=== PATIENT | female | born 1945 | race Caucasian/White ===

== ENCOUNTER 2016-10-10 11:05 | Emergency (ER) | payer MEDICARE, MEDICAID ==
[~2016-10-10 11:05] MED LIST: ACET50TA PO; ACTO15TA6 PO; ADV250INH INH; ADVA250A IN; ALBU0.084 IN; ALBU0.5N NEB; ALBUPOW9 XX; AVEL1TAB PO; CART180C PO; CLOT10TR MT; COLA50CA3 PO; COMBIN INH; DILT180C7 PO; DOXY100C42 PO; DUONSOL NEB; FISHCAP PO; FISHOIL PO; IPRASOL12 IN; JANU100T PO; LASI20TA PO; LASI40TA PO; LEVO500T PO; LEVO750T PO; LIPI10TA PO; LOPR0.77 TOP; METF1000 PO; PRED10TA2 PO; PRED20TA PO; PRED50TA2 PO; SALI0.653; SYNT88TA2 PO; TRIA0.023; TRIA55SP; TYLE325T5 PO; VENTAER IN; VITACAP33 PO; ZANT150T PO; [UNRECOGNIZED DRUG - CODE] TOP; oxygen
--- NOTE | 2016-10-10 15:16 | EDDOCDS ---
Physician Documentation [facility] Name: Brianna Mercedes Age: 71 yrs Sex: Female : 1945 Arrival Date: 10/10/2016 Time: 11:05 Bed TR7 Private MD: Alexis Mars Disposition: 10/10/16 13:37 Discharged to Home/Self Care. Impression: Slipping, tripping and stumbling without falling due to stepping from one level to another, Contusion of right lower leg - with hematoma. - Condition is Stable. - Discharge Instructions: Hematoma. - Medication Reconciliation form. - Follow up: Emergency Department; When: As needed; Reason: Worsening of conditions. Follow up: Alexis Mars MD; When: Tomorrow; Reason: Wound/Symptom Recheck, Recheck today's complaints, Worsening of conditions, Continuance of care. - Problem is an ongoing problem. - Symptoms are unchanged. Historical: - Allergies: Codeine Phosphate (Unknown); PENICILLINS (Swelling); eggs (itching); - Home Meds: 1. Actos 15 mg Oral tab 1 tab once daily 2. Advair Diskus 250-50 mcg/dose Inhl dsdv 1 puff 2 times per day 3. albuterol sulfate 2.5 mg /3 mL (0.083 %) Inhl nebu 3 mL every 8 hours 4. Cartia XT 180 mg Oral cp24 1 cap once daily 5. Combivent 18-103 mcg/actuation Inhl aero 2 puffs 4 times per day 6. furosemide 40 mg Oral tab 1 tab once daily 7. Januvia 100 mg oral tab 1 tab once daily 8. Lipitor 10 mg Oral tab 1 tab once daily 9. metformin 500 mg Oral tab 2 tabs 2 times per day 10. Oxygen 2l NC daily 11. Synthroid 88 mcg Oral tab 1 tab once daily 12. Zantac 150 mg Oral cap 1 cap once daily - PMHx: COPD; Diabetes - NIDDM: controlled; Hypercholesterolemia; Hypertension; Hypothyroidism; - PSHx: partial TVH; Hemorrhoidectomy; Appendectomy; - Social history: Smoking status: Patient states former smoker of tobacco. No barriers to communication noted, The patient speaks fluent Tunisian. - Family history: Not pertinent. - : The pt / caregiver states he / she is not on anticoagulants. Home medication list is obtained from the patient. - Exposure Risk Screening:: None identified. Vital Signs: 10/10 11:07 BP 188 / 104; Pulse 91; Resp 20; Temp 96.9(O); Pulse Ox 90% on 2 lpm NC; Weight 90.26 elp kg / 198.99 lbs (R); Height 5 ft. 3 in. (160.02 cm) (R); Pain 8/10; 13:43 BP 139 / 69; Pulse 97; Resp 20; Temp 98.7(TE); Pulse Ox 90% on 2 lpm NC; Pain 0/10; ar3 11:07 Body Mass Index 35.25 (90.26 kg, 160.02 cm) elp MDM: 12:41 Tibia/Fibula Ordered. EDMS 12:51 EXTREMITY NON VASCUL LIMITED Ordered. EDMS 13:49 Financial registration complete. jp5 Signatures: Dispatcher MedHost EDMS Kenzie HealyRN RN rs3 Gil Jacobo, PA-C PA-C cc10 Priscila Orozco jp5 The chart was reviewed and I authenticate all verbal orders and agree with the evaluation and treatment provided.Corrections: (The following items were deleted from the chart) 12:51 12:40 Duplex, Ext,LOWER veins,unilat+US ordered. EDMS EDMS MTDD
--- NOTE | 2016-10-10 15:16 | EDDOCDS ---
Nurse's Notes [facility] Name: Brianna Mercedes Age: 71 yrs Sex: Female : 1945 Arrival Date: 10/10/2016 Time: 11:05 Bed TR7 Private MD: Alexis Mars Diagnosis: Slipping, tripping and stumbling without falling due to stepping from one level to another;Contusion of right lower leg-with hematoma Presentation: 10/10 11:26 Presenting complaint: Patient states: Fell and injured right leg . Applied ice, rs3 and antibiotic cream. increased pain and hematoma in right leg. Adult Sepsis Screening: The patient does not have new or worsening altered mentation. Patient's respiratory rate is less than 22. Systolic blood pressure is greater than 100. Patient has a qSOFA score of 0- Negative Sepsis Screen. Suicide/Homicide risk assessment- the patient denies having any suicidal and/or homicidal ideations and does not present with any other emotional, behavioral or mental health complaints. Status: Patient is not a client service executive or dependent. Transition of care: patient was not received from another setting of care. 11:26 Acuity: SAMINA Level 4 rs3 11:26 Method Of Arrival: Walkin/Carried/Asstd rs3 Triage Assessment: 11:30 General: Appears in no apparent distress. Pain: Location: lateral aspect of right calf. rs3 Musculoskeletal: Reports Pain is 8 out of 10 on a pain scale. Historical: - Allergies: Codeine Phosphate (Unknown); PENICILLINS (Swelling); eggs (itching); - Home Meds: 1. Actos 15 mg Oral tab 1 tab once daily 2. Advair Diskus 250-50 mcg/dose Inhl dsdv 1 puff 2 times per day 3. albuterol sulfate 2.5 mg /3 mL (0.083 %) Inhl nebu 3 mL every 8 hours 4. Cartia XT 180 mg Oral cp24 1 cap once daily 5. Combivent 18-103 mcg/actuation Inhl aero 2 puffs 4 times per day 6. furosemide 40 mg Oral tab 1 tab once daily 7. Januvia 100 mg oral tab 1 tab once daily 8. Lipitor 10 mg Oral tab 1 tab once daily 9. metformin 500 mg Oral tab 2 tabs 2 times per day 10. Oxygen 2l NC daily 11. Synthroid 88 mcg Oral tab 1 tab once daily 12. Zantac 150 mg Oral cap 1 cap once daily - PMHx: COPD; Diabetes - NIDDM: controlled; Hypercholesterolemia; Hypertension; Hypothyroidism; - PSHx: partial TVH; Hemorrhoidectomy; Appendectomy; - Social history: Smoking status: Patient states former smoker of tobacco. No barriers to communication noted, The patient speaks fluent Omani. - Family history: Not pertinent. - : The pt / caregiver states he / she is not on anticoagulants. Home medication list is obtained from the patient. - Exposure Risk Screening:: None identified. Screenin:06 Infection Control. elp 13:15 Fall Risk. jjr 13:15 Screening information is obtained from the patient. Fall risk: At risk due to gait jjr disturbance, The following interventions are performed due to a positive Fall Risk Screen: added to special handling. Assistance ADL's: requires no assistance with activities of daily living. Abuse/DV Screen: The patient / caregiver reports he/she is: not in a situation that causes fear, pain or injury. Nutritional screening: No deficits noted. home support is adequate. 15:14 Advance Directives: Currently, there is no health care proxy. rs3 Assessment: 13:14 General: Appears in no apparent distress, well nourished, well groomed, Behavior is jjr appropriate for age. Neurological: No deficits noted. Respiratory: Airway is patent Respiratory effort is even, unlabored, Respiratory pattern is regular. Derm: Bruising that is dark purple, on right casper. Musculoskeletal: Swelling present in right casper. Vital Signs: 11:07 BP 188 / 104; Pulse 91; Resp 20; Temp 96.9(O); Pulse Ox 90% on 2 lpm NC; Weight 90.26 elp kg (R); Height 5 ft. 3 in. (160.02 cm) (R); Pain 8/10; 13:43 BP 139 / 69; Pulse 97; Resp 20; Temp 98.7(TE); Pulse Ox 90% on 2 lpm NC; Pain 0/10; ar3 11:07 Body Mass Index 35.25 (90.26 kg, 160.02 cm) [facility] Vitals: 11:07 Log In Time: October 10, 2016 at 10:52. [facility] ED Course: 11:06 Patient visited by Astrid Tamez PCA. elp 11:06 Alexis Mars MD is Private Physician. elp 11:06 Patient moved to Waiting elp 11:07 Patient visited by Astrid Tamez PCA. elp 11:07 Patient moved to Pre RCE elp 11:28 Triage Initiated rs3 11:55 Patient moved to Triage 3 ms18 12:07 Patient visited by Serene Kevin,JENNY. ms18 12:32 [facility] cc10 12:32 Karina Gonzalez MD is Attending Physician. cc10 12:32 Patient visited by Gil Jacobo PA-C. cc10 12:32 Patient visited by Gil Jacobo PA-C. cc10 12:47 Patient moved to PR2 / 26 ar3 13:15 Patient visited by Beti Dawn RN. jjr 13:15 The patient / caregiver is instructed regarding the plan of care and ED course. jjr 13:36 Alexis Mars MD is Referral Physician. cc10 13:44 Patient visited by Marie Louie PCA. ar3 14:17 Patient moved to TR7 ar3 15:14 No IV's were initiated during this patient's visit. No procedures done that require rs3 assistance. Order Results: There are currently no results for this order. Outcome: 13:37 Discharge ordered by Provider. cc10 15:14 Discharge Assessment: patient administered narcotics - no. The following High Risk rs3 Discharge criteria are identified: None. Discharged to home with family. Condition: stable. Discharge instructions given to patient, Instructed on discharge instructions, follow up and referral plans. medication usage, Demonstrated understanding of instructions, medications, Pt was receptive of discharge instructions/ teaching. Ultrasound Study completed. Property :Personal belongings accompany Pt. 15:15 Patient left the ED. rs3 Signatures: Beti Dawn RN RN jjr Soosairaj, Rosemary, RN RN rs3 Marie Louie, MOTORS AND GENERATORS INSPECTOR MOTORS AND GENERATORS INSPECTOR ar3 Astrid Tamez MOTORS AND GENERATORS INSPECTOR MOTORS AND GENERATORS INSPECTOR elp Gil Jacobo PA-C PA-C cc10 Serene Kevin RN RN ms18 Corrections: (The following items were deleted from the chart) 11:08 11:07 BP 188 / 104; Pulse 91bpm; Resp 20bpm; Pulse Ox 90% 2 lpm Nasal Cannula; 90.26 kg elp Reported; Height 5 ft. 3 in. Reported; BMI: 35.2; Pain 8/10; elp 15:15 15:14 No special radiology studies were completed rs3 rs3 MTDD
--- NOTE | 2016-10-11 11:17 | REP ---
Soft tissue ultrasound of a palpable mass right lower leg the: The palpable mass corresponded solid mass by ultrasound with a heterogeneous echotexture. With color Doppler assessment there is no internal vascular flow. There is no evidence of increased vascular flow at the periphery. Impression: Findings are compatible with hematoma versus abscess versus neoplasm. Signed by Albaro Orta MD 10/10/2016 01:12 P
--- NOTE | 2016-10-11 11:17 | REP ---
Right tibia-fibula four views : There is no fracture or dislocation. Mineralization and joint spaces are normal. There are no calcifications or foreign bodies. Impression: Negative right tibia-fibula . Signed by Albaro Orta MD 10/10/2016 01:13 P
--- NOTE | 2016-10-12 16:16 | EDDOCDS ---
Nurse's Notes [facility] Name: Brianna Mercedes Age: 71 yrs Sex: Female : 1945 Arrival Date: 10/10/2016 Time: 11:05 Bed TR7 Private MD: Alexis Mars Diagnosis: Slipping, tripping and stumbling without falling due to stepping from one level to another;Contusion of right lower leg-with hematoma Presentation: 10/10 11:26 Presenting complaint: Patient states: Fell and injured right leg . Applied ice, rs3 and antibiotic cream. increased pain and hematoma in right leg. Adult Sepsis Screening: The patient does not have new or worsening altered mentation. Patient's respiratory rate is less than 22. Systolic blood pressure is greater than 100. Patient has a qSOFA score of 0- Negative Sepsis Screen. Suicide/Homicide risk assessment- the patient denies having any suicidal and/or homicidal ideations and does not present with any other emotional, behavioral or mental health complaints. Status: Patient is not a automotive services manager or dependent. Transition of care: patient was not received from another setting of care. 11:26 Acuity: SAMINA Level 4 rs3 11:26 Method Of Arrival: Walkin/Carried/Asstd rs3 Triage Assessment: 11:30 General: Appears in no apparent distress. Pain: Location: lateral aspect of right calf. rs3 Musculoskeletal: Reports Pain is 8 out of 10 on a pain scale. Historical: - Allergies: Codeine Phosphate (Unknown); PENICILLINS (Swelling); eggs (itching); - Home Meds: 1. Actos 15 mg Oral tab 1 tab once daily 2. Advair Diskus 250-50 mcg/dose Inhl dsdv 1 puff 2 times per day 3. albuterol sulfate 2.5 mg /3 mL (0.083 %) Inhl nebu 3 mL every 8 hours 4. Cartia XT 180 mg Oral cp24 1 cap once daily 5. Combivent 18-103 mcg/actuation Inhl aero 2 puffs 4 times per day 6. furosemide 40 mg Oral tab 1 tab once daily 7. Januvia 100 mg oral tab 1 tab once daily 8. Lipitor 10 mg Oral tab 1 tab once daily 9. metformin 500 mg Oral tab 2 tabs 2 times per day 10. Oxygen 2l NC daily 11. Synthroid 88 mcg Oral tab 1 tab once daily 12. Zantac 150 mg Oral cap 1 cap once daily - PMHx: COPD; Diabetes - NIDDM: controlled; Hypercholesterolemia; Hypertension; Hypothyroidism; - PSHx: partial TVH; Hemorrhoidectomy; Appendectomy; - Social history: Smoking status: Patient states former smoker of tobacco. No barriers to communication noted, The patient speaks fluent Guamanian. - Family history: Not pertinent. - : The pt / caregiver states he / she is not on anticoagulants. Home medication list is obtained from the patient. - Exposure Risk Screening:: None identified. Screenin:06 Infection Control. elp 13:15 Fall Risk. jjr 13:15 Screening information is obtained from the patient. Fall risk: At risk due to gait jjr disturbance, The following interventions are performed due to a positive Fall Risk Screen: added to special handling. Assistance ADL's: requires no assistance with activities of daily living. Abuse/DV Screen: The patient / caregiver reports he/she is: not in a situation that causes fear, pain or injury. Nutritional screening: No deficits noted. home support is adequate. 15:14 Advance Directives: Currently, there is no health care proxy. rs3 Assessment: 13:14 General: Appears in no apparent distress, well nourished, well groomed, Behavior is jjr appropriate for age. Neurological: No deficits noted. Respiratory: Airway is patent Respiratory effort is even, unlabored, Respiratory pattern is regular. Derm: Bruising that is dark purple, on right casper. Musculoskeletal: Swelling present in right casper. Vital Signs: 11:07 BP 188 / 104; Pulse 91; Resp 20; Temp 96.9(O); Pulse Ox 90% on 2 lpm NC; Weight 90.26 elp kg (R); Height 5 ft. 3 in. (160.02 cm) (R); Pain 8/10; 13:43 BP 139 / 69; Pulse 97; Resp 20; Temp 98.7(TE); Pulse Ox 90% on 2 lpm NC; Pain 0/10; ar3 11:07 Body Mass Index 35.25 (90.26 kg, 160.02 cm) [facility] Vitals: 11:07 Log In Time: October 10, 2016 at 10:52. [facility] ED Course: 11:06 Patient visited by Astrid Tamez PCA. elp 11:06 Alexis Mars MD is Private Physician. elp 11:06 Patient moved to Waiting elp 11:07 Patient visited by Astrid Tamez PCA. elp 11:07 Patient moved to Pre RCE elp 11:28 Triage Initiated rs3 11:55 Patient moved to Triage 3 ms18 12:07 Patient visited by Serene Kevin,JENNY. ms18 12:32 Gil Jacobo PA-C is PHCP. cc10 12:32 Karina Gonzalez MD is Attending Physician. cc10 12:32 Patient visited by Gil Jacobo PA-C. cc10 12:32 Patient visited by Gil Jacobo PA-C. cc10 12:47 Patient moved to PR2 / 26 ar3 13:15 Patient visited by Beti Dawn RN. jjr 13:15 The patient / caregiver is instructed regarding the plan of care and ED course. jjr 13:36 Alexis Mars MD is Referral Physician. cc10 13:44 Patient visited by Marie Louie PCA. ar3 14:17 Patient moved to TR7 ar3 15:14 No IV's were initiated during this patient's visit. No procedures done that require rs3 assistance. 15:43 [facility] Payment Agreement was scanned into KDW and attached to record. jp5 21:48 T-Sheet-- Draft Copy was scanned into KDW and attached to record. klr 10/11 11:20 EXTREMITY NON VASCUL LIMITED Returned. EDMS 11:20 Tibia/Fibula Returned. EDMS Order Results: Radiology Order: Tibia/Fibula Test: Tibia/Fibula REASON FOR EXAMINATION: Trauma; Right tibia-fibula four views :; ; There is no fracture or dislocation.; ; Mineralization and joint spaces are normal.; ; There are no calcifications or foreign bodies.; ; Impression:; ; Negative right tibia-fibula .; ; ; Signed by; Albaro Orta MD 10/10/2016 01:13 P; Radiology Order: EXTREMITY NON VASCUL LIMITED Test: EXTREMITY NON VASCUL LIMITED REASON FOR EXAMINATION: hematoma; Soft tissue ultrasound of a palpable mass right lower leg the:; ; The palpable mass corresponded solid mass by ultrasound with a heterogeneous; echotexture. With color Doppler assessment there is no internal vascular flow.; There is no evidence of increased vascular flow at the periphery.; ; Impression:; ; Findings are compatible with hematoma versus abscess versus neoplasm.; ; ; Signed by; Albaro Orta MD 10/10/2016 01:12 P; Outcome: 10/10 13:37 Discharge ordered by Provider. cc10 15:14 Discharge Assessment: patient administered narcotics - no. The following High Risk rs3 Discharge criteria are identified: None. Discharged to home with family. Condition: stable. Discharge instructions given to patient, Instructed on discharge instructions, follow up and referral plans. medication usage, Demonstrated understanding of instructions, medications, Pt was receptive of discharge instructions/ teaching. Ultrasound Study completed. Property :Personal belongings accompany Pt. 15:15 Patient left the ED. rs3 Signatures: Dispatcher [employer] EDMS Beti Dawn RN RN Kenzie Gupta RN RN rs3 Marie Louie, B2B SALES MANAGER B2B SALES MANAGER ar3 Astrid Tamez, B2B SALES MANAGER B2B SALES MANAGER elp Gil Jacobo PAJosé Luis PA-Vickey cc10 Serene Kevin,JENNY RN ms18 Priscila Orozco jp5 Alison Srinivasan Corrections: (The following items were deleted from the chart) 11:08 11:07 BP 188 / 104; Pulse 91bpm; Resp 20bpm; Pulse Ox 90% 2 lpm Nasal Cannula; 90.26 kg elp Reported; Height 5 ft. 3 in. Reported; BMI: 35.2; Pain 8/10; elp 15:15 15:14 No special radiology studies were completed rs3 rs3 Chart Complete MTDD
--- NOTE | 2016-10-12 16:16 | EDDOCDS ---
Physician Documentation [facility] Name: Brianna Mercedes Age: 71 yrs Sex: Female : 1945 Arrival Date: 10/10/2016 Time: 11:05 Bed TR7 Private MD: Alexis Mars Disposition: 10/10/16 13:37 Discharged to Home/Self Care. Impression: Slipping, tripping and stumbling without falling due to stepping from one level to another, Contusion of right lower leg - with hematoma. - Condition is Stable. - Discharge Instructions: Hematoma. - Medication Reconciliation form. - Follow up: Emergency Department; When: As needed; Reason: Worsening of conditions. Follow up: Alexis Mars MD; When: Tomorrow; Reason: Wound/Symptom Recheck, Recheck today's complaints, Worsening of conditions, Continuance of care. - Problem is an ongoing problem. - Symptoms are unchanged. Historical: - Allergies: Codeine Phosphate (Unknown); PENICILLINS (Swelling); eggs (itching); - Home Meds: 1. Actos 15 mg Oral tab 1 tab once daily 2. Advair Diskus 250-50 mcg/dose Inhl dsdv 1 puff 2 times per day 3. albuterol sulfate 2.5 mg /3 mL (0.083 %) Inhl nebu 3 mL every 8 hours 4. Cartia XT 180 mg Oral cp24 1 cap once daily 5. Combivent 18-103 mcg/actuation Inhl aero 2 puffs 4 times per day 6. furosemide 40 mg Oral tab 1 tab once daily 7. Januvia 100 mg oral tab 1 tab once daily 8. Lipitor 10 mg Oral tab 1 tab once daily 9. metformin 500 mg Oral tab 2 tabs 2 times per day 10. Oxygen 2l NC daily 11. Synthroid 88 mcg Oral tab 1 tab once daily 12. Zantac 150 mg Oral cap 1 cap once daily - PMHx: COPD; Diabetes - NIDDM: controlled; Hypercholesterolemia; Hypertension; Hypothyroidism; - PSHx: partial TVH; Hemorrhoidectomy; Appendectomy; - Social history: Smoking status: Patient states former smoker of tobacco. No barriers to communication noted, The patient speaks fluent Welsh. - Family history: Not pertinent. - : The pt / caregiver states he / she is not on anticoagulants. Home medication list is obtained from the patient. - Exposure Risk Screening:: None identified. Vital Signs: 10/10 11:07 BP 188 / 104; Pulse 91; Resp 20; Temp 96.9(O); Pulse Ox 90% on 2 lpm NC; Weight 90.26 elp kg / 198.99 lbs (R); Height 5 ft. 3 in. (160.02 cm) (R); Pain 8/10; 13:43 BP 139 / 69; Pulse 97; Resp 20; Temp 98.7(TE); Pulse Ox 90% on 2 lpm NC; Pain 0/10; ar3 11:07 Body Mass Index 35.25 (90.26 kg, 160.02 cm) elp MDM: 12:41 Tibia/Fibula Ordered. EDMS 12:51 EXTREMITY NON VASCUL LIMITED Ordered. EDMS 13:49 Financial registration complete. jp5 15:43 [facility] Payment Agreement was scanned into AQH and attached to record. jp5 15:43 Undo -Financial registration. jp5 15:43 Financial registration complete. jp5 21:48 T-Sheet-- Draft Copy was scanned into AQH and attached to record. klr 10/11 13:18 ED course: dr arnold faxed formal report of us for fu mlg. ml Signatures: Dispatcher MedHost EDGA Marleen Clifton MD MD ml Soosairaj, Rosemary,RN RN rs3 Gil Jacobo, PA-C PA-C cc10 Priscila Orozco jp5 Alison Srinivasan The chart was reviewed and I authenticate all verbal orders and agree with the evaluation and treatment provided.Corrections: (The following items were deleted from the chart) 10/10 12:51 12:40 Duplex, Ext,LOWER veins,unilat+US ordered. EDMS EDMS Attachments: 15:43 [facility] Payment Agreement jp5 21:48 T-Sheet-- Draft Copy klr Chart Complete MTDD
--- NOTE | 2016-10-12 16:16 | EDDOCDS ---
Physician Documentation [facility] Name: Brianna Mercedes Age: 71 yrs Sex: Female : 1945 Arrival Date: 10/10/2016 Time: 11:05 Bed TR7 Private MD: Alexis Mars Disposition: 10/10/16 13:37 Discharged to Home/Self Care. Impression: Slipping, tripping and stumbling without falling due to stepping from one level to another, Contusion of right lower leg - with hematoma. - Condition is Stable. - Discharge Instructions: Hematoma. - Medication Reconciliation form. - Follow up: Emergency Department; When: As needed; Reason: Worsening of conditions. Follow up: Alexis Mars MD; When: Tomorrow; Reason: Wound/Symptom Recheck, Recheck today's complaints, Worsening of conditions, Continuance of care. - Problem is an ongoing problem. - Symptoms are unchanged. Historical: - Allergies: Codeine Phosphate (Unknown); PENICILLINS (Swelling); eggs (itching); - Home Meds: 1. Actos 15 mg Oral tab 1 tab once daily 2. Advair Diskus 250-50 mcg/dose Inhl dsdv 1 puff 2 times per day 3. albuterol sulfate 2.5 mg /3 mL (0.083 %) Inhl nebu 3 mL every 8 hours 4. Cartia XT 180 mg Oral cp24 1 cap once daily 5. Combivent 18-103 mcg/actuation Inhl aero 2 puffs 4 times per day 6. furosemide 40 mg Oral tab 1 tab once daily 7. Januvia 100 mg oral tab 1 tab once daily 8. Lipitor 10 mg Oral tab 1 tab once daily 9. metformin 500 mg Oral tab 2 tabs 2 times per day 10. Oxygen 2l NC daily 11. Synthroid 88 mcg Oral tab 1 tab once daily 12. Zantac 150 mg Oral cap 1 cap once daily - PMHx: COPD; Diabetes - NIDDM: controlled; Hypercholesterolemia; Hypertension; Hypothyroidism; - PSHx: partial TVH; Hemorrhoidectomy; Appendectomy; - Social history: Smoking status: Patient states former smoker of tobacco. No barriers to communication noted, The patient speaks fluent Honduran. - Family history: Not pertinent. - : The pt / caregiver states he / she is not on anticoagulants. Home medication list is obtained from the patient. - Exposure Risk Screening:: None identified. Vital Signs: 10/10 11:07 BP 188 / 104; Pulse 91; Resp 20; Temp 96.9(O); Pulse Ox 90% on 2 lpm NC; Weight 90.26 elp kg / 198.99 lbs (R); Height 5 ft. 3 in. (160.02 cm) (R); Pain 8/10; 13:43 BP 139 / 69; Pulse 97; Resp 20; Temp 98.7(TE); Pulse Ox 90% on 2 lpm NC; Pain 0/10; ar3 11:07 Body Mass Index 35.25 (90.26 kg, 160.02 cm) elp MDM: 12:41 Tibia/Fibula Ordered. EDMS 12:51 EXTREMITY NON VASCUL LIMITED Ordered. EDMS 13:49 Financial registration complete. jp5 15:43 [facility] Payment Agreement was scanned into Weeb[employer] and attached to record. jp5 15:43 Undo -Financial registration. jp5 15:43 Financial registration complete. jp5 21:48 T-Sheet-- Draft Copy was scanned into Weebly and attached to record. klr 10/11 13:18 ED course: dr arnold faxed formal report of us for fu mlg. ml Signatures: Dispatcher [employer] EDOH Marleen Clifton MD MD ml Soosairaj, Rosemary,RN RN rs3 Gil Jacobo, PA-C PA-C cc10 Priscila Orozco jp5 Alison Srinivasan The chart was reviewed and I authenticate all verbal orders and agree with the evaluation and treatment provided.Corrections: (The following items were deleted from the chart) 10/10 12:51 12:40 Duplex, Ext,LOWER veins,unilat+US ordered. EDMS EDMS Attachments: 15:43 [facility] Payment Agreement jp5 21:48 T-Sheet-- Draft Copy klr Chart Complete MTDD
== END 2016-10-10 15:15 | disposition home or self-care (01) ==
LOC: M ED 11:05
DX: S80.11XA Contusion of right lower leg, initial encounter (principal); W01.0XXA Fall on same level from slipping, tripping and stumbling without subsequent striking against object, initial encounter; Y92.098 Other place in other non-institutional residence as the place of occurrence of the external cause; Y93.89 Activity, other specified; Y99.8 Other external cause status; M79.89 Other specified soft tissue disorders; I10 Essential (primary) hypertension; J44.9 Chronic obstructive pulmonary disease, unspecified; E11.9 Type 2 diabetes mellitus without complications; E07.9 Disorder of thyroid, unspecified; E78.00 Pure hypercholesterolemia, unspecified; Z87.891 Personal history of nicotine dependence; Z88.0 Allergy status to penicillin; Z88.5 Allergy status to narcotic agent; Z91.012 Allergy to eggs; Z79.899 Other long term (current) drug therapy; Z79.51 Long term (current) use of inhaled steroids; Z79.84 Long term (current) use of oral hypoglycemic drugs; Z99.81 Dependence on supplemental oxygen

== ENCOUNTER → 2016-11-12 | Outpatient (REF) | payer MEDICARE, MEDICAID ==
[2016-11-12 11:41] LABS: MEAN CORPUSCULAR HEMOGLOBIN 30.5 pg (27.0-33.0); MEAN CORPUSCULAR HGB CONC 32.6 g/dl (32.0-36.5); MEAN CORPUSCULAR VOLUME 93.7 fl (80.0-96.0); RED CELL DISTRIBUTION WIDTH 14.8 % (11.5-14.5); WHITE BLOOD COUNT 6.6 K/mm3 (4.0-10.0)
[2016-11-12 12:17] LABS: ALBUMIN 3.5 GM/DL (3.2-5.2); ALBUMIN/GLOBULIN RATIO 0.81 (1.00-1.93); ALKALINE PHOSPHATASE 73 U/L (45-117); ALT/SGPT 16 U/L (12-78); ANION GAP 10 MEQ/L (8-16); AST/SGOT 13 U/L (15-37); BILIRUBIN,TOTAL 0.3 MG/DL (0.2-1.0); BLOOD UREA NITROGEN 17 MG/DL (7-18); CARBON DIOXIDE LEVEL 32 MEQ/L (21-32); CHLORIDE LEVEL 100 MEQ/L (98-107); CHOLESTEROL LEVEL 140 MG/DL (<200); CREATININE FOR GFR 0.94 MG/DL (0.55-1.02); FREE T4 1.22 NG/DL (0.76-1.46); GLOMERULAR FILTRATION RATE > 60.0 (>39); GLUCOSE, FASTING 176 MG/DL (83-110); POTASSIUM SERUM 4.3 MEQ/L (3.5-5.1); SODIUM LEVEL 142 MEQ/L (136-145); TOTAL PROTEIN 7.8 GM/DL (6.4-8.2); TRIGLYCERIDES LEVEL 106 MG/DL (<150)
== END ==
LOC: M LABDRAW1 09:45
PROVIDERS: ATTEND Family Medicine
DX: J44.9 Chronic obstructive pulmonary disease, unspecified (principal); E13.9 Other specified diabetes mellitus without complications; E03.9 Hypothyroidism, unspecified; E78.4 Other hyperlipidemia

== ENCOUNTER → 2016-12-22 | Outpatient (REF) | payer MEDICARE, MEDICAID ==
[2016-12-22 12:12] LABS: BASO % 0.2 % (0.0-1.0); EOS % 0.5 % (0.0-3.0); LARGE UNSTAINED CELL # 0.1 K/mm3 (0.0-0.4); LARGE UNSTAINED CELL % 1.8 % (0.0-4.0); LYMPH # 1.4 K/mm3 (1.5-4.5); LYMPH % 22.2 % (24.0-44.0); MEAN CORPUSCULAR HEMOGLOBIN 30.1 pg (27.0-33.0); MEAN CORPUSCULAR HGB CONC 32.4 g/dl (32.0-36.5); MEAN CORPUSCULAR VOLUME 92.8 fl (80.0-96.0); MONO # 0.4 K/mm3 (0.0-0.8); MONO % 6.2 % (0.0-5.0); NEUTROPHILS # 4.3 K/mm3 (1.8-7.7); PLATELET COUNT, AUTOMATED 140 k/mm3 (150-450); RED CELL DISTRIBUTION WIDTH 14.6 % (11.5-14.5); WHITE BLOOD COUNT 6.2 K/mm3 (4.0-10.0)
[2016-12-22 12:33] LABS: ALBUMIN 3.7 GM/DL (3.2-5.2); ALBUMIN/GLOBULIN RATIO 0.8 (1.00-1.93); BILIRUBIN,TOTAL 0.4 MG/DL (0.2-1.0); CALCIUM LEVEL 8.6 MG/DL (8.8-10.2); CREATININE FOR GFR 1.14 MG/DL (0.55-1.02); GLOMERULAR FILTRATION RATE 49.7 (>39); POTASSIUM SERUM 3.1 MEQ/L (3.5-5.1); TOTAL PROTEIN 8.3 GM/DL (6.4-8.2)
== END ==
LOC: M SFHCPLAZ 11:01
PROVIDERS: ATTEND Physician Assistant
DX: R11.2 Nausea with vomiting, unspecified (principal); J01.90 Acute sinusitis, unspecified; J44.9 Chronic obstructive pulmonary disease, unspecified; I10 Essential (primary) hypertension; E13.9 Other specified diabetes mellitus without complications; E87.6 Hypokalemia; Z79.84 Long term (current) use of oral hypoglycemic drugs; Z79.899 Other long term (current) drug therapy
CPT/HCPCS: 36415; 80053; 85025; G0463

== ENCOUNTER → 2016-12-24 | Outpatient (REF) | payer MEDICARE, MEDICAID ==
[2016-12-24 12:27] LABS: ALBUMIN 3.6 GM/DL (3.2-5.2); ALBUMIN/GLOBULIN RATIO 0.82 (1.00-1.93); ALKALINE PHOSPHATASE 66 U/L (45-117); ALT/SGPT 14 U/L (12-78); ANION GAP 6 MEQ/L (8-16); AST/SGOT 15 U/L (15-37); BILIRUBIN,TOTAL 0.4 MG/DL (0.2-1.0); BLOOD UREA NITROGEN 17 MG/DL (7-18); CALCIUM LEVEL 9.1 MG/DL (8.8-10.2); CARBON DIOXIDE LEVEL 32 MEQ/L (21-32); CHLORIDE LEVEL 101 MEQ/L (98-107); CREATININE FOR GFR 0.92 MG/DL (0.55-1.02); GLOMERULAR FILTRATION RATE > 60.0 (>39); GLUCOSE, FASTING 166 MG/DL (83-110); POTASSIUM SERUM 4.3 MEQ/L (3.5-5.1); SODIUM LEVEL 139 MEQ/L (136-145)
== END ==
LOC: M SFHCPLAZ 10:23
PROVIDERS: ATTEND Nurse Practitioner Family
DX: R11.2 Nausea with vomiting, unspecified (principal)
CPT/HCPCS: 36415; 80053; G0463

== ENCOUNTER 2018-03-13 13:41 | Emergency (ER) | payer MEDICARE, MEDICAID ==
[2018-03-13 14:55] LABS: BASO % 0.4 % (0.0-1.0); EOS # 0.1 10^3/uL (0.0-0.50); EOS % 0.9 % (0.0-3.0); HEMATOCRIT 39.7 % (36.0-47.0); HEMOGLOBIN 12.8 g/dl (12.0-15.5); IMMATURE GRANULOCYTE % 0.3 % (0-3.0); LYMPH # 2.1 10^3/uL (1.5-4.5); LYMPH % 27.3 % (24.0-44.0); MEAN CORPUSCULAR HEMOGLOBIN 30.4 pg (27.0-33.0); MEAN CORPUSCULAR HGB CONC 32.2 g/dl (32.0-36.5); MEAN CORPUSCULAR VOLUME 94.3 fl (80.0-96.0); MONO # 0.5 10^3/uL (0.0-0.8); MONO % 7.1 % (0.0-5.0); NEUTROPHILS # 4.9 10^3/uL (1.8-7.7); PLATELET COUNT, AUTOMATED 162 10^3/uL (150-450); RED BLOOD COUNT 4.21 10^6/uL (4.00-5.40); WHITE BLOOD COUNT 7.6 10^3/uL (4.0-10.0)
[2018-03-13 15:19] LABS: ANION GAP 9 MEQ/L (8-16); BLOOD UREA NITROGEN 19 MG/DL (7-18); CARBON DIOXIDE LEVEL 33 MEQ/L (21-32); CHLORIDE LEVEL 99 MEQ/L (98-107); CK-MB VALUE MASS < 1.0 NG/ML (<3.6); CPK CREATINE PHOSPHOKINASE 59 U/L (26-192); CREATININE FOR GFR 1.21 MG/DL (0.55-1.30); GLOMERULAR FILTRATION RATE 46.3 (>39); GLUCOSE, FASTING 145 MG/DL (70-100); MB/CK RELATIVE INDEX 1.69 (< OR =4); POTASSIUM SERUM 3.7 MEQ/L (3.5-5.1); SODIUM LEVEL 141 MEQ/L (136-145); TROPONIN I < 0.02 NG/ML (< 0.10)
[2018-03-13] MEDS: IPRATROPIUM 0.5MG/ALBUTEROL 2.5MG INH SOL UD 3ML (DUONEB)(J7620) NEB (15:42)
[2018-03-13] MEDS: ONDANSETRON 4MG/2ML VIAL (J2405) IV (16:04)
[2018-03-13] MEDS: methylPREDNISolone INJ 125 MG/2 ML VIAL (J2930) IV (16:04)
[2018-03-13] MEDS: NS 1,000 ML IV (16:05)
== END 2018-03-13 18:50 | disposition home or self-care (01) ==
LOC: M ED 13:41
DX: J44.1 Chronic obstructive pulmonary disease with (acute) exacerbation (principal); I67.81 Acute cerebrovascular insufficiency; R00.0 Tachycardia, unspecified; E11.9 Type 2 diabetes mellitus without complications; E78.5 Hyperlipidemia, unspecified; E07.9 Disorder of thyroid, unspecified; K76.0 Fatty (change of) liver, not elsewhere classified; K21.9 Gastro-esophageal reflux disease without esophagitis; Z87.09 Personal history of other diseases of the respiratory system; Z86.79 Personal history of other diseases of the circulatory system; Z98.890 Other specified postprocedural states; Z87.891 Personal history of nicotine dependence; Z88.8 Allergy status to other drugs, medicaments and biological substances; Z88.5 Allergy status to narcotic agent; Z88.0 Allergy status to penicillin; Z88.2 Allergy status to sulfonamides; Z91.012 Allergy to eggs
CPT/HCPCS: J2405

== ENCOUNTER 2018-04-27 19:01 | Emergency (ER) | payer MEDICARE, MEDICAID ==
[2018-04-27] MEDS: METHOCARBAMOL 500 MG TAB PO (21:58)
== END 2018-04-27 22:20 | disposition home or self-care (01) ==
LOC: M ED 19:01
DX: S46.912A Strain of unspecified muscle, fascia and tendon at shoulder and upper arm level, left arm, initial encounter (principal); X50.0XXA Overexertion from strenuous movement or load, initial encounter; Y92.838 Other recreation area as the place of occurrence of the external cause; I11.0 Hypertensive heart disease with heart failure; I50.9 Heart failure, unspecified; E11.9 Type 2 diabetes mellitus without complications; I25.2 Old myocardial infarction; R51 Headache; J45.909 Unspecified asthma, uncomplicated; J44.9 Chronic obstructive pulmonary disease, unspecified; K21.9 Gastro-esophageal reflux disease without esophagitis; E03.9 Hypothyroidism, unspecified; M54.9 Dorsalgia, unspecified; Z99.81 Dependence on supplemental oxygen; Z88.6 Allergy status to analgesic agent; Z88.5 Allergy status to narcotic agent; Z88.0 Allergy status to penicillin; Z88.2 Allergy status to sulfonamides; Z88.8 Allergy status to other drugs, medicaments and biological substances; Z91.012 Allergy to eggs; Z79.899 Other long term (current) drug therapy; Z79.84 Long term (current) use of oral hypoglycemic drugs
CPT/HCPCS: 99283

== ENCOUNTER → 2018-05-04 | Outpatient (REF) | payer MEDICARE, MEDICAID ==
[2018-05-04 16:30] LABS: ALBUMIN 3.3 GM/DL (3.2-5.2); ALBUMIN/GLOBULIN RATIO 0.67 (1.00-1.93); ALKALINE PHOSPHATASE 68 U/L (45-117); ALT/SGPT 17 U/L (12-78); ANION GAP 10 MEQ/L (8-16); AST/SGOT 16 U/L (7-37); BILIRUBIN,TOTAL 0.2 MG/DL (0.2-1.0); BLOOD UREA NITROGEN 28 MG/DL (7-18); CALCIUM LEVEL 9.2 MG/DL (8.8-10.2); CARBON DIOXIDE LEVEL 33 MEQ/L (21-32); CHLORIDE LEVEL 98 MEQ/L (98-107); CREATININE FOR GFR 1.05 MG/DL (0.55-1.30); FREE T4 1.07 NG/DL (0.76-1.46); GLOMERULAR FILTRATION RATE 54.5 (>39); GLUCOSE, FASTING 93 MG/DL (70-100); POTASSIUM SERUM 4.4 MEQ/L (3.5-5.1); SODIUM LEVEL 141 MEQ/L (136-145); TOTAL PROTEIN 8.2 GM/DL (6.4-8.2)
== END ==
LOC: M SFHCPLAZ 13:39
DX: E03.9 Hypothyroidism, unspecified (principal); I11.9 Hypertensive heart disease without heart failure; E78.4 Other hyperlipidemia
CPT/HCPCS: 84443

== ENCOUNTER 2018-07-20 10:37 | Emergency (ER) | payer MEDICARE, MEDICAID ==
[2018-07-20 11:23] LABS: BASO % 0.3 % (0.0-1.0); EOS % 0.6 % (0.0-3.0); HEMATOCRIT 41.1 % (36.0-47.0); IMMATURE GRANULOCYTE % 0.3 % (0-3.0); LYMPH # 1.2 10^3/uL (1.5-4.5); LYMPH % 19.4 % (24.0-44.0); MEAN CORPUSCULAR HEMOGLOBIN 30.6 pg (27.0-33.0); MEAN CORPUSCULAR HGB CONC 31.6 g/dl (32.0-36.5); MEAN CORPUSCULAR VOLUME 96.7 fl (80.0-96.0); MONO # 0.4 10^3/uL (0.0-0.8); MONO % 6.3 % (0.0-5.0); NEUTROPHILS # 4.6 10^3/uL (1.8-7.7); NEUTROPHILS % 73.1 % (36.0-66.0); PLATELET COUNT, AUTOMATED 154 10^3/uL (150-450); RED BLOOD COUNT 4.25 10^6/uL (4.00-5.40); RED CELL DISTRIBUTION WIDTH 14.5 % (11.5-14.5); WHITE BLOOD COUNT 6.2 10^3/uL (4.0-10.0)
[2018-07-20 11:36] LABS: INR 0.93; PROTHROMBIN TIME 12.6 SECONDS (12.1-14.4)
[2018-07-20] MEDS: ACETAMINOPHEN TAB 650MG DOSE (2X325MG) PO (12:00)
[2018-07-20 12:10] LABS: ALBUMIN 3.3 GM/DL (3.2-5.2); ALBUMIN/GLOBULIN RATIO 0.77 (1.00-1.93); ALKALINE PHOSPHATASE 66 U/L (45-117); ALT/SGPT 20 U/L (12-78); ANION GAP 8 MEQ/L (8-16); AST/SGOT 14 U/L (7-37); BILIRUBIN,DIRECT < 0.1 MG/DL (0.0-0.2); BILIRUBIN,TOTAL 0.2 MG/DL (0.2-1.0); BLOOD UREA NITROGEN 20 MG/DL (7-18); CALCIUM LEVEL 9.4 MG/DL (8.8-10.2); CARBON DIOXIDE LEVEL 35 MEQ/L (21-32); CHLORIDE LEVEL 97 MEQ/L (98-107); CPK CREATINE PHOSPHOKINASE 39 U/L (26-192); CREATININE FOR GFR 1.04 MG/DL (0.55-1.30); GLOMERULAR FILTRATION RATE 55.1 (>39); GLUCOSE, FASTING 197 MG/DL (70-100); MB/CK RELATIVE INDEX 3.59 (< OR =4); NT-PRO BNP 492 PG/ML (<125); POTASSIUM SERUM 4.2 MEQ/L (3.5-5.1); SODIUM LEVEL 140 MEQ/L (136-145); THYROID STIMULATING HORMONE 0.375 uIU/ML (0.358-3.740); TOTAL PROTEIN 7.6 GM/DL (6.4-8.2); TROPONIN I < 0.02 NG/ML (< 0.10)
[2018-07-20] MEDS ORDERED: ISOVUE-370 76% 100ML VIAL (Q9967) As Ordered (12:35)
== END 2018-07-20 14:33 | disposition home or self-care (01) ==
LOC: M ED 10:37
DX: R07.89 Other chest pain (principal); R91.1 Solitary pulmonary nodule; J44.9 Chronic obstructive pulmonary disease, unspecified; I49.3 Ventricular premature depolarization; R06.02 Shortness of breath; E11.9 Type 2 diabetes mellitus without complications; I10 Essential (primary) hypertension; E78.5 Hyperlipidemia, unspecified; K21.9 Gastro-esophageal reflux disease without esophagitis; E03.9 Hypothyroidism, unspecified; Z87.19 Personal history of other diseases of the digestive system; Z87.09 Personal history of other diseases of the respiratory system; I27.20 Pulmonary hypertension, unspecified; Z87.891 Personal history of nicotine dependence; Z88.6 Allergy status to analgesic agent; Z88.5 Allergy status to narcotic agent; Z88.0 Allergy status to penicillin; Z88.8 Allergy status to other drugs, medicaments and biological substances; Z88.2 Allergy status to sulfonamides; Z91.012 Allergy to eggs; Z79.899 Other long term (current) drug therapy; Z79.84 Long term (current) use of oral hypoglycemic drugs; Z79.01 Long term (current) use of anticoagulants; Z79.51 Long term (current) use of inhaled steroids
CPT/HCPCS: Q9967

== ENCOUNTER → 2018-11-20 | Outpatient (CLI) | payer MEDICAID, MEDICARE ==
[~2018-11-20] MED LIST changes: -AVEL1TAB PO; +AVEL1TAB3 PO; +ROBA500T PO
--- NOTE | 2018-11-20 10:08 | REP ---
CT CHEST WITHOUT CONTRAST: 11/20/2018. Comparison: CT angiogram chest 07/20/2018, CT 08/09/2016. Clinical History: Possible cavitary nodule right lower lobe on CT of 4 months ago. Technique. Noncontrast images were provided with coronal and sagittal reconstructions performed. Findings. Lungs are hyperinflated with bullous emphysematous changes. Some apical pleuroparenchymal fibrotic change and all of this stable. Some minor cylindrical bronchiectatic changes are seen. There is a 5.6 mm curvilinear focus in the right lower lobe lateral basal segment subpleural on image 60 of series 201 unchanged from the previous CT. It is not a complete circumferential density and could also be a curvilinear scar. There are no changes around it or enlargement. I see no other definite nodules, masses, pleural thickening, effusion or pneumothorax. Heart size unchanged. There are calcifications at the aortic root, arch and descending aorta. Small hiatal hernia noted. Coronary artery calcifications are noted. No pathologic sized mediastinal or hilar adenopathy. There is a small amount of fluid remaining in the superior pericardial recess. Bone windows, sternum, manubrium, visualized portions of clavicles, scapulae, humerus, ribs and spine unchanged without acute finding. The upper abdomen shows that portion of liver and spleen without mass or biliary dilatation. No adrenal mass. The upper pole left kidney seen and unremarkable. Tail of the pancreas seen only in part and was unremarkable. Impression: 1. COPD with emphysematous changes and chronic apical pleuroparenchymal scarring and some bullous changes. 2. 5.6 mm stable oval focus in the lateral basal segment right lower lobe on image 60 of the axial images. This is unchanged from the study 4 months ago and it is not completely circumferential. It may be scar or small a cavitary lesion with no interval change. No pathologic sized mediastinal or hilar adenopathy, that too is stable. 3. Calcified aortic root, arch and descending aorta without interval change. Electronically Signed by Mirza Weinstein MD 11/20/2018 07:39 P
== END ==
LOC: M RAD 08:08
PROVIDERS: ATTEND Internal Medicine Pulmonary Disease
DX: R91.8 Other nonspecific abnormal finding of lung field (principal); J43.9 Emphysema, unspecified; K44.9 Diaphragmatic hernia without obstruction or gangrene; I70.0 Atherosclerosis of aorta

== ENCOUNTER → 2018-12-15 | Outpatient (REF) | payer MEDICARE, MEDICAID ==
[~2018-12-15] MED LIST changes: -ACET50TA PO; +MAPA500T17 PO
[2018-12-15 12:00] LABS: HEMATOCRIT 40.6 % (36.0-47.0); HEMOGLOBIN 12.8 g/dl (12.0-15.5); MEAN CORPUSCULAR HGB CONC 31.5 g/dl (32.0-36.5); MEAN CORPUSCULAR VOLUME 98.3 fl (80.0-96.0); PLATELET COUNT, AUTOMATED 183 10^3/uL (150-450); RED BLOOD COUNT 4.13 10^6/uL (4.00-5.40); WHITE BLOOD COUNT 5.7 10^3/uL (4.0-10.0)
[2018-12-15 12:25] LABS: ERYTHROCYTE SEDIMENTATION RATE 49 mm/hr (0-30)
[2018-12-15 12:37] LABS: CREATININE, URINE 51.8 MG/DL; MALB URINE SIEMENS 16.7 MG/L; MAU/CREAT RATIO 32.2 MCG/MG (0.0-30.0)
[2018-12-15 12:39] LABS: ALBUMIN 3.7 GM/DL (3.2-5.2); BILIRUBIN,TOTAL 0.2 MG/DL (0.2-1.0); CALCIUM LEVEL 9.2 MG/DL (8.8-10.2); CHOLESTEROL RISK RATIO 2.189 (<5); CREATININE FOR GFR 1.28 MG/DL (0.55-1.30); FREE T4 1.18 NG/DL (0.76-1.46); GLOMERULAR FILTRATION RATE 43.3 (>39); POTASSIUM SERUM 4.1 MEQ/L (3.5-5.1); THYROID STIMULATING HORMONE 2.5 uIU/ML (0.358-3.740); TOTAL PROTEIN 7.9 GM/DL (6.4-8.2)
== END ==
LOC: M SFHCPLAZ 09:15
PROVIDERS: ATTEND Family Medicine
DX: R63.4 Abnormal weight loss (principal); E03.9 Hypothyroidism, unspecified; I11.9 Hypertensive heart disease without heart failure; E13.9 Other specified diabetes mellitus without complications; E78.49 Other hyperlipidemia; K52.9 Noninfective gastroenteritis and colitis, unspecified
CPT/HCPCS: 36415; 80053; 80061; 82043; 83036; 84439; 84443; 85027; 85652; 86255; G0463

== ENCOUNTER 2019-02-12 12:58 | Emergency (ER) | payer MEDICARE, MEDICAID ==
[~2019-02-12] VITALS: Ht 160 cm; Wt 74.1 kg
[2019-02-12] MEDS ORDERED: CLINDAMYCIN 600 MG in APPROPRIATE DILUENT 1 EA IV ONE (13:45)
[2019-02-12] MEDS ORDERED: ADACEL/BOOSTRIX VACCINE (DIPHTH/PERTUSS/ACELL/TETANUS)0.5ML SYR (90715) IM ONE (14:45)
[2019-02-12 14:47] LABS: BASO % 0.3 % (0.0-1.0); EOS # 0.1 10^3/uL (0.0-0.50); EOS % 1.8 % (0.0-3.0); HEMATOCRIT 40.6 % (36.0-47.0); HEMOGLOBIN 12.7 g/dl (12.0-15.5); LYMPH # 1.9 10^3/uL (1.5-4.5); LYMPH % 26.9 % (24.0-44.0); MEAN CORPUSCULAR HEMOGLOBIN 30.7 pg (27.0-33.0); MEAN CORPUSCULAR HGB CONC 31.3 g/dl (32.0-36.5); MEAN CORPUSCULAR VOLUME 98.1 fl (80.0-96.0); MONO # 0.6 10^3/uL (0.0-0.8); MONO % 8.3 % (0.0-5.0); NEUTROPHILS # 4.5 10^3/uL (1.8-7.7); NEUTROPHILS % 62.4 % (36.0-66.0); PLATELET COUNT, AUTOMATED 159 10^3/uL (150-450); RED BLOOD COUNT 4.14 10^6/uL (4.00-5.40); WHITE BLOOD COUNT 7.2 10^3/uL (4.0-10.0)
[2019-02-12 15:09] LABS: ALBUMIN 3.5 GM/DL (3.2-5.2); ALT/SGPT 12 U/L (12-78); BILIRUBIN,DIRECT < 0.1 MG/DL (0.0-0.2); BILIRUBIN,TOTAL 0.2 MG/DL (0.2-1.0); BLOOD UREA NITROGEN 27 MG/DL (7-18); CALCIUM LEVEL 9.4 MG/DL (8.8-10.2); CARBON DIOXIDE LEVEL 33 MEQ/L (21-32); CHLORIDE LEVEL 99 MEQ/L (98-107); GLUCOSE, FASTING 132 MG/DL (70-100); POTASSIUM SERUM 4.6 MEQ/L (3.5-5.1); SODIUM LEVEL 139 MEQ/L (136-145); TOTAL PROTEIN 8.5 GM/DL (6.4-8.2)
[2019-02-12 15:30] VITALS: BP 128/62
[2019-02-12] MEDS ORDERED: NS 500 ML IV ONE (15:30)
[2019-02-12] MEDS ORDERED: CLEO300C2 PO (16:24)
== END 2019-02-12 16:41 | disposition home or self-care (01) ==
LOC: M ED 12:58
DX: L03.115 Cellulitis of right lower limb (principal); W57.XXXA Bitten or stung by nonvenomous insect and other nonvenomous arthropods, initial encounter; Y92.099 Unspecified place in other non-institutional residence as the place of occurrence of the external cause; Y93.9 Activity, unspecified; Y99.9 Unspecified external cause status; I25.10 Atherosclerotic heart disease of native coronary artery without angina pectoris; I50.9 Heart failure, unspecified; I25.2 Old myocardial infarction; E11.9 Type 2 diabetes mellitus without complications; J44.9 Chronic obstructive pulmonary disease, unspecified; Z79.84 Long term (current) use of oral hypoglycemic drugs; Z79.899 Other long term (current) drug therapy; Z99.81 Dependence on supplemental oxygen; Z88.6 Allergy status to analgesic agent; Z88.8 Allergy status to other drugs, medicaments and biological substances; Z88.0 Allergy status to penicillin; Z88.2 Allergy status to sulfonamides; Z88.5 Allergy status to narcotic agent; Z91.012 Allergy to eggs

== ENCOUNTER → 2019-03-13 | Outpatient (REF) | payer MEDICARE, OTHER, MEDICAID ==
[~2019-03-13] MED LIST changes: +CLEO300C2 PO
[2019-03-13 13:10] LABS: ALBUMIN 3.4 GM/DL (3.2-5.2); BILIRUBIN,TOTAL 0.2 MG/DL (0.2-1.0); CALCIUM LEVEL 9.5 MG/DL (8.8-10.2); CREATININE FOR GFR 1.39 MG/DL (0.55-1.30); GLOMERULAR FILTRATION RATE 39.3 (>39); POTASSIUM SERUM 4.4 MEQ/L (3.5-5.1); TOTAL PROTEIN 8.3 GM/DL (6.4-8.2)
[2019-03-13 13:31] LABS: HEMOGLOBIN A1c 7.5 %
== END ==
LOC: M SFHCPLAZ 10:06
PROVIDERS: ATTEND Nurse Practitioner Family
DX: E03.9 Hypothyroidism, unspecified (principal); E13.9 Other specified diabetes mellitus without complications; I11.9 Hypertensive heart disease without heart failure
CPT/HCPCS: 36415; 80053; 83036; 84443; G0463

== ENCOUNTER 2019-04-28 18:48 | Emergency (ER) | payer MEDICARE, MEDICAID ==
[2019-04-28] MEDS ORDERED: fentaNYL 100 MCG/2 ML INJECTION (J3010) IV ONE (19:30)
[2019-04-28] MEDS ORDERED: NS 500 ML IV ONE (19:30)
--- NOTE | 2019-04-28 19:46 | ECGEPIP ---
[facility] - ED Test Date: 2019-04-28 Pat Name: YUDY KING Department: Room: - Gender: Female Resolute Professional: JSon : 1945 Requested By: NILTON Gonzales Order Number: [id number] Reading MD: Marleen Clifton Measurements Intervals [place] Rate: 92 P: 77 CT: 137 QRS: 83 QRSD: 86 T: 56 QT: 353 QTc: 437 Interpretive Statements SINUS RHYTHM WITH MARKED SINUS ARRHYTHMIA NONSPECIFIC ST T WAVE CHANGES DELAYED R WAVE PROGRESSION CW 07/20/[address] T WAVE CHANGES Electronically Signed on 04-28-2019 19:45:41 EDT by Marleen Clifton
[2019-04-28 20:13] LABS: BASO % 0.2 % (0.0-1.0); EOS # 0.1 10^3/uL (0.0-0.50); EOS % 0.9 % (0.0-3.0); HEMATOCRIT 38.2 % (36.0-47.0); LYMPH # 1.5 10^3/uL (1.5-4.5); LYMPH % 17.5 % (24.0-44.0); MEAN CORPUSCULAR HEMOGLOBIN 30.5 pg (27.0-33.0); MEAN CORPUSCULAR HGB CONC 31.4 g/dl (32.0-36.5); MEAN CORPUSCULAR VOLUME 97.2 fl (80.0-96.0); MONO # 0.7 10^3/uL (0.0-0.8); MONO % 7.7 % (0.0-5.0); NEUTROPHILS # 6.5 10^3/uL (1.8-7.7); NEUTROPHILS % 73.5 % (36.0-66.0); PLATELET COUNT, AUTOMATED 145 10^3/uL (150-450); RED BLOOD COUNT 3.93 10^6/uL (4.00-5.40); WHITE BLOOD COUNT 8.8 10^3/uL (4.0-10.0)
[2019-04-28 20:40] LABS: BLOOD UREA NITROGEN 26 MG/DL (7-18); CALCIUM LEVEL 8.6 MG/DL (8.8-10.2); CARBON DIOXIDE LEVEL 33 MEQ/L (21-32); CHLORIDE LEVEL 101 MEQ/L (98-107); CK-MB VALUE MASS 1.5 NG/ML (<3.6); CPK CREATINE PHOSPHOKINASE 41 U/L (26-192); CREATININE FOR GFR 1.17 MG/DL (0.55-1.30); GLUCOSE, FASTING 175 MG/DL (70-100); MB/CK RELATIVE INDEX 3.66 (< OR =4); NT-PRO BNP 401 PG/ML (<450); POTASSIUM SERUM 3.8 MEQ/L (3.5-5.1); SODIUM LEVEL 141 MEQ/L (136-145); TROPONIN I < 0.02 NG/ML (< 0.10)
[2019-04-28 21:15] VITALS: BP 139/63
[2019-04-28] MEDS: COLCHICINE 0.6 MG TAB PO ONE ×2 (21:39→21:42)
[2019-04-28] MEDS ORDERED: COLC1TAB13 PO (21:49)
[2019-04-28 22:07] LABS: URIC ACID 5.6 MG/DL (2.6-6.0)
--- NOTE | 2019-04-29 09:52 | REP ---
AP PORTABLE CHEST: 04/28/2019. Clinical history: Dyspnea and cough. Comparison: CT 11/20/2018, AP chest 07/20/2018. Findings: Lungs are hyperinflated with COPD and some interstitial changes. There is some minor basilar fibrotic change right greater than left. Pulmonary arteries are prominent centrally. This is consistent with pulmonary artery hypertension. Some minor apical pleural scarring again seen. The [address] in the right lower lobe is not visible radiographically. Calcifications in the aorta without aneurysm. Airway midline. Bones without acute finding. Impression: 1. COPD and fibrosis with pulmonary artery hypertension. No definite acute infiltrate, atelectasis or mass. Hyperinflation and other chronic changes, stable. Heart size not enlarged. No edema or effusion. Electronically Signed by Mirza Weinstein MD 04/29/2019 08:22 P
--- NOTE | 2019-04-29 09:59 | REP ---
LEFT HAND COMPLETE: 04/28/2019. Clinical history: Intractable pain. No trauma stated. Findings: No prior studies. Four views used. Distal radius and ulna without fracture or focal lesion. Carpal bones show marked narrowing at the first CMC joint. Some of the carpal joint spaces are also mildly narrowed. There is prominence of soft tissue swelling over the dorsal aspect of the wrist. This could be hematoma or contusion versus periarticular soft tissue swelling. Metacarpals are without fracture. Phalanges are without fracture. I see no erosive arthritic change. No large spurs. No ulnar deviation. Impression: 1. Prominent soft tissue swelling dorsal aspect of the wrist with some degenerative changes in the first CMC joint. Lesser degenerative changes in the other joints. No visible fracture or destructive lesion. No avulsion seen. Electronically Signed by Mirza Weinstein MD 04/30/2019 02:24 P
--- NOTE | 2019-04-29 10:08 | REP ---
LEFT FOREARM: 04/28/2019. Comparison: Left hand series this date. Clinical history: Intractable pain. Findings: The two-view show no fracture or focal lesion of the shafts of the radius and ulna. No evidence for a elbow fracture, erosion or focal lesion. No soft tissue swelling over the olecranon. There is some swelling over the distal forearm and dorsal aspect of the wrist as on the hand radiograph. Impression: 1 No fracture radius and ulna. Bones appear demineralized. There is prominent soft tissue swelling over the dorsal aspect of the wrist and distal forearm. Electronically Signed by Mirza Weinstein MD 04/29/2019 08:25 P
== END 2019-04-28 22:20 | disposition home or self-care (01) ==
LOC: M ED 18:48
DX: M10.9 Gout, unspecified (principal); I51.9 Heart disease, unspecified; J44.9 Chronic obstructive pulmonary disease, unspecified; E03.9 Hypothyroidism, unspecified; K21.9 Gastro-esophageal reflux disease without esophagitis; R94.31 Abnormal electrocardiogram [ECG] [EKG]; Z79.899 Other long term (current) drug therapy; Z79.84 Long term (current) use of oral hypoglycemic drugs; Z87.891 Personal history of nicotine dependence; Z91.012 Allergy to eggs; Z88.1 Allergy status to other antibiotic agents; Z88.2 Allergy status to sulfonamides; Z88.5 Allergy status to narcotic agent; Z88.8 Allergy status to other drugs, medicaments and biological substances
CPT/HCPCS: 71045; 73090; 73130; 80048; 82550; 82553; 82803; 83605; 84484; 84550; 85025; 93005; 93041; 96374; 99285; J3010

== ENCOUNTER → 2019-04-30 | Outpatient (REF) | payer MEDICARE, MEDICAID, OTHER ==
[~2019-04-30] MED LIST changes: +COLC1TAB13 PO
[2019-04-30 14:17] LABS: BASO % 0.3 % (0.0-1.0); EOS % 0.5 % (0.0-3.0); HEMATOCRIT 38.1 % (36.0-47.0); HEMOGLOBIN 11.8 g/dl (12.0-15.5); LYMPH # 2.2 10^3/uL (1.5-4.5); LYMPH % 27.9 % (24.0-44.0); MEAN CORPUSCULAR HEMOGLOBIN 29.6 pg (27.0-33.0); MEAN CORPUSCULAR VOLUME 95.7 fl (80.0-96.0); MONO # 0.6 10^3/uL (0.0-0.8); MONO % 7.3 % (0.0-5.0); NEUTROPHILS # 5.1 10^3/uL (1.8-7.7); NEUTROPHILS % 63.5 % (36.0-66.0); PLATELET COUNT, AUTOMATED 168 10^3/uL (150-450); RED BLOOD COUNT 3.98 10^6/uL (4.00-5.40)
[2019-04-30 14:25] LABS: C REACTIVE PROTEIN QUANTITATIV 9.48 MG/DL (0.00-0.30)
[2019-04-30 14:50] LABS: ERYTHROCYTE SEDIMENTATION RATE 65 mm/hr (0-30)
== END ==
LOC: M SFHCPLAZ 11:35
PROVIDERS: ATTEND Family Medicine
DX: M25.432 Effusion, left wrist (principal); M25.532 Pain in left wrist
CPT/HCPCS: 85025; 85652; 86140; 86200; 86431; G0463

== ENCOUNTER 2019-06-06 18:20 | Emergency (ER) | payer MEDICARE, MEDICAID ==
[~2019-06-06] VITALS: Ht 160 cm; Wt 68.2 kg
[2019-06-06] MEDS ORDERED: NS 1,000 ML IV SCH (18:32)
[2019-06-06 19:31] LABS: BASO % 0.2 % (0.0-1.0); EOS # 0.1 10^3/uL (0.0-0.5); EOS % 1.9 % (0.0-3.0); HEMATOCRIT 39.4 % (36.0-47.0); LYMPH # 2.2 10^3/uL (1.5-5.0); LYMPH % 36.8 % (24.0-44.0); MEAN CORPUSCULAR HEMOGLOBIN 29.9 pg (27.0-33.0); MEAN CORPUSCULAR HGB CONC 30.5 g/dl (32.0-36.5); MEAN CORPUSCULAR VOLUME 98.3 fl (80.0-96.0); MONO # 0.6 10^3/uL (0.0-0.8); MONO % 9.9 % (0.0-5.0); PLATELET COUNT, AUTOMATED 158 10^3/uL (150-450); RED BLOOD COUNT 4.01 10^6/uL (4.00-5.40); VENOUS BASE EXCESS 4.4 (-2.0-2.0); VENOUS HCO3 32.2 MEQ/L (23.0-27.0); VENOUS O2 SATURATION 78.1 % (60.0-80.0); VENOUS PARTIAL PRESSURE CO2 63.4 mmHg (38.0-50.0); VENOUS PARTIAL PRESSURE O2 46.9 mmHg (30.0-50.0); VENOUS PH 7.323 UNITS (7.330-7.430); VENOUS STANDARD HCO3 27.9 MEQ/L; VENOUS TOTAL CO2 34.1 MEQ/L (24.0-28.0); WHITE BLOOD COUNT 5.9 10^3/uL (4.0-10.0)
[2019-06-06 20:16] LABS: BLOOD UREA NITROGEN 24 MG/DL (7-18); CALCIUM LEVEL 8.8 MG/DL (8.8-10.2); CARBON DIOXIDE LEVEL 35 MEQ/L (21-32); CHLORIDE LEVEL 98 MEQ/L (98-107); CK-MB VALUE MASS 1.2 NG/ML (<3.6); CPK CREATINE PHOSPHOKINASE 39 U/L (26-192); CREATININE FOR GFR 1.26 MG/DL (0.55-1.30); GLOMERULAR FILTRATION RATE 44.1 (>39); GLUCOSE, FASTING 112 MG/DL (70-100); MB/CK RELATIVE INDEX 3.08 (< OR =4); NT-PRO BNP 422 PG/ML (<450); POTASSIUM SERUM 3.9 MEQ/L (3.5-5.1); SODIUM LEVEL 140 MEQ/L (136-145); TROPONIN I < 0.02 NG/ML (< 0.10)
[2019-06-06] MEDS ORDERED: LEVA1TAB2 PO (20:29)
[2019-06-06 20:30] VITALS: BP 130/62
--- NOTE | 2019-06-06 20:32 | REP ---
CHEST, TWO VIEWS: Two views of the chest are performed and compared to prior studies, most recently 04/28/2019. There is mild scattered interstitial fibrosis. No acute infiltrate is seen. Heart is upper limits of normal in size. There is calcification of the thoracic aorta. The mediastinal silhouette is unchanged. There are degenerative changes of the spine. IMPRESSION: Stable chronic interstitial changes. No evidence of acute infiltrate. Electronically Signed by Albaro Viveros MD 06/07/2019 09:04 A
--- NOTE | 2019-06-06 20:51 | ECGEPIP ---
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
== END 2019-06-06 20:55 | disposition home or self-care (01) ==
LOC: M ED 18:20
DX: J44.1 Chronic obstructive pulmonary disease with (acute) exacerbation (principal); J01.90 Acute sinusitis, unspecified; E11.9 Type 2 diabetes mellitus without complications; I51.9 Heart disease, unspecified; Z79.51 Long term (current) use of inhaled steroids; Z79.84 Long term (current) use of oral hypoglycemic drugs; Z79.899 Other long term (current) drug therapy; Z87.891 Personal history of nicotine dependence; Z88.0 Allergy status to penicillin; Z88.2 Allergy status to sulfonamides; Z88.6 Allergy status to analgesic agent; Z88.8 Allergy status to other drugs, medicaments and biological substances; Z91.012 Allergy to eggs; Z99.81 Dependence on supplemental oxygen

== ENCOUNTER → 2019-07-13 | Outpatient (REF) | payer MEDICARE, MEDICAID, OTHER ==
[~2019-07-13] MED LIST changes: +LEVA1TAB2 PO
[2019-07-13 11:59] LABS: HEMATOCRIT 44.5 % (36.0-47.0); HEMOGLOBIN 13.2 g/dl (12.0-15.5); MEAN CORPUSCULAR HGB CONC 29.7 g/dl (32.0-36.5); MEAN CORPUSCULAR VOLUME 101.1 fl (80.0-96.0); PLATELET COUNT, AUTOMATED 219 10^3/uL (150-450); WHITE BLOOD COUNT 8.7 10^3/uL (4.0-10.0)
[2019-07-13 12:57] LABS: ALBUMIN 3.5 GM/DL (3.2-5.2); BILIRUBIN,TOTAL 0.3 MG/DL (0.2-1.0); CALCIUM LEVEL 9.3 MG/DL (8.8-10.2); CHOLESTEROL RISK RATIO 1.723 (<5); CREATININE FOR GFR 1.36 MG/DL (0.55-1.30); FREE T4 1.15 NG/DL (0.76-1.46); GLOMERULAR FILTRATION RATE 40.4 (>39); POTASSIUM SERUM 4.5 MEQ/L (3.5-5.1); THYROID STIMULATING HORMONE 4.27 uIU/ML (0.358-3.740); TOTAL PROTEIN 8.3 GM/DL (6.4-8.2)
== END ==
LOC: M SFHCPLAZ 10:24
PROVIDERS: ATTEND Family Medicine
DX: E03.9 Hypothyroidism, unspecified (principal); E13.9 Other specified diabetes mellitus without complications; M05.79 Rheumatoid arthritis with rheumatoid factor of multiple sites without organ or systems involvement; J44.9 Chronic obstructive pulmonary disease, unspecified
CPT/HCPCS: 36415; 80053; 80061; 83036; 84439; 84443; 85027; 90682; G0008

== ENCOUNTER 2019-09-17 19:23 | Emergency (ER) | payer MEDICARE, MEDICAID ==
[~2019-09-17] VITALS: Ht 160 cm; Wt 68.6 kg
[2019-09-17 21:08] LABS: BASO % 0.2 % (0.0-1.0); EOS # 0.1 10^3/uL (0.0-0.5); EOS % 1.6 % (0.0-3.0); HEMATOCRIT 41.8 % (36.0-47.0); HEMOGLOBIN 12.5 g/dl (12.0-15.5); LYMPH # 1.4 10^3/uL (1.5-5.0); LYMPH % 27.6 % (24.0-44.0); MEAN CORPUSCULAR HEMOGLOBIN 29.3 pg (27.0-33.0); MEAN CORPUSCULAR HGB CONC 29.9 g/dl (32.0-36.5); MEAN CORPUSCULAR VOLUME 98.1 fl (80.0-96.0); MONO # 0.5 10^3/uL (0.0-0.8); MONO % 9.6 % (0.0-5.0); NEUTROPHILS # 3.1 10^3/uL (1.5-8.5); NEUTROPHILS % 60.8 % (36.0-66.0); PLATELET COUNT, AUTOMATED 160 10^3/uL (150-450); RED BLOOD COUNT 4.26 10^6/uL (4.00-5.40); WHITE BLOOD COUNT 5.1 10^3/uL (4.0-10.0)
[2019-09-17 21:19] LABS: INR 0.99; PARTIAL THROMBOPLASTIN TIME 26.3 SECONDS (25.0-38.4); PROTHROMBIN TIME 12.8 SECONDS (11.8-14.0)
[2019-09-17 21:46] LABS: ALBUMIN 3.2 GM/DL (3.2-5.2); BILIRUBIN,TOTAL 0.4 MG/DL (0.2-1.0); CALCIUM LEVEL 8.9 MG/DL (8.8-10.2); CREATININE FOR GFR 1.25 MG/DL (0.55-1.30); GLOMERULAR FILTRATION RATE 44.4 (>39); POTASSIUM SERUM 4.4 MEQ/L (3.5-5.1); TOTAL PROTEIN 7.9 GM/DL (6.4-8.2)
[2019-09-17 22:09] VITALS: BP 150/78
--- NOTE | 2019-09-19 07:49 | ECGEPIP ---
[facility] - ED Test Date: 2019-09-17 Pat Name: YUDY KING Department: Room: - Gender: Female Parts Chaser: : 1945 Requested By: NILTON Gonzales Order Number: [id number] Reading MD: Eusebia Hansen Measurements Intervals [place] Rate: 101 P: 80 NM: 132 QRS: 90 QRSD: 86 T: 53 QT: 325 QTc: 421 Interpretive Statements SINUS TACHYCARDIA WITH FREQUENT SUPRAVENTRICULAR PREMATURE COMPLEXES ABNORMAL RHYTHM ECG INCREASED RATE 06/06/19 Electronically Signed on 09-19-2019 7:49:40 EST by Eusebia Hansen
== END 2019-09-17 22:37 | disposition home or self-care (01) ==
LOC: EDBD 19:23 → M ED 19:23
DX: R04.0 Epistaxis (principal); R94.31 Abnormal electrocardiogram [ECG] [EKG]; I11.9 Hypertensive heart disease without heart failure; E11.9 Type 2 diabetes mellitus without complications; I21.9 Acute myocardial infarction, unspecified; J44.9 Chronic obstructive pulmonary disease, unspecified; Z91.012 Allergy to eggs; Z88.6 Allergy status to analgesic agent; Z88.0 Allergy status to penicillin; Z88.5 Allergy status to narcotic agent; Z79.51 Long term (current) use of inhaled steroids; Z79.84 Long term (current) use of oral hypoglycemic drugs; Z79.899 Other long term (current) drug therapy

== ENCOUNTER → 2019-10-18 | Outpatient (CLI) | payer MEDICARE, MEDICAID ==
[2019-10-18 10:55] LABS: HEMATOCRIT 43.3 % (36.0-47.0); HEMOGLOBIN 12.9 g/dl (12.0-15.5); MEAN CORPUSCULAR HEMOGLOBIN 29.8 pg (27.0-33.0); MEAN CORPUSCULAR HGB CONC 29.8 g/dl (32.0-36.5); PLATELET COUNT, AUTOMATED 170 10^3/uL (150-450); RED BLOOD COUNT 4.33 10^6/uL (4.00-5.40); WHITE BLOOD COUNT 6.6 10^3/uL (4.0-10.0)
[2019-10-18 11:33] LABS: ALBUMIN 3.4 GM/DL (3.2-5.2); BILIRUBIN,TOTAL 0.3 MG/DL (0.2-1.0); CALCIUM LEVEL 9.2 MG/DL (8.8-10.2); CREATININE FOR GFR 1.37 MG/DL (0.55-1.30); FREE T4 1.37 NG/DL (0.76-1.46); GLOMERULAR FILTRATION RATE 39.9 (>39); POTASSIUM SERUM 4.1 MEQ/L (3.5-5.1); THYROID STIMULATING HORMONE 1.49 uIU/ML (0.358-3.740)
== END ==
LOC: M PLALAB 08:31
PROVIDERS: ATTEND Family Medicine
DX: R04.0 Epistaxis (principal); E03.9 Hypothyroidism, unspecified; I11.9 Hypertensive heart disease without heart failure; E13.9 Other specified diabetes mellitus without complications

== ENCOUNTER → 2020-01-25 | Outpatient (REF) | payer MEDICARE, MEDICAID, OTHER ==
[2020-01-25 18:53] LABS: HEMATOCRIT 39.2 % (36.0-47.0); HEMOGLOBIN 11.9 g/dl (12.0-15.5); MEAN CORPUSCULAR HEMOGLOBIN 30.7 pg (27.0-33.0); MEAN CORPUSCULAR HGB CONC 30.4 g/dl (32.0-36.5); MEAN CORPUSCULAR VOLUME 101.3 fl (80.0-96.0); PLATELET COUNT, AUTOMATED 146 10^3/uL (150-450); RED BLOOD COUNT 3.87 10^6/uL (4.00-5.40); WHITE BLOOD COUNT 6.4 10^3/uL (4.0-10.0)
[2020-01-25 19:21] LABS: ALBUMIN 3.6 GM/DL (3.2-5.2); BILIRUBIN,TOTAL 0.2 MG/DL (0.2-1.0); CALCIUM LEVEL 8.9 MG/DL (8.8-10.2); CREATININE FOR GFR 1.54 MG/DL (0.55-1.30); FREE T4 1.3 NG/DL (0.76-1.46); GLOMERULAR FILTRATION RATE 34.9 (>39); POTASSIUM SERUM 4.4 MEQ/L (3.5-5.1); THYROID STIMULATING HORMONE 0.419 uIU/ML (0.358-3.740); TOTAL PROTEIN 8.2 GM/DL (6.4-8.2)
[2020-01-25 19:33] LABS: HEMOGLOBIN A1c 7.1 %
== END ==
LOC: M SFHCADAM 13:36
PROVIDERS: ATTEND Family Medicine
DX: R04.0 Epistaxis (principal); I11.9 Hypertensive heart disease without heart failure; E03.9 Hypothyroidism, unspecified; E13.9 Other specified diabetes mellitus without complications; R63.4 Abnormal weight loss

== ENCOUNTER → 2020-02-06 | Outpatient (CLI) | payer MEDICARE, MEDICAID ==
--- NOTE | 2020-02-06 10:21 | REP ---
CHEST, TWO VIEWS: Two views of the chest is performed and compared to a prior studies, most recently 06/06/2019 and dating back to 11/07/2014. There are diffuse scattered fibrotic changes bilaterally which appear stable. No acute infiltrate is seen. The heart is normal in size. There is calcification of the thoracic aorta. Mediastinal silhouette is unchanged. There are mild degenerative changes of the spine. IMPRESSION: Stable chronic fibrotic changes compared to multiple prior studies. Given the history of tobacco abuse and weight loss, consider low dose lung screening CT. Electronically Signed by Albaro Viveros MD 02/06/2020 12:20 P
== END ==
LOC: M RAD 09:18
PROVIDERS: ATTEND Internal Medicine Pulmonary Disease
DX: J47.9 Bronchiectasis, uncomplicated (principal); R91.8 Other nonspecific abnormal finding of lung field; J96.11 Chronic respiratory failure with hypoxia; J84.10 Pulmonary fibrosis, unspecified

== ENCOUNTER → 2020-10-07 | Outpatient (REF) | payer MEDICARE, MEDICAID, OTHER ==
[~2020-10-07] MED LIST changes: +COLC0.6T47 PO; -COLC1TAB13 PO
[2020-10-07 13:24] LABS: HEMATOCRIT 35.6 % (36.0-47.0); HEMOGLOBIN 10.7 g/dl (12.0-15.5); MEAN CORPUSCULAR HEMOGLOBIN 32.4 pg (27.0-33.0); MEAN CORPUSCULAR HGB CONC 30.1 g/dl (32.0-36.5); MEAN CORPUSCULAR VOLUME 107.9 fl (80.0-96.0); PLATELET COUNT, AUTOMATED 150 10^3/uL (150-450)
[2020-10-07 14:03] LABS: CREATININE FOR GFR 2.25 MG/DL (0.55-1.30); GLOMERULAR FILTRATION RATE 22.5 (>39)
[2020-10-07 14:04] LABS: ALBUMIN 3.5 GM/DL (3.2-5.2); BILIRUBIN,TOTAL 0.3 MG/DL (0.2-1.0); CALCIUM LEVEL 9.1 MG/DL (8.8-10.2); FREE T4 0.96 NG/DL (0.76-1.46); PERCENT SATURATION 11.8 % (13.2-45.0); PREALBUMIN 29.2 MG/DL (20.0-40.0); THYROID STIMULATING HORMONE 7.06 uIU/ML (0.358-3.740); TOTAL PROTEIN 7.7 GM/DL (6.4-8.2)
[2020-10-07 15:19] LABS: FOLATE 6.9 NG/ML (>5.4)
== END ==
LOC: M SFHCADAM 09:45
PROVIDERS: ATTEND Family Medicine
DX: R63.4 Abnormal weight loss (principal); D63.1 Anemia in chronic kidney disease; N18.32 Chronic kidney disease, stage 3b; E03.9 Hypothyroidism, unspecified
CPT/HCPCS: 80053; 82607; 82728; 82746; 83550; 84134; 84439; 84443; 85027; G0463

== ENCOUNTER → 2020-11-19 | Outpatient (CLI) | payer MEDICARE, MEDICAID ==
[~2020-11-19] MED LIST changes: +ALBU8.5H INH; +ATOR1TAB19 PO; +COMB0.2S OU; +COMMENTS; +DILT180C70 PO; +FAMO20TA5 PO; +FURO40TA2 PO; +IPRA2IN NEB; +LATA0.0015 OU; +LEVO88TA3 PO; +METF10004 PO; +RHOP0.02 OS; +SYNT75TA PO
[2020-11-19 09:55] LABS: HEMOGLOBIN A1c 6.1 %
[2020-11-19 10:10] LABS: ALBUMIN 3.3 GM/DL (3.2-5.2); BILIRUBIN,TOTAL 0.2 MG/DL (0.2-1.0); CALCIUM LEVEL 8.9 MG/DL (8.8-10.2); CHOLESTEROL RISK RATIO 2.162 (<5); CREATININE FOR GFR 2.94 MG/DL (0.55-1.30); GLOMERULAR FILTRATION RATE 16.5 (>39); POTASSIUM SERUM 4.4 MEQ/L (3.5-5.1); TOTAL PROTEIN 7.6 GM/DL (6.4-8.2)
== END ==
LOC: M LAB 08:50
PROVIDERS: ATTEND Family Medicine
DX: E11.22 Type 2 diabetes mellitus with diabetic chronic kidney disease (principal); E03.9 Hypothyroidism, unspecified

== ENCOUNTER 2020-11-21 17:00 | Inpatient (IN) | payer MEDICARE, MEDICAID ==
[~2020-11-21] VITALS: Ht 160 cm; Wt 62.0 kg
[~2020-11-21 17:00] MED LIST changes: -ALBU8.5H INH; -ATOR1TAB19 PO; -COMB0.2S OU; -COMMENTS; -DILT180C70 PO; -FAMO20TA5 PO; -FURO40TA2 PO; -IPRA2IN NEB; -LATA0.0015 OU; -LEVO88TA3 PO; -METF10004 PO; -RHOP0.02 OS; -SYNT75TA PO
[2020-11-21] MEDS: COMBIVENT RESPIMAT 100-20MCG INHALER 4GM INH SCH ×3 (17:54→18:35)
--- NOTE | 2020-11-21 18:37 | REP ---
INDICATION: DYSPNEA/COUGH COMPARISON: 02/06/2020 TECHNIQUE: Portable AP view of the chest FINDINGS: Mediastinum and cardiac silhouette are within normal limits and stable. Atherosclerotic changes to the aorta again noted. The lung hernandez demonstrate diffuse emphysematous changes and scattered fibrosis. No obvious acute consolidation, effusion, or pneumothorax. Skeletal structures are intact. IMPRESSION: Chronic stable emphysematous disease and scattered fibrosis. No acute focal consolidation or effusion. <Electronically signed by Scooby Millard > 11/21/20 [id number]
[2020-11-21 18:52] LABS: BASO % 0.6 % (0.0-1.0); EOS % 0.6 % (0.0-3.0); HEMATOCRIT 34.7 % (36.0-47.0); HEMOGLOBIN 10.6 g/dl (12.0-15.5); LYMPH # 1.6 10^3/uL (1.5-5.0); LYMPH % 22.7 % (24.0-44.0); MEAN CORPUSCULAR HEMOGLOBIN 32.9 pg (27.0-33.0); MEAN CORPUSCULAR HGB CONC 30.5 g/dl (32.0-36.5); MEAN CORPUSCULAR VOLUME 107.8 fl (80.0-96.0); MONO # 0.7 10^3/uL (0.0-0.8); MONO % 9.1 % (2.0-8.0); NEUTROPHILS # 4.7 10^3/uL (1.5-8.5); NEUTROPHILS % 65.5 % (36.0-66.0); PLATELET COUNT, AUTOMATED 140 10^3/uL (150-450); RED BLOOD COUNT 3.22 10^6/uL (4.00-5.40); WHITE BLOOD COUNT 7.1 10^3/uL (4.0-10.0)
--- NOTE | 2020-11-21 18:55 | ECGEPIP ---
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
[2020-11-21] MEDS ORDERED: LEVO88TA3 PO (19:05)
[2020-11-21] MEDS ORDERED: FAMO20TA5 PO (19:05)
[2020-11-21] MEDS ORDERED: METF10004 PO ×2 (19:05)
[2020-11-21] MEDS ORDERED: RHOP0.02 OS (19:05)
[2020-11-21] MEDS ORDERED: ATOR1TAB19 PO (19:05)
[2020-11-21] MEDS ORDERED: LATA0.0015 OU (19:05)
[2020-11-21] MEDS ORDERED: DILT180C70 PO (19:05)
[2020-11-21] MEDS ORDERED: IPRA2IN NEB (19:05)
[2020-11-21] MEDS ORDERED: JANU100T PO (19:05)
[2020-11-21] MEDS ORDERED: ALBU8.5H INH (19:05)
[2020-11-21] MEDS ORDERED: FURO40TA2 PO (19:05)
[2020-11-21] MEDS ORDERED: COMB0.2S OU (19:05)
[2020-11-21] MEDS ORDERED: ADV250INH INH (19:05)
[2020-11-21 19:10] LABS: INR 0.93; PROTHROMBIN TIME 12.7 SECONDS (12.5-14.3)
[2020-11-21] MEDS ORDERED: SYNT75TA PO (19:12)
[2020-11-21] MEDS ORDERED: COMMENTS (19:12)
[2020-11-21 19:32] LABS: ALBUMIN 3.6 GM/DL (3.2-5.2); ALT/SGPT 11 U/L (12-78); BILIRUBIN,DIRECT < 0.1 MG/DL (0.0-0.2); BILIRUBIN,TOTAL 0.3 MG/DL (0.2-1.0); BLOOD UREA NITROGEN 75 MG/DL (7-18); CALCIUM LEVEL 8.7 MG/DL (8.8-10.2); CARBON DIOXIDE LEVEL 24 MEQ/L (21-32); CHLORIDE LEVEL 100 MEQ/L (98-107); CK-MB VALUE MASS 1.4 NG/ML (<3.6); CPK CREATINE PHOSPHOKINASE 28 U/L (26-192); CREATININE FOR GFR 5.03 MG/DL (0.55-1.30); GLOMERULAR FILTRATION RATE 8.9 (>39); GLUCOSE, FASTING 113 MG/DL (70-100); LIPASE 318 U/L (73-393); NT-PRO BNP 6935 PG/ML (<450); POTASSIUM SERUM 5.7 MEQ/L (3.5-5.1); SODIUM LEVEL 136 MEQ/L (136-145); THYROID STIMULATING HORMONE 0.447 uIU/ML (0.358-3.740); THYROXINE (T4) 9.6 UG/DL (4.5-12.0); TOTAL PROTEIN 8.1 GM/DL (6.4-8.2); TROPONIN I 0.02 NG/ML (< 0.10)
--- NOTE | 2020-11-21 20:23 | REPVR ---
PROCEDURE INFORMATION: Exam: CT Head Without Contrast Exam date and time: 11/21/2020 7:18 PM Age: 75 years old Clinical indication: Visual disturbance; Additional info: Visual changes TECHNIQUE: Imaging protocol: Computed tomography of the head without contrast. Radiation optimization: All CT scans at this facility use at least one of these dose optimization techniques: automated exposure control; mA and/or kV adjustment per patient size (includes targeted exams where dose is matched to clinical indication); or iterative reconstruction. COMPARISON: CT Head without contrast 03/13/2018 3:23 PM FINDINGS: Brain: There is no CT evidence for an acute large vessel territorial infarct. No acute intracranial hemorrhage is seen. There is a small focus of low attenuation in the right thalamus, which is compatible with a chronic lacunar infarct. There are non-specific foci of low attenuation in the periventricular and subcortical white matter, which are likely the sequela of chronic small vessel ischemic injury and are similar in appearance compared to the prior CT head on 03/13/2018. No mass effect, midline shift, or herniation is noted. No suprasellar mass is noted. Cerebral ventricles: No hydrocephalus. Incidental note is made of a normal variant cavum septum pellucidum and cavum vergae, which is persistence of the embryological fluid-filled space between the leaflets of the septum pellucidum. Bones/joints: The skull is intact. No suspicious osteolytic or osteoblastic lesion. Incidental note is made of hyperostosis frontalis interna, which is symmetric thickening of the inner table of the frontal bone, which is similar in appearance compared to the prior CT head on 03/13/2018. Paranasal sinuses: The imaged portions of the sinuses are well-aerated. No air-fluid levels are noted in the sinuses. The sinuses were not fully imaged. Mastoid air cells: Clear. Orbital cavity: Incidental note is made of a left lens implant. Incidental note is made of bilateral calcific senile scleral plaques. Soft tissues: Unremarkable. No soft tissue fluid collection. Nasal cavity: There is a 7 mm nasal septal spur projecting to the right of midline. IMPRESSION: 1. No acute intracranial abnormality. 2. Chronic lacunar infarct involving the right thalamus. 3. Periventricular and subcortical white matter changes, which are likely the sequela of chronic small vessel ischemic injury and are similar in appearance compared to the prior CT head on 03/13/2018. Electronically signed by: José Miguel Grover On 11/21/2020 20:24:15 PM
[2020-11-21] MEDS ORDERED: GLUCOSE 4GM CHEW TABLET PO PRN (22:30)
[2020-11-21] MEDS ORDERED: GLUCAGON INJ 1MG VIAL SC PRN (22:30)
[2020-11-21] MEDS ORDERED: DEXTROSE 50% 50 ML SYRINGE IV PRN (22:30)
--- NOTE | 2020-11-21 22:37 | HPEPDOC ---
[facility] Medical History & Physical Date of Admission Nov 21, 2020 Date of Service: Nov 21, 2020 Attending Physician: RORY KAT MD History and Physical CHIEF COMPLAINT: shortness of breath HISTORY OF PRESENT ILLNESS: 75 year old female with PMHx noted below who presented to the hospital due to worsening shortness of breath. She states this has been getting worse the past 3-4 days. She states this is consistent and does not change with exertion. She denies any change when lying flat. Denies PND. She also notes decreased appetite over the past few weeks. She states she has not eaten much the past few days. She attributes this to nausea without vomiting. She denies difficulty swallowing. She does state she has been able to tolerate fluids. She notes one BM a day which is loose. Patient's son is present in the room during my interview. He states he is concerned about her appetite for the past few weeks but that she hasn't eaten in the last couple of days. He states the patient has been losing weight for some time now. PAST MEDICAL HISTORY: Diabetes mellitus CKD stage 3 Hypothyroidism HTN COPD Hyperlipidemia GERD Lower extremity edema secondary to venous insufficiency B12 deficiency Anemia of chronic disease PAST SURGICAL HISTORY: Hysterectomy Appendectomy Hemorrhoidectomy SOCIAL HISTORY: Former smoker, quit 40 years ago, smoked 1 ppd fo about 20 years Denies alcohol use. Denies history of IV drug or illicit substance use FAMILY HISTORY: Both parents with diabetes mellitus ALLERGIES: Please see below. REVIEW OF SYSTEMS: CONSTITUTIONAL: Denies fevers, chills, night sweats, fatigue. HEENT: Denies change in hearing. CARDIOVASCULAR: Denies chest pain, palpitations, lightheadedness. RESPIRATORY: Denies cough, wheezing. GASTROINTESTINAL: Positives per HPI. Denies vomiting, abdominal pain, constipation, blood in stool. GENITOURINARY: Denies dysuria, urinary frequency, urinary urgency. SKIN: Denies rash, lesions. MUSCULOSKELETAL: Endorses chronic joint pains NEUROLOGICAL: Denies headache, dizziness. PSYCHIATRIC: Denies change in mood. HOME MEDICATIONS: Please see below. PHYSICAL EXAMINATION: VITAL SIGNS: see below GENERAL: Alert, comfortable, in no acute distress HEENT: Normocephalic, atraumatic, sclera anicteric, moist mucous membranes NECK: Supple, trachea midline. No elevation of JVP appreciated CARDIOVASCULAR: Regular rate and rhythm, normal S1 and S2. No murmurs, rubs, or gallops RESPIRATORY: Breath sounds decreased throughout bilateral lung hernandez. ABDOMEN: Soft, nontender, nondistended, bowel sounds present. EXTREMITIES: 2+ bilateral lower extremity edema up to the knees. Pulses 2+/4 in bilateral upper and lower extremities SKIN: [place], warm, dry NEUROLOGIC: Alert and oriented x3 to person, place and time. No focal deficits appreciated PSYCHIATRIC: Mood and affect appropriate LABORATORY DATA: See below. IMAGING: - CXR Chronic stable emphysematous disease and scattered fibrosis. No acute focal consolidation or effusion. - Head CT 1. No acute intracranial abnormality. 2. Chronic lacunar infarct involving the right thalamus. 3. Periventricular and subcortical white matter changes, which are likely the sequela of chronic small vessel ischemic injury and are similar in appearance compared to the prior CT head on 03/13/2018. MICROBIOLOGY: Please see below. ASSESSMENT: 75 year old female with PMHx of diabetes mellitus CKD stage 3, hypothyroidism, HTN, COPD, GERD, anemia of chronic disease, and LE edema PLAN: 1. Acute hypoxic hypercarbic respiratory failure - CXR results reviewed, no clear etiology - No wheezing on exam to suggest COPD exacerbation - BNP elevated could suggest CHF, less likely as her CXR does not show interstitial edema - D-dimer elevated, check V-Q scan for PE. Echocardiogram may also show right heart strain. - Pt on BiPAP. Dr. Pereira/Manager Language consulted for management. ABG recheck in the AM. 2. EVA on CKD stage 3 - Cr increased to 5.03, up from 2.95 two days ago - Pt was on metformin and full strength Januvia at home which have been held. Furosemide also held. - Continue to avoid nephrotoxic agents. - With recent poor oral intake it is possible this is pre-renal. Considering her respiratory status and LE swelling I will hold off on IV fluids until evaluated by nephrology. - Check renal U/S - Dr. Negrete/Nephrology consulted, appreciate input and recommendations 3. Primary respiratory acidosis with secondary non-AG metabolic acidosis - Respiratory acidosis likely related to respiratory failure as discussed above - Regarding the metabolic acidosis likely related to renal dysfunction as discussed above. 4. Hyperkalemia - Likely related to acute renal failure. - Check phosphate level as well - no EKG changes at this time, monitor on telemetry 5. Venous insufficiency with edema - hold home furosemide in the setting of EVA without fluid overload 6. Diabetes mellitus - hold home oral medications while inpatient - currently NPO. When diet is started consider consistent carb with SSI ACHS - hypoglycemic protocol with FSBS q6h while NPO - recent HgA1c at 6.1% 7. Anemia - H/H stable compared to September 2020, no evidence of acute bleeding - 09/2020 iron studies suggest anemia of chronic disease 8. HTN - continue home diltiazem 9. Hypothyroidism - continue home levothyroxine 10. COPD - continue home inhalers 11. GERD - continue home famotidine at renal dosage DVT prophylaxis: SC heparin 5000 units q8h Disposition: admitted inpatient to ICU, expect greater than 2 midnights stay Vital Signs Vital Signs Date Time Temp Pulse Resp B/P (MAP) Pulse Ox O2 Delivery O2 Flow Rate FiO2 11/21/20 21:01 121 22 95 NIPPV (BIPAP/CPAP) 11/21/20 21:00 133/57 (82) 11/21/20 19:47 30 11/21/20 17:11 98.8 2.0 Laboratory Data Labs 24H Laboratory Tests 2 11/21/20 17:48: Immature Granulocyte % (Auto) 1.5, Neutrophils (%) (Auto) 65.5, Lymphocytes (%) (Auto) 22.7L, Monocytes (%) (Auto) 9.1H, Eosinophils (%) (Auto) 0.6, Basophils (%) (Auto) 0.6, Neutrophils # (Auto) 4.7, Lymphocytes # (Auto) 1.6, Monocytes # (Auto) 0.7, Eosinophils # (Auto) 0.0, Basophils # (Auto) 0.0, Nucleated Red Blood Cells % (auto) 0.3H, Prothrombin Time 12.7, Prothromb Time International Ratio 0.93, Anion Gap 12, Glomerular Filtration Rate 8.9L, Lactic Acid Level 1.1, Calcium Level 8.7L, Total Bilirubin 0.3, Direct Bilirubin < 0.1, Aspartate Amino Transf (AST/SGOT) 8, Alanine Aminotransferase (ALT/SGPT) 11L, Alkaline Phosphatase 63, Total Creatine Kinase 28, Creatine Kinase MB 1.4, Creatine Kinase MB Relative Index 5.00H, Troponin I 0.02, RI-Vqx-J-Type Natriuretic Peptide 6935H, Total Protein 8.1, Albumin 3.6, Albumin/Globulin Ratio 0.8L, Lipase 318, Thyroid Stimulating Hormone (TSH) 0.447, Thyroxine (T4) 9.6 11/21/20 18:09: POC pH (Misc Panel) 7.152*L, POC Base Excess (Misc Panel) -2.0, POC Saturated Percent O2 (Misc) 99H, POC pO2 (Misc Panel) 214.0H, POC pCO2 (Misc Panel) 77.4*H, POC HCO3 (Misc Panel) 27.1H, POC Total CO2 (Misc Panel) 29.0H 11/21/20 18:16: POC pH (Misc Panel) 7.142*L, POC Base Excess (Misc Panel) -2.0, POC Saturated Percent O2 (Misc) 99H, POC pO2 (Misc Panel) 219.0H, POC pCO2 (Misc Panel) 7 9.4*H, POC HCO3 (Misc Panel) 27.2H, POC Total CO2 (Misc Panel) 30.0H CBC/BMP Laboratory Tests 11/21/20 17:48 Microbiology Microbiology 11/21/20 Respiratory Virus Panel (PCR) (JOSSE) - Final, Complete 11/21/20 Blood Culture, Received Pending 11/21/20 Blood Culture, Received Pending Home Medications Scheduled Atorvastatin Calcium (Atorvastatin Calcium) 10 Mg Tablet, 10 MG PO DAILY Brimonidine Tartrate/Timolol (Combigan 0.2%-0.5% Eye Drops) 5 Ml Drops, 1 DROP OU BID Famotidine (Famotidine) 20 Mg Tablet, 20 MG PO BID Furosemide (Furosemide) 40 Mg Tablet, 40 MG PO DAILY Latanoprost/Pf (Latanoprost 0.005% Eye Drop) 7.5 Ml Drops, 1 DROP OU QHS Levothyroxine Sodium (Synthroid) 75 Mcg Tablet, 75 MCG PO DAILY Metformin HCl (Metformin HCl) 1,000 Mg Tablet, 1,500 MG PO DAILY Metformin HCl (Metformin HCl) 1,000 Mg Tablet, 1,000 MG PO QHS Netarsudil Mesylate (Rhopressa) 2.5 Ml Drops, 1 DROP OS QHS Salmeterol/Fluticasone (Advair 250-50 Diskus) 1 Each Blst.w.dev, 1 PUFF INH BID Sitagliptin Phosphate (Januvia) 100 Mg Tablet, 100 MG PO DAILY dilTIAZem HCl (Diltiazem 24Hr Cd) 180 Mg Cap.er.24h, 180 MG PO DAILY Scheduled PRN Albuterol Sulfate (Albuterol Sulfate Hfa) 8.5 Gm Hfa.aer.ad, 1 PUFF INH QID PRN for SOB/WHEEZING Ipratropium [place] (Ipratropium [place]) 0.2 Mg/1 Ml Solution, 1 VIAL NEB QID PRN for SHORTNESS OF BREATH Miscellaneous Medications [Comments] MED LIST MADE WITH EXTERNAL MED HISTORY Allergies Coded Allergies: NSAIDS (Non-Steroidal Anti-Inflamma (Verified Allergy, Severe, ULCERS, PALPITATIONS, 02/12/19) aspirin (Verified Allergy, Severe, ULCERS, PALPITATIONS, 02/12/19) ibuprofen (Verified Allergy, Severe, ULCERS, PALPITATIONS, 02/12/19) Penicillins (Verified Allergy, Intermediate, HIVES, 02/12/19) Sulfa (Sulfonamide Antibiotics) (Verified Allergy, Intermediate, HIVES, 02/12/19) prednisone (Verified Allergy, Intermediate, swelling and constipation, 02/12/19) codeine (Verified Allergy, Unknown, 02/12/19) Egg Derived (Verified Adverse Reaction, Mild, NAUSEA, 02/12/19) egg (Verified Adverse Reaction, Mild, NAUSEA, 02/12/19) GME ATTESTATION GME ATTESTATION My faculty preceptor for this patient encounter was physically present during the encounter and was fully available. All aspects of the patient interview, examination, medical decision making process, and medical care plan development were reviewed and approved by the faculty preceptor. The faculty preceptor is aware and concurs with the plan as stated in the body of this note and will attest to such by his/her cosignature. ATTENDING NOTE Patient seen 11/21/2020.I, Sarah Sterlingf, have independently examined this patient and performed my own physical exam, as well as reviewed the documentation and edited where necessary. I have discussed in detail with the resident / student the findings and plan of treatment as documented by the resident / student and edited their note. I agree with their findings and treatment plan and have edited their documentation. I will continue to follow the patient during this hospital stay. URBAN DEL TORO D.O. Nov 21, 2020 22:37 RORY KAT MD 13, 2021 05:47
[2020-11-21 22:40] LABS: PARTIAL THROMBOPLASTIN TIME 27.1 SECONDS (24.2-38.5)
[2020-11-21 22:43] LABS: D-DIMER QUANT 2411.27 ng/ml (<500)
[2020-11-21 22:49] LABS: C REACTIVE PROTEIN QUANTITATIV 0.79 MG/DL (0.00-0.30); FERRITIN 67 NG/ML (8-252); LDH LACTATE DEHYDROGENASE 160 U/L (84-246)
[2020-11-22] VITALS (21 sets, daily range): BP systolic 95–141; BP diastolic 52–66
[2020-11-22] MEDS ORDERED: ALBUTEROL 90 MCG/ACT 8GM HFA INHALER INH PRN (02:45)
[2020-11-22] MEDS ORDERED: PILL CUTTER 1 EACH XX PRN (02:55)
[2020-11-22 05:08] LABS: HEMATOCRIT 30.5 % (36.0-47.0); HEMOGLOBIN 9.3 g/dl (12.0-15.5); MEAN CORPUSCULAR HEMOGLOBIN 32.9 pg (27.0-33.0); MEAN CORPUSCULAR HGB CONC 30.5 g/dl (32.0-36.5); MEAN CORPUSCULAR VOLUME 107.8 fl (80.0-96.0); PLATELET COUNT, AUTOMATED 121 10^3/uL (150-450); RED BLOOD COUNT 2.83 10^6/uL (4.00-5.40); WHITE BLOOD COUNT 6.8 10^3/uL (4.0-10.0)
[2020-11-22 05:22] LABS: CALCIUM LEVEL 8.3 MG/DL (8.8-10.2); CREATININE FOR GFR 5.44 MG/DL (0.55-1.30); GLOMERULAR FILTRATION RATE 8.1 (>39); POTASSIUM SERUM 5.6 MEQ/L (3.5-5.1)
[2020-11-22] MEDS: HEPARIN SOD (PORCINE) 5000UNITS/ML 1ML VIAL/SYRINGE SC SCH ×3 (05:52→21:09)
[2020-11-22] MEDS: LEVOTHYROXINE 75MCG TABLET (0.075MG) PO SCH (05:52)
[2020-11-22 06:14] LABS: ABG O2 SATURATION 99.5 % (95.0-99.0)
[2020-11-22 06:15] LABS: ABG BASE EXCESS -2.2 (-2.0-2.0); ABG HCO3 23.8 MEQ/L (22.0-26.0); ABG PARTIAL PRESSURE CO2 46.1 mmHg (35.0-45.0); ABG PARTIAL PRESSURE O2 205.8 mmHg (75.0-100.0); ABG STANDARD HCO3 22.7 MEQ/L (22.0-26.0); ABG TOTAL CO2 25.2 MEQ/L (23.0-31.0)
--- NOTE | 2020-11-22 07:08 | REPVR ---
PROCEDURE INFORMATION: Exam: US Retroperitoneal Limited, Kidneys Exam date and time: 11/22/2020 6:41 AM Age: 75 years old Clinical indication: Abnormal findings; Abnormal lab test; Abnormal kidney function lab tests; Additional info: Vicente TECHNIQUE: Imaging protocol: Real-time ultrasound of the retroperitoneum with image documentation. Examination was focused on the kidneys. COMPARISON: No relevant prior studies available. FINDINGS: Right kidney: The right kidney measures 9.7 x 5.1 x 4.9 cm. There is increased right renal cortical parenchymal echogenicity. There is no right renal mass, stone, cyst or hydronephrosis. Left kidney: The left kidney measures 8.6 x 4.3 x 4.8 centimetres. There is increased left renal cortical parenchymal echogenicity. There is no left renal mass, stone, cyst or hydronephrosis. Bladder: The urinary bladder is under distended limiting its evaluation with no gross intra bladder abnormality noted. IMPRESSION: Mildly atrophic left kidney with bilateral diffuse increased cortical parenchymal echogenicity suggestive of chronic medical renal disease. Electronically signed by: Corey Busch On 11/22/2020 07:07:23 AM
[2020-11-22] MEDS: ADVAIR HFA 115/21MCG INHALER INH SCH ×2 (08:01→20:04)
[2020-11-22] MEDS: diltiaZEM **CD** 180 MG CAP PO SCH (09:19)
[2020-11-22] MEDS: methylPREDNISolone 125MG 2ML VIAL IV SCH ×2 (09:19→20:12)
[2020-11-22] MEDS: FAMOTIDINE 20 MG TAB PO SCH (09:20)
[2020-11-22 10:11] LABS: CHLORIDE,RANDOM URINE 59 MEQ/L; CREATININE,RANDOM URINE 47.1 MG/DL; SODIUM,RANDOM URINE 50 MEQ/L
--- NOTE | 2020-11-22 11:03 | CCN ---
CRITICAL CARE NOTE DATE: 11/22/2020 CRITICAL CARE TIME: One hour and 15 minutes. This excludes all procedures. SUBJECTIVE: Ms. Mercedes was admitted late last evening with hypercarbic respiratory failure, not clearly identified cause based on admission. On my arrival today she is on bilevel noninvasive therapy, awake and talking. She has known history of GOLD stage IV COPD. Last FEV1 measured in 2019 was 0.63. She states she does not recall having any new respiratory symptoms although the history and physical exam suggests increased shortness of breath over the past few days along with decreased p.o. intake and nausea and vomiting. She does however also have ezpas-[id number] renal failure, unclear etiology. The patient offers no complaints, denies any orthopnea, no lower extremity pain, no calf pain. She does state that she is thirsty. Specific gravity on the urinalysis was not performed. The patient herself does not give much history. The majority of the history is obtained from the chart. OBJECTIVE: Vital signs: Temperature is 99.2, pulse is 83, respiratory rate is 17, blood pressure 126/60 with a mean arterial pressure of 82, oxygen saturation is 97% on 0.40 FiO2. General: Awake, alert but slightly confused as to why she is here and what symptoms she is having. HEENT: Sclerae are clear, nonicteric. Pupils are equal and reactive to light. Mucous membranes are dry without lesions. Tongue is midline. Neck is supple. No jugular deviation. No discernible elevated JVP at the 45 degree angle. Cardiac: Regular S1, S2 without audible murmur, rub, or gallop. JVP as mentioned above. There is pitting edema of the lower extremities to the mid tibia. Pulmonary: Decreased breath sounds throughout without rales, rhonchi, or wheezes. There is a slight prolongation of the expiratory phase with hyperexpansion of the lung hernandez. No dullness to percussion. Abdomen: Soft, nontender, nondistended, no discernible hepatosplenomegaly. No masses or hernia. Extremities: No cyanosis or clubbing. There is pitting as mentioned above. Musculoskeletal: Muscle tone is decreased. The patient was not ambulated due to her critical illness. Chest x-ray shows hyper-expanded lungs with cardiomegaly, increased vascular congestion and flattened diaphragms. White blood cell count 6.8, hemoglobin 9.3, platelet count of 121 with a sodium of 138, potassium 5.6, chloride 102, bicarb 28, BUN 81, creatinine 5.44 with a calcium of 8.3. BNP is 6,000. Arterial blood gasses improved from 7.14, 99, 219 to 7.33, 46, 205. Albumin is 3.6. ASSESSMENT/PLAN: 1. [id number] hypercarbic respiratory failure without significant hypoxia with underlying GOLD stage IV COPD. I have placed the patient on steroids. There is no clear indication of infection but we will continue to monitor for signs and symptoms of infection. No evidence of sepsis at this point in time. We will continue bilevel noninvasive therapy. She is not yet compensated but can now have breaks off BiPAP in order to be able to take pills and some nourishment. The patient remains DO NOT RESUSCITATE/DO NOT INTUBATE. 2. Plnde-xw-lcrydno renal failure. This has not yet been worked up. I have ordered urinalysis, placed a Le catheter. My suspicion is that she could actually be dry even though she has extravascular edema. Her mucous membranes are dry and she has had poor p.o. intake recently. I will discuss this with the primary team. 3. Anemia. No acute indication for transfusion at this point in time. No acute signs of blood loss. May be related to renal failure. 4. Diabetes. Blood sugar is adequate without any evidence of hyperglycemia. 5. DVT prophylaxis with heparin due to renal failure. Critical care as mentioned above for respiratory failure. We will discuss with primary team in regards to management of renal failure as this has yet to be worked up. LILY
[2020-11-22] MEDS ORDERED: NS 1,000 ML IV SCH (13:00)
[2020-11-22] MEDS ORDERED: ALBUTEROL SULFATE 2.5 MG/0.5 ML INH NEB SOLN NEB PRN (13:30)
--- NOTE | 2020-11-22 13:34 | IPNPDOC ---
Date Seen The patient was seen on 11/22/20. Progress Note SUBJECTIVE: Le placed, UA ordered. Nephrology assessed, giving liter NSS to see how patient responds to hydration with EVA. Hx of underlying COPD and steroids started this AM. Still on bilevel noninvasive therapy with breaks. Mentating much better this AM on assessment. She denies chest pain, increased shortness of breath and is following all commands. OBJECTIVE: PHYSICAL EXAMINATION: VITAL SIGNS: see below GENERAL: Sitting up in bed, awake, answering questions appropriately, oriented x 3 HEENT: Normocephalic, atraumatic, sclera anicteric, dry mucous membranes, BIpap mask in place NECK: Supple, trachea midline. No elevation of JVP appreciated CARDIOVASCULAR: Regular rate and rhythm, normal S1 and S2. No murmurs, rubs, or gallops RESPIRATORY: Breath sounds decreased throughout bilateral lung hernandez. No wheezing, rhonchi or rales ABDOMEN: Soft, nontender, nondistended, bowel sounds present. EXTREMITIES: 2+ bilateral lower extremity edema up to the knees. Pulses 2+/4 in bilateral upper and lower extremities SKIN: [place], warm, dry NEUROLOGIC: Alert and oriented x3 to person, place and time. No focal deficits appreciated, CN 2-12 intact PSYCHIATRIC: Mood and affect appropriate LABORATORY DATA: See below. IMAGING: Renal US: Mildly atrophic left kidney with bilateral diffuse increased cortical parenchymal echogenicity suggestive of chronic medical renal disease. CXR: Chronic stable emphysematous disease and scattered fibrosis. No acute focal consolidation or effusion. Head CT 1. No acute intracranial abnormality. 2. Chronic lacunar infarct involving the right thalamus. 3. Periventricular and subcortical white matter changes, which are likely the sequela of chronic small vessel ischemic injury and are similar in appearance compared to the prior CT head on 03/13/2018. Echo 04/2016: EF 75% Normal right heart chamber sizes with Doppler evidence of mild - moderate pulmonary artery hypertension. Normal IVC size and collapse against right heart failure. Normal left ventricular size, wall thickness and hyperkinetic wall motion. Borderline left atrial enlargement with currently normal Doppler assessment of LV diastolic function with estimated mean left atrial pressure upper limits of normal to slightly increased. Mild aortic valvular sclerosis without functional abnormality. Mild mitral annular thickening with mild mitral insufficiency. MICROBIOLOGY: ASSESSMENT: 75 year old female with PMHx of diabetes mellitus CKD stage 3, hypothyroidism, HTN, COPD, GERD, anemia of chronic disease, and LE edema admitted for acute on chornic hypercarbic respiratory failure 2/2 to COPD exacerbation, EVA on CKD stage III, acute hyperkalemia, r/o CHF. PLAN: Acute on chronic hypercarbic respiratory failure likely 2/2 to COPD exacerbation -Hx of GOLD Stage IV COPD, follows with Dr. Wiseman o/p -CXR above -Improving ABG -Currently on bilevel noninvasive therapy with breaks per pulmonary -C/w methylprednisolone IV BID, albuterol ATC, advair -Pulmonary following EVA on CKD stage 3, r/o prerenal cause (dehydration) vs. medication induced (on metformin, lasix) -Baseline Cr believed to be around 2.3 -This AM 5.44, increased from admission -Renal US above -Le placed, UA ordered along with standard urine studies - Dr. Negrete/Nephrology consulted, appreciate input and recommendations Acute hyperkalemia likely 2/2 to EVA -No ECG changes, no events on tele -NSS, monitor with regular labs -Tx of EVA above -Daily labs Elevated BNP r/o CHF, hx of pulmonary HTN -Last echocardiogram 2015, see above. No prior history of CHF -BNP 6935 -CXR: no pulmonary vascular congestion, + Lower ext edema -F/u new echocardiogram -Holding off on lasix for now. C/w diltiazem Venous insufficiency with edema -Holding lasix Diabetes mellitus II -BS stable -ISS Q6H, consistent carb, FS Anemia of chronic disease -H/h stable -No s/s of bleeding -CBC daily HTN -Stable -C/w diltiazem Hypothyroidism -C/w levothyroxine GERD -Famotidine DVT px -Heparin SC DISPOSITION: Currently admitted under ICU care. Pulmonary and nephrology consulted and following closely. Plan is PT/OT when medically improved. TOTAL AMOUNT OF ICU TIME SPENT CARING FOR PATIENT (nonprocedural): 50 mins VS, I&O, 24H, Fishbone Vital Signs/I&O Vital Signs Date Time Temp Pulse Resp B/P (MAP) Pulse Ox O2 Delivery O2 Flow Rate FiO2 11/22/20 13:00 93 114/57 (76) 92 Nasal Cannula 2.0 11/22/20 12:00 40 11/22/20 12:00 98.6 18 I&O- Last 24 Hours up to 6 AM 11/22/20 05:59 Intake Total 0 ml Output Total 250 ml Balance -250 ml Laboratory Data 24H LABS Laboratory Tests 2 11/21/20 17:48: Immature Granulocyte % (Auto) 1.5, Neutrophils (%) (Auto) 65.5, Lymphocytes (%) (Auto) 22.7L, Monocytes (%) (Auto) 9.1H, Eosinophils (%) (Auto) 0.6, Basophils (%) (Auto) 0.6, Neutrophils # (Auto) 4.7, Lymphocytes # (Auto) 1.6, Monocytes # (Auto) 0.7, Eosinophils # (Auto) 0.0, Basophils # (Auto) 0.0, Nucleated Red Blood Cells % (auto) 0.3H, Prothrombin Time 12.7, Prothromb Time International Ratio 0.93, Activated Partial Thromboplast Time 27.1, Fibrinogen 475H, D-Dimer, Quantitative 2411.27H, Anion Gap 12, Glomerular Filtration Rate 8.9L, Lactic Acid Level 1.1, Calcium Level 8.7L, Ferritin 67, Total Bilirubin 0.3, Direct Bilirubin < 0.1, Aspartate Amino Transf (AST/SGOT) 8, Alanine Aminotransferase (ALT/SGPT) 11L, Alkaline Phosphatase 63, Lactate Dehydrogenase 160, Total Crea nathalie Kinase 28, Creatine Kinase MB 1.4, Creatine Kinase MB Relative Index 5.00H, Troponin I 0.02, C-Reactive Protein, Quantitative 0.79H, YW-Vkd-C-Type Natriuretic Peptide 6935H, Total Protein 8.1, Albumin 3.6, Albumin/Globulin Ratio 0.8L, Lipase 318, Thyroid Stimulating Hormone (TSH) 0.447, Thyroxine (T4) 9.6 11/21/20 18:09: POC pH (Misc Panel) 7.152*L, POC Base Excess (Misc Panel) -2.0, POC Saturated Percent O2 (Misc) 99H, POC pO2 (Misc Panel) 214.0H, POC pCO2 (Misc Panel) 77.4*H, POC HCO3 (Misc Panel) 27.1H, POC Total CO2 (Misc Panel) 29.0H 11/21/20 18:16: POC pH (Misc Panel) 7.142*L, POC Base Excess (Misc Panel) -2.0, POC Saturated Percent O2 (Misc) 99H, POC pO2 (Misc Panel) 219.0H, POC pCO2 (Misc Panel) 79.4*H, POC HCO3 (Misc Panel) 27.2H, POC Total CO2 (Misc Panel) 30.0H 11/21/20 23:46: Bedside Glucose (Misc Panel) 79L 11/22/20 04:43: Nucleated Red Blood Cells % (auto) 0.0, Anion Gap 8, Glomerular Filtration Rate 8.1L, Calcium Level 8.3L 11/22/20 06:10: Blood Gas Bicarbonate Standard 22.7, Arterial Blood pH 7.330L, Arterial Blood Partial Pressure CO2 46.1H, Arterial Blood Partial Pressure O2 205.8H, Arterial Blood Total CO2 25.2, Arterial Blood HCO3 23.8, Arterial Blood Base Excess - 2.2L, Arterial Blood Oxygen Saturation 99.5H 11/22/20 09:24: Urine Random Creatinine 47.1, Urine Random Sodium 50, Urine Random Chloride 59 11/22/20 12:24: Bedside Glucose (Misc Panel) 147H CBC/BMP Laboratory Tests 11/21/20 17:48 11/22/20 04:43 Microbiology Microbiology 11/21/20 Respiratory Virus Panel (PCR) (JOSSE) - Final, Complete 11/21/20 Blood Culture, Received Pending 11/21/20 Blood Culture, Received Pending Current Medications Current Medications Medications (Trade) Dose Ordered Sig/Jeffrey Route PRN Reason Start Time Stop Time Status Last Admin Dose Admin Acetaminophen (Tylenol Tab) 650 mg Q4HP PRN PO PAIN OR FEVER 11/22/20 13:30 Albuterol Sulfate (Proventil Neb) 2.5 mg Q2HP PRN NEB SOB/WHEEZING 11/22/20 13:30 Albuterol Sulfate (Proventil, Ventolin Hfa) 1 puff QID PRN INH SOB/WHEEZING 11/22/20 02:45 Albuterol/ Ipratropium (Combivent Respimat 100-20mcg) 4 puff Q20M INH 11/21/20 17:40 11/21/20 18:21 DC 11/21/20 18:20 Dextrose (Dextrose 50%) 25 ml ASDIRECTED PRN IV SEE LABEL COMMENTS 11/21/20 22:30 Diltiazem HCl (Cardizem Cd) 180 mg DAILY PO 11/22/20 09:00 11/22/20 09:19 Famotidine (Pepcid) 10 mg DAILY PO 11/22/20 09:00 11/22/20 09:20 Glucagon (Glucagon) 1 mg ASDIRECTED PRN SC SEE LABEL COMMENTS 11/21/20 22:30 Glucose (Glucose) 16 GM ASDIRECTED PRN PO SEE LABEL COMMENTS 11/21/20 22:30 Heparin Sodium (Porcine) (Heparin) 5,000 units Q8H SC 11/22/20 06:00 11/22/20 13:27 Home Med (Med Rec Complete!) ASDIRECTED XX 11/21/20 19:15 11/21/20 19:14 DC Levothyroxine Sodium (Synthroid) 75 mcg DAILY@0600 PO 11/22/20 06:00 11/22/20 05:52 Methylprednisolone (SOLUmedrol) 60 mg Q12H IV 11/22/20 09:00 11/22/20 09:19 Salmeterol Xinafoate/ Fluticasone (Advair Hfa 115/ ) 2 puff RBID INH 11/22/20 08:00 11/22/20 08:01 Sodium Chloride 1,000 ml @ 60 mls/hr [id number] IV 11/22/20 13:00 11/23/20 05:39 11/22/20 13:26 Allergies Coded Allergies: NSAIDS (Non-Steroidal Anti-Inflamma (Verified Allergy, Severe, ULCERS, PALPITATIONS, 02/12/19) aspirin (Verified Allergy, Severe, ULCERS, PALPITATIONS, 02/12/19) ibuprofen (Verified Allergy, Severe, ULCERS, PALPITATIONS, 02/12/19) Penicillins (Verified Allergy, Intermediate, HIVES, 02/12/19) Sulfa (Sulfonamide Antibiotics) (Verified Allergy, Intermediate, HIVES, 02/12/19) prednisone (Verified Allergy, Intermediate, swelling and constipation, 02/12/19) codeine (Verified Allergy, Unknown, 02/12/19) Egg Derived (Verified Adverse Reaction, Mild, NAUSEA, 02/12/19) egg (Verified Adverse Reaction, Mild, NAUSEA, 02/12/19) Stephanie Franco MD Nov 22, 2020 13:34
[2020-11-22 13:57] LABS: APPEARANCE, URINE TURBID (CLEAR); BACTERIA, URINE AUTO 2+ (NEGATIVE); BILIRUBIN, URINE AUTO NEGATIVE (NEGATIVE); BLOOD, URINE BLOOD 1+ (NEGATIVE); COLOR, URINE YELLOW (YELLOW); GLUCOSE, URINE (UA) AUTO NEGATIVE (NEGATIVE); KETONE, URINE AUTO TRACE mg/dL (NEGATIVE); LEUKOCYTE ESTERASE, URINE AUTO 3+ (NEGATIVE); NITRITE, URINE AUTO NEGATIVE (NEGATIVE); PROTEIN, URINE AUTO 2+ mg/dL (NEGATIVE); RBC, URINE AUTO 17 /HPF (0-3); SPECIFIC GRAVITY URINE AUTO 1.011 (1.002-1.035); SQUAMOUS EPITHELIAL CELL UR AU 0 /HPF (0-6); UROBILINOGEN, URINE AUTO 0.2 mg/dL (0.0-2.0); WBC, URINE AUTO TNTC /HPF (0-3)
[2020-11-22] MEDS: ACETAMINOPHEN TAB 650MG DOSE (2X325MG) PO PRN (16:17)
[2020-11-22 17:15] LABS: ABG O2 SATURATION 99.1 % (95.0-99.0); ABG PARTIAL PRESSURE O2 150.4 mmHg (75.0-100.0)
[2020-11-22 17:19] LABS: ABG PARTIAL PRESSURE CO2 62.6 mmHg (35.0-45.0)
[2020-11-22] MEDS: HumaLOG INSULIN (NovoLOG) PER UNIT SC SCH ×2 (17:37→20:12)
[2020-11-22] MEDS ORDERED: NS 500 ML IV ONE (19:00)
[2020-11-22] MEDS ORDERED: LevoFLOXacin IV 500 MG in IV 1 EA IV ONE (20:00)
--- NOTE | 2020-11-22 23:55 | CR ---
INPATIENT CONSULTATION DATE: 11/22/2020 REQUESTING PHYSICIAN: Dr. Stephanie Franco REASON FOR CONSULTATION: Management of acute renal failure. CHIEF COMPLAINT: Patient presented to the hospital yesterday with progressive shortness of breath. HISTORY OF PRESENT ILLNESS: Brianna Mercedes is a 75-year-old female with past medical history of COPD, history of chronic kidney disease stage 3, baseline creatinine 2.2 as of September 2020, multiple other comorbidities as mentioned below. She presented to the hospital with progressively worsening shortness of breath for the last 3-4 days. She denies any orthopnea or paroxysmal nocturnal dyspnea. She denies any fevers or chills when she came in. She had decreased oral intake for the last few days. As reported by family, patient was not eating well and she had been losing weight as well. She continued to take her home medications. Patient was admitted to ICU yesterday with acute hypercapnic respiratory failure. Patient was also found to be in acute renal failure with a creatinine of 5 on arrival. Nephrology service was called for further help in the management of this patient. Patient was seen and examined by myself today morning. She was wearing BiPAP when I saw her in the morning. Le catheter was just placed today morning. There was cloudy urine in the bag that was noted. PAST MEDICAL HISTORY: Chronic kidney disease stage 3, diabetes mellitus type 2, hypothyroidism, hypertension, COPD, hyperlipidemia, gastroesophageal reflux disease, chronic venous insufficiency, B12 deficiency and anemia of chronic disease. PAST SURGICAL HISTORY: Status post hysterectomy in the past, appendectomy in the past and hemorrhoidectomy in the past. ALLERGIES: Patient is allergic to multiple medications including medications, NSAIDs, sulfa drugs, penicillins, aspirin, Codeine, Ibuprofen and prednisone. FAMILY HISTORY: No significant family history of end-stage renal disease. There is history of diabetes in the family. SOCIAL HISTORY: She is a former smoker; she quit many years ago. She denies any illicit drug abuse or alcohol abuse. REVIEW OF SYSTEMS: CONSTITUTIONAL: She denies any fevers or chills. EYES: She denies any blurry vision, double vision. ENT: She denies any dysphagia, odynophagia. CARDIOVASCULAR: She reports lower extremity edema. RESPIRATORY: She reports progressive shortness of breath. GI: She did report a decreased oral intake and decreased appetite. GENITOURINARY: She denies any dysuria, hematuria. MUSCULOSKELETAL: She reports lower extremity edema. SKIN: She denies any rashes or ulcers. HEMATOLOGIC/ONCOLOGIC: She denies any easy bleeding or bruising. CERAMIC SPRAYER: She denies any strokes or seizures. All other review of systems is negative. PHYSICAL EXAMINATION: GENERAL: Patient is awake, alert and oriented x2, wearing BiPAP. VITAL SIGNS: Temperature 99.1 degrees Fahrenheit, blood pressure 115/60, pulse 82, respiratory rate 23, saturating 96% on BiPAP at 35% FIO2. HEAD AND NECK: Extraocular muscles intact. Pupils equally round and reactive to light. She is wearing a BiPAP mask. Neck is supple. There is no JVD noted. CARDIOVASCULAR: S1, S2, irregular rate. 2+ edema of the bilateral lower extremities up to mid shins and they are tender to deep palpation. RESPIRATORY: Very decreased breath sounds bilaterally. She has COPD and despite being on BiPAP, I could hardly hear any breath sounds at the bases. ABDOMEN: Soft, positive bowel sounds, nontender. No organomegaly. GENITOURINARY: She has an indwelling Le catheter. Urine in the bag is very cloudy. MUSCULOSKELETAL: 2+ edema of the lower extremities. Extremities are tender to deep palpation. CERAMIC SPRAYER: Patient follows commands and moves extremities. LABORATORY REVIEW: CBC showed WBC 6.8, hemoglobin 9.3, platelets 121,000. INR 0.9. Urinalysis showed it was turbid with 2+ protein, 1+ blood, too numerous to count wbc's. Urine random creatinine was 47, random sodium was 50 and was 59. ABG done in the afternoon showed pH 7.2, pCO2 62, pO2 150, bicarb 25, O2 sat 99%. BMP showed sodium 138, potassium 5.6, chloride 102, bicarb 28, BUN 81, creatinine 5.4. Lactic acid 1.1. IMAGING STUDIES: A renal ultrasound was done today morning, which showed a mildly atrophic left kidney, bilateral diffuse increased cortical parenchymal echogenicity suggesting chronic medical renal disease. A chest x-ray was done yesterday, which showed chronic stable emphysematous changes, scattered fibrosis. CURRENT INPATIENT MEDICATIONS: Patient's medications were all reviewed by myself. She has been started on I.V. Levaquin. I have started the patient on normal saline at 60 cc an hour. She was also given a bolus of 500 cc of normal saline. She is on Cardizem 180 mg p.o. daily, Pepcid 10 mg p.o. daily, insulin Lispro sliding scale, Levothyroxine 75 mcg p.o. daily, Solu-Medrol 60 mg I.V. every 12 hours, Advair two puffs twice a day. HOME MEDICATIONS: Patient's home medications were all reviewed and the pertinent medications include Lasix 40 mg p.o. daily, Metformin 15 mg in the morning and 1 gram in the evening, Januvia 100 mg p.o. daily. ASSESSMENT AND PLAN: 1. Acute oliguric renal failure: It is multifactorial secondary to decreased oral intake, use of high dose of Metformin and diuretics at home. At this point, she is on BiPAP. She has poor oral intake. I have given her 500 cc of normal saline bolus and started her on gentle I.V. fluid hydration. There is no urgent need of hemodialysis at this time. I would check the patient for response to the I.V. fluids. Patient has end-stage COPD, starting the patient on hemodialysis would not improve her overall survival. 2. Hyperkalemia: It is secondary to acute renal failure. Potassium level is 5.6. I am hopeful that with improvement in the renal function, her potassium level should get better. No need of Kayexalate administration at this time. 3. Acute hypercapnic respiratory failure: Patient is currently on BiPAP. She is on steroids and antibiotics. The rest of the management is as per pulmonary team. 4. Urinary tract infection: Urine cultures are pending. Patient has a very cloudy urine. She has already been started on I.V. Levaquin. She has multiple antibiotic allergies. Further change in antibiotic will be done after urine culture results. 5. Cor pulmonale: Patient's last ultrasound was done in 2016, there is no new imaging available. Patient most likely has cor pulmonale associated with COPD. Repeat echocardiogram result is pending. 6. Diabetes mellitus type 2: Continue insulin sliding scale. Avoid further use of Metformin at this time because of acute renal failure.
[2020-11-23] VITALS (12 sets, daily range): BP systolic 103–127; BP diastolic 52–65
[2020-11-23] MEDS: LEVOTHYROXINE 75MCG TABLET (0.075MG) PO SCH (05:12)
[2020-11-23] MEDS: HEPARIN SOD (PORCINE) 5000UNITS/ML 1ML VIAL/SYRINGE SC SCH ×3 (05:12→21:07)
[2020-11-23 05:13] LABS: ABG BASE EXCESS -2.6 (-2.0-2.0); ABG HCO3 24.4 MEQ/L (22.0-26.0); ABG O2 SATURATION 97.6 % (95.0-99.0); ABG PARTIAL PRESSURE CO2 53.3 mmHg (35.0-45.0); ABG PARTIAL PRESSURE O2 102.3 mmHg (75.0-100.0); ABG STANDARD HCO3 22.3 MEQ/L (22.0-26.0); ABG pH (ARTERIAL) 7.278 UNITS (7.350-7.450)
[2020-11-23 05:18] LABS: HEMATOCRIT 28.1 % (36.0-47.0); HEMOGLOBIN 8.8 g/dl (12.0-15.5); MEAN CORPUSCULAR HEMOGLOBIN 32.8 pg (27.0-33.0); MEAN CORPUSCULAR HGB CONC 31.3 g/dl (32.0-36.5); MEAN CORPUSCULAR VOLUME 104.9 fl (80.0-96.0); PLATELET COUNT, AUTOMATED 110 10^3/uL (150-450); RED BLOOD COUNT 2.68 10^6/uL (4.00-5.40); WHITE BLOOD COUNT 3.5 10^3/uL (4.0-10.0)
[2020-11-23 05:39] LABS: CALCIUM LEVEL 7.8 MG/DL (8.8-10.2); CREATININE FOR GFR 6.62 MG/DL (0.55-1.30); GLOMERULAR FILTRATION RATE 6.5 (>39); MAGNESIUM LEVEL 2.2 MG/DL (1.8-2.4); PHOSPHORUS LEVEL 6.1 MG/DL (2.5-4.9); POTASSIUM SERUM 5.9 MEQ/L (3.5-5.1)
[2020-11-23] MEDS: ADVAIR HFA 115/21MCG INHALER INH SCH ×2 (08:06→20:37)
[2020-11-23] MEDS: HumaLOG INSULIN (NovoLOG) PER UNIT SC SCH ×4 (08:47→20:10)
[2020-11-23] MEDS: diltiaZEM **CD** 180 MG CAP PO SCH (08:48)
[2020-11-23] MEDS: FAMOTIDINE 20 MG TAB PO SCH (08:48)
[2020-11-23] MEDS: methylPREDNISolone 125MG 2ML VIAL IV SCH ×2 (08:48→20:10)
[2020-11-23] MEDS ORDERED: FUROSEMIDE 100MG/10ML VIAL (J1940) IV ONE ×2 (10:00→18:00)
--- NOTE | 2020-11-23 10:31 | CCN ---
CRITICAL CARE NOTE DATE: 11/23/2020 CRITICAL CARE TIME: 46 minutes; this excludes all procedures. SUBJECTIVE: Ms. Mercedes, despite having a slightly worse blood gas this morning, is more conversant. She is requesting a certain channel because her Tuesday services are on. She is telling me about her birds at home [employer] [place] and how her son, Haris, is going to feed them. She is much more spry this morning. She denies any shortness of breath. She states she has her usual chronic dry cough. She is eating breakfast; on rest to be able to tolerate bilevel noninvasive therapy. Unfortunately, urine output has not picked up and her kidney function does not show any significant improvement with mild fluid administration. She has no significant hypoxemia. Her main problem remains that of hypercarbic respiratory failure and acute on chronic renal failure. She remains DO NOT RESUSCITATE (DNR). PHYSICAL EXAMINATION: Temperature is 98.1, pulse is 68, respiratory rate of 18, blood pressure is 110/58 with a MAP of 75, oxygen saturation is 98% on 0.35 FiO2. General: Awake, alert and oriented. Affect and mood are appropriate. Nutrition and hygiene are fair for stated age. HEENT: Sclerae clear and anicteric. Mucous membranes are much more moist than yesterday. Mild elevation of jugular venous pressure (JVP). Cardiac: Distant S1, S2 without audible murmur, rub or gallop. Pulmonary: Clear to auscultation, but generally decreased breath sounds without rhonchi or rales. Abdomen: Soft, nontender, non-distended. No hepatosplenomegaly. No masses or hernia. Extremities: No cyanosis, but there is lower extremity pitting edema. Neuro: No unilateral weakness. No tremor. LABORATORY EVALUATION: Shows a sodium of 134, potassium 5.9, chloride 101, bicarbonate of 27, BUN 93, creatinine 6.62. FENa is low; however, the patient does have a history of chronic kidney disease; does not appear to have obstructive uropathy. Le has been placed on an ultrasound. Renal ultrasound does not suggest hydronephrosis. White blood cell count is 3.5, hemoglobin 8.8 with a platelet count of 110. ASSESSMENT: 1. Hypercarbic respiratory failure. Arterial blood gas this morning showed pH of 7.28, pCO2 of 53, pAO2 of 102; this is after increase in inspiratory pressure, bilevel; despite a slightly worse blood gas, her sensorium appears improved. Will recheck again this afternoon. Bilevels set at a goal at tidal volume in low 400s. 2. Worsening renal failure, acute on chronic. No evidence of obstruction despite low FENa. Differential remains wide including intrinsic kidney disease cardiorenal syndrome. Will defer management to nephrology. 3. Anemia. No indication for blood transfusion at this point in time. 4. Hyperkalemia. Remains in the high 5 range. No significant frame changer the past 25 hours. Overall, the patient's wishes are DO NOT RESUSCITATE (DNR), DO NOT INTUBATE (DNR). Will continue on bilevel non-invasive therapy as long as the patient continues to tolerate. There are times when she requests the mask off; and therefore, I am allowing breaks in order for her to tolerate this for a longer term, as it does not appear that she is correcting as quickly as desired. Overall poor prognosis given the severity of her end-stage lung disease.
[2020-11-23] MEDS ORDERED: SOD POLYSTYRENE SULFONATE SUSP 15 GM/60 ML UD PO ONE (11:00)
--- NOTE | 2020-11-23 11:23 | IPNPDOC ---
Date Seen The patient was seen on 11/23/20. Progress Note SUBJECTIVE: Poor u/o between 10-40 mL/hr over the evening. Cr worsened this AM, remains on bipap with breaks. Discussed with nephrology, will try diuretics today. Patient is DNR/DNI and does not wish to have hemodialysis. AAOx3 when evaulated this AM; however, per nursing this can wax and wane at times. She appears comfortable but admits to being afraid. She denies chest pain. OBJECTIVE: PHYSICAL EXAMINATION: VITAL SIGNS: see below GENERAL: Sitting up in bed, awake currently but appears tired, answering questions appropriately, oriented x 3 HEENT: Normocephalic, atraumatic, sclera anicteric, dry mucous membranes, Bipap mask in place NECK: Supple, trachea midline. No elevation of JVP appreciated CARDIOVASCULAR: Regular rate and rhythm, normal S1 and S2. No murmurs, rubs, or gallops RESPIRATORY: Breath sounds decreased throughout bilateral lung hernandez. No wheezing, rhonchi or rales ABDOMEN: Soft, nontender, nondistended, bowel sounds present. EXTREMITIES: 2+ bilateral lower extremity edema up to the knees. Pulses 2+/4 in bilateral upper and lower extremities SKIN: [place], warm, dry NEUROLOGIC: Alert and oriented x3 to person, place and time. No focal deficits appreciated, CN 2-12 intact PSYCHIATRIC: Mood and affect appropriate LABORATORY DATA: See below. IMAGING: Renal US: Mildly atrophic left kidney with bilateral diffuse increased cortical parenchymal echogenicity suggestive of chronic medical renal disease. CXR: Chronic stable emphysematous disease and scattered fibrosis. No acute focal consolidation or effusion. Head CT 1. No acute intracranial abnormality. 2. Chronic lacunar infarct involving the right thalamus. 3. Periventricular and subcortical white matter changes, which are likely the sequela of chronic small vessel ischemic injury and are similar in appearance compared to the prior CT head on 03/13/2018. Echo 04/2016: EF 75% Normal right heart chamber sizes with Doppler evidence of mild - moderate pulmonary artery hypertension. Normal IVC size and collapse against right heart failure. Normal left ventricular size, wall thickness and hyperkinetic wall motion. Borderline left atrial enlargement with currently normal Doppler assessment of LV diastolic function with estimated mean left atrial pressure upper limits of normal to slightly increased. Mild aortic valvular sclerosis without functional abnormality. Mild mitral annular thickening with mild mitral insufficiency. MICROBIOLOGY: Bcx x 2 sets: NG UCx pending Resp panel: neg ASSESSMENT: 75 year old female with PMHx of diabetes mellitus CKD stage 3, hypothyroidism, HTN, COPD, GERD, anemia of chronic disease, and LE edema admitted for acute on chornic hypercarbic respiratory failure 2/2 to COPD exacerbation, EVA on CKD stage III, acute hyperkalemia, r/o CHF. PLAN: Acute on chronic hypercarbic respiratory failure likely 2/2 to COPD exacerbation -ABG this AM: pH 7.27, pCO2 53, O2 102, O2 sat 97.6 -Remains on bilevel noninvasive therapy with breaks , 25/02, FiO2 35%- not changed since 11/22/20 -C/w methylprednisolone IV BID, albuterol ATC, advair -Pulmonary following Oliguric EVA on CKD stage 3 likely multifactorial to decreased PO intake, medication (metformin, lasix) -Baseline Cr believed to be around 2.3 -Cr today 6.62, U/o and Cr did not improve with fluids given 11/22/20 -Renal US above -Giving 60 mg IV lasix today to see if improvement seen -Dr. Negrete/Nephrology consulted and following closely -If no improvement, patient does not wish to have HD Acute hyperkalemia likely 2/2 to EVA -Kayexalate given today -Tx of EVA, nephrology recommendations -F/u labs Elevated BNP r/o CHF, hx of pulmonary HTN -Last echocardiogram 2015, see above. No prior history of CHF -BNP 6935 -CXR: no pulmonary vascular congestion, + Lower ext edema -F/u echocardiogram -C/w diltiazem, lasix 60 mg IV given today Diabetes mellitus II -BS elevated at times up to 280 -Consider adding levemir AM -ISS AC/HS, consistent carb, FS Anemia of chronic disease -H/h stable -No s/s of bleeding -CBC daily HTN -Stable -C/w diltiazem Hypothyroidism -C/w levothyroxine GERD -Famotidine DVT px -Heparin SC DISPOSITION: Currently admitted under ICU care, poor prognosis with end-stage COPD per pulmonary. DNR/DNI. Will call patient's son Haris today to update per patient's request. TOTAL AMOUNT OF ICU TIME SPENT CARING FOR PATIENT (nonprocedural): 50 mins VS, I&O, 24H, Fishbone Vital Signs/I&O Vital Signs Date Time Temp Pulse Resp B/P (MAP) Pulse Ox O2 Delivery O2 Flow Rate FiO2 11/23/20 10:00 80 117/56 (76) 94 NIPPV (BIPAP/CPAP) 30 11/23/20 09:00 22 2.0 11/23/20 08:00 98.0 I&O- Last 24 Hours up to 6 AM 11/23/20 06:00 Intake Total 1950 ml Output Total 415 ml Balance 1535 ml Laboratory Data 24H LABS Laboratory Tests 2 11/22/20 12:24: Bedside Glucose (Misc Panel) 147H 11/22/20 16:47: Blood Gas Bicarbonate Standard 22.0, Arterial Blood pH 7.220*L, Arterial Blood Partial Pressure CO2 62.6*H, Arterial Blood Partial Pressure O2 150.4H, Arterial Blood Total CO2 27.0, Arterial Blood HCO3 25.0, Arterial Blood Base Excess -3. 0L, Arterial Blood Oxygen Saturation 99.1H 11/22/20 16:51: Bedside Glucose (Misc Panel) 308H 11/22/20 20:08: Bedside Glucose (Misc Panel) 247H 11/23/20 04:43: Nucleated Red Blood Cells % (auto) 0.0, Anion Gap 6L, Glomerular Filtration Rate 6.5L, Calcium Level 7.8L, Phosphorus Level 6.1H, Magnesium Level 2.2 11/23/20 05:00: Blood Gas Bicarbonate Standard 22.3, Arterial Blood pH 7.278L, Arterial Blood Partial Pressure CO2 53.3H, Arterial Blood Partial Pressure O2 102.3H, Arterial Blood Total CO2 26.0, Arterial Blood HCO3 24.4, Arterial Blood Base Excess - 2.6L, Arterial Blood Oxygen Saturation 97.6 CBC/BMP Laboratory Tests 11/23/20 04:43 Microbiology Microbiology 11/22/20 Urine Culture, Received Pending 11/21/20 Respiratory Virus Panel (PCR) (JOSSE) - Final, Complete 11/21/20 Blood Culture - Preliminary, Resulted No growth after 24 hours . All specim... 11/21/20 Blood Culture - Preliminary, Resulted No growth after 24 hours . All specim... Current Medications Current Medications Medications (Trade) Dose Ordered Sig/Jeffrey Route PRN Reason Start Time Stop Time Status Last Admin Dose Admin Acetaminophen (Tylenol Tab) 650 mg Q4HP PRN PO PAIN OR FEVER 11/22/20 13:30 11/22/20 16:17 Albuterol Sulfate (Proventil Neb) 2.5 mg Q2HP PRN NEB SOB/WHEEZING 11/22/20 13:30 Albuterol Sulfate (Proventil, Ventolin Hfa) 1 puff QID PRN INH SOB/WHEEZING 11/22/20 02:45 Albuterol/ Ipratropium (Combivent Respimat 100-20mcg) 4 puff Q20M INH 11/21/20 17:40 11/21/20 18:21 DC 11/21/20 18:20 Dextrose (Dextrose 50%) 25 ml ASDIRECTED PRN IV SEE LABEL COMMENTS 11/21/20 22:30 Diltiazem HCl (Cardizem Cd) 180 mg DAILY PO 11/22/20 09:00 11/23/20 08:48 Famotidine (Pepcid) 10 mg DAILY PO 11/22/20 09:00 11/23/20 08:48 Glucagon (Glucagon) 1 mg ASDIRECTED PRN SC SEE LABEL COMMENTS 11/21/20 22:30 Glucose (Glucose) 16 GM ASDIRECTED PRN PO SEE LABEL COMMENTS 11/21/20 22:30 Heparin Sodium (Porcine) (Heparin) 5,000 units Q8H SC 11/22/20 06:00 11/23/20 05:12 Home Med (Med Rec Complete!) ASDIRECTED XX 11/21/20 19:15 11/21/20 19:14 DC Insulin Human Lispro (HumaLOG INSULIN) SEE PROTOCOL TABLE AC SC 11/22/20 17:30 11/23/20 08:47 Insulin Human Lispro (HumaLOG INSULIN) SEE PROTOCOL TABLE QHS SC 11/22/20 21:00 Levofloxacin 250 mg/IV Miscellaneous Supplies 50 ml @ 50 mls/hr Q48H IV 11/24/20 20:00 Levothyroxine Sodium (Synthroid) 75 mcg DAILY@0600 PO 11/22/20 06:00 11/23/20 05:12 Methylprednisolone (SOLUmedrol) 60 mg Q12H IV 11/22/20 09:00 11/23/20 08:48 Salmeterol Xinafoate/ Fluticasone (Advair Hfa ) 2 puff RBID INH 11/22/20 08:00 11/23/20 08:06 Sodium Chloride 1,000 ml @ 60 mls/hr [id number] IV 11/22/20 13:00 11/23/20 05:39 DC 11/22/20 13:26 Allergies Coded Allergies: NSAIDS (Non-Steroidal Anti-Inflamma (Verified Allergy, Severe, ULCERS, PALPITATIONS, 02/12/19) aspirin (Verified Allergy, Severe, ULCERS, PALPITATIONS, 02/12/19) ibuprofen (Verified Allergy, Severe, ULCERS, PALPITATIONS, 02/12/19) Penicillins (Verified Allergy, Intermediate, HIVES, 02/12/19) Sulfa (Sulfonamide Antibiotics) (Verified Allergy, Intermediate, HIVES, 02/12/19) prednisone (Verified Allergy, Intermediate, swelling and constipation, 02/12/19) codeine (Verified Allergy, Unknown, 02/12/19) Egg Derived (Verified Adverse Reaction, Mild, NAUSEA, 02/12/19) egg (Verified Adverse Reaction, Mild, NAUSEA, 02/12/19) Stephanie Franco MD Nov 23, 2020 11:22
--- NOTE | 2020-11-23 13:07 | ECGEPIP ---
[facility] Test Date: 2020-11-23 Pat Name: YUDY KING Department: Room: [place] [address] Gender: Female Innersole Fitter: ELIZABET : 1945 Requested By: Stephanie Andrea Order Number: [id number] Reading MD: Sandra Wallace Measurements Intervals [place] Rate: 80 P: 88 RI: 124 QRS: 94 QRSD: 80 T: 75 QT: 354 QTc: 408 Interpretive Statements Normal sinus rhythm Rightward axis LPHB Electronically Signed on 11-23-2020 13:07:20 EDT by Sandra Wallace
[2020-11-23 16:28] LABS: ALBUMIN 2.6 GM/DL (3.2-5.2); CALCIUM LEVEL 7.9 MG/DL (8.8-10.2); CREATININE FOR GFR 6.79 MG/DL (0.55-1.30); GLOMERULAR FILTRATION RATE 6.3 (>39); PHOSPHORUS LEVEL 5.5 MG/DL (2.5-4.9); POTASSIUM SERUM 4.9 MEQ/L (3.5-5.1)
[2020-11-23] MEDS: LEVEMIR (INSULIN DETEMIR) 1 UNITS/0.01ML SC SCH (17:39)
--- NOTE | 2020-11-23 22:42 | IPN ---
PROGRESS NOTE DATE: 11/23/2020 SUBJECTIVE: Patient was seen and examined at the bedside today morning in the intensive care unit (ICU). She continues to be on bilevel positive airway pressure (BIPAP). She was given a dose of IV Lasix today morning because of oliguria. Renal function continues to get worse. Creatinine has bumped up to 6.6 today. I discussed the worsening renal function with the patient and possibility of needing dialysis. However, patient opted not to have anymore interventions or machines in addition to the BIPAP that she is already using and she opted against hemodialysis. She just wants continuation of the medical management of her renal failure. OBJECTIVE: Vital signs: Temperature is 98.7 degrees Fahrenheit, blood pressure 112/58, pulse is 82, respiratory rate of 19, saturating 98% on BIPAP with 30% FiO2. Intake and output: Urine output recorded is 552 mL yesterday, it was around 300 mL by the time I saw her in the morning. Weight in the bed scale is 55 kg. PHYSICAL EXAMINATION: General: Patient is awake, alert, oriented times three, sitting up in the bed wearing BIPAP. Head and neck exam: Extraocular muscles intact. She is wearing a BIPAP mask. Neck is supple. Mildly elevated jugular venous distension (JVD). Cardiovascular: S1, S2, regular rate. 2+ edema of the bilateral lower extremities was noted. Respiratory: Decreased breath sounds at the bases and she is dependent on BIPAP at this time. Abdomen: Soft, positive bowel sounds, nontender, no organomegaly. Genitourinary: She has an indwelling Le catheter. Musculoskeletal: No clubbing or cyanosis. 2+ edema of the extremities as noted above. Central nervous system (GEOGRAPHIC INFORMATION SCIENTIST): No focal deficit. Power is 5/5 in all extremities. LABORATORY REVIEW: CBC showed a WBC of 3.5, hemoglobin 8.8, platelets are 110. ABG done today morning showed a pH of 7.27, pCO2 of 53, pO2 of 102, bicarbonate is 24, oxygen saturation is 97%. BMP done today morning showed sodium 134, potassium 5.9, chloride 101, bicarbonate 27, BUN 93, creatinine is 6.6, phosphorous 6.1. Microbiology: Urine culture is pending. CURRENT INPATIENT MEDICATIONS: Patient's medications were all reviewed by myself. Patient continues to be on IV Levaquin. She was given a dose of Lasix 60 mg IV times one dose in the morning, another dose was ordered for the evening at 6 p.m. ASSESSMENT AND PLAN: 1. Acute renal failure. Patient's renal function continues to deteriorate. I discussed the possibility of hemodialysis with the patient, however she opted against dialysis. I am going to continue the diuretic at this time. Patient is responding to Lasix. 2. Hyperkalemia. It is secondary to acute renal failure. Patient was given a dose of Kayexalate and she was also started on Lasix. That has helped to improve her potassium level. Repeat potassium in the afternoon was within the acceptable range. 3. Acute hypercapnic respiratory failure. Patient is currently on bilevel positive airway pressure (BIPAP), steroids, and antibiotic. Volume status is being optimized with dialysis. 4. Urinary tract infection. Final culture is pending. She is currently on IV Levaquin. 5. Cor pulmonale. Latest echocardiogram report is pending. Patient is being diuresed as mentioned above. 6. Diabetes mellitus type 2. Avoid further use of metformin. Okay to continue insulin sliding scale.
[2020-11-24] VITALS (10 sets, daily range): BP systolic 89–117; BP diastolic 53–63
[2020-11-24] MEDS: LEVOTHYROXINE 75MCG TABLET (0.075MG) PO SCH (05:02)
[2020-11-24] MEDS: HEPARIN SOD (PORCINE) 5000UNITS/ML 1ML VIAL/SYRINGE SC SCH ×3 (05:03→22:12)
[2020-11-24 05:36] LABS: HEMOGLOBIN 8.2 g/dl (12.0-15.5); MEAN CORPUSCULAR HEMOGLOBIN 32.7 pg (27.0-33.0); MEAN CORPUSCULAR HGB CONC 31.5 g/dl (32.0-36.5); MEAN CORPUSCULAR VOLUME 103.6 fl (80.0-96.0); PLATELET COUNT, AUTOMATED 115 10^3/uL (150-450); RED BLOOD COUNT 2.51 10^6/uL (4.00-5.40); WHITE BLOOD COUNT 7.4 10^3/uL (4.0-10.0)
[2020-11-24 05:58] LABS: CALCIUM LEVEL 7.4 MG/DL (8.8-10.2); CREATININE FOR GFR 6.79 MG/DL (0.55-1.30); GLOMERULAR FILTRATION RATE 6.3 (>39); POTASSIUM SERUM 4.8 MEQ/L (3.5-5.1)
[2020-11-24] MEDS: ADVAIR HFA 115/21MCG INHALER INH SCH ×2 (07:28→20:00)
[2020-11-24] MEDS: HumaLOG INSULIN (NovoLOG) PER UNIT SC SCH ×4 (07:30→20:28)
[2020-11-24] MEDS: FAMOTIDINE 20 MG TAB PO SCH (08:53)
[2020-11-24] MEDS: methylPREDNISolone 125MG 2ML VIAL IV SCH ×2 (08:54→20:28)
[2020-11-24] MEDS: LEVEMIR (INSULIN DETEMIR) 1 UNITS/0.01ML SC SCH (08:54)
[2020-11-24] MEDS: diltiaZEM **CD** 180 MG CAP PO SCH (08:54)
[2020-11-24 09:38] LABS: ABG BASE EXCESS -4.2 (-2.0-2.0); ABG HCO3 21.9 MEQ/L (22.0-26.0); ABG O2 SATURATION 97.3 % (95.0-99.0); ABG PARTIAL PRESSURE CO2 44.3 mmHg (35.0-45.0); ABG PARTIAL PRESSURE O2 98.4 mmHg (75.0-100.0); ABG TOTAL CO2 23.2 MEQ/L (23.0-31.0); ABG pH (ARTERIAL) 7.311 UNITS (7.350-7.450)
--- NOTE | 2020-11-24 12:17 | ECHO ---
DATE OF PROCEDURE: 11/22/2020 Age: 75 Gender: Female REFERRING PHYSICIAN: Dr. Vitale INDICATION: Shortness of breath. MEASUREMENTS: Aorta 3.0 cm LA 3.3 cm IVS 1.0 cm LV 4.3 cm LVPW 1.0 cm Mitral E wave velocity 80 Mitral A wave 86 E prime septal 7.3 E prime lateral 9.0 IVC 2.0 FINDINGS: This study is of acceptable technical quality. The patient is in sinus rhythm. Left ventricle is normal size and has normal ventricular systolic function with estimated EF approximately 60% to 65%. Right ventricle appears mildly dilated, but is normally contractile. Both atria appear normal. Aortic valve exhibits minimal sclerotic abnormalities, but has three cusps and normal mobility. Mitral, tricuspid, and pulmonic valves appear normal for the patients age. No pericardial effusion is noted. Inferior vena cava is mildly dilated and there is no appreciable collapse with inspiration indicative of elevated central venous pressure. The aortic root is normal. The aortic arch and abdominal aorta were poorly visualized. Doppler interrogation reveals competent aortic valve. There is mild mitral, tricuspid, and pulmonic insufficiency. Calculated pulmonary artery pressure is approximately 45 mmHg corresponding to moderate pulmonary hypertension. Mitral inflow pattern and tissue Doppler imaging of the mitral annulus revealed grade 1 diastolic dysfunction. CONCLUSIONS: 1. Study is of good technical quality. Underlying sinus rhythm. 2. Normal LV size with preserved LV systolic function and grade 1 diastolic dysfunction. 3. No hemodynamically significant valvular disease. 4. Likely elevated central venous pressure and moderate pulmonary hypertension. MTDD
--- NOTE | 2020-11-24 12:24 | IPNPDOC ---
VS, I&O, 24H, [facility] Vital Signs/I&O Vital Signs Date Time Temp Pulse Resp B/P (MAP) Pulse Ox O2 Delivery O2 Flow Rate FiO2 11/24/20 10:00 86 112/58 (76) 97 Nasal Cannula 2.0 11/24/20 08:00 97.9 20 30 I&O- Last 24 Hours up to 6 AM 11/24/20 05:59 Intake Total 1020 ml Output Total 1163 ml Balance -143 ml Laboratory Data 24H LABS Laboratory Tests 2 11/23/20 15:51: Anion Gap 9, Glomerular Filtration Rate 6.3L, Calcium Level 7.9L, Phosphorus Level 5.5H, Albumin 2.6#L 11/23/20 17:19: Bedside Glucose (Misc Panel) 262H 11/23/20 20:09: Bedside Glucose (Misc Panel) 244H 11/24/20 04:58: Anion Gap 10, Glomerular Filtration Rate 6.3L, Calcium Level 7.4L, Nucleated Red Blood Cells % (auto) 0.0 11/24/20 09:30: Blood Gas Bicarbonate Standard 21.0L, Arterial Blood pH 7.311L, Arterial Blood Partial Pressure CO2 44.3, Arterial Blood Partial Pressure O2 98.4, Arterial Blood Total CO2 23.2, Arterial Blood HCO3 21.9L, Arterial Blood Base Excess - 4.2L, Arterial Blood Oxygen Saturation 97.3 CBC/BMP Laboratory Tests 11/23/20 15:51 11/24/20 04:58 Microbiology Microbiology 11/22/20 Urine Culture - Final, Complete Escherichia Coli 11/21/20 Respiratory Virus Panel (PCR) (JOSSE) - Final, Complete 11/21/20 Blood Culture - Preliminary, Resulted No Growth after 48 hours. All Specime... 11/21/20 Blood Culture - Preliminary, Resulted No Growth after 48 hours. All Specime... Current Medications Current Medications Medications (Trade) Dose Ordered Sig/Jeffrey Route PRN Reason Start Time Stop Time Status Last Admin Dose Admin Acetaminophen (Tylenol Tab) 650 mg Q4HP PRN PO PAIN OR FEVER 11/22/20 13:30 11/22/20 16:17 Albuterol Sulfate (Proventil Neb) 2.5 mg Q2HP PRN NEB SOB/WHEEZING 11/22/20 13:30 Albuterol Sulfate (Proventil, Ventolin Hfa) 1 puff QID PRN INH SOB/WHEEZING 11/22/20 02:45 Albuterol/ Ipratropium (Combivent Respimat 100-20mcg) 4 puff Q20M INH 11/21/20 17:40 11/21/20 18:21 DC 11/21/20 18:20 Dextrose (Dextrose 50%) 25 ml ASDIRECTED PRN IV SEE LABEL COMMENTS 11/21/20 22:30 Diltiazem HCl (Cardizem Cd) 180 mg DAILY PO 11/22/20 09:00 11/24/20 08:54 Famotidine (Pepcid) 10 mg DAILY PO 11/22/20 09:00 11/24/20 08:53 Glucagon (Glucagon) 1 mg ASDIRECTED PRN SC SEE LABEL COMMENTS 11/21/20 22:30 Glucose (Glucose) 16 GM ASDIRECTED PRN PO SEE LABEL COMMENTS 11/21/20 22:30 Heparin Sodium (Porcine) (Heparin) 5,000 units Q8H SC 11/22/20 06:00 11/24/20 05:03 Home Med (Med Rec Complete!) ASDIRECTED XX 11/21/20 19:15 11/21/20 19:14 DC Insulin Detemir (Levemir Insulin) 12 units QAM SC 11/23/20 09:00 11/24/20 08:54 Insulin Human Lispro (HumaLOG INSULIN) SEE PROTOCOL TABLE AC SC 11/22/20 17:30 11/24/20 07:30 Insulin Human Lispro (HumaLOG INSULIN) SEE PROTOCOL TABLE QHS SC 11/22/20 21:00 Levofloxacin 250 mg/IV Miscellaneous Supplies 50 ml @ 50 mls/hr Q48H IV 11/24/20 20:00 Levothyroxine Sodium (Synthroid) 75 mcg DAILY@0600 PO 11/22/20 06:00 11/24/20 05:02 Methylprednisolone (SOLUmedrol) 60 mg Q12H IV 11/22/20 09:00 11/24/20 08:54 Salmeterol Xinafoate/ Fluticasone (Advair Hfa / ) 2 puff RBID INH 11/22/20 08:00 11/24/20 07:28 Sodium Chloride 1,000 ml @ 60 mls/hr [id number] IV 11/22/20 13:00 11/23/20 05:39 DC 11/22/20 13:26 Allergies Coded Allergies: NSAIDS (Non-Steroidal Anti-Inflamma (Verified Allergy, Severe, ULCERS, PALPITATIONS, 02/12/19) aspirin (Verified Allergy, Severe, ULCERS, PALPITATIONS, 02/12/19) ibuprofen (Verified Allergy, Severe, ULCERS, PALPITATIONS, 02/12/19) Penicillins (Verified Allergy, Intermediate, HIVES, 02/12/19) Sulfa (Sulfonamide Antibiotics) (Verified Allergy, Intermediate, HIVES, 02/12/19) prednisone (Verified Allergy, Intermediate, swelling and constipation, 02/12/19) codeine (Verified Allergy, Unknown, 02/12/19) Egg Derived (Verified Adverse Reaction, Mild, NAUSEA, 02/12/19) egg (Verified Adverse Reaction, Mild, NAUSEA, 02/12/19) Stephanie Franco MD Nov 24, 2020 12:24
[2020-11-24] MEDS ORDERED: FUROSEMIDE 40MG/4ML VIAL (J1940) IV ONE ×2 (12:30→18:00)
[2020-11-24 13:02] LABS: FOLATE 3.7 NG/ML (>5.4)
--- NOTE | 2020-11-24 16:05 | CCN ---
CRITICAL CARE NOTE DATE: 11/24/2020 REASON FOR CONSULTATION: BiPAP management. SUBJECTIVE: The patient is awake, alert, eating breakfast this morning. Tolerating the BiPAP with minimal nasal bridge discomfort. Continues to have renal failure, but putting out more urine with Lasix. Urine culture grew E. coli. The patient was on low dose levofloxacin for this and this could be converted; however, the patient has many allergies including SULFA and PENICILLIN allergies. She remains on steroids for COPD. This morning, she has no significant complaints. OBJECTIVE: VITAL SIGNS: Temperature 98.3, pulse 76, blood pressure 108/56 with oxygen saturation of 96% on 0.30 FiO2 with respiratory rate of 19. GENERAL: Awake, alert, and oriented. Affect and mood are appropriate. Speech is clear and nontangential. She does not pause during speech. HEENT: Sclerae clear, anicteric. Pupils equal and reactive to light. Mucous membranes moist without lesions. Oropharynx without erythema or exudate. Mucous membranes are much more moist today and not as dry as on presentation. NECK: Minimal elevated JVP. No mass or lesion. PULMONARY: Clear to auscultation without rash, rhonchi, or wheezes. There is prolongation of expiratory phase. CARDIAC: Regular S1, S2. PMI is displaced laterally. ABDOMEN: Soft, nontender, and nondistended. No hepatosplenomegaly, masses, or hernia. EXTREMITIES: There is pitting edema to the level of the mid tibia. No cyanosis or clubbing. LABORATORY DATA: Shows white blood cell count of 7.4, hemoglobin 8.2, platelet count 115,000, sodium 134, potassium 4.8, chloride 100, bicarb 25, BUN 99, creatinine 6.79 with a glucose of 258. Arterial blood gases this morning show some minimal improvement with a pH of 7.31, pCO2 of 44, PaO2 of 98. IMPRESSION/PLAN: Hypercarbic respiratory failure possibly secondary to Escherichia coli ( E. coli) urinary tract infection (UTI) in the face of acute on chronic renal failure. Attempting diuretics today. Will continue to monitor. Will likely need BiPAP for a few more days for supportive reasons; especially as the patient does not want dialysis at this point in time. Overall, the patient wants limited interventions. She is DO NOT RESUSCITATE (DNR) / DO NOT INTUBATE (DNI). Will continue to monitor closely for the continued need for BiPAP.
[2020-11-24] MEDS ORDERED: LevoFLOXacin IV 250 MG in IV 1 EA IV SCH (20:00)
--- NOTE | 2020-11-24 23:16 | IPN ---
NEPHROLOGY PROGRESS NOTE DATE: 11/24/2020 SUBJECTIVE: Patient was seen and examined at the bedside today morning in the ICU. She is off the BiPAP. She is feeling much better today. Her breathing is improved. She is back to her baseline nasal cannula at 3 liters. She diuresed well with the I.V. diuretics. Even though there is no significant improvement in the renal function and creatinine, her volume status is better. She reports that her lower extremity edema is also getting better. OBJECTIVE: VITAL SIGNS: Temperature 98.4 degrees Fahrenheit, blood pressure 116/58, pulse 83, respiratory rate 20, saturating 97% on nasal cannula at 2 liters. INTAKE AND OUTPUT: Urine output recorded as 928 mL yesterday and 1.4 liters so far today since overnight. Weight in the bed scale is 55.5 kg. PHYSICAL EXAMINATION: GENERAL: Patient is awake, alert, oriented x3, sitting up in the bed wearing nasal cannula. HEAD/NECK: Extraocular muscles intact. Pupils equally round and reactive to light. Mucous membranes are moist. Neck is supple. Mildly elevated JVD was noted. CARDIOVASCULAR: S1, S2, regular rate. 2+ edema of the bilateral lower extremities. RESPIRATORY: Decreased breath sounds bilaterally at the bases. Patient has COPD and poor inspiratory flow. ABDOMEN: Soft, positive bowel sounds, nontender. No organomegaly. GENITOURINARY: She has an indwelling Le catheter. MUSCULOSKELETAL: She has tenderness of the lower extremities and edema of the lower extremities. QUARRY EQUIPMENT OPERATOR: No focal deficit. Power is 5/5 in all extremities. LABORATORY REVIEW: CBC showed WBC 7.4, hemoglobin 8.2, platelets 115,000. BMP showed sodium 135, potassium 4.8, chloride 100, bicarb 25, BUN 99, creatinine 6.79. Calcium 7.4. CURRENT INPATIENT MEDICATIONS: Patient's medications were all reviewed by myself. She was given one dose of Lasix in the morning and another dose of Lasix in the evening. No other significant change in the medications today. ASSESSMENT AND PLAN: 1. Acute renal failure: Patient is nonoliguric at this time. She is tolerating the I.V. diuretics. Electrolytes and acid-base status is within acceptable range. Volume status is getting better. No urgent need of hemodialysis and patient herself refused hemodialysis. Continue to monitor for improvement. 2. Acute hypercapnic respiratory failure: Patient is off the BiPAP. She is on nasal cannula now. She is on antibiotics and steroids. Clinically she is much better. 3. E. Coli urinary tract infection: Patient is on I.V. Levaquin. 4. Cor pulmonale: Patient is being diuresed with I.V. Lasix. Edema is getting better. 5. Diabetes mellitus type 2: Continue insulin Levemir and sliding scale.
[2020-11-25] VITALS (7 sets, daily range): BP systolic 107–121; BP diastolic 57–69
[2020-11-25 05:01] LABS: HEMATOCRIT 25.4 % (36.0-47.0); HEMOGLOBIN 8.3 g/dl (12.0-15.5); MEAN CORPUSCULAR HEMOGLOBIN 33.3 pg (27.0-33.0); MEAN CORPUSCULAR HGB CONC 32.7 g/dl (32.0-36.5); PLATELET COUNT, AUTOMATED 114 10^3/uL (150-450); RED BLOOD COUNT 2.49 10^6/uL (4.00-5.40); WHITE BLOOD COUNT 7.5 10^3/uL (4.0-10.0)
[2020-11-25 05:23] LABS: CALCIUM LEVEL 7.5 MG/DL (8.8-10.2); CREATININE FOR GFR 6.25 MG/DL (0.55-1.30); GLOMERULAR FILTRATION RATE 6.9 (>39); POTASSIUM SERUM 4.7 MEQ/L (3.5-5.1)
[2020-11-25] MEDS: HEPARIN SOD (PORCINE) 5000UNITS/ML 1ML VIAL/SYRINGE SC SCH ×3 (05:33→21:00)
[2020-11-25] MEDS: LEVOTHYROXINE 75MCG TABLET (0.075MG) PO SCH (05:33)
[2020-11-25 06:07] LABS: ABG HCO3 23.3 MEQ/L (22.0-26.0); ABG O2 SATURATION 97.1 % (95.0-99.0); ABG PARTIAL PRESSURE CO2 41.9 mmHg (35.0-45.0); ABG PARTIAL PRESSURE O2 92.5 mmHg (75.0-100.0); ABG STANDARD HCO3 22.8 MEQ/L (22.0-26.0); ABG TOTAL CO2 24.6 MEQ/L (23.0-31.0); ABG pH (ARTERIAL) 7.363 UNITS (7.350-7.450)
[2020-11-25] MEDS: ADVAIR HFA 115/21MCG INHALER INH SCH ×2 (07:18→20:01)
[2020-11-25] MEDS: FAMOTIDINE 20 MG TAB PO SCH (08:37)
[2020-11-25] MEDS: CIPROFLOXACIN 500MG TABLET PO SCH (08:38)
[2020-11-25] MEDS: diltiaZEM **CD** 180 MG CAP PO SCH (08:38)
[2020-11-25] MEDS: LEVEMIR (INSULIN DETEMIR) 1 UNITS/0.01ML SC SCH (08:40)
[2020-11-25] MEDS: HumaLOG INSULIN (NovoLOG) PER UNIT SC SCH ×4 (08:41→20:59)
--- NOTE | 2020-11-25 12:03 | IPNPDOC ---
Text Note Date of Service The patient was seen on 11/25/20. NOTE SUBJECTIVE: -No acute events overnight -UOP moderately improved, tolerating some diuresis -On 2L NC this morning OBJECTIVE: PHYSICAL EXAMINATION: VITAL SIGNS: see below GENERAL: Sitting up in bed, answering questions appropriately, oriented x 3 HEENT: Normocephalic, atraumatic, sclera anicteric, MMM, nasal canula in place NECK: Supple, trachea midline. No elevation of JVP appreciated CARDIOVASCULAR: Regular rate and rhythm, normal S1 and S2. No murmurs, rubs, or gallops RESPIRATORY: Diminished throughout bilateral lung hernandez. No wheezing, rhonchi or rales ABDOMEN: Soft, nontender, nondistended, bowel sounds present. EXTREMITIES: 2+ bilateral lower extremity edema up to the knees. Pulses 2+/4 in bilateral upper and lower extremities SKIN: [place], warm, dry NEUROLOGIC: Alert and oriented x3 to person, place and time. No focal deficits appreciated, CN 2-12 intact PSYCHIATRIC: Mood and affect appropriate LABORATORY DATA: Reviewed WBC 7.5 Hgb 8.3 Cr 6.25 Na 137 K 4.7 Ferritin 64 Iron 71 Micro: Pansensitive E.coli in UCx IMAGING: Renal US: Mildly atrophic left kidney with bilateral diffuse increased cortical parenchymal echogenicity suggestive of chronic medical renal disease. CXR: Chronic stable emphysematous disease and scattered fibrosis. No acute focal consolidation or effusion. Head CT 1. No acute intracranial abnormality. 2. Chronic lacunar infarct involving the right thalamus. 3. Periventricular and subcortical white matter changes, which are likely the sequela of chronic small vessel ischemic injury and are similar in appearance compared to the prior CT head on 03/13/2018. Echo 04/2016: EF 75% Normal right heart chamber sizes with Doppler evidence of mild - moderate pulmonary artery hypertension. Normal IVC size and collapse against right heart failure. Normal left ventricular size, wall thickness and hyperkinetic wall motion. Borderline left atrial enlargement with currently normal Doppler assessment of LV diastolic function with estimated mean left atrial pressure upper limits of normal to slightly increased. Mild aortic valvular sclerosis without functional abnormality. Mild mitral annular thickening with mild mitral insufficiency. MICROBIOLOGY: Bcx x 2 sets: NG UCx pending Resp panel: neg ASSESSMENT: 75 year old female with PMHx of diabetes mellitus CKD stage 3, hypothyroidism, HTN, COPD, GERD, anemia of chronic disease, and LE edema admitted for acute on chronic hypercarbic respiratory failure 2/2 to combination COPD exacerbation and CHF exacerbation as well as EVA on CKD stage IV and E.coli UTI. PLAN: Acute on chronic hypercarbic respiratory failure likely 2/2 to COPD exacerbation and CHF exacerbation -currently on 2L NC -DC methylprednisolone IV BID, and start pred 40 PO daily, albuterol ATC, advair, pulm on board, will need a pred taper -diuresis per nephrology, patient declines consideration of HD at this time Oliguric EVA on CKD stage 3 likely multifactorial to decreased PO intake, medication metformin, lasix and potential congestive nephropathy given fluid overloaded state -Baseline Cr believed to be around 2.3 -Cr today 6.25, U/O improving with mild diuresis, will monitor daily BMP -Renal US above -IV lasix today per nephrology -Dr. Negrete/Nephrology consulted and following closely -Patient does not wish to have HD Acute hyperkalemia likely 2/2 to EVA: resolved -daily BMP Elevated BNP with volume overload, exacerbation CHF, hx of pulmonary HTN -Last echocardiogram 2015, see above. No prior history of CHF, f/u official TTE report -BNP at presentation was 6935 -CXR: no pulmonary vascular congestion, + Lower ext edema -Diuresis per nephrology Diabetes mellitus II -BS elevated at times up to 280 -Continue levemir AM -ISS AC/HS, consistent carb, FS History of AOCI, also with SANJAY per studies -H/h stable -No s/s of bleeding -CBC daily -will require Fe replacement HTN -Stable -C/w diltiazem Hypothyroidism -C/w levothyroxine GERD -Famotidine DVT px -Heparin SC DISPOSITION: Transfer to [facility] with tele. DNR/DNI. VS,Fishbone, I+O VS, Fishbone, I+O Laboratory Tests 11/25/20 04:50 Vital Signs Date Time Temp Pulse Resp B/P (MAP) Pulse Ox O2 Delivery O2 Flow Rate FiO2 11/25/20 06:00 75 18 108/57 (74) 93 Nasal Cannula 2.0 11/25/20 04:00 96.9 11/24/20 08:00 30 I&O- Last 24 Hours up to 6 AM 11/25/20 05:59 Intake Total 1070 ml Output Total 2172 ml Balance -1102 ml [id number],NIDHI V. MD Nov 25, 2020 08:07
--- NOTE | 2020-11-25 12:54 | CCN ---
CRITICAL CARE NOTE DATE: 11/25/2020 The patient is seen in the intensive care unit. This is hospital day #4, intensive care unit (ICU) day #4. Over the last 12 hours she has been reasonably stable with no significant alterations in vital signs. Currently her temperature is 96.9, pulse rate 75, respirations are 18 and nonlabored, blood pressure 108/57, oxygen saturation 93% on 2 liters of oxygen. Intake and output for the past 24 hours: 1010 in, 1892 out, since midnight 120 in 710 out. At bedside she is ill appearing but awake and responsive. Her oral mucosa is dry. Neck is supple. No meningismus. Heart sounds are irregular without appreciable murmur. Breath sounds diminished with subtle crepitant rales in the bases. Abdomen is soft. Bowel sounds in the right lower quadrant. The extremities show no significant edema. DIAGNOSTIC STUDIES: Her sodium is 137, potassium 4.7, chloride 100, CO2 of 26, BUN up slightly at 107. Creatinine is down at 6.25. Glucose 283. White cell count is stable at 7.5. Hemoglobin is stable at 8.3, hematocrit 25.4, platelet count 114,000. On review of medications, she is receiving levofloxacin, day #4, Solu-Medrol 60 mg every 12 hours, Advair 115 daily, and heparin 5000 every 8 hours. On review of bacteriology, her urine culture is growing Escherichia (E) coli. The primary problem requiring critical attention is acute on chronic respiratory failure. She has been weaned away from noninvasive positive pressure ventilation, and her blood gases are acceptable on nasal cannula oxygen. This morning, pH is 7.36, pCO2 of 41, pO2 of 92. Chronic obstructive pulmonary disease. I will change to oral steroids. These can be weaned over the next few days. Escherichia (E) coli urosepsis. The patient is responding well to quinolones. Kidney failure. Numbers are better this morning. Nephrology is following. Deep venous thrombosis (DVT) prophylaxis is being addressed with subcutaneous heparin. The patient's conditions is improved. She remains appropriate for intensive care unit ICU at the current time, but transfer cold be consider should she remain stable throughout the day. There was 64 minutes spent in the provision of bedside critical care and coordination, excluding any time for procedures.
[2020-11-25] MEDS: SENOKOT S TAB PO SCH ×2 (13:09→20:58)
[2020-11-25] MEDS ORDERED: predniSONE 20 MG TAB PO ONE (14:30)
--- NOTE | 2020-11-25 22:28 | IPN ---
NEPHROLOGY PROGRESS NOTE DATE: 11/25/2020 SUBJECTIVE: The patient was seen and examined at the bedside today morning in the ICU. The patient reports that she is feeling much better today. She is wearing nasal cannula at 2 liters. Renal function is also gradually improving. Creatinine has improved to 6.2. The patient is having post ATN diuresis now. Her urine output is more than 100 mL an hour without any diuretics now. OBJECTIVE: VITAL SIGNS: Temperature is 97.8 degrees Fahrenheit, blood pressure is 118/69, pulse is 86, respiratory rate of 22, saturating 98% on nasal cannula at 2 liters. INTAKE AND OUTPUT: Urine output recorded as 1.8 liters yesterday and 1.8 liters by this time now. Weight in the bed scale is 6.7 kg. PHYSICAL EXAMINATION: GENERAL APPEARANCE: The patient is awake, alert, oriented x3, sitting up in the sofa in no apparent distress. HEAD AND NECK: Extraocular muscles intact. Pupils are equally round and reactive to light. Mucous membranes are moist. Neck is supple. There is mildly elevated jugular venous distention. CARDIOVASCULAR: S1, S2, regular rate. EXTREMITIES: 1+ edema of the bilateral lower extremities. RESPIRATORY: Mildly decreased breath sounds at the bases with mild respiratory crackles at the bases up to mid lung zones. ABDOMEN: Soft, positive bowel sounds, nontender, no organomegaly. MUSCULOSKELETAL: No clubbing, no cyanosis. Pulses are 2+. 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 Power is 5/5 in all extremities. LAB REVIEW: CBC showed a white blood cell count of 7.5, hemoglobin 8.3, platelet count 114. ABG showed pH of 7.36, pco2 of 41, pO2 92, bicarbonate 24, O2 sat is 97%. BMP today morning showed sodium 137, potassium 4.7, chloride 100, bicarbonate 26, BUN 107, creatinine is 6.2. It was 6.7 yesterday. CURRENT INPATIENT MEDICATIONS: The patient's medications were all reviewed by myself. She is currently not getting any diuretics. IV Solu-Medrol has been stopped. She is on Prednisone 40 mg p.o. daily, and she is also started on Ciprofloxacin 500 mg p.o. daily. ASSESSMENT AND PLAN: 1. Acute non oliguric renal failure the patient is having post ATN diuresis. Electrolytes are within the acceptable range. Continue to monitor intake and output. No urgent need of diuretics or hemodialysis at this time. 2. E-coli urinary tract infection - The patient was on Levaquin. Currently she has been started on oral Ciprofloxacin. Clinically she is improving. 3. Cor pulmonale volume status is improving. She is not requiring diuretics because she is auto diuresing at this time. 4. Acute COPD exacerbation - The patient is on steroids and antibiotics. She is being managed by Pulmonary Service.
[2020-11-26] VITALS: BP 113/58
[2020-11-26 04:00] VITALS: BP 114/62
[2020-11-26] MEDS: LEVOTHYROXINE 75MCG TABLET (0.075MG) PO SCH (05:11)
[2020-11-26] MEDS: HEPARIN SOD (PORCINE) 5000UNITS/ML 1ML VIAL/SYRINGE SC SCH ×3 (05:11→21:25)
[2020-11-26] MEDS: CIPROFLOXACIN 500MG TABLET PO SCH (05:12)
[2020-11-26 05:17] LABS: HEMATOCRIT 25.7 % (36.0-47.0); HEMOGLOBIN 8.3 g/dl (12.0-15.5); MEAN CORPUSCULAR HEMOGLOBIN 32.7 pg (27.0-33.0); MEAN CORPUSCULAR HGB CONC 32.3 g/dl (32.0-36.5); MEAN CORPUSCULAR VOLUME 101.2 fl (80.0-96.0); PLATELET COUNT, AUTOMATED 103 10^3/uL (150-450); RED BLOOD COUNT 2.54 10^6/uL (4.00-5.40); WHITE BLOOD COUNT 6.1 10^3/uL (4.0-10.0)
[2020-11-26 05:23] LABS: CALCIUM LEVEL 7.6 MG/DL (8.8-10.2); CREATININE FOR GFR 5.42 MG/DL (0.55-1.30); GLOMERULAR FILTRATION RATE 8.1 (>39)
[2020-11-26] MEDS: ADVAIR HFA 115/21MCG INHALER INH SCH ×2 (07:37→20:26)
[2020-11-26 07:57] VITALS: BP 129/70
[2020-11-26] MEDS: predniSONE 20 MG TAB PO SCH (08:25)
[2020-11-26] MEDS: FAMOTIDINE 20 MG TAB PO SCH (08:25)
[2020-11-26] MEDS: SENOKOT S TAB PO SCH ×2 (08:25→21:25)
[2020-11-26] MEDS: diltiaZEM **CD** 180 MG CAP PO SCH (08:25)
[2020-11-26] MEDS: HumaLOG INSULIN (NovoLOG) PER UNIT SC SCH ×4 (08:26→21:00)
[2020-11-26] MEDS: LEVEMIR (INSULIN DETEMIR) 1 UNITS/0.01ML SC SCH (08:26)
[2020-11-26 09:45] VITALS: BP 131/60
--- NOTE | 2020-11-26 10:04 | IPNPDOC ---
Text Note Date of Service The patient was seen on 11/26/20. NOTE SUBJECTIVE: -No acute events overnight -UOP robust, autodiuresing -On 2L NC this morning OBJECTIVE: PHYSICAL EXAMINATION: VITAL SIGNS: see below GENERAL: Sitting up in bed, answering questions appropriately, oriented x 3 HEENT: Normocephalic, atraumatic, sclera anicteric, MMM, nasal canula in place NECK: Supple, trachea midline. No elevation of JVP appreciated CARDIOVASCULAR: Regular rate and rhythm, normal S1 and S2. No murmurs, rubs, or gallops RESPIRATORY: Diminished throughout bilateral lung hernandez. No wheezing, rhonchi or rales ABDOMEN: Soft, nontender, nondistended, bowel sounds present. EXTREMITIES: 2+ bilateral lower extremity edema much improving. Pulses 2+/4 in bilateral upper and lower extremities SKIN: [place], warm, dry NEUROLOGIC: Alert and oriented x3 to person, place and time. No focal deficits appreciated, CN 2-12 intact PSYCHIATRIC: Mood and affect appropriate LABORATORY DATA: Reviewed Cr 5.42 K 5 Ferritin 64 Iron 71 IMAGING: Renal US: Mildly atrophic left kidney with bilateral diffuse increased cortical parenchymal echogenicity suggestive of chronic medical renal disease. CXR: Chronic stable emphysematous disease and scattered fibrosis. No acute focal consolidation or effusion. Head CT 1. No acute intracranial abnormality. 2. Chronic lacunar infarct involving the right thalamus. 3. Periventricular and subcortical white matter changes, which are likely the sequela of chronic small vessel ischemic injury and are similar in appearance compared to the prior CT head on 03/13/2018. Echo 04/2016: EF 75% Normal right heart chamber sizes with Doppler evidence of mild - moderate pulmonary artery hypertension. Normal IVC size and collapse against right heart failure. Normal left ventricular size, wall thickness and hyperkinetic wall motion. Borderline left atrial enlargement with currently normal Doppler assessment of LV diastolic function with estimated mean left atrial pressure upper limits of normal to slightly increased. Mild aortic valvular sclerosis without functional abnormality. Mild mitral annular thickening with mild mitral insufficiency. MICROBIOLOGY: Bcx x 2 sets: NG UCx: pansensitive Ecoli Resp panel: neg ASSESSMENT: 75 year old female with PMHx of diabetes mellitus CKD stage 3, hypothyroidism, HTN, COPD, GERD, anemia of chronic disease, and LE edema admitted for acute on chronic hypercarbic respiratory failure 2/2 to combination COPD exacerbation and CHF exacerbation as well as EVA on CKD stage IV and E.coli UTI. PLAN: Acute on chronic hypercarbic respiratory failure likely 2/2 to COPD exacerbation and CHF exacerbation -currently on 2L NC -Pred 40 PO daily, albuterol ATC, advair, pulm on board, will need a pred taper, will switch to 30 QD tomorrow for 2 day, then 20 for 2D and 10 for 2D, then off. -Post ATN autodiuresis Oliguric EVA on CKD stage 3 likely multifactorial to decreased PO intake, medication metformin, lasix and potential congestive nephropathy given fluid overloaded state -Baseline Cr believed to be around 2.3 -Cr today 6.25, U/O improving, having post ATN autodiuresis, will monitor daily BMP -Renal US above -Dr. Negrete/Nephrology consulted and following closely -Patient does not wish to have HD -strict I/Os -daily weights Acute hyperkalemia likely 2/2 to EVA: resolved -daily BMP Elevated BNP with volume overload, exacerbation CHF, hx of pulmonary HTN -Last echocardiogram 2015, see above. No prior history of CHF, f/u official TTE report -BNP at presentation was 6935 -CXR: no pulmonary vascular congestion, + Lower ext edema -strict I/Os -daily weights -having post ATN autodiuresis, will monitor daily BMP -1.8L/24h fluid restriction Diabetes mellitus II -BS elevated at times up to 280 -Continue levemir AM -ISS AC/HS, consistent carb, FS History of AOCI, also with SANJAY per studies -H/h stable -No s/s of bleeding -CBC daily -will require Fe replacement HTN -Stable -C/w diltiazem Hypothyroidism -C/w levothyroxine GERD -Famotidine DVT px -Heparin SC DISPOSITION: Transfer to [facility]. DNR/DNI. VS,Fishbone, I+O VS, Fishbone, I+O Laboratory Tests 11/26/20 04:41 Vital Signs Date Time Temp Pulse Resp B/P (MAP) Pulse Ox O2 Delivery O2 Flow Rate FiO2 11/26/20 08:25 92 129/70 11/26/20 07:57 98.0 20 97 Nasal Cannula 2.0 11/24/20 08:00 30 I&O- Last 24 Hours up to 6 AM 11/26/20 06:00 Intake Total 2068 ml Output Total 2415 ml Balance -347 ml NIDHI TREJO MD Nov 26, 2020 10:04
[2020-11-26] MEDS: FERROUS SULFATE 325MG TAB PO SCH (13:12)
[2020-11-26 14:00] VITALS: BP 110/65
--- NOTE | 2020-11-26 21:52 | IPN ---
NEPHROLOGY PROGRESS NOTE DATE: 11/26/2020 SUBJECTIVE: The patient was seen and examined at the bedside today morning. The patient is awake and alert. She reports that she is feeling much better. Her shortness of breath is back to baseline. Her renal function is improving. The patient is auto diuresing right now, not requiring any IV diuretics. Her output is more than 100 mL per hour now. OBJECTIVE: VITAL SIGNS: Temperature is 98.4 degrees Fahrenheit, blood pressure 110/65, pulse is 106, respiratory rate oxygen saturation 20, saturating 95% on nasal cannula at 2 liters. INTAKE AND OUTPUT: Urine output recorded as 2.1 liters yesterday; 1,450 mL so far today since overnight. Weight in the bed scale is 55.2 kg. PHYSICAL EXAMINATION: GENERAL APPEARANCE: The patient is awake, alert, oriented x3, sitting up in the sofa in no apparent distress. HEAD AND NECK: Extraocular muscles intact. Pupils are equally round and reactive to light. Mucous membranes are moist. Neck is supple. Mildly elevated jugular venous distention. CARDIOVASCULAR: S1, S2, regular rate. EXTREMITIES: 1+ edema of the bilateral ankles. RESPIRATORY: Mildly decreased breath sounds at the bases. The patient is oxygen dependent. ABDOMEN: Soft, positive bowel sounds, nontender, no organomegaly. MUSCULOSKELETAL: Edema of the bilateral lower extremities. Mild tenderness to deep palpation in the lower extremities. 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 Power is 5/5 in all extremities. LAB REVIEW: CBC showed a WBC of 6.1, hemoglobin 8.3, platelet count 103. BMP showed sodium 135, potassium 5, chloride 100, bicarbonate 24, BUN 117, creatinine is 5.4. CURRENT INPATIENT MEDICATIONS: The patient's medications were all reviewed by myself. There is no significant change in the medications as compared with yesterday. ASSESSMENT AND PLAN: 1. Acute non-oliguric renal function - The patient is having auto diuresis now. Her oral fluid intake was liberalized. She does not need to be on fluid restriction. Her renal function is slowly improving. Continue to monitor for recovery. 2. E-coli urinary tract infection - This patient is on fluoroquinolone which is renally dosed. Urinary tract infection is improving now. 3. Cor pulmonale it is improving now. The patient initially needed IV diuretics, however she is making an adequate amount of urine at this time. No Lasix today. 4. Acute COPD exacerbation it is getting better. The patient is on steroids and antibiotics. She is back to her baseline oxygen requirement which is 2 liters.
[2020-11-26 22:00] VITALS: BP 120/59
[2020-11-27] MEDS: CIPROFLOXACIN 500MG TABLET PO SCH (05:37)
[2020-11-27] MEDS: LEVOTHYROXINE 75MCG TABLET (0.075MG) PO SCH (05:37)
[2020-11-27] MEDS: HEPARIN SOD (PORCINE) 5000UNITS/ML 1ML VIAL/SYRINGE SC SCH ×3 (05:37→21:15)
[2020-11-27 06:00] VITALS: BP 136/68
[2020-11-27 06:09] LABS: HEMATOCRIT 28.9 % (36.0-47.0); HEMOGLOBIN 9.4 g/dl (12.0-15.5); MEAN CORPUSCULAR HEMOGLOBIN 32.6 pg (27.0-33.0); MEAN CORPUSCULAR HGB CONC 32.5 g/dl (32.0-36.5); MEAN CORPUSCULAR VOLUME 100.3 fl (80.0-96.0); PLATELET COUNT, AUTOMATED 113 10^3/uL (150-450); RED BLOOD COUNT 2.88 10^6/uL (4.00-5.40); WHITE BLOOD COUNT 7.5 10^3/uL (4.0-10.0)
[2020-11-27 06:44] LABS: CALCIUM LEVEL 8.2 MG/DL (8.8-10.2); CREATININE FOR GFR 4.55 MG/DL (0.55-1.30); POTASSIUM SERUM 4.3 MEQ/L (3.5-5.1)
[2020-11-27] MEDS: ADVAIR HFA 115/21MCG INHALER INH SCH ×2 (08:24→20:08)
[2020-11-27] MEDS: LEVEMIR (INSULIN DETEMIR) 1 UNITS/0.01ML SC SCH (08:42)
[2020-11-27] MEDS: FERROUS SULFATE 325MG TAB PO SCH (08:43)
[2020-11-27] MEDS: predniSONE 20 MG TAB PO SCH (08:43)
[2020-11-27] MEDS: HumaLOG INSULIN (NovoLOG) PER UNIT SC SCH ×4 (08:43→21:16)
[2020-11-27] MEDS: SENOKOT S TAB PO SCH ×2 (08:43→21:15)
[2020-11-27] MEDS: FAMOTIDINE 20 MG TAB PO SCH (08:43)
[2020-11-27] MEDS: diltiaZEM **CD** 180 MG CAP PO SCH (09:00)
[2020-11-27] MEDS ORDERED: TORSEMIDE 20 MG TAB PO SCH (12:10)
--- NOTE | 2020-11-27 13:21 | IPNPDOC ---
Text Note Date of Service The patient was seen on 11/27/20. NOTE SUBJECTIVE: -No acute events overnight -On 2L NC this morning, per her baseline -Is doing well but still feels a little weak. She did well with PT today including the trial of stairs but urged that she would like to go home tomorrow instead of today as she feels not physically ready. OBJECTIVE: PHYSICAL EXAMINATION: VITAL SIGNS: see below GENERAL: Sitting up in bed, answering questions appropriately, oriented x 3 HEENT: Normocephalic, atraumatic, sclera anicteric, MMM, nasal canula in place NECK: Supple, trachea midline. No elevation of JVP appreciated CARDIOVASCULAR: Regular rate and rhythm, normal S1 and S2. No murmurs, rubs, or gallops RESPIRATORY: Diminished throughout bilateral lung hernandez. No wheezing, rhonchi or rales ABDOMEN: Soft, nontender, nondistended, bowel sounds present. EXTREMITIES: 1+ bilateral lower extremity edema much improving. Pulses 2+/4 in bilateral upper and lower extremities SKIN: [place], warm, dry NEUROLOGIC: Alert and oriented x3 to person, place and time. No focal deficits appreciated, CN 2-12 intact PSYCHIATRIC: Mood and affect appropriate LABORATORY DATA: Reviewed IMAGING: Renal US: Mildly atrophic left kidney with bilateral diffuse increased cortical parenchymal echogenicity suggestive of chronic medical renal disease. CXR: Chronic stable emphysematous disease and scattered fibrosis. No acute focal consolidation or effusion. Head CT 1. No acute intracranial abnormality. 2. Chronic lacunar infarct involving the right thalamus. 3. Periventricular and subcortical white matter changes, which are likely the se quela of chronic small vessel ischemic injury and are similar in appearance compared to the prior CT head on 03/13/2018. Echo 04/2016: EF 75% Normal right heart chamber sizes with Doppler evidence of mild - moderate pulmonary artery hypertension. Normal IVC size and collapse against right heart failure. Normal left ventricular size, wall thickness and hyperkinetic wall motion. Borderline left atrial enlargement with currently normal Doppler assessment of LV diastolic function with estimated mean left atrial pressure upper limits of normal to slightly increased. Mild aortic valvular sclerosis without functional abnormality. Mild mitral annular thickening with mild mitral insufficiency. MICROBIOLOGY: Bcx x 2 sets: NG UCx: pansensitive Ecoli Resp panel: neg ASSESSMENT: 75 year old female with PMHx of diabetes mellitus CKD stage 3, hypothyroidism, HTN, COPD, GERD, anemia of chronic disease, and LE edema admitted for acute on chronic hypercarbic respiratory failure 2/2 to combination COPD exacerbation and CHF exacerbation as well as EVA on CKD stage IV and E.coli UTI. PLAN: Acute on chronic hypercarbic respiratory failure likely 2/2 to COPD exacerbation and CHF exacerbation -currently on 2L NC -Pred 40 PO daily, albuterol ATC, advair, pulm on board, will need a pred taper, will switch to 30 QD tomorrow for 2 day, then 20 for 2D and 10 for 2D, then off. -Post ATN autodiuresis Oliguric EVA on CKD stage 3 likely multifactorial to decreased PO intake, medication metformin, lasix and potential congestive nephropathy given fluid overloaded state -Baseline Cr believed to be around 2.3 -Cr today 6.25, U/O improving, having post ATN autodiuresis, will monitor daily BMP -Renal US above -Dr. Negrete/Nephrology consulted and following closely -Patient does not wish to have HD -strict I/Os -daily weights Acute hyperkalemia likely 2/2 to EVA: resolved -daily BMP Elevated BNP with volume overload, exacerbation CHF, hx of pulmonary HTN -Last echocardiogram 2015, see above. No prior history of CHF, f/u official TTE report -BNP at presentation was 6935 -CXR: no pulmonary vascular congestion, + Lower ext edema -strict I/Os -daily weights -s/p post ATN autodiuresis, now placed on daily torsemide by nephrology, doing well -1.8L/24h fluid restriction Diabetes mellitus II -BS elevated at times up to 280 -Continue levemir AM -ISS AC/HS, consistent carb, FS History of AOCI, also with SANJAY per studies -H/h stable -No s/s of bleeding -CBC daily -will require Fe replacement HTN -Stable -C/w diltiazem Hypothyroidism -C/w levothyroxine GERD -Famotidine DVT px -Heparin SC DISPOSITION: Medsurg. DNR/DNI. Home tomorrow. Passed PT for home discharge. VS,Fishbone, I+O VS, Fishbone, I+O Laboratory Tests 11/27/20 05:54 Vital Signs Date Time Temp Pulse Resp B/P (MAP) Pulse Ox O2 Delivery O2 Flow Rate FiO2 3/18/21 09:00 86 101/58 11/27/20 06:00 98.5 20 94 Nasal Cannula 2.0 11/24/20 08:00 30 I&O- Last 24 Hours up to 6 AM 11/27/20 06:00 Intake Total 1540 ml Output Total 2050 ml Balance -510 ml NIDHI TREJO MD Nov 27, 2020 13:21
[2020-11-27 14:00] VITALS: BP 121/63
[2020-11-27 22:00] VITALS: BP 132/64
--- NOTE | 2020-11-27 23:14 | IPN ---
NEPHROLOGY PROGRESS NOTE DATE: 11/27/2020 SUBJECTIVE: Patient was seen and examined at the bedside today morning. She is afebrile, hemodynamically stable. She was sitting up and eating her food when is saw her. She denies any active complaints. She has a very good urine output. Le catheter was removed yesterday. Her renal function continues to improve. Creatinine has improved to 4.5 today. OBJECTIVE: VITAL SIGNS: Temperature 97.8 degrees Fahrenheit, blood pressure 121/63, pulse 88, respiratory rate 18, saturating 99% on nasal cannula at 2 liters. INTAKE AND OUTPUT: Urine output recorded as 2.3 liters yesterday and 825 mL so far today since overnight. Weight in the bed scale is 54.9 kg. PHYSICAL EXAMINATION: GENERAL: Patient is awake, alert, oriented x3, sitting up in the sofa in no apparent distress. HEAD/NECK: Extraocular muscles intact. Pupils equally round and reactive to light. Mucous membranes are moist. Neck is supple. Mildly elevated JVD. CARDIOVASCULAR: S1, S2, regular rate. 1+ edema of the bilateral lower extremities. RESPIRATORY: Mildly decreased breath sounds at the bases with inspiratory crackles on deep inspiration. ABDOMEN: Soft, positive bowel sounds, nontender. No organomegaly. MUSCULOSKELETAL: No cyanosis or clubbing. Pulses are 2+. 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 Power is 5/5 in all extremities. LABORATORY REVIEW: CBC showed WBC 7.5, hemoglobin 9.4, platelets 113,000. BMP showed sodium 139, potassium 4.3, chloride 105, bicarb 25, BUN 109, creatinine 4.5; it was 5.4 yesterday. Calcium 8.2. CURRENT INPATIENT MEDICATIONS: Patient's medications were all reviewed by myself. Patient's prednisone dose has been decreased to 30 mg p.o. daily. I have started the patient on Torsemide 20 mg p.o. daily; first dose was given in the morning. ASSESSMENT AND PLAN: 1. Acute nonoliguric renal failure: The patient's renal function is slowly improving. I am going to restart the patient on diuretics. Volume status is getting better too. 2. Cor pulmonale: For two days patient was auto-diuresing. I started the patient on Torsemide 20 mg today. Further dose adjustment will be done tomorrow morning. 3. E. Coli urinary tract infection: Patient is on Ciprofloxacin. UTI has resolved now. 4. Acute COPD exacerbation: Patient is on antibiotics and steroids. She is back on her daily 2 liter oxygen requirement. Volume status is being optimized with diuretic as mentioned above.
[2020-11-28] VITALS (9 sets, daily range): BP systolic 88–132; BP diastolic 48–74
[2020-11-28] MEDS: HEPARIN SOD (PORCINE) 5000UNITS/ML 1ML VIAL/SYRINGE SC SCH (05:38)
[2020-11-28] MEDS: LEVOTHYROXINE 75MCG TABLET (0.075MG) PO SCH (05:38)
[2020-11-28] MEDS: CIPROFLOXACIN 500MG TABLET PO SCH (05:38)
[2020-11-28] MEDS: ACETAMINOPHEN TAB 650MG DOSE (2X325MG) PO PRN (05:38)
[2020-11-28 06:41] LABS: HEMATOCRIT 26.9 % (36.0-47.0); HEMOGLOBIN 8.7 g/dl (12.0-15.5); MEAN CORPUSCULAR HEMOGLOBIN 32.2 pg (27.0-33.0); MEAN CORPUSCULAR HGB CONC 32.3 g/dl (32.0-36.5); MEAN CORPUSCULAR VOLUME 99.6 fl (80.0-96.0); PLATELET COUNT, AUTOMATED 129 10^3/uL (150-450); WHITE BLOOD COUNT 9.9 10^3/uL (4.0-10.0)
[2020-11-28] MEDS: ADVAIR HFA 115/21MCG INHALER INH SCH ×2 (08:01→19:36)
[2020-11-28 08:08] LABS: CALCIUM LEVEL 8.2 MG/DL (8.8-10.2); CREATININE FOR GFR 4.05 MG/DL (0.55-1.30); GLOMERULAR FILTRATION RATE 11.4 (>39); POTASSIUM SERUM 4.9 MEQ/L (3.5-5.1)
[2020-11-28] MEDS: FERROUS SULFATE 325MG TAB PO SCH (08:08)
[2020-11-28] MEDS: SENOKOT S TAB PO SCH ×2 (08:08→21:35)
[2020-11-28] MEDS: FAMOTIDINE 20 MG TAB PO SCH (08:08)
[2020-11-28] MEDS: LEVEMIR (INSULIN DETEMIR) 1 UNITS/0.01ML SC SCH (08:12)
[2020-11-28] MEDS: HumaLOG INSULIN (NovoLOG) PER UNIT SC SCH ×4 (08:12→21:00)
[2020-11-28] MEDS ORDERED: predniSONE 10 MG TAB PO SCH (09:00)
[2020-11-28 09:07] LABS: MAGNESIUM LEVEL 2.1 MG/DL (1.8-2.4)
[2020-11-28] MEDS: APIXABAN 2.5 MG TAB (ELIQUIS) PO SCH ×2 (09:21→21:35)
[2020-11-28] MEDS ORDERED: METOPROLOL TART 25 MG TABLET PO ONE (10:00)
--- NOTE | 2020-11-28 11:32 | ECGEPIP ---
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 Electronically Signed on 11-28-2020 11:32:11 EDT by Jasson Waller
--- NOTE | 2020-11-28 13:16 | IPNPDOC ---
Text Note Date of Service The patient was seen on 11/28/20. NOTE SUBJECTIVE: -No acute events overnight -On 2L NC this morning, per her baseline -Was noted to have soft BP this AM to SBP 88, asymptomatic and was tachycardic to at least 140 --> EKG done then showed Afib with RVR which is newly noted. OBJECTIVE: VITAL SIGNS: see below GENERAL: Sitting up in bed, answering questions appropriately, oriented x 3 HEENT: Normocephalic, atraumatic, sclera anicteric, MMM, nasal canula in place NECK: Supple, trachea midline. No elevation of JVP appreciated CARDIOVASCULAR: Irregularly irregular, tachycardic RESPIRATORY: Diminished throughout bilateral lung hernandez. No wheezing, rhonchi or rales ABDOMEN: Soft, nontender, nondistended, bowel sounds present. EXTREMITIES: 1+ bilateral lower extremity edema much improving. Pulses 2+/4 in bilateral upper and lower extremities SKIN: [place], warm, dry NEUROLOGIC: Alert and oriented x3 to person, place and time. No focal deficits appreciated, CN 2-12 intact PSYCHIATRIC: Mood and affect appropriate LABORATORY DATA: Reviewed IMAGING: Renal US: Mildly atrophic left kidney with bilateral diffuse increased cortical parenchymal echogenicity suggestive of chronic medical renal disease. CXR: Chronic stable emphysematous disease and scattered fibrosis. No acute focal consolidation or effusion. Head CT 1. No acute intracranial abnormality. 2. Chronic lacunar infarct involving the right thalamus. 3. Periventricular and subcortical white matter changes, which are likely the sequela of chronic small vessel ischemic injury and are similar in appearance compared to the prior CT head on 03/13/2018. Echo 04/2016: EF 75% Normal right heart chamber sizes with Doppler evidence of mild - moderate pulmonary artery hypertension. Normal IVC size and collapse against right heart failure. Normal left ventricular size, wall thickness and hyperkinetic wall motion. Borderline left atrial enlargement with currently normal Doppler assessment of LV diastolic function with estimated mean left atrial pressure upper limits of normal to slightly increased. Mild aortic valvular sclerosis without functional abnormality. Mild mitral annular thickening with mild mitral insufficiency. MICROBIOLOGY: Bcx x 2 sets: NG UCx: pansensitive Ecoli Resp panel: neg ASSESSMENT: 75 year old female with PMHx of diabetes mellitus CKD stage 3, hypothyroidism, HTN, COPD, GERD, anemia of chronic disease, and LE edema admitted for acute on chronic hypercarbic respiratory failure 2/2 to combination COPD exacerbation and CHF exacerbation as well as EVA on CKD stage IV and E.coli UTI, now with newly noted Afib with RVR. PLAN: New onset Afib with RVR: -hold torsemide and dilt 160 XR QD i/s/o soft BPs. s/p metop 25 PO once, then started on dilt 60Q6 PO -eliquis 2.5 BID -Echo was done recently and showed preserved EF with grade 1 diastolic dysfunction Acute on chronic hypercarbic respiratory failure likely 2/2 to COPD exacerbation and CHF exacerbation -currently on 2L NC -Pred 30 PO daily on taper, albuterol ATC, advair, pulm on board, will plan for pred 30 for 2 day, then 20 for 2D and 10 for 2D, then off. -Post ATN autodiuresis Oliguric EVA on CKD stage 3 likely multifactorial to decreased PO intake, medication metformin, lasix and potential congestive nephropathy given fluid overloaded state -Baseline Cr believed to be around 2.3 -Cr today 6.25, U/O improving, having post ATN autodiuresis, will monitor daily BMP -Renal US above -Dr. Negrete/Nephrology consulted and following closely -Patient does not wish to have HD -strict I/Os -daily weights -stopped torsemide with soft BP and new Afib w/ RVR Acute hyperkalemia likely 2/2 to EVA: resolved -daily BMP Elevated BNP with volume overload, exacerbation CHF, hx of pulmonary HTN -Last echocardiogram 2015, see above. No prior history of CHF, TTE as above -BNP at presentation was 6935 -CXR: no pulmonary vascular congestion, + Lower ext edema -strict I/Os -daily weights -s/p post ATN autodiuresis, now placed on daily torsemide by nephrology, doing well -1.8L/24h fluid restriction -now with newly noted Afib w/ RVR, possibly paroxysmal and may have precipitated the HF exacerbation Diabetes mellitus II -BS elevated at times up to 280 -Continue levemir AM -ISS AC/HS, consistent carb, FS History of AOCI, also with SANJAY per studies -H/h stable -No s/s of bleeding -CBC daily -will require Fe replacement HTN -Stable -C/w diltiazem Hypothyroidism -C/w levothyroxine GERD -Famotidine DVT px -Heparin SC DISPOSITION: Medsurg with telemetry. DNR/DNI. Passed PT for home discharge but will hold given new onset Afib with RVR. VS,Fishbone, I+O VS, Fishbone, I+O Laboratory Tests 11/28/20 06:13 Vital Signs Date Time Temp Pulse Resp B/P (MAP) Pulse Ox O2 Delivery O2 Flow Rate FiO2 11/28/20 06:00 97.9 62 18 112/71 (85) 97 Nasal Cannula 2.0 11/24/20 08:00 30 I&O- Last 24 Hours up to 6 AM 11/28/20 06:00 Intake Total 1260 ml Output Total 1220 ml Balance 40 ml NIDHI TREJO MD Nov 28, 2020 09:03
--- NOTE | 2020-11-28 15:35 | IPNPDOC ---
Text Note Date of Service The patient was seen on 11/28/20. NOTE Transfer Note: Ms. Mercedes has newly noted Afib with RVR with rates up to 150-160s since this morning with associated soft to low BPs. Thankfully she is asymptomatic. She has no prior known history of Afib. Of note, her HTN is managed by dilt 160mg XR that had been held for the past few days for normal BP with HR close to 60. Since developing Afib w/ RVR, I attempted to manage her rates with PO meds first with metop 25 PO without much effect and later started her on dilt 60 PO Q6H with mild effect. I also started her on adjusted dose therapeutic eliquis. At this time however, her RVR that had briefly improved is worsening and I am not transferring her to the PCU for closer monitoring, IV rate controlling meds that cannot be administered on the regular floor and further optimization. Plan on arrival to the PCU: -dilt 15mg IV once, and continue the 60Q6H PO dilt thereafter. VS,Fishbone, I+O VS, Fishbone, I+O Laboratory Tests 11/28/20 06:13 Vital Signs Date Time Temp Pulse Resp B/P (MAP) Pulse Ox O2 Delivery O2 Flow Rate FiO2 11/28/20 13:11 112 11/28/20 12:37 92/58 (69) 11/28/20 08:00 2.0 11/28/20 06:00 97.9 18 97 Nasal Cannula 11/24/20 08:00 30 I&O- Last 24 Hours up to 6 AM 11/28/20 06:00 Intake Total 1260 ml Output Total 1220 ml Balance 40 ml NIDHI TREJO MD Nov 28, 2020 15:35
[2020-11-28] MEDS ORDERED: SLF 3 ML SYR IV PRN (17:55)
[2020-11-28] MEDS ORDERED: METOPROLOL TART 25 MG TABLET PO SCH (18:00)
[2020-11-28] MEDS: SLF 3 ML SYR IV SCH (21:35)
[2020-11-28] MEDS ORDERED: AMIODARONE HCL 150 MG in IV 1 EA IV ONE (22:00)
[2020-11-29] MEDS ORDERED: AMIODARONE HCL 360 MG in IV 1 EA IV SCH (03:30)
[2020-11-29] MEDS: LEVOTHYROXINE 75MCG TABLET (0.075MG) PO SCH (06:33)
[2020-11-29] MEDS: CIPROFLOXACIN 500MG TABLET PO SCH (06:33)
[2020-11-29] MEDS: SLF 3 ML SYR IV SCH ×3 (06:34→20:48)
[2020-11-29 06:44] LABS: HEMATOCRIT 28.7 % (36.0-47.0); HEMOGLOBIN 9.1 g/dl (12.0-15.5); MEAN CORPUSCULAR HEMOGLOBIN 32.5 pg (27.0-33.0); MEAN CORPUSCULAR HGB CONC 31.7 g/dl (32.0-36.5); MEAN CORPUSCULAR VOLUME 102.5 fl (80.0-96.0); PLATELET COUNT, AUTOMATED 143 10^3/uL (150-450); WHITE BLOOD COUNT 8.6 10^3/uL (4.0-10.0)
[2020-11-29 07:05] LABS: CALCIUM LEVEL 8.2 MG/DL (8.8-10.2); CREATININE FOR GFR 3.68 MG/DL (0.55-1.30); GLOMERULAR FILTRATION RATE 12.7 (>39); POTASSIUM SERUM 5.3 MEQ/L (3.5-5.1)
[2020-11-29] MEDS: ADVAIR HFA 115/21MCG INHALER INH SCH ×2 (07:08→20:52)
[2020-11-29 08:00] VITALS: BP 104/68
[2020-11-29] MEDS: SENOKOT S TAB PO SCH ×2 (08:14→20:48)
[2020-11-29] MEDS: FAMOTIDINE 20 MG TAB PO SCH (08:14)
[2020-11-29] MEDS: APIXABAN 2.5 MG TAB (ELIQUIS) PO SCH ×2 (08:14→20:48)
[2020-11-29] MEDS: FERROUS SULFATE 325MG TAB PO SCH (08:14)
[2020-11-29] MEDS: HumaLOG INSULIN (NovoLOG) PER UNIT SC SCH ×4 (08:15→20:48)
[2020-11-29] MEDS: LEVEMIR (INSULIN DETEMIR) 1 UNITS/0.01ML SC SCH (08:15)
[2020-11-29 08:24] LABS: MAGNESIUM LEVEL 2.1 MG/DL (1.8-2.4)
--- NOTE | 2020-11-29 10:11 | IPNPDOC ---
Text Note Date of Service The patient was seen on 11/29/20. NOTE SUBJECTIVE: -Continued to be in asymptomatic RVR overnight despite dilt 60Q6H PO, was started on amio gtt, currently 140s -On 2L NC this morning, per her baseline OBJECTIVE: VITAL SIGNS: see below GENERAL: NAD HEENT: Normocephalic, atraumatic, sclera anicteric, MMM, nasal canula in place NECK: Supple, trachea midline. No elevation of JVP appreciated CARDIOVASCULAR: Irregularly irregular, tachycardic RESPIRATORY: Diminished throughout bilateral lung hernandez. No wheezing, rhonchi or rales ABDOMEN: Soft, nontender, nondistended, bowel sounds present. EXTREMITIES: 1+ bilateral lower extremity edema much improving. Pulses 2+/4 in bilateral upper and lower extremities SKIN: [place], warm, dry NEUROLOGIC: Alert and oriented x3 to person, place and time. No focal deficits appreciated, CN 2-12 intact PSYCHIATRIC: Mood and affect appropriate LABORATORY DATA: Reviewed IMAGING: Renal US: Mildly atrophic left kidney with bilateral diffuse increased cortical parenchymal echogenicity suggestive of chronic medical renal disease. CXR: Chronic stable emphysematous disease and scattered fibrosis. No acute focal consolidation or effusion. Head CT 1. No acute intracranial abnormality. 2. Chronic lacunar infarct involving the right thalamus. 3. Periventricular and subcortical white matter changes, which are likely the sequela of chronic small vessel ischemic injury and are similar in appearance compared to the prior CT head on 03/13/2018. Echo 04/2016: EF 75% Normal right heart chamber sizes with Doppler evidence of mild - moderate pulmonary artery hypertension. Normal IVC size and collapse against right heart failure. Normal left ventricular size, wall thickness and hyperkinetic wall motion. Borderline left atrial enlargement with currently normal Doppler assessment of LV diastolic function with estimated mean left atrial pressure upper limits of normal to slightly increased. Mild aortic valvular sclerosis without functional abnormality. Mild mitral annular thickening with mild mitral insufficiency. MICROBIOLOGY: Bcx x 2 sets: NG UCx: pansensitive Ecoli Resp panel: neg ASSESSMENT: 75 year old female with PMHx of diabetes mellitus CKD stage 3, hypothyroidism, HTN, COPD, GERD, anemia of chronic disease, and LE edema admitted for acute on chronic hypercarbic respiratory failure 2/2 to combination COPD exacerbation and CHF exacerbation as well as EVA on CKD stage IV and E.coli UTI, now with newly noted Afib with RVR. PLAN: New onset Afib with RVR: -continue amio gtt -increase dilt to 90Q6 PO -eliquis 2.5 BID -Echo was done recently and showed preserved EF with grade 1 diastolic dysfunction -consulted Dr. Chavez this AM Acute on chronic hypercarbic respiratory failure likely 2/2 to COPD exacerbation and CHF exacerbation -currently on 2L NC -Pred 20 PO daily on taper, albuterol ATC, advair, pulm on board, will plan for pred 20 for 2 day, then 10 for 2D, then off. -Post ATN autodiuresis Oliguric EVA on CKD stage 3 likely multifactorial to decreased PO intake, medication metformin, lasix and potential congestive nephropathy given fluid overloaded state -Baseline Cr believed to be around 2.3 -U/O adequate, s/p post ATN autodiuresis, holding torsemide in the setting of Afib with RVR, will monitor daily BMP -Renal US above -Dr. Negrete/Nephrology consulted and following closely -Patient does not wish to have HD -strict I/Os -daily weights Acute hyperkalemia likely 2/2 to EVA: resolved -daily BMP Elevated BNP with volume overload, exacerbation CHF, hx of pulmonary HTN -Last echocardiogram 2015, see above. No prior history of CHF, TTE as above -BNP at presentation was 6935 -CXR: no pulmonary vascular congestion, + Lower ext edema -strict I/Os -daily weights -s/p post ATN autodiuresis, now placed on daily torsemide by nephrology, doing well -1.8L/24h fluid restriction -now with newly noted Afib w/ RVR, possibly paroxysmal and may have precipitated the HF exacerbation Diabetes mellitus II -BS elevated at times up to 280 -Continue levemir AM -ISS AC/HS, consistent carb, FS History of AOCI, also with SANJAY per studies -H/h stable -No s/s of bleeding -CBC daily -will require Fe replacement HTN -Stable -C/w diltiazem Hypothyroidism -C/w levothyroxine GERD -Famotidine DVT px -Heparin SC DISPOSITION: PCU. DNR/DNI. Passed PT for home discharge but c/b new onset Afib with RVR. VS,Fishbone, I+O VS, Fishbone, I+O Laboratory Tests 11/29/20 06:14 Vital Signs Date Time Temp Pulse Resp B/P (MAP) Pulse Ox O2 Delivery O2 Flow Rate FiO2 11/29/20 06:34 139 144/74 11/29/20 04:00 2.0 11/28/20 20:00 98.0 18 99 Nasal Cannula 11/24/20 08:00 30 I&O- Last 24 Hours up to 6 AM 11/29/20 06:00 Intake Total 1320 ml Output Total 1050 ml Balance 270 ml NIDHI TREJO MD Nov 29, 2020 08:19
[2020-11-29 12:00] VITALS: BP 127/65
[2020-11-29] MEDS ORDERED: PATIROMER SORBITEX CALCIUM 8.4 GM POWDER PACKET (VELTASSA) PO ONE (12:00)
[2020-11-29] MEDS: predniSONE 20 MG TAB PO SCH (12:02)
[2020-11-29] MEDS ORDERED: DIGOXIN INJ 0.5 MG/2 ML AMP (J1160) IV ONE ×2 (14:30→21:25)
[2020-11-29 16:00] VITALS: BP 108/58
[2020-11-29] MEDS: MIRALAX *UNIT DOSE* 17GM PACKET PO PRN (18:38)
[2020-11-29 20:00] VITALS: BP 120/70
--- NOTE | 2020-11-29 23:35 | IPN ---
NEPHROLOGY PROGRESS NOTE DATE: 11/29/2020 SUBJECTIVE: Patient was seen and examined at the bedside today morning. She is afebrile, hemodynamically stable. She continues to have atrial fibrillation with rapid ventricular rate despite being on multiple medications. Diuretics are on hold. However, patient still has a good urine output and renal function is gradually improving. Creatinine is down to 3.6 today. OBJECTIVE: VITAL SIGNS: Temperature 97.5 degrees Fahrenheit, blood pressure 120/70, pulse 130, respiratory rate 20, saturating 98% on nasal cannula at 2 liters. INTAKE AND OUTPUT: Urine output recorded as 1600 mL yesterday and it is not being recorded well. She has had four voids so far since overnight. Weight in the bed scale is not available. PHYSICAL EXAMINATION: GENERAL: Patient is awake, alert, oriented times three, sitting up in the sofa, in no apparent distress. HEAD AND NECK EXAM: Extraocular muscles intact. Pupils equally round and reactive to light. Mucous membranes are moist. Neck is supple. Mildly elevated jugular venous distention (JVD). CARDIOVASCULAR: S1, S2. Regular rate. Edema 1+ of the bilateral lower extremities. RESPIRATORY: Mildly decreased breath sounds at the bases. She is wearing oxygen. She is oxygen dependent. ABDOMEN: Soft. Positive bowel sounds. Nontender. No organomegaly. MUSCULOSKELETAL: No clubbing or cyanosis. Pulses are 2+. CENTRAL NERVOUS SYSTEM (LAYBOY OPERATOR): No focal deficits. Power is 5/5 in all extremities. LABORATORY REVIEW: CBC showed a WBC 8.6, hemoglobin 9.1, platelets 143. BMP showed sodium 139, potassium 5.3, chloride 104, bicarbonate 26, BUN 107, creatinine 3.6. CURRENT INPATIENT MEDICATIONS: Patient's medications were all reviewed by myself. She got a dose of amiodarone yesterday. She is on Eliquis. Ciprofloxacin has been stopped now. She was also given a dose of digoxin 0.25 mg IV times one dose. Diltiazem has been increased to 90 mg by mouth every 6 hours. Prednisone has been decreased to 20 mg by mouth daily. ASSESSMENT AND PLAN: 1. Acute renal failure. Patient is nonoliguric. Creatinine is slowly trending down. Acid base level is within the acceptable range. Continue to monitor. She is not a candidate for hemodialysis and she refused it herself. 2. Cor pulmonale. Volume status is acceptable. Because of atrial fibrillation with rapid ventricular rate and low blood pressures yesterday, diuretic was stopped. If her heart rate gets better, I would restart her diuretics. 3. Escherichia (E) coli urinary tract infection. Patient is having arrhythmias. She has gotten about six days of ciprofloxacin. I am going to stop the fluoroquinolone now. 4. Atrial fibrillation with rapid ventricular rate. Patient is getting multiple medications, including amiodarone yesterday. She is on Cardizem and she was also given a dose of digoxin. She is anticoagulated with Eliquis.
[2020-11-30] VITALS: BP 133/66
[2020-11-30 04:00] VITALS: BP 106/65
[2020-11-30] MEDS: LEVOTHYROXINE 75MCG TABLET (0.075MG) PO SCH (05:04)
[2020-11-30] MEDS: SLF 3 ML SYR IV SCH ×3 (05:05→21:10)
[2020-11-30 06:14] LABS: HEMATOCRIT 27.7 % (36.0-47.0); HEMOGLOBIN 8.9 g/dl (12.0-15.5); MEAN CORPUSCULAR HEMOGLOBIN 32.7 pg (27.0-33.0); MEAN CORPUSCULAR HGB CONC 32.1 g/dl (32.0-36.5); MEAN CORPUSCULAR VOLUME 101.8 fl (80.0-96.0); PLATELET COUNT, AUTOMATED 141 10^3/uL (150-450); RED BLOOD COUNT 2.72 10^6/uL (4.00-5.40); WHITE BLOOD COUNT 7.1 10^3/uL (4.0-10.0)
[2020-11-30 06:33] LABS: CALCIUM LEVEL 8.3 MG/DL (8.8-10.2); CREATININE FOR GFR 3.73 MG/DL (0.55-1.30); GLOMERULAR FILTRATION RATE 12.5 (>39); POTASSIUM SERUM 5.2 MEQ/L (3.5-5.1)
[2020-11-30] MEDS: ADVAIR HFA 115/21MCG INHALER INH SCH ×2 (07:12→20:59)
[2020-11-30 07:45] LABS: MAGNESIUM LEVEL 2.1 MG/DL (1.8-2.4)
[2020-11-30 08:00] VITALS: BP 90/58
[2020-11-30] MEDS: SENOKOT S TAB PO SCH ×2 (08:42→21:09)
[2020-11-30] MEDS: predniSONE 20 MG TAB PO SCH (08:42)
[2020-11-30] MEDS: APIXABAN 2.5 MG TAB (ELIQUIS) PO SCH ×2 (08:42→21:09)
[2020-11-30] MEDS: FAMOTIDINE 20 MG TAB PO SCH (08:42)
[2020-11-30] MEDS: FERROUS SULFATE 325MG TAB PO SCH (08:43)
[2020-11-30] MEDS: MIRALAX *UNIT DOSE* 17GM PACKET PO PRN (08:43)
[2020-11-30] MEDS: HumaLOG INSULIN (NovoLOG) PER UNIT SC SCH ×4 (08:44→21:00)
[2020-11-30] MEDS: LEVEMIR (INSULIN DETEMIR) 1 UNITS/0.01ML SC SCH (08:44)
[2020-11-30] MEDS ORDERED: DIGOXIN INJ 0.5 MG/2 ML AMP (J1160) IV STA (08:44)
--- NOTE | 2020-11-30 09:30 | IPNPDOC ---
Text Note Date of Service The patient was seen on 11/30/20. NOTE SUBJECTIVE: -Continued to be in asymptomatic RVR, s/p dig 0.25 x 2 doses, s/p amio yesterday, now on dilt 90Q6H PO, rates are in the low 100s this morning -On 2L NC this morning, per her baseline OBJECTIVE: VITAL SIGNS: see below GENERAL: NAD HEENT: Normocephalic, atraumatic, sclera anicteric, MMM, nasal canula in place NECK: Supple, trachea midline. No elevation of JVP appreciated CARDIOVASCULAR: Irregularly irregular, tachycardic RESPIRATORY: Diminished throughout bilateral lung hernandez. No wheezing, rhonchi or rales ABDOMEN: Soft, nontender, nondistended, bowel sounds present. EXTREMITIES: 1+ bilateral lower extremity edema much improving. Pulses 2+/4 in bilateral upper and lower extremities SKIN: [place], warm, dry NEUROLOGIC: Alert and oriented x3 to person, place and time. No focal deficits appreciated, CN 2-12 intact PSYCHIATRIC: Mood and affect appropriate LABORATORY DATA: Reviewed IMAGING: Renal US: Mildly atrophic left kidney with bilateral diffuse increased cortical parenchymal echogenicity suggestive of chronic medical renal disease. CXR: Chronic stable emphysematous disease and scattered fibrosis. No acute focal consolidation or effusion. Head CT 1. No acute intracranial abnormality. 2. Chronic lacunar infarct involving the right thalamus. 3. Periventricular and subcortical white matter changes, which are likely the sequela of chronic small vessel ischemic injury and are similar in appearance compared to the prior CT head on 03/13/2018. Echo 04/2016: EF 75% Normal right heart chamber sizes with Doppler evidence of mild - moderate pulmonary artery hypertension. Normal IVC size and collapse against right heart failure. Normal left ventricular size, wall thickness and hyperkinetic wall motion. Borderline left atrial enlargement with currently normal Doppler assessment of LV diastolic function with estimated mean left atrial pressure upper limits of normal to slightly increased. Mild aortic valvular sclerosis without functional abnormality. Mild mitral annular thickening with mild mitral insufficiency. MICROBIOLOGY: Bcx x 2 sets: NG UCx: pansensitive Ecoli Resp panel: neg ASSESSMENT: 75 year old female with PMHx of diabetes mellitus CKD stage 3, hypothyroidism, HTN, COPD, GERD, anemia of chronic disease, and LE edema admitted for acute on chronic hypercarbic respiratory failure 2/2 to combination COPD exacerbation and CHF exacerbation as well as EVA on CKD stage IV and E.coli UTI, now with newly noted Afib with RVR. PLAN: New onset Afib with RVR: -s/p amio, dig 0.25 x 2 doses -continue dilt 90Q6 PO -will give dig 0.25 IV once, and will start her on standing dig 0.25 PO daily starting tomorrow AM -eliquis 2.5 BID -Echo was done recently and showed preserved EF with grade 1 diastolic dysfunction -consulted Dr. Chavez, appreciate co-management Acute on chronic hypercarbic respiratory failure likely 2/2 to COPD exacerbation and CHF exacerbation -currently on 2L NC -Pred 20 PO daily on taper, albuterol ATC, advair, pulm on board, will plan for pred 20 for 1 more day, then 10 for 2D, then off. -Post ATN autodiuresis EVA on CKD stage 3 likely multifactorial to decreased PO intake, medication m etformin, lasix and potential congestive nephropathy given fluid overloaded state -Baseline Cr believed to be around 2.3 -U/O adequate, s/p post ATN autodiuresis, holding torsemide in the setting of A fib with RVR, will monitor daily BMP -Renal US above -Dr. Negrete/Nephrology consulted and following closely -Patient does not wish to have HD -strict I/Os -daily weights Acute hyperkalemia likely 2/2 to EVA: resolved -daily BMP Elevated BNP with volume overload, exacerbation CHF, hx of pulmonary HTN -Last echocardiogram 2015, see above. No prior history of CHF, TTE as above -BNP at presentation was 6935 -CXR: no pulmonary vascular congestion, + Lower ext edema -strict I/Os -daily weights -s/p post ATN autodiuresis, now placed on daily torsemide by nephrology, doing well -1.8L/24h fluid restriction -now with newly noted Afib w/ RVR, possibly paroxysmal and may have precipitated the HF exacerbation Diabetes mellitus II -BS elevated at times up to 280 -Continue levemir AM -ISS AC/HS, consistent carb, FS History of AOCI, also with SANJAY per studies -H/h stable -No s/s of bleeding -CBC daily -will require Fe replacement HTN -Stable -C/w diltiazem Hypothyroidism -C/w levothyroxine GERD -Famotidine DVT px -Heparin SC DISPOSITION: PCU. DNR/DNI. Passed PT for home discharge but c/b new onset Afib with RVR w/ ongoing rate optimization VS,Fishbone, I+O VS, Fishbone, I+O Laboratory Tests 11/30/20 05:59 Vital Signs Date Time Temp Pulse Resp B/P (MAP) Pulse Ox O2 Delivery O2 Flow Rate FiO2 11/30/20 05:05 102 106/65 11/30/20 04:00 2.0 11/30/20 04:00 97.4 18 94 Nasal Cannula 11/24/20 08:00 30 I&O- Last 24 Hours up to 6 AM 11/30/20 05:59 Intake Total 1120 ml Output Total 150 ml Balance 970 ml NIDHI TREJO MD Nov 30, 2020 07:36
[2020-11-30] MEDS ORDERED: SOD POLYSTYRENE SULFONATE SUSP 15 GM/60 ML UD PO ONE (11:00)
[2020-11-30 12:00] VITALS: BP 118/64
[2020-11-30] MEDS ORDERED: FUROSEMIDE 20MG/2ML VIAL (J1940) IV ONE (12:00)
[2020-11-30] MEDS ORDERED: AMIODARONE HCL 150 MG in IV 1 EA IV ONE (13:45)
--- NOTE | 2020-11-30 14:37 | IPN ---
CARDIOLOGY PROGRESS NOTE DATE: 11/30/2020 SUBJECTIVE: Mrs. Brianna Mercedes was seen earlier today. She was sitting in a chair in the room in no acute distress. She denies any chest pain, shortness of breath, palpitations, orthopnea. There is no report of bleeding. She does have some pedal edema and this seems to be stable when compared to yesterday when I initially saw her on 11/29/2020. She was getting and received two doses of intravenous (IV) digoxin and her heart rate is still not quite under control. She is on a significant dose of Cardizem. Her blood pressure remains stable, low at times. Her kidney function also seems to be stable, not improving. PHYSICAL EXAMINATION: She is alert and awake in no acute distress at rest and very pleasant. VITAL SIGNS: Reveal a blood pressure 118/64 with a pulse of 139 and the lowest recorded today was 102 recorded at about 5:00 a.m. Respiratory rate is 18-20 and her maximum temperature is 97.7 degrees Fahrenheit with an oxygen saturation of 98% on 2 liters nasal cannula. EXAMINATION OF THE HEAD: Atraumatic. NECK: Supple with extended jugular. LUNGS: Minimal crackles at the bases. No wheezing. HEART EXAMINATION: Revealed an irregularly irregular heart rate, tachycardiac. The point of maximum impulse (PMI) is not displaced. There is no rub. ABDOMEN: Soft and nontender. EXTREMITIES: Reveal 1+ bilateral leg edema. NEUROLOGIC EXAMINATION: Grossly is negative for focal deficits. LABORATORY DATA: BMP done today reveal a sodium of 138, potassium 5.6, chloride 102, CO2 28, BUN 81, creatinine 5.44, with a GFR of 8.1. Glucose is 86, calcium is 8.3. CBC revealed a WBC of 7.1, hemoglobin 8.9, hematocrit 27.7, with platelets of 141,000. Telemetry revealed atrial fibrillation with uncontrolled ventricular rate. IMPRESSION: 1. Atrial fibrillation with still uncontrolled ventricular rate. On oral Cardizem. She is being loaded with IV digoxin. She had received a dose this morning and she will be monitored. I will give her a dose of IV amiodarone. We have to be careful with the digoxin in view of her underlying renal function and this will be discussed with her hospitalist. She is on a small dose of Eliquis for prevention of thromboembolic events and she will continue the same. Her echocardiogram done on 11/22/2020 revealed a normal global left ventricular systolic function estimated at 60%, without any significant valvular heart disease. 2. Hypertension. Under control and low at times. She will need to be monitored while on the Cardizem. 3. History of diabetes mellitus. This is being addressed. 4. Renal failure. This is being addressed. She is being monitored by her hospitalist and nephrology. 5. Urinary tract infection (UTI). Similar to Escherichia (E) coli and this is being addressed. It was a pleasure to participate in the care of Mrs. Brianna Mercedes. I will continue to monitor along with you. Please do not hesitate to call if there are any questions. AMID
[2020-11-30] MEDS ORDERED: BISACODYL 10 MG SUPP PR ONE (15:30)
[2020-11-30 16:00] VITALS: BP 119/62
[2020-11-30] MEDS ORDERED: FLEET ENEMA PR ONE (19:30)
[2020-11-30 20:00] VITALS: BP 130/80
[2020-12-01] VITALS: BP 124/81
[2020-12-01 04:00] VITALS: BP 103/59
[2020-12-01 05:39] LABS: HEMATOCRIT 27.6 % (36.0-47.0); HEMOGLOBIN 8.7 g/dl (12.0-15.5); MEAN CORPUSCULAR HEMOGLOBIN 32.3 pg (27.0-33.0); MEAN CORPUSCULAR HGB CONC 31.5 g/dl (32.0-36.5); MEAN CORPUSCULAR VOLUME 102.6 fl (80.0-96.0); PLATELET COUNT, AUTOMATED 152 10^3/uL (150-450); RED BLOOD COUNT 2.69 10^6/uL (4.00-5.40); WHITE BLOOD COUNT 7.4 10^3/uL (4.0-10.0)
[2020-12-01 06:07] LABS: CALCIUM LEVEL 7.9 MG/DL (8.8-10.2); CREATININE FOR GFR 3.83 MG/DL (0.55-1.30); GLOMERULAR FILTRATION RATE 12.2 (>39); MAGNESIUM LEVEL 1.8 MG/DL (1.8-2.4); POTASSIUM SERUM 4.6 MEQ/L (3.5-5.1)
[2020-12-01] MEDS: SLF 3 ML SYR IV SCH ×3 (06:28→22:15)
[2020-12-01] MEDS: LEVOTHYROXINE 75MCG TABLET (0.075MG) PO SCH (06:28)
[2020-12-01] MEDS: ADVAIR HFA 115/21MCG INHALER INH SCH ×2 (07:07→20:50)
[2020-12-01 08:00] VITALS: BP 113/54
[2020-12-01] MEDS: SENOKOT S TAB PO SCH ×2 (08:09→22:13)
[2020-12-01] MEDS: LEVEMIR (INSULIN DETEMIR) 1 UNITS/0.01ML SC SCH (08:10)
[2020-12-01] MEDS: predniSONE 20 MG TAB PO SCH (08:10)
[2020-12-01] MEDS: FERROUS SULFATE 325MG TAB PO SCH (08:10)
[2020-12-01] MEDS: APIXABAN 2.5 MG TAB (ELIQUIS) PO SCH ×2 (08:10→22:14)
[2020-12-01] MEDS: FAMOTIDINE 20 MG TAB PO SCH (08:10)
[2020-12-01] MEDS: HumaLOG INSULIN (NovoLOG) PER UNIT SC SCH ×4 (08:11→22:14)
[2020-12-01] MEDS ORDERED: PILL CUTTER 1 EACH XX PRN (08:50)
[2020-12-01] MEDS ORDERED: DIGOXIN 0.25 MG TAB PO SCH (09:00)
[2020-12-01] MEDS: AMIODARONE 200 MG TAB (PACERONE) PO SCH ×2 (09:23→22:14)
--- NOTE | 2020-12-01 09:28 | IPN ---
NEPHROLOGY PROGRESS NOTE DATE: 11/28/2020 SUBJECTIVE: Patient was seen and examined at the bedside today morning. She was sitting up in the bed and wrapped in blankets. She reported that she was feeling cold. Patient was found to have hypotension today. She has new onset atrial fibrillation with RVR. Her Torsemide was stopped by the hospitalist service. Renal function is still improving. Creatinine has improved to 4 today. OBJECTIVE: VITAL SIGNS: Temperature 98.6 degrees Fahrenheit, blood pressure 121/69, pulse 149, respiratory rate 18, saturating 99% on nasal cannula at 2 liters. INTAKE AND OUTPUT: Urine output recorded as 1.2 liters yesterday and 1.6 liters so far today since overnight. Weight in the bed scale is 54.4 kg. PHYSICAL EXAMINATION: GENERAL: Patient is awake, alert, oriented x3, sitting up in the bed in no apparent distress. HEAD/NECK: Extraocular muscles intact. Pupils equally round and reactive to light. Mucous membranes are moist. Neck is supple. Mildly elevated JVD. CVS: S1, S2, irregularly irregular heart rate. 1+ edema of the bilateral lower extremities. RESPIRATORY: Mildly decreased breath sounds at the bases with mild expiratory rhonchi at the bases. ABDOMEN: Soft, positive bowel sounds, nontender. No organomegaly. MUSCULOSKELETAL: No cyanosis or clubbing. Pulses are 2+. PRINTED CIRCUIT BOARD PANELS DEBURRER: No focal deficit. Power is 5/5 in all extremities. LABORATORY REVIEW: CBC showed WBC 9.9, hemoglobin 8.7, platelets 129,000. BMP showed sodium 139, potassium 4.9, chloride 105, bicarb 26, BUN 106, creatinine 4; it was 4.5 yesterday. Calcium 8.2. CURRENT INPATIENT MEDICATIONS: Patient's medications were all reviewed by myself. She still continues to be on Ciprofloxacin. She has been started on Diltiazem 60 mg p.o. every 6 hour. Metoprolol has been stopped. Torsemide was stopped today morning. ASSESSMENT AND PLAN: 1. Acute nonoliguric renal failure: Patient's creatinine is gradually improving every day. She has elevated BUN, but no signs or symptoms of uremia. Electrolytes are within the acceptable range. She refused to have dialysis. Continue to monitor for renal recovery. 2. Cor pulmonale: Patient was started on Torsemide, however because of atrial fibrillation and hypotension, Torsemide has been stopped. Diuretic will be restarted once heart rate gets better. 3. New onset atrial fibrillation: Patient was initially on Metoprolol, which has been changed to Cardizem now. Heart rate is still high. Management is as per medical team. 4. E. Coli urinary tract infection: Patient is getting Ciprofloxacin; last dose will be on December 01. 5. Acute COPD exacerbation: It has resolved now. Patient's prednisone is being tapered down. Patient is on baseline 2 liters oxygen at home.
--- NOTE | 2020-12-01 09:34 | IPN ---
PROGRESS NOTE DATE: 12/01/2020 SUBJECTIVE: Mrs. Mercedes tells me that she is feeling well. She denies any chest pain, palpitations or shortness of breath. She does remain in atrial fibrillation with uncontrolled rate for the most part, that is averaging around 120 to 130 BPM. She received one dose of amiodarone last night and she also has been started on Digoxin. She has no evidence of arrhythmia. OBJECTIVE: VITAL SIGNS: Blood pressure 113/54, heart rate is 120, irregularly irregular. She is afebrile. Saturation 97% on 2 liters. Weight is 62.3 kg. GENERAL APPEARANCE: She is alert and oriented, appropriate. NECK: Her JVP is high. LUNGS: Clear. HEART: Irregularly irregular rhythm. I do not appreciate any gallop, rub or murmur. ABDOMEN: Soft, she has trace edema. NEUROLOGIC: She is elderly and frail but I do not appreciate any focal signs. LABORATORY DATA: WBC is 7.4, hemoglobin is 8.7, hematocrit 27.6, platelet count 152,000. Basic metabolic panel: Sodium 141, potassium 4.6, 3.8 creatinine for a GFR of 12, glucose 210. An echocardiogram performed this weekend revealed preserved left ventricular systolic function. ASSESSMENT AND PLAN: Mrs. Mercedes is a 75-year-old female who came to the hospital for worsening dyspnea in the setting of chronic renal insufficiency and acute deterioration. During her hospital stay, she went into atrial fibrillation with rapid ventricular response that is still not well-controlled. She is relatively asymptomatic from that perspective and is known to have preserved left ventricular systolic function. She is chronically on Cardizem and the dose was increased but still did not manage to accomplish good rate control. There was the addition of Digoxin which I think is problematic in the setting of renal insufficiency with high potential for toxicity and consequently I am going to discontinue the medication. Because she just went into atrial fibrillation what looks like three days ago, I think there is a reasonable chance that she will convert back to sinus rhythm and considering this fact, I will start her on amiodarone. Because of her small size and elderly age, I am going to start only 200 mg twice a day. The Digoxin will be discontinued. Will continue Cardizem. I believe that with this regimen, hopefully will accomplish rate control within a few days and if we are juan pablo she will also convert to sinus rhythm. Otherwise, as far as the volume is concerned, it is managed by nephrology even though she still has some overload, it is not severe. AMID
--- NOTE | 2020-12-01 09:34 | CR ---
CONSULTATION DATE: 11/29/2020 REFERRING PHYSICIAN: Socorro Ballesteros M.D. REASON FOR CONSULTATION: Atrial fibrillation. HISTORY OF PRESENT ILLNESS: This 75-year-old woman was admitted on 11/21/2020, with shortness of breath and failure to thrive. She was admitted to the ICU with acute hypoxic hypercarbic respiratory failure and she also was found to have deterioration in renal function. On 11/28/2020, she went into atrial fibrillation with rapid ventricular rate and cardiology consult was called. On admission, the patient had an echocardiogram that revealed normal global left ventricular systolic function. When I saw Mrs. Brianna Mercedes yesterday 11/30/2020, she was sitting in a chair in no acute distress and she denied any chest pain, shortness of breath, or palpitations. She denied any dizziness or lightheadedness. There was no report of bleeding. She did complain of some pedal edema, which has improved since in the hospital. There are no reports of fever or chills. According to her chart, it states that hemodialysis was discussed with the patient, but she has refused. She has a DNR and DNI status. PAST MEDICAL HISTORY: 1. Chronic kidney disease. 2. Hypertension. 3. Hyperlipidemia. 4. Diabetes mellitus. 5. Hypothyroidism. 6. COPD. 7. GERD. 8. Anemia. 9. Her labs revealed hyperkalemia. There is no known history of obstructive coronary artery disease, myocardial infarction, significant valvular heart disease, prior history of atrial fibrillation or atrial flutter, TIA/CVA, cardiomyopathy, sudden cardiac . PAST SURGICAL HISTORY: 1. Hysterectomy. 2. Appendectomy. 3. Hemorrhoidectomy. HOME MEDICATIONS: 1. Atorvastatin 10 mg p.o. daily. 2. Famotidine 20 mg p.o. b.i.d. 3. Lasix 40 mg p.o. daily. 4. Latanoprost 0.005% eye drop one drop both eyes. 5. Levothyroxine 75 mcg p.o. daily. 6. Metformin 1500 mg in the morning and 1000 mg in the evening. 7. Rhopressa eye drops. 8. Januvia 100 mg p.o. daily. 9. Advair Diskus one inhalation twice a day. CURRENT MEDICATIONS: 1. Cardizem 90 mg p.o. q. 6 hours. 2. Prednisone 20 mg p.o. daily. 3. MiraLAX as needed. 4. Digoxin. 5. Apixaban 2.5 mg p.o. b.i.d. 6. Iron supplement one tablet p.o. twice a day. 7. Levemir insulin and insulin lispro. 8. Famotidine 10 mg p.o. daily. 9. Albuterol sulfate via nebulizer 2.5 mg q. 2 hours p.r.n. 10. Acetaminophen 650 mg q. 4 hours p.r.n. for pain or fever. 11. Glucagon. 12. Glucose tablets. 13. for episodes of hypoglycemia as needed 14. Levothyroxine 75 mcg p.o. daily. 15. Albuterol inhaler. FAMILY HISTORY: Non-contributory. SOCIAL HISTORY: The patient lives alone at home and has a son who lives in the area and very supportive. She does not smoke or abuse alcohol. There is no reported ETOH abuse. ALLERGIES: She has multiple allergies to EGGS, , NSAIDS, ASPIRIN, CODEINE, IBUPROFEN, and PREDNISONE, but the patient seems to be now on prednisone. The patient has DNR and DNI status. PHYSICAL EXAMINATION: GENERAL APPEARANCE: The patient is alert and oriented, in no acute distress and very pleasant. VITAL SIGNS: When I saw her revealed a blood pressure of 127/65 with pulse of 136, respirations 18, and her maximum temperature was 97.9 degrees Fahrenheit with an O2 saturation of 97% on 2 liters nasal cannula. INTAKE AND OUTPUT: She had a negative fluid balance of 280 mL on 10/31/2020. HEAD: Atraumatic. NECK: Supple with ascended external jugular. LUNGS: Reveal minimal crackles at the bases, but no wheezing. HEART: Revealed irregularly irregular heart sounds without gallops. The PMI is not displaced. There is no rub. I could not appreciate any murmurs. ABDOMEN: Soft and nontender. EXTREMITIES: Reveal trace to +1 bilateral lower leg edema. NEUROLOGIC: Negative for focal deficits. LABORATORY DATA: BMP on 11/29/2020, revealed a sodium of 139, potassium 5.3, chloride 104, CO2 of 26, BUN 107, creatinine 3.68, GFR 12.7, fasting glucose 174, calcium 8.2. Magnesium was 2.1. CBC on 11/29/2020, revealed a WBC of 8.6, hemoglobin 9.1, hematocrit 28.7, and platelets 143,000. MCV was 102.5. PT on admission was 12.7 with an INR of 0.93 and PTT of 27.1. Serum fibrinogen was 475 and serum D-dimer was 2411.27. Urinalysis is positive for ketones, blood, leukocytes, bacteria, WBCs. Urine culture grew E. coli. Respiratory virus panel revealed negative SARS-COVID 19. IMAGING DATA: Chest x-ray on admission 11/21/2020, revealed chronic stable emphysematous disease with scattered fibrosis. No focal consolidation or effusion. Head CT on admission without contrast revealed no acute intracranial abnormalities. Chronic lacunar infarct noted in the right thalamus. Renal ultrasound on 11/22/2020, revealed mild atrophic left kidney with bilateral diffuse increased cortical parenchymal echogenicity suggestive chronic medical renal disease. IMPRESSION: 1. Atrial fibrillation with uncontrolled ventricular rate, newly diagnosed on 11/28/2020. Patient is asymptomatic. She is on high dose of calcium channel geri with Cardizem and she will continue the same. I will continue to load her with digoxin. Amiodarone may be given as needed to help in controlling her heart rate. She is on Eliquis a small dose for prevention of thromboembolic events and she denies any bleeding. 2. History of hypertension, under control. 3. History of hyperlipidemia, on diet. 4. Diabetes mellitus is being addressed. 5. Hypothyroidism, on supplement. 6. History of chronic obstructive pulmonary disease (COPD)/emphysema. Patient is status post respiratory failure that was treated and managed with BiPAP with Dr. Pereira. No wheezing noted when I saw her on examination. 7. History of anemia, stable. 8. Acute kidney injury on the background of chronic kidney disease stage 3. She is being monitored by hospitalist and also by nephrology. As mentioned above, the patient has refused any dialysis. It was a pleasure to participate in the care of Mrs. Brianna Mercedes for her cardiac condition. I will continue to monitor along with you. She appears to be stable. Please do not hesitate to call if you have any questions.
--- NOTE | 2020-12-01 10:14 | IPNPDOC ---
Text Note Date of Service The patient was seen on 12/01/20. NOTE SUBJECTIVE: -Continued to be in asymptomatic RVR, s/p dig--> stopped by cardiology in light of her CKD. -started on amio 200 BID by cardiology -Was constipated yesterday, finally had BM after enema -On 2L NC this morning, per her baseline OBJECTIVE: VITAL SIGNS: see below GENERAL: NAD HEENT: Normocephalic, atraumatic, sclera anicteric, MMM, nasal canula in place NECK: Supple, trachea midline. No elevation of JVP appreciated CARDIOVASCULAR: Irregularly irregular, tachycardic RESPIRATORY: Diminished throughout bilateral lung hernandez. No wheezing, rhonchi or rales ABDOMEN: Soft, nontender, nondistended, bowel sounds present. EXTREMITIES: 1+ bilateral lower extremity edema much improving. Pulses 2+/4 in bilateral upper and lower extremities SKIN: Bowers, warm, dry NEUROLOGIC: Alert and oriented x3 to person, place and time. No focal deficits appreciated, CN 2-12 intact PSYCHIATRIC: Mood and affect appropriate LABORATORY DATA: Reviewed IMAGING: Renal US: Mildly atrophic left kidney with bilateral diffuse increased cortical parenchymal echogenicity suggestive of chronic medical renal disease. CXR: Chronic stable emphysematous disease and scattered fibrosis. No acute focal consolidation or effusion. Head CT 1. No acute intracranial abnormality. 2. Chronic lacunar infarct involving the right thalamus. 3. Periventricular and subcortical white matter changes, which are likely the sequela of chronic small vessel ischemic injury and are similar in appearance compared to the prior CT head on 03/13/2018. Echo 04/2016: EF 75% Normal right heart chamber sizes with Doppler evidence of mild - moderate pulmonary artery hypertension. Normal IVC size and collapse against right heart failure. Normal left ventricular size, wall thickness and hyperkinetic wall motion. Borderline left atrial enlargement with currently normal Doppler assessment of LV diastolic function with estimated mean left atrial pressure upper limits of normal to slightly increased. Mild aortic valvular sclerosis without functional abnormality. Mild mitral annular thickening with mild mitral insufficiency. MICROBIOLOGY: Bcx x 2 sets: NG UCx: pansensitive Ecoli Resp panel: neg ASSESSMENT: 75 year old female with PMHx of diabetes mellitus CKD stage 3, hypothyroidism, HTN, COPD, GERD, anemia of chronic disease, and LE edema admitted for acute on chronic hypercarbic respiratory failure 2/2 to combination COPD exacerbation and CHF exacerbation as well as EVA on CKD stage IV and E.coli UTI, now with newly noted Afib with RVR. PLAN: New onset Afib with RVR: -amio 200 BID per cardiology -continue dilt 90Q6 PO -eliquis 2.5 BID -Echo was done recently and showed preserved EF with grade 1 diastolic dysfunction -consulted Dr. Chavez, appreciate co-management Acute on chronic hypercarbic respiratory failure likely 2/2 to COPD exacerbation and CHF exacerbation -currently on 2L NC -Pred 20 PO daily on taper, albuterol ATC, advair, pulm on board, will plan for pred 20 for 1 more day, then 10 for 2D, then off. -Post ATN autodiuresis EVA on CKD stage 3 likely multifactorial to decreased PO intake, medication metformin, lasix and potential congestive nephropathy given fluid overloaded state -Baseline Cr believed to be around 2.3 -U/O adequate, s/p post ATN autodiuresis, holding torsemide in the setting of Afib with RVR, will monitor daily BMP -Renal US above -Dr. Negrete/Nephrology consulted and following closely -Patient does not wish to have HD -strict I/Os -daily weights Acute hyperkalemia likely 2/2 to EVA: resolved -daily BMP Elevated BNP with volume overload, exacerbation CHF, hx of pulmonary HTN -Last echocardiogram 2015, see above. No prior history of CHF, TTE as above -BNP at presentation was 6935 -CXR: no pulmonary vascular congestion, + Lower ext edema -strict I/Os -daily weights -s/p post ATN autodiuresis, now placed on daily torsemide by nephrology, doing well -1.8L/24h fluid restriction -now with newly noted Afib w/ RVR, possibly paroxysmal and may have precipitated the HF exacerbation Diabetes mellitus II -BS elevated at times up to 280 -Continue levemir AM -ISS AC/HS, consistent carb, FS History of AOCI, also with SANJAY per studies -H/h stable -No s/s of bleeding -CBC daily -will require Fe replacement HTN -Stable -C/w diltiazem Hypothyroidism -C/w levothyroxine GERD -Famotidine DVT px -Heparin SC DISPOSITION: PCU. DNR/DNI. Passed PT for home discharge but c/b new onset Afib with RVR w/ ongoing rate optimization VS,Fishbone, I+O VS, Fishbone, I+O Laboratory Tests 12/01/20 05:27 Vital Signs Date Time Temp Pulse Resp B/P (MAP) Pulse Ox O2 Delivery O2 Flow Rate FiO2 12/01/20 08:00 98.8 121 20 113/54 (73) 97 Nasal Cannula 2.0 I&O- Last 24 Hours up to 6 AM 12/01/20 05:59 Intake Total 1980 ml Output Total 500 ml Balance 1480 ml NIDHI TREJO MD Dec 01, 2020 09:38
--- NOTE | 2020-12-01 10:26 | IPN ---
PROGRESS NOTE DATE: 11/30/2020 SUBJECTIVE: The patient was seen and examined at the bedside today morning. She was actually sitting up on the sofa. She continues to have atrial fibrillation with rapid ventricular response (RVR) and she complains of palpitations sometimes. There is significant improvement in the renal function today as compared with yesterday. Creatinine is 3.7. However, her respiratory status is at her baseline. She is only requiring 2 liters of oxygen. OBJECTIVE: Vital signs: Temperature is 98.4 degrees Fahrenheit, blood pressure 119/62, pulse is 134, respiratory rate of 18, saturating 97% on nasal cannula at 2 liters. Intake and output: Urine output recorded as 150 ml yesterday, 450 ml so far today since overnight. Weight in the bed scale 64.4 kg, which is not reliable because there is 10 kg difference from her baseline. General: The patient is awake, alert and oriented times 3, sitting up on the sofa in no apparent distress. Head and neck examination: Extraocular muscles are intact. Pupils equally round and reactive to light. Mucous membranes are moist. Neck is supple. He has elevated jugular venous distention (JVD). Cardiovascular: S1, S2 regular rate. 2+ edema of the bilateral lower extremities. Respiratory: Mildly decreased breath sounds at the bases. She is wearing a nasal cannula. Abdomen: Soft, positive bowel sounds, nontender, no organomegaly. Musculoskeletal: The patient has 2+ edema of the ankles. SIX PACK PACKER: No focal deficit. Power is 5/5 in all extremities. LABORATORY REVIEW: WBC of 7.1, hemoglobin 8.9, platelets are 141. Basic metabolic panel (BMP) showed sodium 138, potassium 5.2, chloride 104, bicarbonate 22, BUN 104, creatinine is 3.7. Calcium 8.3, magnesium is 2.1. CURRENT INPATIENT MEDICATIONS: The patient's medications were all reviewed by myself. Her ciprofloxacin was stopped yesterday. She got a dose of amiodarone 150 mg IV today. She is also on digoxin 0.25 mg by mouth daily and diltiazem 90 mg by mouth q 6 hours. I gave her a dose of Lasix 20 mg IV times one dose. He was given a dose of Kayexalate 15 gm by mouth times one dose. ASSESSMENT AND PLAN: 1. Acute renal failure superimposed on chronic kidney disease. The patient had a best baseline creatinine of 2.2 about two months ago. She is nonoliguric. She is developing edema. One dose of IV Lasix was given. She refused hemodialysis when she was in the ICU. 2. Cor pulmonale. The patient's volume status is slightly decompensated. Her diuretics are stopped because her blood pressures are low with atrial fibrillation with rapid ventricular response (RVR). As mentioned above, one dose of IV Lasix has been ordered. If needed more, a dose of Lasix will be given tomorrow morning. 3. Escherichia coli (E. coli) urinary tract infection. Urinary tract infection (UTI) was treated, ciprofloxacin was stopped. 4. Atrial fibrillation with rapid ventricular response (RVR). The patient is on multiple medications including Cardizem, digoxin and amiodarone. Cardiology is on board. She is anticoagulated with Eliquis. 5. Hypokalemia. She was given a dose of Kayexalate today morning.
[2020-12-01 12:00] VITALS: BP 112/55
[2020-12-01 16:00] VITALS: BP 111/70
[2020-12-01 20:00] VITALS: BP 141/63
[2020-12-01] MEDS ORDERED: FUROSEMIDE 20MG/2ML VIAL (J1940) IV ONE (20:40)
--- NOTE | 2020-12-01 23:20 | IPN ---
NEPHROLOGY PROGRESS NOTE DATE: 12/01/2020 SUBJECTIVE: Ms. Brianna Mercedes is seen and examined this morning at the bedside. She denies any overnight events or complaints, specifically denies any shortness of breath, chest pain or nausea. She remains in atrial fibrillation with atrial fibrillation with rapid ventricular response and heart rate is mostly 120s-130s. I discussed with her again today regarding her renal failure and she continues to decline dialysis. PHYSICAL EXAMINATION: VITAL SIGNS: Temperature 98.6, pulse 138, respiratory rate 20, blood pressure 120/70, saturation 100% on 2 liters nasal canula. INTAKE AND OUTPUT: Intake yesterday was 1980. Urine output yesterday was recorded as 7 voids plus 550 mL. Weight in the bed scale is down to 62.3 kg, which is 2 kilos less than yesterday. GENERAL: Patient is seen sitting in the chair eating lunch, elderly and frail female in no apparent distress. Awake, alert, oriented times three, interactive and conversational. HEENT: Extraocular muscles are intact. Tongue is moist. She is feeding herself lunch. Her neck veins are elevated. LUNG SOUNDS: Clear. She is saturating 100% on nasal cannula. HEART: Rate is tachycardic and irregularly irregular. ABDOMEN: Soft and protuberant. EXTREMITIES: There is trace dependent edema and trace peripheral edema, but there was no appreciable abdominal wall edema. NEUROLOGIC: She is oriented times three, interactive and conversational. LABORATORY STUDIES: Today's labs reveal sodium 141, potassium 4.6, bicarbonate 25, BUN 111, creatinine 3.8, GFR 12, magnesium 1.8. Hemoglobin 8.7, platelets 152. INPATIENT MEDICATIONS: Reviewed by myself. I note she was started on amiodarone 200 mg by mouth twice daily. I ordered Lasix 20 mg IV times one. Her prednisone was notably discontinued. The remainder of her medications are unchanged as compared to yesterday. PROBLEMS: 1. Acute renal failure superimposed on chronic kidney disease (CKD) stage IV. The patient had a best baseline creatinine of 2.2 about two months ago. She is nonoliguric. She is mildly hypervolemic. It is in the setting of atrial fibrillation with atrial fibrillation with rapid ventricular response. Blood pressures are fairly stable with systolic in the 110s. Her blood urea nitrogen is greater than 100. I discussed with her again today regarding dialysis and she continues to decline the same. Another dose of IV Lasix is ordered for today. 2. Diastolic congestive heart failure. Echocardiogram November 22, 2020 reviewed. Grade 1 diastolic dysfunction. Patient is mildly hypervolemic in the setting of acute on chronic renal failure and atrial fibrillation with atrial fibrillation with rapid ventricular response. She received 20 mg of IV Lasix yesterday with seven voids recorded and weight went down by 2 kilos. I will give her another dose of Lasix 20 mg today. She is saturating 100% on 2 liters nasal cannula and I do not feel she needs any aggressive diuresis at this time. 3. Hyperkalemia. It has improved with a dose of Kayexalate yesterday along with IV Lasix. 4. Atrial fibrillation with atrial fibrillation with rapid ventricular response. Heart rate is 120s to 130s. Systolic blood pressure is stable in the 110s. She is on Cardizem every 6 hours and amiodarone was added today as well by cardiology service. Digoxin was discontinued. She continues on low dose Eliquis anticoagulation as well.
[2020-12-02] VITALS (8 sets, daily range): BP systolic 100–145; BP diastolic 56–80
[2020-12-02 04:24] LABS: HEMATOCRIT 26.4 % (36.0-47.0); HEMOGLOBIN 8.5 g/dl (12.0-15.5); MEAN CORPUSCULAR HEMOGLOBIN 32.8 pg (27.0-33.0); MEAN CORPUSCULAR HGB CONC 32.2 g/dl (32.0-36.5); MEAN CORPUSCULAR VOLUME 101.9 fl (80.0-96.0); PLATELET COUNT, AUTOMATED 174 10^3/uL (150-450); RED BLOOD COUNT 2.59 10^6/uL (4.00-5.40); WHITE BLOOD COUNT 7.1 10^3/uL (4.0-10.0)
[2020-12-02 04:50] LABS: CALCIUM LEVEL 7.9 MG/DL (8.8-10.2); CREATININE FOR GFR 3.64 MG/DL (0.55-1.30); GLOMERULAR FILTRATION RATE 12.9 (>39); MAGNESIUM LEVEL 1.9 MG/DL (1.8-2.4); PHOSPHORUS LEVEL 6.1 MG/DL (2.5-4.9); POTASSIUM SERUM 4.5 MEQ/L (3.5-5.1)
[2020-12-02] MEDS: LEVOTHYROXINE 75MCG TABLET (0.075MG) PO SCH (06:12)
[2020-12-02] MEDS: SLF 3 ML SYR IV SCH ×3 (06:14→21:14)
[2020-12-02] MEDS: ADVAIR HFA 115/21MCG INHALER INH SCH ×2 (07:53→20:57)
[2020-12-02] MEDS: APIXABAN 2.5 MG TAB (ELIQUIS) PO SCH ×2 (08:51→21:14)
[2020-12-02] MEDS: FERROUS SULFATE 325MG TAB PO SCH (08:51)
[2020-12-02] MEDS: AMIODARONE 200 MG TAB (PACERONE) PO SCH ×2 (08:52→21:14)
[2020-12-02] MEDS: SENOKOT S TAB PO SCH ×2 (08:52→21:13)
[2020-12-02] MEDS: FAMOTIDINE 20 MG TAB PO SCH (08:52)
[2020-12-02] MEDS: HumaLOG INSULIN (NovoLOG) PER UNIT SC SCH ×4 (08:58→21:00)
[2020-12-02] MEDS: LEVEMIR (INSULIN DETEMIR) 1 UNITS/0.01ML SC SCH (08:58)
[2020-12-02] MEDS ORDERED: DIGOXIN 0.125 MG TAB PO SCH (09:00)
[2020-12-02] MEDS ORDERED: ELIQ2.5T PO (09:33)
--- NOTE | 2020-12-02 11:33 | IPN ---
PROGRESS NOTE DATE: 12/02/2020 SUBJECTIVE: Mrs. Mercedes is feeling better than yesterday. She said she was able to ambulate in the PCU without major difficulty. She has no sensation of palpitations and she denies any chest pain or sensation or dyspnea. Telemetry monitoring reveals ongoing atrial fibrillation with a heart rate of around 120 beats per minute. She does not have any extreme bradycardic episodes. OBJECTIVE: VITAL SIGNS: Blood pressure is 120/71, heart rate is 120. She has been afebrile, saturation 80% on 2 liters of oxygen via nasal cannula. INPUT AND OUTPUT: Fluid balance yesterday was recorded as positive liter even though her weight is unchanged. GENERAL APPEARANCE: She is alert and oriented, and appropriate. NECK: Her JVP is elevated. LUNGS: Reasonably clear. HEART: Irregular, tachycardia. ABDOMEN: Soft, nontender. EXTREMITIES: Trace edema. LABORATORY DATA: Basic metabolic panel: Sodium 139, potassium 4.5, BUN 113, creatinine is 3.6, glucose is 135. CBC reveals a hemoglobin of 8.5, hematocrit 26, platelet count 174,000. ASSESSMENT AND PLAN: Mrs. Mercedes is a 75-year-old female who has advanced renal insufficiency and presents with shortness of breath likely related to somewhat volume overloaded state in the setting of renal failure. In that respect, she is much improved but during this hospitalization she developed atrial fibrillation with rapid ventricular response. Currently, she gets Cardizem 90 mg every 6 hours with holding parameters plus I started amiodarone early yesterday. Heart rate is not well-controlled but I expect it will become within a few days. She is anticoagulated with Eliquis. Renal function is improving. I believe we can continue with the current course. She has preserved left ventricular systolic function and I still hope there is some chance of converting her to sinus rhythm within the next few weeks.
[2020-12-02] MEDS ORDERED: FUROSEMIDE 40MG/4ML VIAL (J1940) IV ONE (13:00)
--- NOTE | 2020-12-02 13:15 | IPNPDOC ---
Subjective Date Seen The patient was seen on 12/02/20. Subjective Chief Complaint/HPI Mrs. Mercedes is a 75 year old female who presented with dyspnea and found to have acute hypercapnic respiratory failure 2/2 acute HFpEF and COPD exacerbation, acute kidney injury, E.coli UTI, and atrial fibrillation with RVR. Overnight, her heart rate still varies from 100 to 130. This morning, she denies any chest pain, palpitations, or dyspnea. Objective Physical Examination General Exam: Positive: Alert, Cooperative Eye Exam: Positive: EOMI Neck Exam: Positive: Supple Chest Exam: Positive: Clear to auscultation Heart Exam: Positive: Tachycardic, Irregular Rhythm Abdomen Exam: Positive: Normal bowel sounds, Soft; Negative: Tenderness Extremity Exam: Positive: Edema Psych Exam: Positive: Mental status NL, Mood NL Assessment /Plan Assessment Mrs. Mercedes is a 75 year old female who presented with dyspnea and found to have acute hypercapnic respiratory failure 2/2 acute HFpEF and COPD exacerbation, acute kidney injury, E.coli UTI, and atrial fibrillation with RVR. She is chronically on 2L at home, and currently on 2L of oxygen. E.coli UTI treated with 5 days of ciprofloxacin. Nephrology following for acute renal injury. Recommended dialysis but patient declined. Continue to monitor renal function. Otherwise, patient has new onset atrial fibrillation with RVR. Cardiology following and managing rate control and rhythm control medications. Plan/VTE VTE Prophylaxis Ordered?: Yes Plan 1. New onset atrial fibrillation with RVR -Cardiology following recommendations appreciated -Continues on amiodarone 200mg BID and Diltiazem 90mg q6h -Eliquis 2.5mg BID for AC -Echocardiogram demonstrates EF 60% to 65% with grade 1 diastolic dysfunction -Rate/rhythm not controlled 2. Acute on chronic hypercarbic respiratory failure -Chronically on 2L, now at baseline -2/2 acute HFpEF and COPD exacerbation -Continues on prednisone taper. Last dose on 12/04/2020 3. Acute on chronic kidney disease -Nephrology following, recommendations appreciated -Baseline creatinine around 2.3 -S/P ATN autodiuresis -Patient decline hemodialysis -Continue monitoring and supportive care 4. Diabetes mellitus -Continue basal/bolus insulin 5. Hypothyroidism -Continue levothyroxine 6. GERD -Continue famotidine 7. DVT ppx -Continue Eliquis Disposition: Pending improvement in heart rate and renal function. Cleared PT for home VS, I&O, 24H, Ed Vital Signs/I&O Vital Signs Date Time Temp Pulse Resp B/P (MAP) Pulse Ox O2 Delivery O2 Flow Rate FiO2 12/02/20 12:15 115 127/56 12/02/20 12:06 97.3 20 98 Nasal Cannula 2.0 I&O- Last 24 Hours up to 6 AM 12/02/20 06:00 Intake Total 1652 ml Output Total 400 ml Balance 1252 ml Laboratory Data 24H LABS Laboratory Tests 2 12/01/20 16:27: Bedside Glucose (Misc Panel) 273H 12/01/20 22:10: Bedside Glucose (Misc Panel) 321H 12/02/20 03:56: Nucleated Red Blood Cells % (auto) 0.0, Anion Gap 9, Glomerular Filtration Rate 12.9L, Calcium Level 7.9L, Phosphorus Level 6.1H, Magnesium Level 1.9 12/02/20 08:04: Bedside Glucose (Misc Panel) 335H 12/02/20 11:48: Bedside Glucose (Misc Panel) 256H CBC/BMP Laboratory Tests 12/02/20 03:56 Microbiology Microbiology 11/22/20 Urine Culture - Final, Complete Escherichia Coli RAJWINDER MEAD DO Dec 02, 2020 13:15
[2020-12-02] MEDS: predniSONE 10 MG TAB PO SCH (13:52)
--- NOTE | 2020-12-02 23:25 | IPN ---
NEPHROLOGY PROGRESS NOTE DATE: 12/02/2020 SUBJECTIVE: Brianna is seen and examined this morning at the bedside, sitting out of bed to the chair. She denies any palpitations. She denies any shortness of breath at rest; tells me she has been getting up and ambulating to the bathroom and denies any dyspnea with simple exertion. Her renal function remains fairly plateau and BUN remains above 100 and the patient continues to decline dialysis discussion. OBJECTIVE: PHYSICAL EXAMINATION: VITAL SIGNS: Temperature 97.4, pulse 101, respiratory rate 18, blood pressure 145/60, saturating 100% on 2 liters nasal cannula. INTAKE AND OUTPUT: Intake yesterday was 1,530. Urine output yesterday was recorded as 500 mL. Weight in the bed scale today is 62.3 kg which is the same as it was yesterday. GENERAL APPEARANCE: This patient is seen sitting out of bed to the chair. Elderly female, bright, articulate, awake, alert, oriented and appropriate. HEENT: The extraocular muscles are intact. Tongue is moist. NECK: Supple. Jugular veins are elevated. LUNGS: Clear. No crackles or rales. HEART: Irregularly irregular and tachycardic. There is 1+ leg edema. ABDOMEN: Soft and nontender and obese. There is some dependent edema as well. GENITOURINARY: There is no Le catheter. SKIN: Warm and dry. NEUROLOGIC: Oriented x3, interactive, conversational. LABORATORY STUDIES: Sodium 139, potassium 4.5, bicarbonate 25, BUN 113, creatinine 3.6, phosphorous 6.1, hemoglobin 8.5. CURRENT INPATIENT MEDICATIONS: The patient's medications were reviewed by myself. I gave Lasix 40 mg IV times one dose today. The remainder of medications are all unchanged as compared to yesterday. PROBLEMS: 1. Acute kidney injury, non oliguric superimposed on chronic kidney disease stage 4 the patient's best baseline creatinine was 2.2 about 2 months ago. She is mildly hypervolemic in the setting of atrial fibrillation with rapid ventricular response. Blood pressures however are stable. Blood urea nitrogen remains above 100. She declines dialysis. Another dose of Lasix is ordered for today at a higher dose of 40 mg. 2. Decompensated diastolic congestive heart failure echocardiogram November 22 reviewed. Grade one diastolic dysfunction. She is mildly hypervolemic in the setting of [id number] renal failure and atrial fibrillation with rapid ventricular response. Lasix 40 mg IV times one is given today. She continues to saturate 100% on 2 liters nasal cannula and her daily weights are stable the past 2 days. 3. Hyperkalemia it has resolved with Lasix administration. 4. Hyperphosphatemia phosphorous binder is being added. 5. Anemia - hemoglobin has downtrended over the course of this admission. Iron stores were acceptable. I would start Aranesp.
[2020-12-02] MEDS: ACETAMINOPHEN TAB 650MG DOSE (2X325MG) PO PRN (23:34)
[2020-12-03] VITALS: BP 120/81
[2020-12-03 04:00] VITALS: BP 105/71
[2020-12-03 05:50] LABS: HEMATOCRIT 28.8 % (36.0-47.0); HEMOGLOBIN 9.3 g/dl (12.0-15.5); MEAN CORPUSCULAR HEMOGLOBIN 32.4 pg (27.0-33.0); MEAN CORPUSCULAR HGB CONC 32.3 g/dl (32.0-36.5); MEAN CORPUSCULAR VOLUME 100.3 fl (80.0-96.0); PLATELET COUNT, AUTOMATED 182 10^3/uL (150-450); RED BLOOD COUNT 2.87 10^6/uL (4.00-5.40); WHITE BLOOD COUNT 8.1 10^3/uL (4.0-10.0)
[2020-12-03 06:08] LABS: CALCIUM LEVEL 7.9 MG/DL (8.8-10.2); CREATININE FOR GFR 3.67 MG/DL (0.55-1.30); GLOMERULAR FILTRATION RATE 12.8 (>39); POTASSIUM SERUM 4.6 MEQ/L (3.5-5.1)
[2020-12-03] MEDS: LEVOTHYROXINE 75MCG TABLET (0.075MG) PO SCH (06:12)
[2020-12-03] MEDS: SLF 3 ML SYR IV SCH ×3 (06:12→20:35)
[2020-12-03] MEDS: ADVAIR HFA 115/21MCG INHALER INH SCH ×2 (07:35→20:00)
[2020-12-03 08:00] VITALS: BP 93/55
[2020-12-03] MEDS: SUCROFERRIC OXYHYDROXIDE 500MG CHEW TAB (VELPHORO) PO SCH ×2 (08:20→18:00)
[2020-12-03] MEDS: FAMOTIDINE 20 MG TAB PO SCH (08:21)
[2020-12-03] MEDS: SENOKOT S TAB PO SCH ×2 (08:21→20:32)
[2020-12-03] MEDS: APIXABAN 2.5 MG TAB (ELIQUIS) PO SCH ×2 (08:21→20:33)
[2020-12-03] MEDS: HumaLOG INSULIN (NovoLOG) PER UNIT SC SCH ×4 (08:21→20:30)
[2020-12-03] MEDS: predniSONE 10 MG TAB PO SCH (08:21)
[2020-12-03] MEDS: AMIODARONE 200 MG TAB (PACERONE) PO SCH ×2 (08:21→20:33)
[2020-12-03] MEDS: LEVEMIR (INSULIN DETEMIR) 1 UNITS/0.01ML SC SCH (08:22)
[2020-12-03 12:00] VITALS: BP 123/58
--- NOTE | 2020-12-03 12:11 | IPN ---
PROGRESS NOTE DATE: 12/03/2020 SUBJECTIVE: Mrs. Mercedes tells me she has been feeling well. She was able to ambulate around the PCU without major difficulty. She remains in atrial fibrillation with still uncontrolled rate, even though it is improving. During the day, the heart rate is usually between 100 and 120 beats per minute. At night, it was consistently below 100 with occasional spikes. No pauses. She has no subjective awareness. OBJECTIVE: GENERAL APPEARANCE: Otherwise she is alert, oriented, appropriate, and in a good mood today. VITAL SIGNS: Blood pressure 105/71, heart rate as above. She is afebrile. Saturation is 98% on 2 liters of oxygen. Weight was recorded at 62.2 kg. NECK: Her JVP is less elevated than it was previously. LUNGS: Clear with good air movement. HEART: Reveals an irregularly irregular rhythm. I do not appreciate any murmur or gallop. ABDOMEN: Soft. EXTREMITIES: She still has trace peripheral edema. LABORATORY DATA: Hemoglobin 9.3, hematocrit 28.8, and platelet count 182,000. Basic metabolic panel with sodium 135, potassium 4.6, BUN 113, creatinine 3.7 for a GFR of 13, and glucose 223. ASSESSMENT AND PLAN: Mrs. Mercedes is a 75-year-old female who has chronic renal insufficiency who was admitted with dyspnea. It was likely related to fluid retention with contribution of worsening renal failure. After a few days in the hospital, she also developed atrial fibrillation with rapid ventricular response (RVR). Currently, she remains in atrial fibrillation. She is anticoagulated and for rate control we have been using diltiazem at a fairly high dose still short term release form plus amiodarone that was started just about 48 hours ago. The rate is improving. She has preserved left ventricular (LV) systolic function and is otherwise relatively asymptomatic, so I do not believe there is any emergency to correct the rate instantly. Obviously with longer use of amiodarone, her heart rate will gradually slow down and with a little bit of luck, she may even convert to sinus rhythm. She has been anticoagulated with Eliquis. Unfortunately, her remaining problems remain unchanged. There has been improvement in renal function that has since plateaued and she is really on the verge of dialysis. I do not have much else to contribute. I am going to sign off her care. I will plan to see her in follow-up on an outpatient basis. Please call me if you need any further assistance.
[2020-12-03] MEDS: TORSEMIDE 20 MG TAB PO SCH (12:52)
[2020-12-03 16:00] VITALS: BP 116/56
--- NOTE | 2020-12-03 16:31 | IPNPDOC ---
Subjective Date Seen The patient was seen on 12/03/20. Subjective Chief Complaint/HPI Mrs. Mercedes is a 75 year old female who presented with dyspnea and found to have acute hypercapnic respiratory failure 2/2 acute HFpEF and COPD exacerbation, acute kidney injury, E.coli UTI, and atrial fibrillation with RVR. Today, heart rate is better controlled with increases in HR with activity. Cardiology is aware and is okay with current cardiac regimen. Over times, her heart rate should improve and may convert to sinus rhythm. They have signed off. Otherwise, today, patient denies any chest pain, palpitations, or dyspnea. Discussed with her the idea of palliative care or hospice since she did not want dialysis. Patient does not want palliative care/hospice. Spoke with nephrology, Dr. Maria Esther Gonzalez. Patient would need frequent visit and monitoring of electrolytes and renal function. Otherwise discussed with son, Khoa Mercedes. He is concerned about patient's compliance with office visits, but is aware patient can make decisions on her own. Objective Physical Examination General Exam: Positive: Alert, Cooperative Eye Exam: Positive: EOMI Neck Exam: Positive: Supple Chest Exam: Positive: Clear to auscultation Heart Exam: Positive: Tachycardic, Irregular Rhythm Abdomen Exam: Positive: Normal bowel sounds, Soft; Negative: Tenderness Extremity Exam: Positive: Edema Psych Exam: Positive: Mental status NL, Mood NL Assessment /Plan Assessment Mrs. Mercedes is a 75 year old female who presented with dyspnea and found to have acute hypercapnic respiratory failure 2/2 acute HFpEF and COPD exacerbation, acute kidney injury, E.coli UTI, and atrial fibrillation with RVR. She is chronically on 2L at home, and currently on 2L of oxygen. E.coli UTI treated with 5 days of ciprofloxacin. Nephrology following for acute renal injury. Recommended dialysis but patient declined. Continue to monitor renal function. Otherwise, patient has new onset atrial fibrillation with RVR. Cardiology following and managing rate control and rhythm control medications. Plan/VTE VTE Prophylaxis Ordered?: Yes Plan 1. New onset atrial fibrillation with RVR -Cardiology following recommendations appreciated -Continues on amiodarone 200mg BID and Diltiazem 90mg q6h -Eliquis 2.5mg BID for AC -Echocardiogram demonstrates EF 60% to 65% with grade 1 diastolic dysfunction 2. Acute on chronic hypercarbic respiratory failure -Chronically on 2L, now at baseline -2/2 acute HFpEF and COPD exacerbation -Continues on prednisone taper. Last dose on 12/04/2020 3. Acute on chronic kidney disease -Nephrology following, recommendations appreciated -Baseline creatinine around 2.3 -S/P ATN autodiuresis -Patient decline hemodialysis -Continue monitoring and supportive care 4. Diabetes mellitus -Continue basal/bolus insulin 5. Hypothyroidism -Continue levothyroxine 6. GERD -Continue famotidine 7. DVT ppx -Continue Eliquis Disposition: Pending clinical status tomorrow [facility] Vital Signs/I&O Vital Signs Date Time Temp Pulse Resp B/P (MAP) Pulse Ox O2 Delivery O2 Flow Rate FiO2 12/03/20 16:00 98.9 86 18 116/56 (76) 98 Nasal Cannula 2.0 12/03/20 08:00 30 I&O- Last 24 Hours up to 6 AM 12/03/20 06:00 Intake Total 1140 ml Output Total 1200 ml Balance -60 ml Laboratory Data 24H LABS Laboratory Tests 2 12/02/20 16:43: Bedside Glucose (Misc Panel) 136H 12/02/20 19:53: Bedside Glucose (Misc Panel) 237H 12/03/20 05:41: Nucleated Red Blood Cells % (auto) 0.0, Anion Gap 9, Glomerular Filtration Rate 12.8L, Calcium Level 7.9L, Magnesium Level 2.0 12/03/20 11:43: Bedside Glucose (Misc Panel) 244H CBC/BMP Laboratory Tests 12/03/20 05:41 RAJWINDER MEAD 24, 2021 16:31
[2020-12-03 22:00] VITALS: BP 115/70
[2020-12-04] VITALS: BP 112/60
[2020-12-04 04:00] VITALS: BP 107/61
[2020-12-04] MEDS: LEVOTHYROXINE 75MCG TABLET (0.075MG) PO SCH (05:15)
[2020-12-04] MEDS: SLF 3 ML SYR IV SCH ×2 (05:15→13:01)
[2020-12-04] MEDS: ACETAMINOPHEN TAB 650MG DOSE (2X325MG) PO PRN (05:20)
[2020-12-04 05:59] LABS: HEMATOCRIT 25.1 % (36.0-47.0); HEMOGLOBIN 7.9 g/dl (12.0-15.5); MEAN CORPUSCULAR HEMOGLOBIN 31.9 pg (27.0-33.0); MEAN CORPUSCULAR HGB CONC 31.5 g/dl (32.0-36.5); MEAN CORPUSCULAR VOLUME 101.2 fl (80.0-96.0); PLATELET COUNT, AUTOMATED 181 10^3/uL (150-450); RED BLOOD COUNT 2.48 10^6/uL (4.00-5.40); WHITE BLOOD COUNT 6.3 10^3/uL (4.0-10.0)
[2020-12-04 06:13] LABS: CALCIUM LEVEL 7.6 MG/DL (8.8-10.2); CREATININE FOR GFR 3.55 MG/DL (0.55-1.30); GLOMERULAR FILTRATION RATE 13.3 (>39); MAGNESIUM LEVEL 1.9 MG/DL (1.8-2.4); POTASSIUM SERUM 3.9 MEQ/L (3.5-5.1)
[2020-12-04] MEDS: ADVAIR HFA 115/21MCG INHALER INH SCH (07:31)
[2020-12-04 08:00] VITALS: BP 91/55
[2020-12-04] MEDS: SENOKOT S TAB PO SCH (08:38)
[2020-12-04] MEDS: SUCROFERRIC OXYHYDROXIDE 500MG CHEW TAB (VELPHORO) PO SCH (08:38)
[2020-12-04] MEDS: LEVEMIR (INSULIN DETEMIR) 1 UNITS/0.01ML SC SCH (08:38)
[2020-12-04] MEDS: AMIODARONE 200 MG TAB (PACERONE) PO SCH (08:38)
[2020-12-04] MEDS: HumaLOG INSULIN (NovoLOG) PER UNIT SC SCH ×2 (08:38→12:39)
[2020-12-04] MEDS: FAMOTIDINE 20 MG TAB PO SCH (08:38)
[2020-12-04] MEDS: TORSEMIDE 20 MG TAB PO SCH (08:39)
[2020-12-04] MEDS: predniSONE 10 MG TAB PO SCH (08:39)
[2020-12-04] MEDS: APIXABAN 2.5 MG TAB (ELIQUIS) PO SCH (08:39)
[2020-12-04 12:00] VITALS: BP 127/75
[2020-12-04 12:10] LABS: HEMATOCRIT 28.6 % (36.0-47.0); HEMOGLOBIN 9.2 g/dl (12.0-15.5); MEAN CORPUSCULAR HEMOGLOBIN 33.3 pg (27.0-33.0); MEAN CORPUSCULAR HGB CONC 32.2 g/dl (32.0-36.5); MEAN CORPUSCULAR VOLUME 103.6 fl (80.0-96.0); PLATELET COUNT, AUTOMATED 204 10^3/uL (150-450); RED BLOOD COUNT 2.76 10^6/uL (4.00-5.40); WHITE BLOOD COUNT 9.8 10^3/uL (4.0-10.0)
[2020-12-04 12:40] VITALS: BP 127/75
[2020-12-04] MEDS ORDERED: DILT90CA PO (13:22)
[2020-12-04] MEDS ORDERED: AMIO200T3 PO (13:22)
[2020-12-04] MEDS ORDERED: VELP5CHW PO (13:22)
[2020-12-04] MEDS ORDERED: FAMO1TAB25 PO (13:22)
[2020-12-04] MEDS ORDERED: TORS20TA2 PO (13:22)
--- NOTE | 2020-12-04 14:25 | IPN ---
PROGRESS NOTE DATE: 12/04/2020 Ms. Mercedes is seen this morning on her bedside. She is sitting in the recliner chair with her feet elevated. She denies any nausea, vomiting, dyspnea, or chest pain. She had atrial fibrillation with rapid ventricular rate; however, her heart rate is now reasonably well controlled. PHYSICAL EXAMINATION: Temperature 97.4 degrees Fahrenheit, heart rate about 100 per minute, respiratory rate 18 per minute, blood pressure 107/60 mmHg, a nondistended oxygen saturation 99% on 2 liters oxygen. Head is atraumatic. Neck supple and without jugular venous distention (JVD) or thyroid enlargement. Heart sounds are irregular and tachycardic. Lungs with slightly diminished breath sounds at bases. Abdomen soft and nontender, and bowel sounds are normal. Extremities without any cyanosis or clubbing. She has trace edema on her legs. Neurologically, she is awake, at her baseline mentation and without a focal deficit. Today's labs show a WBC count 9.8, hemoglobin 9.2, hematocrit 28.6, platelets 204. Sodium 139, potassium 3.9, CO2 of 29, BUN 100, and creatinine 3.55. Glucose 194 and calcium 7.6. PROBLEMS: 1. Acute on chronic renal failure. Patient has known history of advanced chronic kidney disease. She does not wish dialysis, and her kidney function is without any significant change. Electrolytes are stable. 2. Congestive heart failure, most likely related to rapid atrial fibrillation. Her volume status is only slightly decompensated. I will recommend to continue with current diuretic and followup with her primary care physician and cardiology. 3. Anemia related to chronic kidney disease. At this point, no urgent intervention is needed. She can probably be managed as an outpatient. 4. Atrial fibrillation with rapid ventricular rate. Her heart rate is now well controlled with current medications, including amiodarone and diltiazem. She will continue with anticoagulation with renally adjusted dose of Eliquis. DISPOSITION From a renal standpoint, patient can be discharged to home and followup as an outpatient.
[2020-12-04] MEDS ORDERED: CALC667T2 PO (15:13)
[2020-12-04 16:00] VITALS: BP 109/66
[2020-12-04] MEDS ORDERED: DILT180C78 PO (16:05)
--- NOTE | 2020-12-04 23:31 | DS.PDOC ---
Discharge Summary General Date of Admission Nov 21, 2020 at 22:13 Date of Discharge Dec 04, 2020 Specialist/Consultants Involve Pulmonology, Dr. Pereira and Dr. Lucas Nephrology, Dr. Negrete and Dr. Alba Cardiology, Dr. Nieto Discharge Summary PROCEDURES PERFORMED DURING STAY: None. ADMITTING DIAGNOSES: 1. Acute hypoxic hypercarbic respiratory failure 2. EVA on CKD stage 3 3. Primary respiratory acidosis with secondary non-AG metabolic acidosis 4. Hyperkalemia 5. Venous insufficiency with pedal edema 6. Diabetes mellitus 7. Anemia 8. Hypertension 9. Hypothyroidism 10. COPD 11. GERD 12. E.coli UTI DISCHARGE DIAGNOSES: 1. Acute hypoxic hypercarbic respiratory failure 2. EVA on CKD stage 3 3. Primary respiratory acidosis with secondary non-AG metabolic acidosis 4. Hyperkalemia 5. Venous insufficiency with pedal edema 6. Diabetes mellitus 7. Anemia 8. Hypertension 9. Hypothyroidism 10. COPD 11. GERD 12. E.coli UTI 13. New onset atrial fibrillation with RVR COMPLICATIONS/CHIEF COMPLAINT: Worsening dyspnea. HISTORY OF PRESENT ILLNESS: Mrs. Mercedes is a 75 year old female with COPD, CKD stage 3, and diabetes mellitus who presents with worsening dyspnea. Symptoms st arted about 4 days prior. Denies change dyspnea at rest or lying flat. Denies PND. Otherwise, she has nausea and vomiting which has lead to poor appetite. Patient was found to have acute hypoxic hypercapnic respiratory failure and acute kidney injury secondary to diuretics and poor oral intake. Patient was admitted for acute hypoxic hypercapnic respiratory failure and acute on chronic kidney injury. HOSPITAL COURSE: Pulmonary was consulted to help with the acute hypoxic hypercapnic respiratory failure. Patient was put on NIPPV. Patient's respiratory failure was thought to be due to a combination of COPD, CHF, and E.coli UTI. Patient's UTI was treated with 7 days of fluoroquinolones. COPD was treated with steroids. CHF was treated with diuresis. Patient was able to come off of the NIPPV. Otherwise, nephrology was consulted for patient's EVA. Nephrology had offered dialysis for ATN, but patient declined. Instead diuretics were used to help with fluid status and hyperkalemia. Towards the end of patient's hospitalization, she converted into atrial fibrillation with RVR. Cardiology was consulted. Patient was put on amiodarone and diltiazem to control rhythm and heart rate. Patient was put on reduced dose Eliquis for anticoagulation. Patient's heart rate improved but still in atrial fibrillation. Patient did well with physical therapy. Today, patient's heart rate is controlled. She does have spikes in heart rate with activity, but resolves with discontinuation of activity. Cardiology is okay with her current medications and have not made any changes. Patient denies any chest pain, dyspnea, or palpitations. Patient feels well and ready for home and was subsequently discharged today. DISCHARGE MEDICATIONS: Please see below. ALLERGIES: Please see below. PHYSICAL EXAMINATION ON DISCHARGE: VITAL SIGNS: Please see below. GENERAL: Comfortable, in no apparent distress HEENT: Head normocephalic, atraumatic NECK: Supple CARDIOVASCULAR EXAMINATION: Irregular rhythm but rate controlled RESPIRATORY EXAMINATION: Lungs clear to auscultation bilaterally ABDOMINAL EXAMINATION: Soft, non-tender, normal bowel sounds EXTREMITIES: Bilateral pitting edema SKIN: Warm and dry NEUROLOGICAL EXAMINATION: CN 3-12 grossly intact PSYCHIATRIC EXAMINATION: Normal mood and affect LABORATORY DATA: Please see below. IMAGING: Radiologist interpretation CXR Chronic stable emphysematous disease and scattered fibrosis. No acute focal consolidation or effusion. CT head 1. No acute intracranial abnormality. 2. Chronic lacunar infarct involving the right thalamus. 3. Periventricular and subcortical white matter changes, which are likely the sequela of chronic small vessel ischemic injury and are similar in appearance compared to the prior CT head on 03/13/2018. Renal US Mildly atrophic left kidney with bilateral diffuse increased cortical parenchymal echogenicity suggestive of chronic medical renal disease. Echocardiogram 1. Study is of good technical quality. Underlying sinus rhythm. 2. Normal LV size with preserved LV systolic function and grade 1 diastolic dysfunction. 3. No hemodynamically significant valvular disease. 4. Likely elevated central venous pressure and moderate pulmonary hypertension. PROGNOSIS: Good ACTIVITY: As tolerated. DIET: Renal diet, Consistent carbohydrate diet DISCHARGE PLAN: Home with home services DISPOSITION: Home Health Service. DISCHARGE INSTRUCTIONS: 1. Follow up with PCP within 1 week 2. Follow up with nephrology within 1 week 3. It is very important that you follow up with nephrology to monitor fluid status, potassium, and phosphate 4. Follow up with cardiology in 1 week DISCHARGE CONDITION: Stable. Total time spent on discharge planning, discharge summary, and medication reconciliation: 50 minutes. Vital Signs/I&Os Vital Signs Date Time Temp Pulse Resp B/P (MAP) Pulse Ox O2 Delivery O2 Flow Rate FiO2 12/04/20 16:00 98.6 109 20 109/66 (80) 99 Nasal Cannula 2.0 12/03/20 08:00 30 I&O- Last 24 Hours up to 6 AM 12/04/20 06:00 Intake Total 1280 ml Output Total 761 ml Balance 519 ml Laboratory Data Labs 24H Laboratory Tests 2 12/04/20 05:39: Nucleated Red Blood Cells % (auto) 0.0, Anion Gap 7L, Glomerular Filtration Rate 13.3L, Calcium Level 7.6L, Magnesium Level 1.9 12/04/20 11:29: Bedside Glucose (Misc Panel) 279H 12/04/20 11:56: Nucleated Red Blood Cells % (auto) 0.0, Reticulocyte # (auto) 13.8L, Percent Reticulocyte Count 0.5, Reticulocyte Hemoglobin Equivalent 35.7 CBC/BMP Laboratory Tests 12/04/20 05:39 12/04/20 11:56 FSBS Laboratory Tests Test 12/04/20 11:29 Range/Units Bedside Glucose (Misc Panel) 279 83-110 MG/DL Discharge Medications Scheduled Amiodarone HCl (Amiodarone HCl) 200 Mg Tablet, 200 MG PO BID Apixaban (Eliquis) 2.5 Mg Tablet, 2.5 MG PO BID Brimonidine Tartrate/Timolol (Combigan 0.2%-0.5% Eye Drops) 5 Ml Drops, 1 DROP OU BID, (Reported) Calcium Acetate (Calcium Acetate) 667 Mg Tablet, 1 TAB PO BIDWM Diltiazem Hcl (Diltiazem 24Hr ER) 180 Mg Cap.er.24h, 2 CAP PO QHS Famotidine (Famotidine) 10 Mg Tablet, 10 MG PO DAILY Latanoprost/Pf (Latanoprost 0.005% Eye Drop) 7.5 Ml Drops, 1 DROP OU QHS, (Reported) Levothyroxine Sodium (Synthroid) 75 Mcg Tablet, 75 MCG PO DAILY, (Reported) Metformin HCl (Metformin HCl) 1,000 Mg Tablet, 1,500 MG PO DAILY, (Reported) Metformin HCl (Metformin HCl) 1,000 Mg Tablet, 1,000 MG PO QHS, (Reported) Netarsudil Mesylate (Rhopressa) 2.5 Ml Drops, 1 DROP OS QHS, (Reported) Salmeterol/Fluticasone (Advair 250-50 Diskus) 1 Each Blst.w.dev, 1 PUFF INH BID, (Reported) Sitagliptin Phosphate (Januvia) 100 Mg Tablet, 100 MG PO DAILY, (Reported) Torsemide (Torsemide) 20 Mg Tablet, 20 MG PO DAILY Scheduled PRN Albuterol Sulfate (Albuterol Sulfate Hfa) 8.5 Gm Hfa.aer.ad, 1 PUFF INH QID PRN for SOB/WHEEZING, (Reported) Allergies Coded Allergies: NSAIDS (Non-Steroidal Anti-Inflamma (Verified Allergy, Severe, ULCERS, PALPITATIONS, 02/12/19) aspirin (Verified Allergy, Severe, ULCERS, PALPITATIONS, 02/12/19) ibuprofen (Verified Allergy, Severe, ULCERS, PALPITATIONS, 02/12/19) Penicillins (Verified Allergy, Intermediate, HIVES, 02/12/19) Sulfa (Sulfonamide Antibiotics) (Verified Allergy, Intermediate, HIVES, 02/12/19) codeine (Verified Allergy, Unknown, 02/12/19) Egg Derived (Verified Adverse Reaction, Mild, NAUSEA, 02/12/19) egg (Verified Adverse Reaction, Mild, NAUSEA, 02/12/19) RAJWINDER MEAD DO Dec 04, 2020 23:31
[2020-12-07] MEDS ORDERED: DARBEPOETIN 100 MCG/0.5 ML *NON-DIALYSIS* SYRINGE (J0881) SC SCH (09:00)
== END 2020-12-04 17:13 | disposition home health service (06) | DRG 682 ==
LOC: M ED 17:00 → EEVIPCON 22:13 → M ED INP 22:13 → M ICU 23:30 → M MSPAV 11-26 09:43 → M PCU 11-28 16:46
PROVIDERS: ADMIT Family Medicine; ATTEND Internal Medicine
DX: N17.9 Acute kidney failure, unspecified (principal); J96.01 Acute respiratory failure with hypoxia; I50.33 Acute on chronic diastolic (congestive) heart failure; J96.02 Acute respiratory failure with hypercapnia; I13.0 Hypertensive heart and chronic kidney disease with heart failure and stage 1 through stage 4 chronic kidney disease, or unspecified chronic kidney disease; N39.0 Urinary tract infection, site not specified; J44.1 Chronic obstructive pulmonary disease with (acute) exacerbation; E87.2 Acidosis; E03.9 Hypothyroidism, unspecified; E11.22 Type 2 diabetes mellitus with diabetic chronic kidney disease; E87.5 Hyperkalemia; I48.91 Unspecified atrial fibrillation; N18.30 Chronic kidney disease, stage 3 unspecified; K21.9 Gastro-esophageal reflux disease without esophagitis; B96.29 Other Escherichia coli [E. coli] as the cause of diseases classified elsewhere; Z79.899 Other long term (current) drug therapy; Z88.6 Allergy status to analgesic agent; Z88.5 Allergy status to narcotic agent; Z88.2 Allergy status to sulfonamides; Z91.012 Allergy to eggs; I87.8 Other specified disorders of veins; E78.5 Hyperlipidemia, unspecified; E53.8 Deficiency of other specified B group vitamins; Z87.891 Personal history of nicotine dependence; Z66 Do not resuscitate; D63.1 Anemia in chronic kidney disease; I27.81 Cor pulmonale (chronic)

== ENCOUNTER 2020-12-11 08:58 | Emergency (ER) | payer MEDICARE, MEDICAID ==
[~2020-12-11] VITALS: Ht 160 cm; Wt 47.7 kg
[~2020-12-11 08:58] MED LIST changes: +ALBU8.5H INH; +AMIO200T3 PO; +ATOR1TAB19 PO; +CALC667T2 PO; +COMB0.2S OU; +COMMENTS; +DILT180C70 PO; +DILT180C78 PO; +DILT90CA PO; +ELIQ2.5T PO; +FAMO1TAB25 PO; +FAMO20TA5 PO; +FURO40TA2 PO; +IPRA2IN NEB; +LATA0.0015 OU; +LEVO88TA3 PO; +METF10004 PO; +RHOP0.02 OS; +SYNT75TA PO; +TORS20TA2 PO; +VELP5CHW PO
[2020-12-11] MEDS ORDERED: LEVO75TA4 (09:21)
[2020-12-11] MEDS ORDERED: ATOR1TAB19 (09:21)
[2020-12-11] MEDS ORDERED: DOK1CAP7 (09:21)
[2020-12-11] MEDS ORDERED: FURO40TA2 (09:21)
[2020-12-11] MEDS ORDERED: LATANOPROST (09:21)
--- NOTE | 2020-12-11 09:37 | REP ---
INDICATION: constipation COMPARISON: None. TECHNIQUE: Frontal view of the chest with supine and cross-table lateral views of the abdomen and pelvis. FINDINGS: Frontal view of the chest demonstrates no acute cardiopulmonary process. Supine and cross-table lateral views of the abdomen and pelvis demonstrate nonspecific bowel gas pattern without obstruction or perforation. No organomegaly. No abnormal calcifications. Skeletal structures normal for age. IMPRESSION: Nonspecific bowel gas pattern. <Electronically signed by Scooby Millard > 12/11/20 [id number]
[2020-12-11] MEDS ORDERED: ACETAMINOPHEN 500 MG TAB PO ONE (11:20)
[2020-12-11 14:39] VITALS: BP 138/65
== END 2020-12-11 14:40 | disposition home or self-care (01) ==
LOC: EDBD 08:58 → EDSEX 08:58 → M ED 08:58
DX: K59.00 Constipation, unspecified (principal); D51.9 Vitamin B12 deficiency anemia, unspecified; E11.9 Type 2 diabetes mellitus without complications; N18.30 Chronic kidney disease, stage 3 unspecified; E03.9 Hypothyroidism, unspecified; E78.5 Hyperlipidemia, unspecified; J44.9 Chronic obstructive pulmonary disease, unspecified; D63.1 Anemia in chronic kidney disease; R60.9 Edema, unspecified; Z88.0 Allergy status to penicillin; Z88.2 Allergy status to sulfonamides; Z88.6 Allergy status to analgesic agent; Z91.012 Allergy to eggs; Z87.891 Personal history of nicotine dependence; Z79.899 Other long term (current) drug therapy; Z79.84 Long term (current) use of oral hypoglycemic drugs; Z79.51 Long term (current) use of inhaled steroids

== ENCOUNTER → 2020-12-12 | Outpatient (REF) | payer MEDICARE, MEDICAID ==
[~2020-12-12] MED LIST changes: +ATOR1TAB19; +DOK1CAP7; +FURO40TA2; +LATANOPROST; +LEVO75TA4
[2020-12-15 18:56] LABS: PERCENT SATURATION 27.9 % (13.2-45.0)
[2020-12-15 19:14] LABS: FOLATE 9.8 NG/ML
== END ==
LOC: M LAB REF 17:00
PROVIDERS: ATTEND Internal Medicine Nephrology
DX: D64.9 Anemia, unspecified (principal)

== ENCOUNTER → 2020-12-24 | Outpatient (REF) | payer MEDICARE, MEDICAID, OTHER | LOC: M LAB REF 17:14 | PROVIDERS: ATTEND Internal Medicine Nephrology | DX: N18.9 Chronic kidney disease, unspecified (principal); D63.1 Anemia in chronic kidney disease ==

== ENCOUNTER 2020-12-26 08:58 | Outpatient (CLI) | payer MEDICARE, MEDICAID ==
[2020-12-26] VITALS (7 sets, daily range): BP systolic 109–131; BP diastolic 56–68
[~2020-12-26] VITALS: Ht 160 cm; Wt 47.7 kg
[~2020-12-26 08:58] MED LIST changes: +diphenhydrAMINE 25MG CAP PO SCH
[2020-12-26] MEDS ORDERED: ACETAMINOPHEN 325 MG TAB PO ONE (09:00)
[2020-12-26] MEDS ORDERED: FUROSEMIDE 40MG/4ML VIAL (J1940) IV ONE (09:00)
== END 2020-12-26 14:00 | disposition home or self-care (01) ==
LOC: M INFU 08:58
PROVIDERS: ATTEND Internal Medicine Nephrology
DX: N18.9 Chronic kidney disease, unspecified (principal); D63.1 Anemia in chronic kidney disease
CPT/HCPCS: 36430; 96374; J1940; P9016

== ENCOUNTER → 2021-01-30 | Outpatient (REF) | payer MEDICARE, MEDICAID, OTHER ==
[~2021-01-30] MED LIST changes: +FAMO10TA50 PO; -FAMO1TAB25 PO; -diphenhydrAMINE 25MG CAP PO SCH
[2021-01-30 18:43] LABS: HEMATOCRIT 27.9 % (36.0-47.0); HEMOGLOBIN 8.7 g/dl (12.0-15.5); MEAN CORPUSCULAR HGB CONC 31.2 g/dl (32.0-36.5); MEAN CORPUSCULAR VOLUME 102.6 fl (80.0-96.0); PLATELET COUNT, AUTOMATED 187 10^3/uL (150-450); RED BLOOD COUNT 2.72 10^6/uL (4.00-5.40); WHITE BLOOD COUNT 5.7 10^3/uL (4.0-10.0)
[2021-01-30 19:00] LABS: HEMOGLOBIN A1c 6.7 %
[2021-01-30 19:14] LABS: ALBUMIN 3.1 GM/DL (3.2-5.2); BILIRUBIN,TOTAL 0.2 MG/DL (0.2-1.0); CALCIUM LEVEL 8.2 MG/DL (8.8-10.2); CREATININE FOR GFR 3.95 MG/DL (0.55-1.30); GLOMERULAR FILTRATION RATE 11.7 (>39); POTASSIUM SERUM 4.2 MEQ/L (3.5-5.1); TOTAL PROTEIN 7.3 GM/DL (6.4-8.2)
[2021-01-30 19:21] LABS: THYROID STIMULATING HORMONE 17.2 uIU/ML (0.358-3.740)
== END ==
LOC: M SFHCADAM 15:31
PROVIDERS: ATTEND Family Medicine
DX: D52.9 Folate deficiency anemia, unspecified (principal); E11.22 Type 2 diabetes mellitus with diabetic chronic kidney disease; E03.9 Hypothyroidism, unspecified
CPT/HCPCS: 80053; 83036; 84439; 84443; 85027; G0463

== ENCOUNTER → 2021-02-12 | Outpatient (REF) | payer MEDICARE, MEDICAID, OTHER ==
[~2021-02-12] MED LIST changes: -FAMO10TA50 PO; +FAMO1TAB25 PO
[2021-02-12 18:19] LABS: PERCENT SATURATION 21.2 % (13.2-45.0)
== END ==
LOC: M LAB REF 16:52
PROVIDERS: ATTEND Internal Medicine Nephrology
DX: N18.5 Chronic kidney disease, stage 5 (principal); D63.1 Anemia in chronic kidney disease; I27.81 Cor pulmonale (chronic)

== ENCOUNTER → 2021-03-19 | Outpatient (REF) | payer MEDICARE, MEDICAID, OTHER ==
[~2021-03-19] MED LIST changes: +FAMO10TA50 PO; -FAMO1TAB25 PO
== END ==
LOC: M LAB REF 16:59
PROVIDERS: ATTEND Internal Medicine Nephrology
DX: N18.5 Chronic kidney disease, stage 5 (principal)

== ENCOUNTER 2021-04-05 09:32 | Inpatient (IN) | payer MEDICARE, MEDICAID ==
[~2021-04-05] VITALS: Ht 160 cm; Wt 60.4 kg
[~2021-04-05 09:32] MED LIST changes: -AMIO200T3 PO; +AMIO200T49 PO; -ATOR1TAB19; +DOK1CAP4 PO; -DOK1CAP7
[2021-04-05 10:03] LABS: BASO % 0.1 % (0.0-1.0); EOS % 0.1 % (0.0-3.0); HEMATOCRIT 29.1 % (36.0-47.0); HEMOGLOBIN 9.5 g/dl (12.0-15.5); LYMPH # 1.4 10^3/uL (1.5-5.0); LYMPH % 15.8 % (24.0-44.0); MEAN CORPUSCULAR HEMOGLOBIN 29.8 pg (27.0-33.0); MEAN CORPUSCULAR HGB CONC 32.6 g/dl (32.0-36.5); MEAN CORPUSCULAR VOLUME 91.2 fl (80.0-96.0); MONO # 0.9 10^3/uL (0.0-0.8); MONO % 10.4 % (2.0-8.0); NEUTROPHILS # 6.2 10^3/uL (1.5-8.5); NEUTROPHILS % 73.2 % (36.0-66.0); PLATELET COUNT, AUTOMATED 210 10^3/uL (150-450); RED BLOOD COUNT 3.19 10^6/uL (4.00-5.40); WHITE BLOOD COUNT 8.5 10^3/uL (4.0-10.0)
[2021-04-05] MEDS ORDERED: NS 1,000 ML IV ONE (10:10)
[2021-04-05] MEDS ORDERED: ONDANSETRON 4MG/2ML VIAL IV ONE (10:30)
[2021-04-05 10:39] LABS: ALBUMIN 3.6 GM/DL (3.2-5.2); ALT/SGPT 93 U/L (12-78); BILIRUBIN,DIRECT < 0.1 MG/DL (0.0-0.2); BILIRUBIN,TOTAL 0.3 MG/DL (0.2-1.0); BLOOD UREA NITROGEN 119 MG/DL (7-18); CALCIUM LEVEL 9.1 MG/DL (8.8-10.2); CARBON DIOXIDE LEVEL 39 MEQ/L (21-32); CHLORIDE LEVEL 78 MEQ/L (98-107); CK-MB VALUE MASS < 1.0 NG/ML (<3.6); CPK CREATINE PHOSPHOKINASE 60 U/L (26-192); CREATININE FOR GFR 4.76 MG/DL (0.55-1.30); GLOMERULAR FILTRATION RATE 9.5 (>39); GLUCOSE, FASTING 244 MG/DL (70-100); LIPASE 596 U/L (73-393); MB/CK RELATIVE INDEX 1.67 (< OR =4); POTASSIUM SERUM 2.6 MEQ/L (3.5-5.1); SODIUM LEVEL 129 MEQ/L (136-145); TOTAL PROTEIN 8.3 GM/DL (6.4-8.2); TROPONIN I 0.03 NG/ML (< 0.10)
[2021-04-05] MEDS ORDERED: KCL 10MEQ/100ML SWI (KRUN) 10 MEQ in IV 1 EA IV ONE (10:55)
[2021-04-05] MEDS ORDERED: CALC667T2 PO (12:58)
[2021-04-05] MEDS ORDERED: CART180C3 PO (12:58)
[2021-04-05] MEDS ORDERED: SITA50TAB PO (12:58)
[2021-04-05] MEDS ORDERED: AMIO200T37 PO (12:58)
[2021-04-05] MEDS ORDERED: ELIQ2.5T PO (12:58)
[2021-04-05] MEDS ORDERED: XALA0.007 OU (12:58)
[2021-04-05] MEDS ORDERED: LEVO100T5 PO (12:58)
[2021-04-05] MEDS ORDERED: REPA1TAB3 PO (13:07)
[2021-04-05] MEDS ORDERED: TORS20TA2 PO (13:07)
[2021-04-05] MEDS ORDERED: PROC20004 SC (14:03)
[2021-04-05] MEDS ORDERED: METO25TA PO (14:03)
[2021-04-05] MEDS ORDERED: COMMENTS (14:04)
[2021-04-05] MEDS ORDERED: HOME MED LIST COMPLETE! XX SCH (14:05)
[2021-04-05 14:11] LABS: RSV AMPLIFICATION NEGATIVE (NEGATIVE)
[2021-04-05] MEDS ORDERED: GLUCAGON INJ 1MG VIAL SC PRN (14:40)
[2021-04-05] MEDS ORDERED: DEXTROSE 50% 50 ML SYRINGE IV PRN (14:40)
[2021-04-05] MEDS ORDERED: GLUCOSE 4GM CHEW TABLET PO PRN (14:40)
[2021-04-05] MEDS ORDERED: ALBUTEROL 90 MCG/ACT 8GM HFA INHALER INH PRN (14:40)
[2021-04-05] MEDS ORDERED: ONDANSETRON 4MG/2ML VIAL IV PRN (14:45)
[2021-04-05] MEDS: HumaLOG INSULIN (NovoLOG) PER UNIT SC SCH ×2 (17:58→20:17)
[2021-04-05] MEDS: MIRALAX *UNIT DOSE* 17GM PACKET PO SCH (17:59)
[2021-04-05 19:30] VITALS: BP 135/64
[2021-04-05] MEDS: NS 1,000 ML IV SCH (19:32)
[2021-04-05] MEDS: ADVAIR HFA 115/21MCG INHALER INH SCH (20:00)
[2021-04-05 20:21] LABS: CALCIUM LEVEL 8.6 MG/DL (8.8-10.2); CREATININE FOR GFR 4.43 MG/DL (0.55-1.30); GLOMERULAR FILTRATION RATE 10.3 (>39); POTASSIUM SERUM 3.2 MEQ/L (3.5-5.1)
[2021-04-05] MEDS: APIXABAN 2.5 MG TAB (ELIQUIS) PO SCH (20:49)
[2021-04-05] MEDS: diltiaZEM **CD** 180 MG CAP PO SCH (20:49)
[2021-04-05] MEDS: CALCIUM ACETATE 667MG GELCAP PO SCH (20:50)
[2021-04-05] MEDS: LATANOPROST 0.005% OPHTH SOLN 2.5 ML OU SCH (20:50)
[2021-04-05] MEDS: SENNA 8.6 MG TAB (SENOKOT) PO SCH (20:50)
[2021-04-05] MEDS: DOCUSATE SODIUM 100MG CAPSULE PO SCH (20:50)
[2021-04-06] VITALS: BP 122/60
[2021-04-06 04:00] VITALS: BP 109/56
[2021-04-06 05:20] LABS: HEMATOCRIT 26.9 % (36.0-47.0); HEMOGLOBIN 8.6 g/dl (12.0-15.5); MEAN CORPUSCULAR HEMOGLOBIN 29.6 pg (27.0-33.0); MEAN CORPUSCULAR VOLUME 92.4 fl (80.0-96.0); PLATELET COUNT, AUTOMATED 180 10^3/uL (150-450); RED BLOOD COUNT 2.91 10^6/uL (4.00-5.40); WHITE BLOOD COUNT 6.6 10^3/uL (4.0-10.0)
[2021-04-06] MEDS: LEVOTHYROXINE 100MCG TABLET (0.1MG) PO SCH (05:22)
[2021-04-06 05:48] LABS: CALCIUM LEVEL 8.7 MG/DL (8.8-10.2); CREATININE FOR GFR 4.14 MG/DL (0.55-1.30); GLOMERULAR FILTRATION RATE 11.1 (>39); POTASSIUM SERUM 2.4 MEQ/L (3.5-5.1)
[2021-04-06] MEDS ORDERED: POTASSIUM CHLORIDE 10MEQ SR TABLET PO ONE ×2 (06:20→08:00)
[2021-04-06] MEDS ORDERED: KCL 10MEQ/100ML SWI (KRUN) 10 MEQ in IV 1 EA IV SCH (06:30)
[2021-04-06] MEDS ORDERED: MOM 30ML SUSPENSION UDC PO PRN (07:05)
[2021-04-06] MEDS: ADVAIR HFA 115/21MCG INHALER INH SCH ×2 (07:26→20:44)
[2021-04-06] MEDS: HumaLOG INSULIN (NovoLOG) PER UNIT SC SCH ×4 (07:30→21:44)
[2021-04-06 07:37] VITALS: BP 108/53
[2021-04-06] MEDS: MIRALAX *UNIT DOSE* 17GM PACKET PO SCH (08:23)
[2021-04-06] MEDS: SENNA 8.6 MG TAB (SENOKOT) PO SCH ×2 (08:23→21:05)
[2021-04-06] MEDS: APIXABAN 2.5 MG TAB (ELIQUIS) PO SCH ×2 (08:23→21:05)
[2021-04-06] MEDS: ATORVASTATIN 10 MG TAB PO SCH (08:23)
[2021-04-06] MEDS: AMIODARONE 200 MG TAB (PACERONE) PO SCH (08:23)
[2021-04-06] MEDS: DOCUSATE SODIUM 100MG CAPSULE PO SCH ×2 (08:23→21:05)
[2021-04-06] MEDS: CALCIUM ACETATE 667MG GELCAP PO SCH ×2 (08:24→17:39)
[2021-04-06] MEDS ORDERED: MIRALAX *UNIT DOSE* 17GM PACKET PO SCH (09:00)
[2021-04-06] MEDS: NS 1,000 ML IV SCH (11:32)
[2021-04-06 11:48] VITALS: BP 130/62
[2021-04-06 12:55] LABS: CALCIUM LEVEL 9.1 MG/DL (8.8-10.2); CREATININE FOR GFR 4.16 MG/DL (0.55-1.30); POTASSIUM SERUM 3.4 MEQ/L (3.5-5.1)
[2021-04-06] MEDS: BISACODYL 10 MG SUPP PR PRN (14:10)
[2021-04-06 16:00] VITALS: BP 125/60
[2021-04-06 18:48] LABS: CALCIUM LEVEL 8.5 MG/DL (8.8-10.2); CREATININE FOR GFR 3.89 MG/DL (0.55-1.30); GLOMERULAR FILTRATION RATE 11.9 (>39); POTASSIUM SERUM 3.5 MEQ/L (3.5-5.1)
[2021-04-06 20:30] VITALS: BP 122/66
[2021-04-06] MEDS: diltiaZEM **CD** 180 MG CAP PO SCH (21:05)
[2021-04-06] MEDS: LATANOPROST 0.005% OPHTH SOLN 2.5 ML OU SCH (21:05)
[2021-04-07] VITALS: BP 126/62
[2021-04-07] MEDS: NS 1,000 ML IV SCH ×2 (01:43→17:17)
[2021-04-07 04:00] VITALS: BP 125/59
[2021-04-07] MEDS: LEVOTHYROXINE 100MCG TABLET (0.1MG) PO SCH (05:32)
[2021-04-07 05:45] LABS: HEMATOCRIT 24.1 % (36.0-47.0); HEMOGLOBIN 7.6 g/dl (12.0-15.5); MEAN CORPUSCULAR HEMOGLOBIN 29.7 pg (27.0-33.0); MEAN CORPUSCULAR HGB CONC 31.5 g/dl (32.0-36.5); MEAN CORPUSCULAR VOLUME 94.1 fl (80.0-96.0); PLATELET COUNT, AUTOMATED 158 10^3/uL (150-450); RED BLOOD COUNT 2.56 10^6/uL (4.00-5.40); WHITE BLOOD COUNT 7.1 10^3/uL (4.0-10.0)
[2021-04-07 06:07] LABS: CALCIUM LEVEL 8.3 MG/DL (8.8-10.2); CREATININE FOR GFR 3.62 MG/DL (0.55-1.30); MAGNESIUM LEVEL 2.4 MG/DL (1.8-2.4)
[2021-04-07 07:23] VITALS: BP 103/57
[2021-04-07] MEDS: ADVAIR HFA 115/21MCG INHALER INH SCH ×2 (07:44→20:02)
[2021-04-07 07:55] LABS: PERCENT SATURATION 17.3 % (13.2-45.0)
[2021-04-07] MEDS ORDERED: POTASSIUM CHLORIDE 10MEQ SR TABLET PO ONE (08:00)
[2021-04-07] MEDS: MIRALAX *UNIT DOSE* 17GM PACKET PO SCH (08:10)
[2021-04-07] MEDS: SENNA 8.6 MG TAB (SENOKOT) PO SCH ×2 (08:12→20:58)
[2021-04-07] MEDS: HumaLOG INSULIN (NovoLOG) PER UNIT SC SCH ×4 (08:12→21:00)
[2021-04-07] MEDS: CALCIUM ACETATE 667MG GELCAP PO SCH ×2 (08:13→17:17)
[2021-04-07] MEDS: APIXABAN 2.5 MG TAB (ELIQUIS) PO SCH ×2 (08:13→20:58)
[2021-04-07] MEDS: ATORVASTATIN 10 MG TAB PO SCH (08:13)
[2021-04-07] MEDS: AMIODARONE 200 MG TAB (PACERONE) PO SCH (08:13)
[2021-04-07] MEDS: DOCUSATE SODIUM 100MG CAPSULE PO SCH ×2 (08:13→20:58)
[2021-04-07] MEDS: BISACODYL 10 MG SUPP PR PRN (11:23)
[2021-04-07 11:39] VITALS: BP 145/89
[2021-04-07 12:00] LABS: HEMATOCRIT 25.7 % (36.0-47.0); MEAN CORPUSCULAR HEMOGLOBIN 29.6 pg (27.0-33.0); MEAN CORPUSCULAR HGB CONC 31.1 g/dl (32.0-36.5); MEAN CORPUSCULAR VOLUME 95.2 fl (80.0-96.0); PLATELET COUNT, AUTOMATED 174 10^3/uL (150-450); WHITE BLOOD COUNT 6.9 10^3/uL (4.0-10.0)
[2021-04-07] MEDS ORDERED: DARBEPOETIN 100 MCG/0.5 ML *NON-DIALYSIS* SYRINGE (J0881) SC ONE (13:05)
[2021-04-07 16:26] VITALS: BP 117/56
[2021-04-07] MEDS ORDERED: LACTULOSE 20 GM/30 ML SYRUP UD PO ONE (16:45)
[2021-04-07] MEDS ORDERED: FLEET ENEMA PR PRN (16:45)
[2021-04-07 20:00] VITALS: BP 122/59
[2021-04-07] MEDS: diltiaZEM **CD** 180 MG CAP PO SCH (20:59)
[2021-04-07] MEDS: LATANOPROST 0.005% OPHTH SOLN 2.5 ML OU SCH (20:59)
[2021-04-08] VITALS (9 sets, daily range): BP systolic 110–137; BP diastolic 57–62
[2021-04-08 05:41] LABS: HEMATOCRIT 22.7 % (36.0-47.0); HEMOGLOBIN 7.4 g/dl (12.0-15.5); MEAN CORPUSCULAR HEMOGLOBIN 30.8 pg (27.0-33.0); MEAN CORPUSCULAR HGB CONC 32.6 g/dl (32.0-36.5); MEAN CORPUSCULAR VOLUME 94.6 fl (80.0-96.0); PLATELET COUNT, AUTOMATED 152 10^3/uL (150-450); WHITE BLOOD COUNT 8.2 10^3/uL (4.0-10.0)
[2021-04-08] MEDS: LEVOTHYROXINE 100MCG TABLET (0.1MG) PO SCH (05:54)
[2021-04-08 06:02] LABS: CALCIUM LEVEL 8.1 MG/DL (8.8-10.2); CREATININE FOR GFR 3.02 MG/DL (0.55-1.30); POTASSIUM SERUM 3.1 MEQ/L (3.5-5.1)
[2021-04-08 07:20] LABS: MAGNESIUM LEVEL 2.4 MG/DL (1.8-2.4)
[2021-04-08] MEDS: ADVAIR HFA 115/21MCG INHALER INH SCH ×2 (07:32→19:54)
[2021-04-08] MEDS ORDERED: POTASSIUM CHLORIDE 10MEQ SR TABLET PO ONE (08:00)
[2021-04-08] MEDS: HumaLOG INSULIN (NovoLOG) PER UNIT SC SCH ×4 (08:18→21:00)
[2021-04-08] MEDS: SENNA 8.6 MG TAB (SENOKOT) PO SCH ×2 (08:19→20:37)
[2021-04-08] MEDS: AMIODARONE 200 MG TAB (PACERONE) PO SCH (08:19)
[2021-04-08] MEDS: DOCUSATE SODIUM 100MG CAPSULE PO SCH ×2 (08:19→20:36)
[2021-04-08] MEDS: ATORVASTATIN 10 MG TAB PO SCH (08:19)
[2021-04-08] MEDS: MIRALAX *UNIT DOSE* 17GM PACKET PO SCH ×2 (08:19→20:37)
[2021-04-08] MEDS: APIXABAN 2.5 MG TAB (ELIQUIS) PO SCH ×2 (08:19→20:36)
[2021-04-08] MEDS: CALCIUM ACETATE 667MG GELCAP PO SCH ×2 (08:20→17:43)
[2021-04-08] MEDS ORDERED: DARBEPOETIN 100 MCG/0.5 ML *NON-DIALYSIS* SYRINGE (J0881) SC SCH (09:00)
[2021-04-08] MEDS ORDERED: MOM 30ML SUSPENSION UDC PO SCH (09:00)
[2021-04-08] MEDS ORDERED: SLF 3 ML SYR IV PRN (09:55)
[2021-04-08] MEDS ORDERED: NS 1,000 ML IV SCH (10:35)
[2021-04-08] MEDS: SLF 3 ML SYR IV SCH ×2 (14:45→20:37)
[2021-04-08] MEDS: diltiaZEM **CD** 180 MG CAP PO SCH (20:37)
[2021-04-08] MEDS: LATANOPROST 0.005% OPHTH SOLN 2.5 ML OU SCH (20:37)
[2021-04-09] VITALS (7 sets, daily range): BP systolic 111–130; BP diastolic 53–61
[2021-04-09 05:34] LABS: HEMATOCRIT 24.3 % (36.0-47.0); HEMOGLOBIN 7.9 g/dl (12.0-15.5); MEAN CORPUSCULAR HEMOGLOBIN 29.7 pg (27.0-33.0); MEAN CORPUSCULAR HGB CONC 32.5 g/dl (32.0-36.5); MEAN CORPUSCULAR VOLUME 91.4 fl (80.0-96.0); PLATELET COUNT, AUTOMATED 133 10^3/uL (150-450); RED BLOOD COUNT 2.66 10^6/uL (4.00-5.40); WHITE BLOOD COUNT 6.9 10^3/uL (4.0-10.0)
[2021-04-09 06:01] LABS: CALCIUM LEVEL 7.9 MG/DL (8.8-10.2); CREATININE FOR GFR 2.78 MG/DL (0.55-1.30); GLOMERULAR FILTRATION RATE 17.6 (>39); MAGNESIUM LEVEL 2.5 MG/DL (1.8-2.4); POTASSIUM SERUM 3.5 MEQ/L (3.5-5.1)
[2021-04-09] MEDS: SLF 3 ML SYR IV SCH ×2 (06:36→13:13)
[2021-04-09] MEDS: LEVOTHYROXINE 100MCG TABLET (0.1MG) PO SCH (06:36)
[2021-04-09] MEDS: ADVAIR HFA 115/21MCG INHALER INH SCH (07:13)
[2021-04-09] MEDS: HumaLOG INSULIN (NovoLOG) PER UNIT SC SCH ×2 (08:12→12:00)
[2021-04-09] MEDS: DOCUSATE SODIUM 100MG CAPSULE PO SCH (08:13)
[2021-04-09] MEDS: SENNA 8.6 MG TAB (SENOKOT) PO SCH (08:13)
[2021-04-09] MEDS: CALCIUM ACETATE 667MG GELCAP PO SCH (08:13)
[2021-04-09] MEDS: AMIODARONE 200 MG TAB (PACERONE) PO SCH (08:13)
[2021-04-09] MEDS: MIRALAX *UNIT DOSE* 17GM PACKET PO SCH (08:13)
[2021-04-09] MEDS: APIXABAN 2.5 MG TAB (ELIQUIS) PO SCH (08:13)
[2021-04-09] MEDS: ATORVASTATIN 10 MG TAB PO SCH (08:13)
[2021-04-09] MEDS ORDERED: POTASSIUM CHLORIDE 10MEQ SR TABLET PO ONE (10:20)
[2021-04-09] MEDS ORDERED: POTA1TAB14 PO (10:45)
[2021-04-09] MEDS ORDERED: DOK1CAP4 PO (10:45)
[2021-04-09] MEDS ORDERED: POLY17PO18 PO (10:45)
[2021-04-26] MEDS ORDERED: POTA-151 PO (13:18)
[2021-09-22] MEDS ORDERED: FOLI1TAB11 PO (22:08)
[2021-09-22] MEDS ORDERED: TORS20TA2 PO (22:08)
[2021-09-22] MEDS ORDERED: DOCU100C16 PO (22:08)
[2021-09-22] MEDS ORDERED: ACET650T61 PO (22:08)
[2021-09-22] MEDS ORDERED: MIRA1POW3 PO (22:08)
== END 2021-04-09 16:18 | disposition home health service (06) | DRG 683 ==
LOC: M ED 09:32 → ENRESERV 15:40 → M ED 18:46 → M PCU 18:49
PROVIDERS: ADMIT Internal Medicine; ATTEND Internal Medicine
PROC: 30233N1 Transfusion of Nonautologous Red Blood Cells into Peripheral Vein, Percutaneous Approach (ICD-10-PCS; principal; 2021-04-08)
DX: N17.9 Acute kidney failure, unspecified (principal); J96.11 Chronic respiratory failure with hypoxia; E87.3 Alkalosis; E87.1 Hypo-osmolality and hyponatremia; N18.5 Chronic kidney disease, stage 5; K59.00 Constipation, unspecified; E87.6 Hypokalemia; I48.91 Unspecified atrial fibrillation; D63.1 Anemia in chronic kidney disease; E03.9 Hypothyroidism, unspecified; E11.9 Type 2 diabetes mellitus without complications; J44.9 Chronic obstructive pulmonary disease, unspecified; Z79.899 Other long term (current) drug therapy; Z88.6 Allergy status to analgesic agent; Z88.0 Allergy status to penicillin; Z88.2 Allergy status to sulfonamides; Z88.5 Allergy status to narcotic agent; Z91.012 Allergy to eggs; E78.5 Hyperlipidemia, unspecified; Z87.891 Personal history of nicotine dependence

== ENCOUNTER → 2021-04-17 | Outpatient (REF) | payer MEDICARE, MEDICAID ==
[~2021-04-17] MED LIST changes: +AMIO200T3 PO; +AMIO200T37 PO; -AMIO200T49 PO; +BENZ-18 PO; +CART180C3 PO; +DOXY100T2 PO; +INSUHUMDS SC; +LEVO100T5 PO; +METO25TA PO; +POLY17PO18 PO; +POTA1TAB14 PO; +POTA20TA6 PO; +PROC20004 SC; +REPA1TAB3 PO; +SITA50TAB PO; +TESS100C PO; +TORS10TA3 PO; +XALA0.007 OU
== END ==
LOC: M LAB REF 16:55
PROVIDERS: ATTEND Internal Medicine Nephrology
DX: N18.5 Chronic kidney disease, stage 5 (principal)

== ENCOUNTER 2021-04-20 19:48 | Emergency (ER) | payer MEDICARE, MEDICAID ==
[~2021-04-20] VITALS: Ht 165.1 cm; Wt 54.5 kg
[~2021-04-20 19:48] MED LIST changes: -BENZ-18 PO; -DOXY100T2 PO; -INSUHUMDS SC; -POTA20TA6 PO; -TESS100C PO; -TORS10TA3 PO
[2021-04-20 20:15] LABS: VENOUS BASE EXCESS 13.9 (-2.0-2.0); VENOUS HCO3 40.3 MEQ/L (23.0-27.0); VENOUS O2 SATURATION 86.1 % (60.0-80.0); VENOUS PARTIAL PRESSURE CO2 60.6 mmHg (38.0-50.0); VENOUS PARTIAL PRESSURE O2 53.3 mmHg (30.0-50.0); VENOUS PH 7.441 UNITS (7.330-7.430); VENOUS STANDARD HCO3 37.4 MEQ/L; VENOUS TOTAL CO2 42.2 MEQ/L (24.0-28.0)
[2021-04-20 20:22] LABS: BASO % 0.1 % (0.0-1.0); HEMATOCRIT 33.5 % (36.0-47.0); HEMOGLOBIN 10.8 g/dl (12.0-15.5); LYMPH # 0.7 10^3/uL (1.5-5.0); LYMPH % 10.3 % (24.0-44.0); MEAN CORPUSCULAR HEMOGLOBIN 29.3 pg (27.0-33.0); MEAN CORPUSCULAR HGB CONC 32.2 g/dl (32.0-36.5); MONO # 0.7 10^3/uL (0.0-0.8); MONO % 9.5 % (2.0-8.0); NEUTROPHILS # 5.5 10^3/uL (1.5-8.5); NEUTROPHILS % 79.7 % (36.0-66.0); PLATELET COUNT, AUTOMATED 169 10^3/uL (150-450); RED BLOOD COUNT 3.68 10^6/uL (4.00-5.40); WHITE BLOOD COUNT 6.9 10^3/uL (4.0-10.0)
[2021-04-20 20:45] LABS: BLOOD UREA NITROGEN 86 MG/DL (7-18); CALCIUM LEVEL 8.2 MG/DL (8.8-10.2); CARBON DIOXIDE LEVEL 38 MEQ/L (21-32); CHLORIDE LEVEL 84 MEQ/L (98-107); CK-MB VALUE MASS < 1.0 NG/ML (<3.6); CPK CREATINE PHOSPHOKINASE 50 U/L (26-192); CREATININE FOR GFR 4.02 MG/DL (0.55-1.30); GLOMERULAR FILTRATION RATE 11.5 (>39); GLUCOSE, FASTING 187 MG/DL (70-100); POTASSIUM SERUM 3.9 MEQ/L (3.5-5.1); SODIUM LEVEL 132 MEQ/L (136-145); TROPONIN I < 0.02 NG/ML (< 0.10)
[2021-04-20] MEDS ORDERED: NS 500 ML IV ONE (20:50)
[2021-04-20] MEDS ORDERED: ACETAMINOPHEN TAB 650MG DOSE (2X325MG) PO ONE (20:50)
--- NOTE | 2021-04-20 21:21 | REPVR ---
PROCEDURE INFORMATION: Exam: US Duplex Left Lower Extremity Veins, Limited Exam date and time: 04/20/2021 9:02 PM Age: 75 years old Clinical indication: Swelling (edema) of limb; Lower extremity, left; Additional info: Left leg swelling TECHNIQUE: Imaging protocol: Real-time Duplex ultrasound of the Left Lower Extremity with 2-D gamino scale, color Doppler flow and spectral waveform analysis with image documentation. Limited exam focused on the left lower extremity veins. COMPARISON: US EXTREMITY NON VASCUL LIMITED 10/10/2016 12:55 PM FINDINGS: Left deep veins: Unremarkable. The common femoral, femoral, proximal profunda femoral and popliteal veins are patent without thrombus. Normal Doppler waveforms. Normal compressibility and/or augmentation response. Left superficial veins: Unremarkable. Saphenofemoral junction is patent without thrombus. Soft tissues: Left calf edema. IMPRESSION: No evidence of deep vein thrombosis. Electronically signed by: Delano Levine On 04/20/2021 21:21:26 PM
--- NOTE | 2021-04-20 22:06 | REPVR ---
PROCEDURE INFORMATION: Exam: XR Chest Exam date and time: 04/20/2021 9:13 PM Age: 75 years old Clinical indication: Pain; Other: Unspecified; Additional info: Chest pain TECHNIQUE: Imaging protocol: XR of the chest. Views: 1 view. COMPARISON: DC Chest, 1 view 04/05/2021 10:26 AM FINDINGS: Lungs: There is prominence of bronchovascular markings consistent with previous changes of bronchitis. Heart/Mediastinum: The heart is normal in size. Bones/joints: There is no evidence of bony abnormality. Soft tissues: There is a linear density left thorax probably a skin fold. However to exclude any possibility of this being pneumothorax recommend repeating the film with a PA and lateral view. IMPRESSION: Line at left thorax probably a skin fold but repeat a PA and lateral view to exclude any possibility of pneumothorax. Electronically signed by: Delano Levine On 04/20/2021 22:05:31 PM
[2021-04-20] MEDS ORDERED: BENZONATATE 100 MG CAP PO ONE (22:55)
[2021-04-20] MEDS ORDERED: predniSONE 20 MG TAB PO ONE (22:55)
--- NOTE | 2021-04-20 23:30 | REPVR ---
PROCEDURE INFORMATION: Exam: XR Chest Exam date and time: 04/20/2021 11:07 PM Age: 75 years old Clinical indication: Cough and shortness of breath; Additional info: Line of left thorax, R/O ptx, rads request TECHNIQUE: Imaging protocol: XR of the chest. Views: 2 views. COMPARISON: CR PORTABLE CHEST X-RAY 04/20/2021 8:24 PM FINDINGS: Lungs: Unremarkable. No consolidation. Pleural spaces: There is no evidence of pneumothorax. There is no evidence of pleural effusion. Heart/Mediastinum: The heart is normal in size. Bones/joints: There is mild kyphosis of the thoracic spine. IMPRESSION: 1. Clear appearing lungs. 2. No evidence of pneumothorax. Electronically signed by: Delano Levine On 04/20/2021 23:29:54 PM
[2021-04-21 00:15] VITALS: BP 127/58
[2021-04-21] MEDS ORDERED: TESS100C PO (00:59)
[2021-04-21] MEDS ORDERED: PRED20TA PO (00:59)
--- NOTE | 2021-04-22 06:49 | ECGEPIP ---
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
== END 2021-04-21 02:03 | disposition home or self-care (01) ==
LOC: M ED 19:48
DX: J44.1 Chronic obstructive pulmonary disease with (acute) exacerbation (principal); I51.9 Heart disease, unspecified; K21.9 Gastro-esophageal reflux disease without esophagitis; Z91.012 Allergy to eggs; Z79.01 Long term (current) use of anticoagulants; Z79.899 Other long term (current) drug therapy; Z79.890 Hormone replacement therapy; Z88.0 Allergy status to penicillin; Z88.1 Allergy status to other antibiotic agents; Z88.2 Allergy status to sulfonamides; Z88.8 Allergy status to other drugs, medicaments and biological substances; Z88.5 Allergy status to narcotic agent; Z87.448 Personal history of other diseases of urinary system; Z83.3 Family history of diabetes mellitus
CPT/HCPCS: 71045; 71046; 80048; 82550; 82553; 82803; 83605; 84484; 85025; 87798; 93005; 93041; 93971; 96360; 96361; 99285; J7512

== ENCOUNTER 2021-04-22 15:30 | Emergency (ER) | payer MEDICARE, MEDICAID ==
[~2021-04-22] VITALS: Ht 160 cm; Wt 61.4 kg
[~2021-04-22 15:30] MED LIST changes: +TESS100C PO
[2021-04-22 16:29] LABS: HEMATOCRIT 31.6 % (36.0-47.0); HEMOGLOBIN 10.2 g/dl (12.0-15.5); LYMPH # 0.2 10^3/uL (1.5-5.0); LYMPH % 2.9 % (24.0-44.0); MEAN CORPUSCULAR HEMOGLOBIN 29.5 pg (27.0-33.0); MEAN CORPUSCULAR HGB CONC 32.3 g/dl (32.0-36.5); MEAN CORPUSCULAR VOLUME 91.3 fl (80.0-96.0); MONO # 0.2 10^3/uL (0.0-0.8); MONO % 3.9 % (2.0-8.0); NEUTROPHILS # 5.7 10^3/uL (1.5-8.5); NEUTROPHILS % 92.7 % (36.0-66.0); PLATELET COUNT, AUTOMATED 187 10^3/uL (150-450); RED BLOOD COUNT 3.46 10^6/uL (4.00-5.40); WHITE BLOOD COUNT 6.2 10^3/uL (4.0-10.0)
--- NOTE | 2021-04-22 16:53 | REP ---
INDICATION: DYSPNEA/COUGH. COMPARISON: PA and lateral chest dated 06/06/2019, PA and lateral chest dated 02/06/2020, and PA chest dated 12/11/2020. TECHNIQUE: Portable AP chest with the patient sitting. FINDINGS: There is mild chronic interstitial coarsening compatible with chronic interstitial lung disease, unchanged. There are no focal infiltrates. There are no pleural effusions. Cardiac size is normal. The erin, mediastinum, and skeletal structures are unremarkable for patient age and unchanged. IMPRESSION: There are no new or acute cardiopulmonary findings. There is chronic mild interstitial coarsening compatible with chronic interstitial lung disease. <Electronically signed by Albaro Orta > 04/22/21 [id number]
[2021-04-22 17:08] LABS: ALBUMIN 3.1 GM/DL (3.2-5.2); ALT/SGPT 942 U/L (12-78); BILIRUBIN,DIRECT < 0.1 MG/DL (0.0-0.2); BILIRUBIN,TOTAL 0.2 MG/DL (0.2-1.0); BLOOD UREA NITROGEN 119 MG/DL (7-18); CALCIUM LEVEL 8.1 MG/DL (8.8-10.2); CARBON DIOXIDE LEVEL 35 MEQ/L (21-32); CHLORIDE LEVEL 81 MEQ/L (98-107); CK-MB VALUE MASS 1.4 NG/ML (<3.6); CPK CREATINE PHOSPHOKINASE 39 U/L (26-192); CREATININE FOR GFR 4.52 MG/DL (0.55-1.30); GLUCOSE, FASTING 580 MG/DL (70-100); MB/CK RELATIVE INDEX 3.59 (< OR =4); POTASSIUM SERUM 3.6 MEQ/L (3.5-5.1); SODIUM LEVEL 128 MEQ/L (136-145); TOTAL PROTEIN 7.2 GM/DL (6.4-8.2); TROPONIN I < 0.02 NG/ML (< 0.10)
[2021-04-22] MEDS ORDERED: HumuLIN R (REGULAR) INSULIN (NovoLIN R) **100U/ML** PER UNIT IV ONE (17:15)
[2021-04-22 19:07] LABS: HEPATITIS B SURFACE ANTIGEN NEGATIVE (NEGATIVE)
[2021-04-22 19:35] LABS: HEPATITIS C VIRUS ABY INDEX 0.1 INDEX (<0.8)
[2021-04-22 19:36] LABS: HEPATITIS B CORE ANTIBODY IGM NEGATIVE (NEGATIVE)
[2021-04-22 19:37] LABS: HEPATITIS A ANTIBODY IGM NEGATIVE (NEGATIVE)
[2021-04-22 20:30] VITALS: BP 134/63
[2021-04-22 20:52] VITALS: O2SAT 95
--- NOTE | 2021-04-23 06:37 | ECGEPIP ---
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
== END 2021-04-22 21:31 | disposition home or self-care (01) ==
LOC: EDBD 15:30 → M ED 15:30
DX: R06.00 Dyspnea, unspecified (principal); R94.5 Abnormal results of liver function studies; E11.65 Type 2 diabetes mellitus with hyperglycemia; E78.5 Hyperlipidemia, unspecified; I11.9 Hypertensive heart disease without heart failure; I50.9 Heart failure, unspecified; J44.9 Chronic obstructive pulmonary disease, unspecified; Z87.891 Personal history of nicotine dependence; Z88.0 Allergy status to penicillin; Z88.1 Allergy status to other antibiotic agents; Z88.2 Allergy status to sulfonamides; Z88.6 Allergy status to analgesic agent; Z91.012 Allergy to eggs; Z79.51 Long term (current) use of inhaled steroids; Z79.82 Long term (current) use of aspirin; Z79.899 Other long term (current) drug therapy

== ENCOUNTER 2021-04-26 11:02 | Inpatient (IN) | payer MEDICARE, MEDICAID ==
[~2021-04-26] VITALS: Ht 160 cm; Wt 61.7 kg
[2021-04-26] MEDS ORDERED: ONDANSETRON 4MG/2ML VIAL IV ONE (12:15)
[2021-04-26] MEDS ORDERED: IPRATROPIUM 0.5MG/ALBUTEROL 2.5MG INH SOL UD 3ML (DUONEB) NEB ONE (12:20)
[2021-04-26 13:13] LABS: VENOUS BASE EXCESS 17.1 (-2.0-2.0); VENOUS O2 SATURATION 60.5 % (60.0-80.0); VENOUS PARTIAL PRESSURE CO2 70.3 mmHg (38.0-50.0); VENOUS PH 7.424 UNITS (7.330-7.430); VENOUS STANDARD HCO3 40.1 MEQ/L; VENOUS TOTAL CO2 47.1 MEQ/L (24.0-28.0)
[2021-04-26] MEDS ORDERED: PRED10TA2 PO (13:18)
[2021-04-26] MEDS ORDERED: POTA20TA6 PO (13:18)
[2021-04-26] MEDS ORDERED: BENZ-18 PO (13:18)
[2021-04-26] MEDS ORDERED: DOXY100T2 PO (13:18)
[2021-04-26 13:19] LABS: HEMATOCRIT 35.8 % (36.0-47.0); HEMOGLOBIN 11.8 g/dl (12.0-15.5); LYMPH # 0.7 10^3/uL (1.5-5.0); LYMPH % 8.8 % (24.0-44.0); MEAN CORPUSCULAR HEMOGLOBIN 29.1 pg (27.0-33.0); MEAN CORPUSCULAR VOLUME 88.2 fl (80.0-96.0); MONO # 0.7 10^3/uL (0.0-0.8); MONO % 8.9 % (2.0-8.0); NEUTROPHILS # 6.8 10^3/uL (1.5-8.5); NEUTROPHILS % 82.1 % (36.0-66.0); PLATELET COUNT, AUTOMATED 238 10^3/uL (150-450); RED BLOOD COUNT 4.06 10^6/uL (4.00-5.40); WHITE BLOOD COUNT 8.3 10^3/uL (4.0-10.0)
[2021-04-26] MEDS ORDERED: HOME MED LIST COMPLETE! XX SCH (13:20)
--- NOTE | 2021-04-26 13:28 | REP ---
INDICATION: DKA. COMPARISON: None. TECHNIQUE: AP portable FINDINGS: Chronic changes no lungs. No interval change when compared to the previous study. No active process. Heart not enlarged. No failure or effusion. IMPRESSION: No active process. No interval change. <Electronically signed by Greg Calzada > 04/26/21 [id number]
[2021-04-26] MEDS ORDERED: HumuLIN R (REGULAR) INSULIN (NovoLIN R) **100U/ML** PER UNIT SC STA (13:33)
[2021-04-26] MEDS ORDERED: NS 500 ML IV ONE (13:35)
[2021-04-26 13:47] LABS: OSMOLALITY SERUM 351 MOSM/KG (280-301)
[2021-04-26 13:56] LABS: RSV AMPLIFICATION NEGATIVE (NEGATIVE)
[2021-04-26 14:01] LABS: ACETONE/KETONE 0.96 MG/DL (<2.81); ALBUMIN 3.3 GM/DL (3.2-5.2); ALT/SGPT 426 U/L (12-78); BILIRUBIN,DIRECT 0.1 MG/DL (0.0-0.2); BILIRUBIN,TOTAL 0.4 MG/DL (0.2-1.0); CK-MB VALUE MASS 1.1 NG/ML (<3.6); CPK CREATINE PHOSPHOKINASE 24 U/L (26-192); LIPASE 402 U/L (73-393); MAGNESIUM LEVEL 2.5 MG/DL (1.8-2.4); MB/CK RELATIVE INDEX 4.58 (< OR =4); TOTAL PROTEIN 8.1 GM/DL (6.4-8.2); TROPONIN I < 0.02 NG/ML (< 0.10)
[2021-04-26] MEDS ORDERED: POTASSIUM CHLORIDE 10 MEQ SR TABLET PO ONE (14:20)
[2021-04-26] MEDS ORDERED: GLUCOSE 4GM CHEW TABLET PO PRN (15:20)
[2021-04-26] MEDS ORDERED: DEXTROSE 50% 50 ML SYRINGE IV PRN (15:20)
[2021-04-26] MEDS ORDERED: GLUCAGON INJ 1MG VIAL SC PRN (15:20)
[2021-04-26] MEDS: NYSTATIN 500,000 U/5 ML SUSP UDC SS SCH ×2 (16:00→20:48)
[2021-04-26] MEDS: HumaLOG INSULIN (NovoLOG) PER UNIT SC SCH ×2 (17:30→20:48)
[2021-04-26] MEDS: CALCIUM ACETATE 667MG GELCAP PO SCH (18:00)
--- NOTE | 2021-04-26 18:14 | HPEPDOC ---
General Date of Admission April 26, 2021 Date of Service: Apr 26, 2021 Chief Complaint The patient is a 75-year-old female admitted with a reason for visit of N/V. Source: Patient, Family History of Present Illness Mrs. Mercedes is a 75-year-old female with insulin-dependent diabetes mellitus and CKD stage V who presents with bilateral leg weakness and malaise. For the past week, she has not been feeling well. She has been feeling cold and has lightheadedness when she stands. She has some shortness of breath with cough. She brings up a little bit of white phlegm. She has been to the ED two times already and today is the third time. On her last visit to the ED, she was given steroids which has not helped with her symptoms. Otherwise, she has poor oral intake and cannot keep food or liquid down. She tells me she has a horrible taste in her mouth. As of recently, her urine output has decreased. Today she felt so weak she could not stand. Work-up in the ED is significant for osmolality of 351, BUN greater than 140, and creatinine of 4.8. Her lactic acid is 2.34. On examination she appears dry. Otherwise, we talked about the possible need for dialysis with a BUN that elevated. She has a history of declining dialysis in the past. I told her that if her kidneys are not working, she will need dialysis. The alternative option would be [employer]. She tells me that she wants to live. I spoke with nephrology, who will see the patient tomorrow. Patient will be admitted for EVA on CKD stage V due to dehydration Home Medications Scheduled Amiodarone HCl (Amiodarone Hydrochloride) 200 Mg Tablet, 200 MG PO DAILY, (Reported) Apixaban (Eliquis) 2.5 Mg Tablet, 2.5 MG PO BID, (Reported) 0800, 1700 Atorvastatin Calcium (Atorvastatin Calcium) 10 Mg Tablet, 10 MG PO DAILY, (Reported) Calcium Acetate (Calcium Acetate) 667 Mg Tablet, 667 MG PO BIDWM, (Reported) Diltiazem HCl (Cartia Xt) 180 Mg Cap.er.24h, 360 MG PO QHS, (Reported) Doxycycline Hyclate (Doxycycline Hyclate) 100 Mg Tablet, 100 MG PO BID, (Reported) FILLED 04/20/21 FOR 10 DAYS Epoetin Hilario (Procrit) 20,000 Unit/1 Ml Vial, 20,000 UNITS SC Q2WK, (Reported) Latanoprost (Xalatan) 0.005% 2.5ML Drops, 1 DROP OU QHS, (Reported) Levothyroxine Sodium (Levothyroxine Sodium) 100 Mcg Tablet, 100 MCG PO DAILY, (Reported) Metformin HCl (Metformin HCl) 1,000 Mg Tablet, 1,500 MG PO DAILY, (Reported) Metformin HCl (Metformin HCl) 1,000 Mg Tablet, 1,000 MG PO QHS, (Reported) Potassium Chloride (Potassium Chloride) 20 Meq Tab.er.prt, 20 MEQ PO DAILY, (Reported) Prednisone (Prednisone) 10 Mg Tablet, 30 MG PO TAPER, (Reported) FILLED 04/24/21: 30MG DAILY FOR 4 DAYS, 20MG DAILY FOR 4 DAYS, THEN 10MG DAILY FOR 4 DAYS THEN STOP Repaglinide (Repaglinide) 0.5 Mg Tablet, 0.5 MG PO WM, (Reported) Salmeterol/Fluticasone (Advair 250-50 Diskus) 1 Each Blst.w.dev, 1 PUFF INH BID, (Reported) Sitagliptin (Januvia) 50 Mg Tablet, 50 MG PO DAILY, (Reported) Torsemide (Torsemide) 20 Mg Tablet, 40 MG PO BID, (Reported) Scheduled PRN Albuterol Sulfate (Albuterol Sulfate Hfa) 8.5 Gm Hfa.aer.ad, 1 PUFF INH QID PRN for SOB/WHEEZING, (Reported) Benzonatate (Benzonatate) 100 Mg Capsule, 100 MG PO TID PRN for COUGH, (Reported) Miscellaneous Medications [Comments] , (Reported) MED LIST MADE WITH EXTERNAL MED HISTORY Allergies Coded Allergies: Penicillins (Verified Allergy, Intermediate, HIVES, 02/12/19) Sulfa (Sulfonamide Antibiotics) (Verified Allergy, Intermediate, HIVES, 02/12/19) codeine (Verified Allergy, Unknown, 02/12/19) NSAIDS (Non-Steroidal Anti-Inflamma (Verified Adverse Reaction, Intermediate, ULCERS, PALPITATIONS, 04/22/21) aspirin (Verified Adverse Reaction, Intermediate, ULCERS, PALPITATIONS, 04/22/21) ibuprofen (Verified Adverse Reaction, Intermediate, ULCERS, PALPITATIONS, 04/22/21) Egg Derived (Verified Adverse Reaction, Mild, NAUSEA, 02/12/19) egg (Verified Adverse Reaction, Mild, NAUSEA, 02/12/19) Past Medical History Medical History 1. NIDDM 2. CKD stage V 3. Hypothyroidism 4. Hypertension 5. COPD 6. Hyperlipidemia 7. Anemia of chronic disease 8. Chronic hypoxic respiratory failure (2L chronically) 9. Folic acid deficiency 10. B12 deficiency 11. History of GI bleeding secondary to PUD 12. Atrial fibrillation Surgical History 1. Hysterectomy 2. Appendectomy 3. Hemorrhoidectomy Family History Father: History of DM type 2 Mother: History of DM type 2 Social History * Smoker: former Smoker (quit 40 years ago, smoked 1ppd for about 20 years) Alcohol: Denies Drugs: denies A-FIB/CHADSVASC A-FIB History Current/History of A-Fib/PAF?: Yes Current PO Anticoag Therapy: Yes Review of Systems Constitutional: Reports: Malaise, Lethargy, Other (cold) Eyes: Denies: Vision change ENT: Denies: Sore Throat Skin: Denies: Rash Pulmonary: Reports: Dyspnea, Cough (small amounts of white phlegm) Cardiovascular: Reports: Chest Pain (worse with coughing), Lt Headedness (worse with standing) Gastrointestinal: Reports: Nausea, Vomiting (No emesis, dry heaving); Denies: Abdominal Pain Genitourinary: Reports: Other Symptoms (decreased urine output); Denies: Dysuria Hematologic: Denies: Bruising Neurological: Reports: Weakness (in legs bilaterally) Psych: Reports: Anxiety Physical Examination General Exam: Positive: Alert, Cooperative, Mild Distress Eye Exam: Positive: EOMI; Negative: Sclera icteric ENT Exam: Positive: Other ENT (oral thrush) Neck Exam: Positive: Supple Chest Exam: Positive: Clear to auscultation Heart Exam: Positive: Rate Normal, Regular Rhythm Abdomen Exam: Positive: Normal bowel sounds, Soft; Negative: Tenderness Extremity Exam: Positive: Edema (very mild pitting) Neuro Exam: Positive: Normal Speech, Cranial Nerves 3-12 NL Psych Exam: Positive: Mental status NL, Anxiety Vital Signs Vital Signs Date Time Temp Pulse Resp B/P (MAP) Pulse Ox O2 Delivery O2 Flow Rate FiO2 04/26/21 11:32 96.9 62 93 04/26/21 11:30 2.0 04/26/21 11:25 18 131/60 (83) Room Air Laboratory Data Labs 24H Laboratory Tests 2 04/26/21 11:21: Bedside Glucose (Misc Panel) 476H 04/26/21 12:41: Immature Granulocyte % (Auto) 0.2, Neutrophils (%) (Auto) 82.1H, Lymphocytes (%) (Auto) 8.8L, Monocytes (%) (Auto) 8.9H, Eosinophils (%) (Auto) 0.0, Basophils (%) (Auto) 0.0, Neutrophils # (Auto) 6.8, Lymphocytes # (Auto) 0.7L, Monocytes # (Auto) 0.7, Eosinophils # (Auto) 0.0, Basophils # (Auto) 0.0, Nucleated Red Blood Cells % (auto) 0.0, Blood Gas Bicarbonate Standard 40.1, Venous Blood pH 7.424, Venous Blood Partial Pressure CO2 70.3H, Venous Blood Partial Pressure O2 32.0, Venous Blood Total Carbon Dioxide 47.1H, Venous Blood HCO3 45.0H, Venous Blood Oxygen Saturation 60.5, Venous Blood Base Excess 17.1H, Estimated Mean Plasma Glucose 183H, Hemoglobin A1c 8.0, Osmolality 351H, Magnesium Level 2.5H, Total Bilirubin 0.4, Direct Bilirubin 0.1, Aspartate Amino Transf (AST/SGOT) 82H, Alanine Aminotransferase (ALT/SGPT) 426H, Alkaline Phosphatase 130H, Total Creatine Kinase 24L, Creatine Kinase MB 1.1, Creatine Kinase MB Relative Index 4.58H, Troponin I < 0.02, Total Protein 8.1, Albumin 3.3, Albumin/Globulin Ratio 0.7L, Lipase 402H, B-Hydroxybutyrate 0.96, Coronavirus (COVID-19)(PCR) NEGATIVE, Influenza Type A (RT-PCR) NEGATIVE, Influenza Type B (RT-PCR) NEGATIVE, Respiratory Syncytial Virus (PCR) NEGATIVE 04/26/21 13:04: POC Glucose (Misc Panel) 476H, POC Sodium (Misc Panel) 128L, POC Potassium (Misc Panel) 3.3L, POC Chloride (Misc Panel) 72L, POC Total CO2 (Misc Panel) 41.0H, POC Blood Urea Nitrogen (Misc Panel > 140H, POC Ionized Calcium (Misc Panel) 3.9L, POC Creatinine (Misc Panel) 4.8H, POC Hematocrit (Misc Panel) 40.0 04/26/21 13:08: POC Lactate (Misc Panel) 2.34*H 04/26/21 13:10: POC Troponin I (Misc) 0.05 04/26/21 14:10: Urine Color YELLOW, Urine Appearance HAZY, Urine pH 6.0, Urine Specific [place] 1.007, Urine Protein NEGATIVE, Urine Glucose (UA) 3+H, Urine Ketones NEGATIVE, Urine Blood 1+H, Urine Nitrite NEGATIVE, Urine Bilirubin NEGATIVE, Urine Urobilinogen 0.2, Urine Leukocyte Esterase NEGATIVE, Urine WBC (Auto) 2, Urine R BC (Auto) 3, Urine Hyaline Casts (Auto) 0, Urine Bacteria (Auto) NEGATIVE, Urine Squamous Epithelial Cells 5, Urine Sperm (Auto) CBC/BMP Laboratory Tests 04/26/21 12:41 Assessment/Plan Mrs. Mercedes is a 75-year-old female with insulin-dependent diabetes mellitus and CKD stage V who presents with bilateral leg weakness and malaise. She was found to be very dehydrated with elevated osmolality. Patient will be given IV fluids. Patient does have EVA on CKD stage V. Patient may need dialysis. Nephrology consulted, recommendations appreciated. Plan / VTE VTE Prophylaxis Ordered?: Yes Plan Plan 1. EVA on CKD stage V Secondary to poor oral intake. Patient tells me she has a horrible taste in her mouth Patient's BUN is greater than 140. Osmolality elevated around 350 We will give patient IV fluids Avoid nephrotoxic agents Supportive care Nephrology consulted, recommendations appreciated 2. Hypokalemia Possibly secondary to diuretics and poor oral intake Hold diuretics Continue potassium supplementation 3. Atrial fibrillation In case the patient needs procedure, apixaban will be discontinued and Lovenox started Continue diltiazem and amiodarone 4. Hyperlipidemia Continue atorvastatin 5. Hypothyroidism Continue levothyroxine 6. Diabetes mellitus Hold Metformin, Januvia, and repaglinide Sliding scale insulin 7. Nausea and vomiting May be secondary to elevated BUN May be also related to Metformin Supportive care, IV fluids, and clear liquid diet 8. Glaucoma Continue latanoprost 9. COPD Stable, not in exacerbation Continue Advair 10. DVT prophylaxis Discontinue Eliquis in case procedure is needed Start Lovenox Disposition: Pending clinical improvement RAJWINDER MEAD DO Apr 26, 2021 16:57
[2021-04-26 19:13] VITALS: BP 137/65
[2021-04-26 20:00] VITALS: BP 129/60
[2021-04-26] MEDS: ADVAIR HFA 115/21MCG INHALER INH SCH (20:00)
[2021-04-26 20:35] LABS: CREATININE FOR GFR 4.6 MG/DL (0.55-1.30); GLOMERULAR FILTRATION RATE 9.8 (>39); POTASSIUM SERUM 3.9 MEQ/L (3.5-5.1)
[2021-04-26] MEDS: NS 1,000 ML IV SCH (20:47)
[2021-04-26] MEDS: diltiaZEM **CD** 180 MG CAP PO SCH (20:49)
[2021-04-26] MEDS ORDERED: APIXABAN 2.5 MG TAB (ELIQUIS) PO SCH (21:00)
[2021-04-27] VITALS: BP 138/66
[2021-04-27] MEDS: LATANOPROST 0.005% OPHTH SOLN 2.5 ML OU SCH ×2 (00:30→21:03)
[2021-04-27 04:00] VITALS: BP 139/66
[2021-04-27] MEDS: LEVOTHYROXINE 100MCG TABLET (0.1MG) PO SCH (05:01)
[2021-04-27 05:30] LABS: HEMATOCRIT 34.3 % (36.0-47.0); MEAN CORPUSCULAR HEMOGLOBIN 28.4 pg (27.0-33.0); MEAN CORPUSCULAR HGB CONC 32.1 g/dl (32.0-36.5); MEAN CORPUSCULAR VOLUME 88.4 fl (80.0-96.0); PLATELET COUNT, AUTOMATED 197 10^3/uL (150-450); RED BLOOD COUNT 3.88 10^6/uL (4.00-5.40); WHITE BLOOD COUNT 7.9 10^3/uL (4.0-10.0)
--- NOTE | 2021-04-27 05:34 | ECGEPIP ---
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
[2021-04-27 05:52] LABS: ALBUMIN 2.8 GM/DL (3.2-5.2); CALCIUM LEVEL 8.5 MG/DL (8.8-10.2); CREATININE FOR GFR 4.06 MG/DL (0.55-1.30); GLOMERULAR FILTRATION RATE 11.4 (>39); MAGNESIUM LEVEL 2.2 MG/DL (1.8-2.4); POTASSIUM SERUM 2.7 MEQ/L (3.5-5.1)
[2021-04-27] MEDS ORDERED: POTASSIUM CHLORIDE 10 MEQ SR TABLET PO ONE ×2 (06:00→07:00)
[2021-04-27] MEDS: NS 1,000 ML IV SCH ×2 (06:48→17:58)
[2021-04-27] MEDS: ADVAIR HFA 115/21MCG INHALER INH SCH ×2 (07:36→19:39)
[2021-04-27 07:43] VITALS: BP 134/62
--- NOTE | 2021-04-27 08:55 | REP ---
INDICATION: steven on ckd, hx of severe constipation. no contrast. COMPARISON: Comparison CT study is from April 05, 2021.. TECHNIQUE: Helical scanning is acquired and 3 mm axial images were reformatted. Coronal and sagittal MPR images were generated and reviewed. FINDINGS: Preliminary digital corner trimmer operator radiograph demonstrates an unremarkable bowel gas pattern. There is moderate formed stool but no colonic distention. On lung window settings, there is no evidence of pleural effusion. There are however multifocal peribronchovascular somewhat nodular areas of increased density which are new from the April 05, 2021 study. These may relate to inflammation or infection in the lungs. The liver and the spleen are normal in size homogeneous in texture. No new abnormality in the gallbladder. Pancreas is unremarkable. Normal adrenal glands are seen. Bfjw-ew-awgmvklw hydronephrosis is seen affecting the right kidney and there is mild fullness in the renal pelvis on the left. The urinary bladder is distended. No ureteral calculus or mass lesion is seen. No pelvic mass is seen. The uterus is surgically absent. The appendix is absent as well by history. There are scattered colonic diverticuli. No abdominal wall defect is seen. IMPRESSION: Hydronephrosis affecting the right kidney and a minimal fullness on the left. Dilated urine filled bladder. Otherwise negative. <Electronically signed by Thomas Salazar > 04/27/21 [id number]
[2021-04-27] MEDS: HumaLOG INSULIN (NovoLOG) PER UNIT SC SCH ×4 (09:40→20:02)
[2021-04-27] MEDS: CALCIUM ACETATE 667MG GELCAP PO SCH ×2 (09:41→17:49)
[2021-04-27] MEDS: AMIODARONE 200 MG TAB (PACERONE) PO SCH (09:41)
[2021-04-27] MEDS: ATORVASTATIN 10 MG TAB PO SCH (09:41)
[2021-04-27] MEDS: POTASSIUM CHLORIDE 10 MEQ SR TABLET PO SCH (09:41)
[2021-04-27] MEDS: ENOXAPARIN 30MG/0.3ML SYRINGE (J1650 PER 10MG) SC SCH (09:42)
[2021-04-27] MEDS: NYSTATIN 500,000 U/5 ML SUSP UDC SS SCH ×3 (09:42→21:03)
--- NOTE | 2021-04-27 10:59 | IPNPDOC ---
Subjective Date Seen The patient was seen on 04/27/21. Subjective Chief Complaint/HPI Mrs. Mercedes is a 75-year-old female with insulin-dependent diabetes mellitus and CKD stage V who is here with azotemia and EVA on CKD. This morning, she feel about the same. Denies chest pain. Has a little bit of shortness of breath. Nephrology ordered for CT abd/pelvis which demonstrates right hydronephrosis and bladder distension. Will try to relieve with Le catheter. Objective Physical Examination General Exam: Positive: Alert, Cooperative, Mild Distress Eye Exam: Positive: EOMI; Negative: Sclera icteric ENT Exam: Positive: Other ENT (oral thrush) Neck Exam: Positive: Supple Chest Exam: Positive: Clear to auscultation Heart Exam: Positive: Rate Normal, Regular Rhythm Abdomen Exam: Positive: Normal bowel sounds, Soft; Negative: Tenderness Extremity Exam: Positive: Edema (very mild pitting) Neuro Exam: Positive: Normal Speech, Cranial Nerves 3-12 NL Psych Exam: Positive: Mental status NL, Anxiety Assessment /Plan Assessment Mrs. Mercedes is a 75-year-old female with insulin-dependent diabetes mellitus and CKD stage V who presents with bilateral leg weakness and malaise. She was found to be very dehydrated with elevated osmolality. Patient will be given IV fluids. Patient does have EVA on CKD stage V. Nephrology consulted, recommendations appreciated. Otherwise, patient was also found with acute urinary retention. There is right kidney hydronephrosis and bladder distension. Will try to relieve with Le catheter and tamsulosin. If not successful, may need urology consultation. Plan/VTE VTE Prophylaxis Ordered?: Yes Plan 1. EVA on CKD stage V -Due to a combination of poor oral intake and obstructive urology Patient's BUN is greater than 140. Osmolality elevated around 350 We will give patient IV fluids Avoid nephrotoxic agents Supportive care Nephrology consulted, recommendations appreciated 2. Hypokalemia Possibly secondary to diuretics and poor oral intake Hold diuretics Continue potassium supplementation 3. Right hydronephrosis with bladder distension -Contributing to patient's EVA -Start Le Catheter and tamsulosin 4. Atrial fibrillation In case the patient needs procedure, apixaban will be discontinued and Lovenox started Continue diltiazem and amiodarone 5. Hyperlipidemia Continue atorvastatin 6. Hypothyroidism Continue levothyroxine 7. Diabetes mellitus Hold Metformin, Januvia, and repaglinide Sliding scale insulin 8. Nausea and vomiting May be secondary to elevated BUN May be also related to Metformin Supportive care, IV fluids, and clear liquid diet 9. Glaucoma Continue latanoprost 10. COPD Stable, not in exacerbation Continue Advair 11. DVT prophylaxis Discontinue Eliquis in case procedure is needed -Continue Lovenox Disposition: Pending clinical improvement VS, I&O, 24H, Fishbone Vital Signs/I&O Vital Signs Date Time Temp Pulse Resp B/P (MAP) Pulse Ox O2 Delivery O2 Flow Rate FiO2 04/27/21 07:43 97.0 65 18 134/62 (86) 99 Nasal Cannula 2.0 I&O- Last 24 Hours up to 6 AM 04/27/21 06:04 Intake Total 1520 ml Balance 1520 ml Laboratory Data 24H LABS Laboratory Tests 2 04/26/21 11:21: Bedside Glucose (Misc Panel) 476H 04/26/21 12:41: Immature Granulocyte % (Auto) 0.2, Neutrophils (%) (Auto) 82.1H, Lymphocytes (%) (Auto) 8.8L, Monocytes (%) (Auto) 8.9H, Eosinophils (%) (Auto) 0.0, Basophils (%) (Auto) 0.0, Neutrophils # (Auto) 6.8, Lymphocytes # (Auto) 0.7L, Monocytes # (Auto) 0.7, Eosinophils # (Auto) 0.0, Basophils # (Auto) 0.0, Nucleated Red Blood Cells % (auto) 0.0, Blood Gas Bicarbonate Standard 40.1, Venous Blood pH 7.424, Venous Blood Partial Pressure CO2 70.3H, Venous Blood Partial Pressure O2 32.0, Venous Blood Total Carbon Dioxide 47.1H, Venous Blood HCO3 45.0H, Venous Blood Oxygen Saturation 60.5, Venous Blood Base Excess 17.1H, Estimated Mean Plasma Glucose 183H, Hemoglobin A1c 8.0, Osmolality 351H, Magnesium Level 2.5H, Total Bilirubin 0.4, Direct Bilirubin 0.1, Aspartate Amino Transf (AST/SGOT) 82H, Alanine Aminotransferase (ALT/SGPT) 426H, Alkaline Phosphatase 130H, Total Creatine Kinase 24L, Creatine Kinase MB 1.1, Creatine Kinase MB Relative Index 4.58H, Troponin I < 0.02, Total Protein 8.1, Albumin 3.3, Albumin/Globulin Ratio 0.7L, Lipase 402H, B-Hydroxybutyrate 0.96, Coronavirus (COVID-19)(PCR) NEGATIVE, Influenza Type A (RT-PCR) NEGATIVE, Influenza Type B (RT-PCR) NEGATIVE, Respiratory Syncytial Virus (PCR) NEGATIVE 04/26/21 13:04: POC Glucose (Misc Panel) 476H, POC Sodium (Misc Panel) 128L, POC Potassium (Misc Panel) 3.3L, POC Chloride (Misc Panel) 72L, POC Total CO2 (Misc Panel) 41.0H, POC Blood Urea Nitrogen (Misc Panel > 140H, POC Ionized Calcium (Misc Panel) 3.9L, POC Creatinine (Misc Panel) 4.8H, POC Hematocrit (Misc Panel) 40.0 04/26/21 13:08: POC Lactate (Misc Panel) 2.34*H 04/26/21 13:10: POC Troponin I (Misc) 0.05 04/26/21 14:10: Urine Color YELLOW, Urine Appearance HAZY, Urine pH 6.0, Urine Specific [place] 1.007, Urine Protein NEGATIVE, Urine Glucose (UA) 3+H, Urine Ketones NEGATIVE, Urine Blood 1+H, Urine Nitrite NEGATIVE, Urine Bilirubin NEGATIVE, Urine Urobilinogen 0.2, Urine Leukocyte Esterase NEGATIVE, Urine WBC (Auto) 2, Urine RBC (Auto) 3, Urine Hyaline Casts (Auto) 0, Urine Bacteria (Auto) NEGATIVE, Urine Squamous Epithelial Cells 5, Urine Sperm (Auto) 04/26/21 18:46: Bedside Glucose (Misc Panel) 313H 04/26/21 19:47: Anion Gap 11, Glomerular Filtration Rate 9.8L, Lactic Acid Followup at 4 Hours 2.0, Calcium Level 9.0 04/26/21 20:37: Bedside Glucose (Misc Panel) 288H 04/27/21 05:13: Nucleated Red Blood Cells % (auto) 0.0, Anion Gap 10, Glomerular Filtration Rate 11.4L, Calcium Level 8.5L, Phosphorus Level 5.0H, Magnesium Level 2.2, Albumin 2.8L CBC/BMP Laboratory Tests 04/26/21 12:41 04/26/21 19:47 04/27/21 05:13 RAJWINDER MEAD DO Apr 27, 2021 11:03
[2021-04-27 12:04] VITALS: BP 121/60
[2021-04-27] MEDS: ACETAMINOPHEN TAB 650MG DOSE (2X325MG) PO PRN (13:02)
[2021-04-27 13:05] LABS: CALCIUM LEVEL 8.6 MG/DL (8.8-10.2); CREATININE FOR GFR 4.09 MG/DL (0.55-1.30); GLOMERULAR FILTRATION RATE 11.3 (>39); POTASSIUM SERUM 3.8 MEQ/L (3.5-5.1)
[2021-04-27 16:05] VITALS: BP 138/61
[2021-04-27 18:15] LABS: CALCIUM LEVEL 7.8 MG/DL (8.8-10.2); CREATININE FOR GFR 3.73 MG/DL (0.55-1.30); GLOMERULAR FILTRATION RATE 12.5 (>39); POTASSIUM SERUM 3.8 MEQ/L (3.5-5.1)
[2021-04-27 20:00] VITALS: BP 129/60
[2021-04-27] MEDS: TAMSULOSIN 0.4 MG CAP PO SCH (21:03)
[2021-04-27] MEDS: diltiaZEM **CD** 180 MG CAP PO SCH (21:04)
--- NOTE | 2021-04-27 23:12 | CR ---
CONSULTATION DATE: 04/27/2021 REQUESTING PHYSICIAN: Dr. Carmelo Quiroga REASON FOR CONSULTATION: Acute kidney injury superimposed on CKD stage 5 HISTORY OF PRESENT ILLNESS: Ms. Brianna Mercedes is known to me from a recent prior hospitalization. She is a 75-year-old female with a past medical history of CKD stage 5 (sees Dr. Negrete in the nephrology office and has decided against hemodialysis and wants medical management of her end-stage renal failure). She was recently admitted to the hospital because of worsening renal failure and over-diuresis. She was given I.V. fluids and her diuretics were cut down and she improved nicely and was discharged home on April 09. Her creatinine on day of discharge was 2.7 with blood urea nitrogen of 77 on that day. Patient reports she was doing well at home initially, however over the past one week, she has been feeling worse and worse. She has had weakness in her legs and worsening fatigue. She has also become lightheaded. Her major complaint is poor oral intake with nausea and bitter metallic taste in the mouth and she has noted a decrease in her urine output. Patient subsequently presented in the Emergency Room and her blood urea nitrogen was 164 on admission with creatinine of 4.6. Patient was also considerably alkalotic with a serum bicarbonate of 43. She was admitted and started on I.V. fluids and nephrology evaluation was requested for help in the management of her acute on chronic renal failure. I did request imaging of her kidneys. She had a CT of the abdomen and pelvis done today, and it shows moderate hydronephrosis in the right kidney and dilated and distended urinary bladder. PAST MEDICAL HISTORY: 1. CKD stage 5; baseline GFR 12 mL/min, patient declines dialysis. 2. Non-insulin dependent diabetes mellitus. 3. Hypothyroidism. 4. Secondary hyperparathyroidism. 5. Hypertension. 6. COPD and hypoxic respiratory failure on 2 liters of oxygen chronically. 7. Dyslipidemia. 8. Anemia of chronic disease on APOLINAR. 9. Folic acid deficiency and B12 deficiency. 10.History of GI bleeding. 11.Paroxysmal atrial fibrillation. 12.GERD. PAST SURGICAL HISTORY: 1. Hysterectomy. 2. Appendectomy. 3. Hemorrhoidectomy. HOME MEDICATIONS: 1. Amiodarone 200 mg daily. 2. Eliquis 2.5 mg p.o. b.i.d. 3. Lipitor 10 mg p.o. daily. 4. Phos-Lo 667 mg p.o. b.i.d. 5. Diltiazem 180 mg take two tablets q.h.s. 6. Procrit 20,000 units subcutaneously every other week. 7. Levothyroxine 100 mcg p.o. daily. 8. Repaglinide 0.5 mg p.o. t.i.d. 9. Advair one puff inhaled b.i.d. 10.Januvia 50 mg daily. 11.Torsemide 40 mg p.o. b.i.d. ALLERGIES: NSAIDS, aspirin, penicillin, sulfa, codeine, eggs. FAMILY HISTORY: Father of lung cancer. Mother due to diabetes and heart disease. SOCIAL HISTORY: She is a former smoker; quit 40 years ago, smoked one pack per day for 20 years. Alcohol denies. Drugs denies. REVIEW OF SYSTEMS: Constitutional: She reports fatigue and weakness. She denies fevers. Eyes: Denies visual changes or tearing. ENT: Reports bitter metallic taste in the mouth. Denies rhinorrhea or epistaxis. Skin: Denies rashes or ulcers. Pulmonary: Reports chronic oxygen dependence. Denies cough. Cardiac: Denies chest pain or edema, reports atrial fibrillation. Gastrointestinal: Reports very poor appetite, nausea and vomiting, and also reports history of severe constipation. Genitourinary: He reports decreased urine output. Endocrine: Reports diabetes and hypothyroidism. Hematologic: He reports APOLINAR dependent anemia. Neurologic: Reports occasional paresthesias but not currently. Denies history of seizure. Psychiatric: Reports depression. Remainder of review of systems is negative or as per HPI. PHYSICAL EXAMINATION: VITAL SIGNS: Temperature 97.8, pulse 69, respiratory rate 18, blood pressure 138/61, saturating 93% on 2 liter nasal cannula. INTAKE/OUPUT: Intake yesterday was 740. Urine output thus far today is 1.7 liters. Weight in the bed scale is not recorded. GENERAL: Patient is seen lying in bed, elderly female, looks older than stated age, frail, but awake, alert, and in distress. HEENT: Extraocular muscles are intact. Tongue is dry. Neck is supple. Jugular veins are not elevated. HEART: Heart sounds are regular, S1, S2. There is no significant peripheral edema. LUNGS: Show symmetric air movement, no crackle or rale, but the breath sounds are diminished overall. She is comfortable on nasal cannula. ABDOMEN: Soft and nontender. GENITOURINARY: There is no Le catheter at the time of my visit. NEUROLOGIC: She is cooperative with physical exam. She recognizes me. She answers simple questions appropriately. She appears to be at baseline mentation. LABORATORY DATA: Sodium 134, potassium 3.8, bicarbonate 36, BUN 132 down from 164 on admission, creatinine 3.7 down from 4.6 on admission. Hemoglobin 11.0, platelets 197,000. IMAGING DATA: CT of the abdomen and pelvis non-contrast done today shows moderate hydronephrosis of the right kidney and mild fullness in the renal pelvis on the left and a distended and dilated urinary bladder. There is no ureteral calculus nor any mass lesion seen. INPATIENT MEDICATIONS: 1. Normal saline at 80 cc an hour. 2. Tylenol p.r.n. 3. Amiodarone 200 mg p.o. daily. 4. Lipitor 10 mg p.o. daily. 5. Tessalon Perles p.r.n. 6. Phos-Lo 667 mg p.o. b.i,d. with meals. 7. Diltiazem 360 mg p.o. q.h.s. 8. Lovenox 30 mg subcutaneously daily. 9. Insulin. 10.Levothyroxine 100 mcg p.o. daily. 11.Potassium 40 mEq p.o. x2 doses. 12.Flomax 0.4 mg p.o. q.h.s. 13.Advair two puffs inhaled b.i.d. PROBLEMS: 1. Acute kidney injury superimposed on CKD stage 5: Patient has baseline creatinine of around 3.5 with baseline GFR of 12. She was recently admit to [facility] with an acute kidney injury in the setting of over-diuresis. She was discharged on April 09 with creatinine of around 2.8. She returns now with creatinine of 4.6 on admission and she is in obstructive uropathy. Renal imaging demonstrated moderate hydronephrosis on the right and mild hydronephrosis on the left. She also had a dilated and distended bladder. She subsequently had a Le catheter placed and her urine output now seems to be improving. I would continue to hold her diuretics at this time as she does look dry on exam. She has had dysgeusia (bitter taste in the mouth) secondary to her significantly elevated blood urea nitrogen and hence she has had poor oral intake. I would continue I.V. fluids at this time. She is on normal saline at 80 cc an hour. 2. Hypokalemia: She is total body potassium deplete. She is receiving potassium supplementation. Her magnesium level was appropriate. 3. Metabolic alkalosis: It is because of contraction alkalosis. Hold diuretics at this time. Continue with normal saline. Her alkalemia is improving. 4. Obstructive uropathy: No clear anatomic cause is seen causing her obstruction. There is no identified mass, no identified calculus. She has a Le catheter in place to decompress her bladder and we will repeat renal imaging within a couple days to make sure that her hydronephrosis is improving. 5. Anemia of chronic renal failure: Hemoglobin is 11.0 which is optimal. I will resume Procrit when it is indicated. 6. Hypertension: Blood pressures are acceptable and I am making no change to the current regimen.
[2021-04-28] VITALS: BP 119/58
[2021-04-28] MEDS: NS 1,000 ML IV SCH ×2 (03:56→15:51)
[2021-04-28 04:00] VITALS: BP 109/55
[2021-04-28] MEDS: LEVOTHYROXINE 100MCG TABLET (0.1MG) PO SCH (05:45)
[2021-04-28 06:08] LABS: HEMATOCRIT 29.6 % (36.0-47.0); HEMOGLOBIN 9.3 g/dl (12.0-15.5); MEAN CORPUSCULAR HEMOGLOBIN 28.8 pg (27.0-33.0); MEAN CORPUSCULAR HGB CONC 31.4 g/dl (32.0-36.5); MEAN CORPUSCULAR VOLUME 91.6 fl (80.0-96.0); PLATELET COUNT, AUTOMATED 153 10^3/uL (150-450); RED BLOOD COUNT 3.23 10^6/uL (4.00-5.40); WHITE BLOOD COUNT 6.5 10^3/uL (4.0-10.0)
[2021-04-28 06:54] LABS: ALBUMIN 2.4 GM/DL (3.2-5.2); CALCIUM LEVEL 8.1 MG/DL (8.8-10.2); CREATININE FOR GFR 3.11 MG/DL (0.55-1.30); GLOMERULAR FILTRATION RATE 15.5 (>39); MAGNESIUM LEVEL 2.1 MG/DL (1.8-2.4); PHOSPHORUS LEVEL 3.2 MG/DL (2.5-4.9); POTASSIUM SERUM 3.3 MEQ/L (3.5-5.1)
[2021-04-28] MEDS: ADVAIR HFA 115/21MCG INHALER INH SCH ×2 (07:38→20:51)
[2021-04-28 08:00] VITALS: BP 121/59
--- NOTE | 2021-04-28 09:10 | REPVR ---
PROCEDURE INFORMATION: Exam: CT Maxillofacial Without Contrast, Sinus Exam date and time: 04/28/2021 8:54 AM Age: 75 years old Clinical indication: Nasal congestion and sinusitis; Type not specified; Additional info: Congestion, malaise, sinusitis? TECHNIQUE: Imaging protocol: CT Maxillofacial without contrast. Focus on the sinuses. Radiation optimization: All CT scans at this facility use at least one of these dose optimization techniques: automated exposure control; mA and/or kV adjustment per patient size (includes targeted exams where dose is matched to clinical indication); or iterative reconstruction. COMPARISON: CT Head without contrast 11/21/2020 7:19 PM FINDINGS: Frontal sinuses: Moderate bilateral mucosal disease. Right air-fluid level. Nasofrontal recesses are opacified bilaterally. Ethmoid air cells: There is mucosal thickening in bilateral anterior ethmoid air cells with complete opacification of some air cells and incomplete opacification of others. There is less marked mucosal thickening in bilateral posterior ethmoid air cells. Probable small amount of scattered fluid. Sphenoid sinuses: Mild bilateral mucosal disease. Small amount of right sphenoid sinus fluid. Spheno-ethmoidal recesses are opacified bilaterally. Maxillary sinuses: There is mild bilateral mucosal thickening. There are bilateral air-fluid levels. Ostiomeatal units are partially opacified. Involving bilateral left greater than right infundibulum, partially involving bilateral hiatus semilunaris and left middle meatus. Nasal cavity/Septum: Nasal septal is mildly deviated to right with a right word septal spur. Orbital cavity: There is evidence of prior left cataract surgery. Bones/joints: Benign hyperostosis frontalis is present. No acute fracture. Soft tissues: Unremarkable. Auditory system: Mastoid air cells and middle ear cavities are well developed and well aerated. IMPRESSION: Findings consistent with acute sinusitis with air-fluid level and chronic mucosal sinusitis. Electronically signed by: Julia Langston On 04/28/2021 09:09:50 AM
[2021-04-28] MEDS: ATORVASTATIN 10 MG TAB PO SCH (09:22)
[2021-04-28] MEDS: NYSTATIN 500,000 U/5 ML SUSP UDC SS SCH ×3 (09:22→21:04)
[2021-04-28] MEDS: POTASSIUM CHLORIDE 10 MEQ SR TABLET PO SCH (09:22)
[2021-04-28] MEDS: AMIODARONE 200 MG TAB (PACERONE) PO SCH (09:23)
[2021-04-28] MEDS: ACETAMINOPHEN TAB 650MG DOSE (2X325MG) PO PRN ×2 (09:23→17:34)
[2021-04-28] MEDS: CALCIUM ACETATE 667MG GELCAP PO SCH ×2 (09:23→17:34)
[2021-04-28] MEDS: ENOXAPARIN 30MG/0.3ML SYRINGE (J1650 PER 10MG) SC SCH (09:24)
[2021-04-28] MEDS: HumaLOG INSULIN (NovoLOG) PER UNIT SC SCH ×4 (09:24→21:00)
[2021-04-28] MEDS ORDERED: POTASSIUM CHLORIDE 10 MEQ SR TABLET PO ONE (11:00)
[2021-04-28 11:14] LABS: EOS % 0.1 % (0.0-3.0); HEMATOCRIT 30.8 % (36.0-47.0); HEMOGLOBIN 9.6 g/dl (12.0-15.5); LYMPH # 0.7 10^3/uL (1.5-5.0); LYMPH % 8.8 % (24.0-44.0); MEAN CORPUSCULAR HEMOGLOBIN 29.1 pg (27.0-33.0); MEAN CORPUSCULAR HGB CONC 31.2 g/dl (32.0-36.5); MEAN CORPUSCULAR VOLUME 93.3 fl (80.0-96.0); MONO # 0.6 10^3/uL (0.0-0.8); MONO % 7.7 % (2.0-8.0); NEUTROPHILS # 6.5 10^3/uL (1.5-8.5); NEUTROPHILS % 82.5 % (36.0-66.0); PLATELET COUNT, AUTOMATED 154 10^3/uL (150-450); WHITE BLOOD COUNT 7.9 10^3/uL (4.0-10.0)
[2021-04-28 12:00] VITALS: BP 110/56
[2021-04-28] MEDS: ALBUTEROL 90 MCG/ACT 8GM HFA INHALER INH PRN (13:39)
--- NOTE | 2021-04-28 13:59 | IPNPDOC ---
Subjective Date Seen The patient was seen on 04/28/21. Subjective Chief Complaint/HPI Mrs. Mercedes is a 75-year-old female with insulin-dependent diabetes mellitus and CKD stage V who is here with azotemia and EVA on CKD. This morning, she felt well enough to try solid foods. Otherwise, she denies chest pain or worsening dyspnea. She reports a headache and a sore throat. Renal function and azotemia are improving with IVF and Le catheter Objective Physical Examination General Exam: Positive: Alert, Cooperative, Mild Distress Eye Exam: Positive: EOMI; Negative: Sclera icteric ENT Exam: Positive: Other ENT (oral thrush) Neck Exam: Positive: Supple Chest Exam: Positive: Clear to auscultation Heart Exam: Positive: Rate Normal, Regular Rhythm Abdomen Exam: Positive: Normal bowel sounds, Soft; Negative: Tenderness Extremity Exam: Positive: Edema (very mild pitting) Neuro Exam: Positive: Normal Speech, Cranial Nerves 3-12 NL Psych Exam: Positive: Mental status NL, Anxiety Assessment /Plan Assessment Mrs. Mercedes is a 75-year-old female with insulin-dependent diabetes mellitus and CKD stage V who presents with bilateral leg weakness and malaise. She was found to be very dehydrated with elevated osmolality. Patient will be given IV fl uids. Patient does have EVA on CKD stage V. Nephrology consulted, recommendations appreciated. Otherwise, patient was also found with acute urinary retention. There is right kidney hydronephrosis and bladder distension. Will try to relieve with Le catheter and tamsulosin. If right kidney is not decompressed with Le catheter, may need urology consultation. Plan/VTE VTE Prophylaxis Ordered?: Yes Plan 1. EVA on CKD stage V -Due to a combination of poor oral intake and obstructive urology On admission, patient's BUN was greater than 140 and osmolality was elevated around 350 Continue IV fluids Avoid nephrotoxic agents Supportive care -Le catheter in place. Wound need to recheck right kidney later on to look for improvement of right hydronephrosis Nephrology consulted, recommendations appreciated 2. Hypokalemia Possibly secondary to diuretics and poor oral intake Hold diuretics Continue potassium supplementation 3. Right hydronephrosis with bladder distension -Contributing to patient's EVA -Continue Le catheter and tamsulosin 4. Atrial fibrillation In case the patient needs procedure, apixaban will be discontinued and Lovenox started Continue diltiazem and amiodarone 5. Hyperlipidemia Continue atorvastatin 6. Hypothyroidism Continue levothyroxine 7. Diabetes mellitus Hold Metformin, Januvia, and repaglinide Sliding scale insulin 8. Nausea and vomiting May be secondary to elevated BUN May be also related to Metformin Supportive care, IV fluids, and clear liquid diet 9. Glaucoma Continue latanoprost 10. COPD Stable, not in exacerbation Continue Advair 11. DVT prophylaxis Discontinue Eliquis in case procedure is needed -Continue Lovenox Disposition: Pending clinical improvement VS[facility] Signs/I&O Vital Signs Date Time Temp Pulse Resp B/P (MAP) Pulse Ox O2 Delivery O2 Flow Rate FiO2 04/28/21 12:00 97.7 70 16 110/56 (74) 95 Nasal Cannula 2.0 I&O- Last 24 Hours up to 6 AM 04/28/21 06:00 Intake Total 3240 ml Output Total 2825 ml Balance 415 ml Laboratory Data 24H LABS Laboratory Tests 2 04/27/21 16:32: Bedside Glucose (Misc Panel) 186H 04/27/21 17:25: Anion Gap 7L, Glomerular Filtration Rate 12.5L, Calcium Level 7.8L 04/27/21 19:56: Bedside Glucose (Misc Panel) 135H 04/28/21 05:40: Anion Gap 4L, Glomerular Filtration Rate 15.5L, Calcium Level 8.1L, Nucleated Red Blood Cells % (auto) 0.0, Phosphorus Level 3.2#, Magnesium Level 2.1, Albumin 2.4L 04/28/21 11:02: Immature Granulocyte % (Auto) 0.9, Neutrophils (%) (Auto) 82.5H, Lymphocytes (%) (Auto) 8.8L, Monocytes (%) (Auto) 7.7, Eosinophils (%) (Auto) 0.1, Basophils (%) (Auto) 0.0, Neutrophils # (Auto) 6.5, Lymphocytes # (Auto) 0.7L, Monocytes # (Auto) 0.6, Eosinophils # (Auto) 0.0, Basophils # (Auto) 0.0, Nucleated Red Blood Cells % (auto) 0.0 04/28/21 11:18: Bedside Glucose (Misc Panel) 442H CBC/BMP Laboratory Tests 04/27/21 17:25 04/28/21 05:40 8/17/21 11:02 Microbiology Microbiology 04/28/21 Group A Streptococcus Screen (JOSSE) - Final, Resulted 04/28/21 Group A Streptococcus Screen (JOSSE), Resulted Pending RAJWINDER MEAD DO Apr 28, 2021 13:59
[2021-04-28 16:00] VITALS: BP 117/57
[2021-04-28 16:21] LABS: CALCIUM LEVEL 8.3 MG/DL (8.8-10.2); CREATININE FOR GFR 3.07 MG/DL (0.55-1.30); GLOMERULAR FILTRATION RATE 15.7 (>39); POTASSIUM SERUM 3.8 MEQ/L (3.5-5.1)
[2021-04-28 20:00] VITALS: BP 146/65
[2021-04-28] MEDS: LATANOPROST 0.005% OPHTH SOLN 2.5 ML OU SCH (21:04)
[2021-04-28] MEDS: TAMSULOSIN 0.4 MG CAP PO SCH (21:04)
[2021-04-28] MEDS: diltiaZEM **CD** 180 MG CAP PO SCH (21:04)
[2021-04-29] VITALS: BP 131/62
[2021-04-29 04:00] VITALS: BP 121/60
--- NOTE | 2021-04-29 04:53 | IPN ---
PROGRESS NOTE DATE: 04/28/2021 SUBJECTIVE: Ms. Reed is seen and examined this morning at the bedside. She complains of sinus congestion. She denies shortness of breath. She continues on IV fluid and her renal function is improving. OBJECTIVE: VITAL SIGNS: Temperature 97.4, pulse 74, respiratory rate 16, blood pressure is 117/57, saturating 97% on 2 liter nasal cannula. INTAKE AND OUTPUT: Intake yesterday was 3.5 liters, urine output yesterday was 2.4 liters. Weight on the bed scale today is 60.2 kg. GENERAL: Patient is seen sitting in bed, head of the bed elevated. Elderly and frail female, awake, alert and oriented x3 in no distress. HEENT: Extraocular muscles are intact. Nasal cannula is in place. She is sniffling. NECK: Supple. Jugular veins are not elevated. HEART: Heart sounds are regular, S1 and S2. There is no leg edema. LUNGS: Symmetric air movement. No crackle or rale. Breath sounds are diminished overall. She is comfortable on nasal cannula. ABDOMEN: Soft and nontender. There are bowel sounds. GENITOURINARY: Le catheter draining clear yellow urine. NEUROLOGIC: She is cooperative with physical exam. She answers simple questions appropriately. She appears to be at baseline mentation. LABORATORY DATA: Laboratory studies today shows white count of 7.9, hemoglobin 9.6, platelets 154,000, sodium 134, potassium 3.8, bicarbonate 34, BUN 90, creatinine 3.0. Maxillofacial CT scan shows acute sinusitis. INPATIENT MEDICATIONS: She continues on normal saline at 80 ml/hr, Tylenol p.r.n., amiodarone 200 mg p.o. daily, atorvastatin 10 mg p.o. daily, Tessalon p.r.n., PhosLo with meal twice daily, Diltiazem 360 mg p.o. q.h.s., Lovenox 30 mg sub. q. daily, insulin, Levothyroxine 100 mcg p.o. daily, potassium 20 mEq p.o. daily, Flomax 0.4 mg p.o. q.h.s., Advair two puffs inhaled b.i.d. ASSESSMENT: 1. Acute kidney injury superimposed on CKD Stage V. Renal function has recovered back to baseline. Creatinine is 3.0 on labs today and blood urea nitrogen has improved from 164 on admission down to 90 at this present time. Her acute kidney injury was in the setting of obstructive uropathy. She has a Le catheter now and I will plan to get repeat renal imaging tomorrow to ensure that the hydronephrosis is resolving. There is no need for dialysis at this time. Her diuretics are on hold and she is on IV fluids. She did have dysgeusia (bitter taste in the mouth) secondary to significantly elevated blood urea nitrogen on admission and she reports this has now resolved. 2. Hypokalemia, she is receiving oral Potassium supplementation. 3. Anemia of chronic renal failure. She is erythropoietin stimulating agent dependent. We will give a dose of Procrit if hemoglobin falls below 9. 4. Metabolic alkalosis, it has improved with IV fluid and withholding her diuretic. 5. Diabetes mellitus, patient does not take Metformin as an outpatient. She does take Januvia and Repaglinide. Metformin should be removed from her home medication list.
[2021-04-29] MEDS: LEVOTHYROXINE 100MCG TABLET (0.1MG) PO SCH (05:11)
[2021-04-29] MEDS: NS 1,000 ML IV SCH (05:12)
[2021-04-29 05:56] LABS: HEMATOCRIT 30.2 % (36.0-47.0); HEMOGLOBIN 9.5 g/dl (12.0-15.5); MEAN CORPUSCULAR HEMOGLOBIN 29.5 pg (27.0-33.0); MEAN CORPUSCULAR HGB CONC 31.5 g/dl (32.0-36.5); MEAN CORPUSCULAR VOLUME 93.8 fl (80.0-96.0); PLATELET COUNT, AUTOMATED 138 10^3/uL (150-450); RED BLOOD COUNT 3.22 10^6/uL (4.00-5.40); WHITE BLOOD COUNT 6.1 10^3/uL (4.0-10.0)
[2021-04-29 06:20] LABS: ALBUMIN 2.1 GM/DL (3.2-5.2); CALCIUM LEVEL 7.8 MG/DL (8.8-10.2); CREATININE FOR GFR 2.54 MG/DL (0.55-1.30); GLOMERULAR FILTRATION RATE 19.5 (>39); MAGNESIUM LEVEL 1.9 MG/DL (1.8-2.4); PHOSPHORUS LEVEL 2.3 MG/DL (2.5-4.9); POTASSIUM SERUM 3.3 MEQ/L (3.5-5.1)
[2021-04-29] MEDS ORDERED: POTASSIUM CHLORIDE 10 MEQ SR TABLET PO ONE (07:25)
[2021-04-29 08:10] VITALS: BP 133/57
[2021-04-29] MEDS: ADVAIR HFA 115/21MCG INHALER INH SCH ×2 (08:13→20:28)
[2021-04-29] MEDS ORDERED: CEPACOL LOZENGE PO PRN (08:30)
[2021-04-29] MEDS: CALCIUM ACETATE 667MG GELCAP PO SCH ×2 (09:36→18:45)
[2021-04-29] MEDS: ATORVASTATIN 10 MG TAB PO SCH (09:36)
[2021-04-29] MEDS: AMIODARONE 200 MG TAB (PACERONE) PO SCH (09:36)
[2021-04-29] MEDS: ACETAMINOPHEN TAB 650MG DOSE (2X325MG) PO PRN ×2 (09:36→18:46)
[2021-04-29] MEDS: DOXYCYCLINE HYCLATE 100MG TABLET PO SCH ×2 (09:36→20:14)
[2021-04-29] MEDS: NYSTATIN 500,000 U/5 ML SUSP UDC SS SCH ×3 (09:37→20:14)
[2021-04-29] MEDS: ENOXAPARIN 30MG/0.3ML SYRINGE (J1650 PER 10MG) SC SCH (09:37)
[2021-04-29] MEDS: HumaLOG INSULIN (NovoLOG) PER UNIT SC SCH ×4 (09:37→20:14)
--- NOTE | 2021-04-29 12:49 | IPNPDOC ---
Subjective Date Seen The patient was seen on 04/29/21. Subjective Chief Complaint/HPI Mrs. Mercedes is a 75-year-old female with insulin-dependent diabetes mellitus and CKD stage V who is here with azotemia and EVA on CKD. This morning, she still complains of a sore throat and headache. Strep swab was negative. CT maxillofacial demonstrates acute sinusitis. Due to patient's PCN allergy, will treat with doxycycline instead Objective Physical Examination General Exam: Positive: Alert, Cooperative, Mild Distress Eye Exam: Positive: EOMI; Negative: Sclera icteric ENT Exam: Positive: Other ENT (oral thrush) Neck Exam: Positive: Supple Chest Exam: Positive: Clear to auscultation Heart Exam: Positive: Rate Normal, Regular Rhythm Abdomen Exam: Positive: Normal bowel sounds, Soft; Negative: Tenderness Extremity Exam: Positive: Edema (very mild pitting) Neuro Exam: Positive: Normal Speech, Cranial Nerves 3-12 NL Psych Exam: Positive: Mental status NL, Anxiety Assessment /Plan Assessment Mrs. Mercedes is a 75-year-old female with insulin-dependent diabetes mellitus and CKD stage V who presents with bilateral leg weakness and malaise. She was found to be very dehydrated with elevated osmolality. Patient will be given IV fluids. Patient does have EVA on CKD stage V. Nephrology consulted, recommendations appreciated. Otherwise, patient was also found with acute urinary retention. There is right kidney hydronephrosis and bladder distension. Will try to relieve with Le catheter and tamsulosin. If right kidney is not decompressed with Le catheter, may need urology consultation. Of note, renal function and azotemia improving with Le catheter Plan/VTE VTE Prophylaxis Ordered?: Yes Plan 1. EVA on CKD stage V -Due to a combination of poor oral intake and obstructive urology On admission, patient's BUN was greater than 140 and osmolality was elevated around 350 Continue IV fluids Avoid nephrotoxic agents Supportive care -Le catheter in place. Wound need to recheck right kidney later on to look for improvement of right hydronephrosis Nephrology consulted, recommendations appreciated 2. Hypokalemia Possibly secondary to diuretics and poor oral intake Hold diuretics Continue potassium supplementation 3. Right hydronephrosis with bladder distension -Contributing to patient's EVA -Continue Le catheter and tamsulosin 4. Atrial fibrillation In case the patient needs procedure, apixaban will be discontinued and Lovenox started Continue diltiazem and amiodarone 5. Hyperlipidemia Continue atorvastatin 6. Hypothyroidism Continue levothyroxine 7. Diabetes mellitus -Patient is not taking metformin. Hold Januvia, and repaglinide Sliding scale insulin 8. Nausea and vomiting May be secondary to elevated BUN May be also related to Metformin Supportive care, IV fluids, and clear liquid diet 9. Glaucoma Continue latanoprost 10. COPD Stable, not in exacerbation Continue Advair 11. DVT prophylaxis Discontinue Eliquis in case procedure is needed -Continue Lovenox Disposition: Pending clinical improvement VS, I&O, 24H, [facility] Vital Signs/I&O Vital Signs Date Time Temp Pulse Resp B/P (MAP) Pulse Ox O2 Delivery O2 Flow Rate FiO2 04/29/21 08:10 98.3 63 20 133/57 (82) 98 Nasal Cannula 2.0 I&O- Last 24 Hours up to 6 AM 04/29/21 05:59 Intake Total 2040 ml Output Total 3125 ml Balance -1085 ml Laboratory Data 24H LABS Laboratory Tests 2 04/28/21 15:48: Anion Gap 3L, Glomerular Filtration Rate 15.7L, Calcium Level 8.3L 04/28/21 16:17: Bedside Glucose (Misc Panel) 218H 04/28/21 20:02: Bedside Glucose (Misc Panel) 107 04/29/21 05:23: Anion Gap 4L, Glomerular Filtration Rate 19.5L, Calcium Level 7.8L, Nucleated Red Blood Cells % (auto) 0.0, Phosphorus Level 2.3#L, Magnesium Level 1.9, Albumin 2.1L 04/29/21 12:24: Bedside Glucose (Misc Panel) 288H CBC/BMP Laboratory Tests 04/28/21 15:48 04/29/21 05:23 Microbiology Microbiology 04/28/21 Group A Streptococcus Screen (JOSSE) - Final, Complete 04/28/21 Group A Streptococcus Screen (JOSSE) - Final, Complete RAJWINDER MEAD DO Apr 29, 2021 12:49
[2021-04-29] MEDS: POTASSIUM CHLORIDE 10 MEQ SR TABLET PO SCH (13:16)
[2021-04-29 13:48] VITALS: BP 142/65
--- NOTE | 2021-04-29 16:47 | REP ---
INDICATION: sob, eval for edema. COMPARISON: 04/26/2021. TECHNIQUE: Single portable AP view of the chest was performed. FINDINGS: Chronic bilateral interstitial changes are stable with no new infiltrate. The heart is not significantly enlarged. There is calcification of the thoracic aorta. The mediastinal silhouette is unchanged. IMPRESSION: No acute pulmonary disease.Stable chronic findings. <Electronically signed by Albaro Viveros > 04/29/21 1104
[2021-04-29 16:48] VITALS: BP 115/56
[2021-04-29 20:00] VITALS: BP 120/55
[2021-04-29] MEDS: TAMSULOSIN 0.4 MG CAP PO SCH (20:14)
[2021-04-29] MEDS: BENZONATATE 100 MG CAP PO PRN (20:14)
[2021-04-29] MEDS: diltiaZEM **CD** 180 MG CAP PO SCH (20:14)
[2021-04-29] MEDS: LATANOPROST 0.005% OPHTH SOLN 2.5 ML OU SCH (20:14)
[2021-04-30] VITALS: BP 110/60
[2021-04-30 04:00] VITALS: BP 115/70
[2021-04-30 05:40] LABS: HEMOGLOBIN 8.8 g/dl (12.0-15.5); MEAN CORPUSCULAR HEMOGLOBIN 28.9 pg (27.0-33.0); MEAN CORPUSCULAR HGB CONC 31.4 g/dl (32.0-36.5); MEAN CORPUSCULAR VOLUME 91.8 fl (80.0-96.0); PLATELET COUNT, AUTOMATED 147 10^3/uL (150-450); RED BLOOD COUNT 3.05 10^6/uL (4.00-5.40); WHITE BLOOD COUNT 7.4 10^3/uL (4.0-10.0)
[2021-04-30] MEDS: LEVOTHYROXINE 100MCG TABLET (0.1MG) PO SCH (05:57)
[2021-04-30 06:06] LABS: CALCIUM LEVEL 7.3 MG/DL (8.8-10.2); CREATININE FOR GFR 2.28 MG/DL (0.55-1.30); GLOMERULAR FILTRATION RATE 22.1 (>39); MAGNESIUM LEVEL 1.7 MG/DL (1.8-2.4); PHOSPHORUS LEVEL 2.1 MG/DL (2.5-4.9); POTASSIUM SERUM 3.9 MEQ/L (3.5-5.1)
[2021-04-30] MEDS: HumaLOG INSULIN (NovoLOG) PER UNIT SC SCH ×4 (07:32→21:43)
[2021-04-30] MEDS: ADVAIR HFA 115/21MCG INHALER INH SCH ×2 (07:56→19:58)
[2021-04-30 08:00] VITALS: BP 108/53
[2021-04-30] MEDS: DOXYCYCLINE HYCLATE 100MG TABLET PO SCH ×2 (08:41→21:42)
[2021-04-30] MEDS: ATORVASTATIN 10 MG TAB PO SCH (08:41)
[2021-04-30] MEDS: ENOXAPARIN 30MG/0.3ML SYRINGE (J1650 PER 10MG) SC SCH (08:41)
[2021-04-30] MEDS: AMIODARONE 200 MG TAB (PACERONE) PO SCH (08:42)
[2021-04-30] MEDS: NYSTATIN 500,000 U/5 ML SUSP UDC SS SCH (08:42)
[2021-04-30] MEDS: POTASSIUM CHLORIDE 10 MEQ SR TABLET PO SCH (08:42)
[2021-04-30] MEDS: ACETAMINOPHEN TAB 650MG DOSE (2X325MG) PO PRN ×2 (08:42→21:43)
[2021-04-30] MEDS: CALCIUM ACETATE 667MG GELCAP PO SCH (08:42)
[2021-04-30] MEDS: MIRALAX *UNIT DOSE* 17GM PACKET PO PRN (10:30)
[2021-04-30] MEDS: DOCUSATE SODIUM 100MG CAPSULE PO SCH ×2 (10:31→21:42)
[2021-04-30 12:29] LABS: PERCENT SATURATION 9.1 % (13.2-45.0)
--- NOTE | 2021-04-30 13:35 | IPNPDOC ---
Subjective Date Seen The patient was seen on 04/30/21. Subjective Chief Complaint/HPI Mrs. Mercedes is a 75-year-old female with insulin-dependent diabetes mellitus and CKD stage V who is here with azotemia and EVA on CKD. This morning, her headache is improved and sore throat resolved. Otherwise denies chest pain or dyspnea. Still feels under the weather. PT/OT recommending rehab. Otherwise, will repeat CT abd/pelvis to see if right hydro has resolved. Objective Physical Examination General Exam: Positive: Alert, Cooperative, Mild Distress Eye Exam: Positive: EOMI; Negative: Sclera icteric ENT Exam: Positive: Other ENT (oral thrush) Neck Exam: Positive: Supple Chest Exam: Positive: Clear to auscultation Heart Exam: Positive: Rate Normal, Regular Rhythm Abdomen Exam: Positive: Normal bowel sounds, Soft; Negative: Tenderness Extremity Exam: Positive: Edema (very mild pitting) Neuro Exam: Positive: Normal Speech, Cranial Nerves 3-12 NL Psych Exam: Positive: Mental status NL, Anxiety Assessment /Plan Assessment Mrs. Mercedes is a 75-year-old female with insulin-dependent diabetes mellitus and CKD stage V who presents with bilateral leg weakness and malaise. She was found to be very dehydrated with elevated osmolality. Patient will be given IV fluids. Patient does have EVA on CKD stage V. Nephrology consulted, recommendations appreciated. Otherwise, patient was also found with acute urinary retention. There is right kidney hydronephrosis and bladder distension. Will try to relieve with Le catheter and tamsulosin. If right kidney is not decompressed with Le catheter, may need urology consultation. Of note, renal function and azotemia improving with Le catheter Plan/VTE VTE Prophylaxis Ordered?: Yes Plan 1. EVA on CKD stage V -Due to a combination of poor oral intake and obstructive urology On admission, patient's BUN was greater than 140 and osmolality was elevated around 350 Avoid nephrotoxic agents. No diuretics for patient Supportive care -Le catheter in place. Recheck CT abd/pelvis today to look for improvement of right hydronephrosis Nephrology consulted, recommendations appreciated 2. Hypokalemia Possibly secondary to diuretics and poor oral intake Discontinue diuretics Continue potassium supplementation 3. Right hydronephrosis with bladder distension -Contributing to patient's EVA -Continue Le catheter and tamsulosin 4. Atrial fibrillation In case the patient needs procedure, apixaban will be discontinued and Lovenox started Continue diltiazem and amiodarone 5. Hyperlipidemia Continue atorvastatin 6. Hypothyroidism Continue levothyroxine 7. Diabetes mellitus -Patient is not taking metformin. Hold Januvia, and repaglinide Sliding scale insulin 8. Nausea and vomiting May be secondary to elevated BUN May be also related to Metformin Supportive care, IV fluids, and clear liquid diet 9. Glaucoma Continue latanoprost 10. COPD Stable, not in exacerbation Continue Advair 11. DVT prophylaxis Discontinue Eliquis in case procedure is needed -Continue Lovenox Disposition: Repeat imaging for right renal hydronephrosis. If not improved, may need urology consultation. If CT demonstrates improvement, patient would be ready to go to rehab. VS, I&O, 24H, [place] Vital Signs/I&O Vital Signs Date Time Temp Pulse Resp B/P (MAP) Pulse Ox O2 Delivery O2 Flow Rate FiO2 04/30/21 08:00 96.0 77 20 108/53 (71) 92 Nasal Cannula 2.0 I&O- Last 24 Hours up to 6 AM 04/30/21 06:00 Intake Total 1800 ml Output Total 2800 ml Balance -1000 ml Laboratory Data 24H LABS Laboratory Tests 2 04/29/21 17:26: Bedside Glucose (Misc Panel) 193H 04/29/21 20:13: Bedside Glucose (Misc Panel) 204H 04/30/21 05:15: Nucleated Red Blood Cells % (auto) 0.0, Anion Gap 3L, Glomerular Filtration Rate 22.1L, Calcium Level 7.3L, Phosphorus Level 2.1L, Magnesium Level 1.7L, Iron Level 22L, Total Iron Binding Capacity 242L, Transferrin % Saturation 9.1L, Ferritin 83, Albumin 2.0L 04/30/21 12:07: Bedside Glucose (Misc Panel) 411H CBC/BMP Laboratory Tests 04/30/21 05:15 Microbiology Microbiology 04/28/21 Group A Streptococcus Screen (JOSSE) - Final, Complete 04/28/21 Group A Streptococcus Screen (JOSSE) - Final, Complete RAJWINDER MEAD DO Apr 30, 2021 13:35
--- NOTE | 2021-04-30 14:21 | IPN ---
PROGRESS NOTE DATE: 04/29/2021 Brianna is seen and examined this morning at the bedside. She states she does not feel well. She complains that her body aches all over. She complains of chills. She complains of sinus pain, congestion, and sinus draining. Laboratory studies show ongoing recovery of renal function, and I am stopping her intravenous (IV) fluids this morning, and I encouraged the patient for oral hydration. Temperature 98.3, pulse 72, respiratory rate 20, blood pressure 133/57, saturating 98% on 2 liters nasal cannula. Intake yesterday was 2 liters, of which only 600 mL was oral intake, and the remainder was IV fluid. Urine output was 1.8 liters. Weight in the bed scale today is 61.3 kg. GENERAL: Patient is seen lying in bed, elderly female, covered in blankets. Looks fatigued and tired but in reasonable spirits. Extraocular muscles are intact. Tongue is dry. Neck is supple. Nasal cannula is in place. HEART: Sounds are regular, S1, S2. There is no significant leg edema. LUNGS: Show clear breath sounds bilaterally. No crackles or rales. ABDOMEN: Soft and prominent and nontender. GENITOURINARY: Shows indwelling Le catheter draining urine. NEUROLOGIC: She is oriented times three at baseline mentation. Cooperative with physical exam and conversational. LABORATORY DATA: Sodium 136, potassium 3.3, bicarbonate 30, BUN 70, creatinine 2.5, phosphorus 2.3, magnesium 1.9. Hemoglobin 9.5, platelets 138. I ordered a chest x-ray to be done today, which shows chronic bilateral interstitial changes with no new infiltrate. No acute pulmonary disease. INPATIENT MEDICATIONS: I stopped IV fluids. I note patient was started on doxycycline 100 mg by mouth twice a day. Remainder of medications is unchanged as compared to yesterday. PROBLEMS: 1. Acute kidney injury (EVA) on chronic kidney disease (CKD), stage V. Renal function has recovered nicely. Actually renal function today is a little bit better than her usual baseline. Her acute kidney injury was in the setting of obstructive uropathy with dilated and distended bladder and moderate right-sided hydronephrosis. Her diuretics have been held on this admission, and she has done very well with the Le catheter. I am stopping IV fluids today. 2. Hypokalemia. She is receiving potassium supplementation. 3. Obstructive uropathy. Patient has dilated and distended bladder and moderate right-sided hydronephrosis, and there was also fullness seen of the left renal pelvis. She has had a Le in. She has had excellent urine output. Her renal function today is actually even better than her usual baseline. Continue to hold diuretics, and I am going to get a repeat renal ultrasound now. 4. Anemia of chronic renal failure. We will give a dose of Procrit at the end of this week, and I am also going to get iron studies. I will not give her oral iron, as she does have a history of severe constipation, but the patient will benefit from IV iron if her iron stores are low. 5. Metabolic alkalosis secondary to contraction alkalosis and dehydration on admission. It has improved very nicely. Bicarbonate is 30 on the blood work today. IV fluids are being stopped. 6. Acute sinusitis, managed as per primary service. 7. History of chronic obstructive pulmonary disease (COPD) and chronic hypoxic respiratory failure, on 2 liters of oxygen. As patient has been on IV fluids the duration of this admission thus far with diuretics on hold, I did get a chest x-ray today to make sure that there is no sign of developing pulmonary congestion, and the chest x-ray was indeed negative. In any case, her renal function has recovered nicely, and her IV fluids are discontinued today, but I do not plan to start diuretics at this time.
--- NOTE | 2021-04-30 14:23 | REP ---
INDICATION: re-evaluation for hydronephrosis. COMPARISON: Multiple the latest 04/27/2021 also without contrast TECHNIQUE: Standard helical technique without contrast FINDINGS: Reticulonodular densities again seen throughout the lung bases with new areas of consolidation posteriorly. The right-sided hydronephrosis seen previously has abated. The minimal left-sided hydronephrosis seen previously has also abated. There is a Le balloon seen in the urinary bladder decompressing it. There are no other significant changes compared to the prior exam. IMPRESSION: 1. Resolution of the previously described bilateral hydronephrosis. 2. There is a large amount of content in the rectosigmoid vault. 3. New bibasilar opacities likely subsegmental atelectatic changes, however, bibasilar pneumonia cannot be completely ruled out. Correlate clinically. <Electronically signed by Johnathon Bauer > 04/30/21 [id number]
--- NOTE | 2021-04-30 14:27 | IPN ---
NEPHROLOGY PROGRESS NOTE DATE: 04/30/2021 SUBJECTIVE: Miss Reed is seen and examined this morning. I was pleased to see her sitting in the chair. She reports she feels much better than yesterday. Her chills and body aches have subsided. She still has symptoms of acute sinusitis with congestion and draining but she tells me that she is looking forward to going for a walk with the physical therapist. IV fluids were stopped yesterday and the patient reports that she is doing better with oral intake. She continues to have excellent urine output to the Le catheter. OBJECTIVE: VITAL SIGNS: Temperature 98.0, pulse 66, respiratory rate 18, blood pressure 115/70, saturating 99% on 2 liters nasal cannula. INTAKE AND OUTPUT: Intake yesterday was 1.5 liters. Urine output yesterday was 3.2 liters. Net negative 1.6 liters. Weight in the bed scale is 60.1 kg. PHYSICAL EXAMINATION: GENERAL APPEARANCE: The patient is seen sitting in the chair, elderly female, bright, awake, alert, in good spirits, in no distress. HEENT: The extraocular muscles are intact. Tongue is moist. Nasal cannula is in place. NECK: Supple. Jugular veins are not elevated. HEART: Regular, S1, S2. There is trace pedal edema. LUNGS: Clear to auscultation bilaterally. No crackles or rales. ABDOMEN: Soft and obese and nontender. GENITOURINARY: Indwelling Le catheter. NEUROLOGICAL: She is oriented x3, at baseline mentation, cooperative with physical exam and conversational. LABORATORY STUDIES: White count 7.4, hemoglobin 8.8, platelet count 147. Sodium 140, potassium 3.9, bicarbonate 34, BUN 50, creatinine 2.2, magnesium 1.7, iron 22, transferrin saturation 9%, ferratin 80. IMAGING: There is no new imaging. INPATIENT MEDICATIONS: I note the patient was started on Miralax p.r.n. and Docusate 100 mg p.o. twice daily and Cepacol p.r.n. for sore throat. Her remainder medications are unchanged as compared to yesterday. PROBLEMS: 1. Acute kidney injury on chronic kidney disease stage 5 - acute kidney injury has fully recovered. Her renal function the past 2 days is better than her baseline renal function. Her acute kidney injury was in the setting of obstructive uropathy. She has a Le catheter placed. She is going to have a repeat renal ultrasound done now. She has excellent urine output. There is no need for any diuretic therapy at this time. IV fluids were stopped yesterday and the patient is working on oral intake. I am very pleased with the significant improvement in her renal function with blood urea nitrogen going from 164 on admission down to 50 today. Clinically there are no worrisome signs of hypervolemia. She had a chest x-ray yesterday that did not show any fluid on the lungs, and I would continue to watch her off of diuretics. 2. Hypokalemia it is improved with potassium supplementation. 3. Iron deficiency anemia - The patient is ordered for IV iron. I will not give her oral iron because of history of severe constipation. She is also ordered for a dose of Aranesp tomorrow. 4. Sinusitis managed by the Primary Service - The patient is now on Doxycycline. 5. Hypertension - blood pressures are very well controlled with Diltiazem. 6. Hypophosphatemia phosphorous level is 2.1. I am going to stop her PhosLo.
[2021-04-30 16:00] VITALS: BP 129/63
[2021-04-30] MEDS ORDERED: IRON SUCROSE 200 MG in NS 100 ML IV ONE (16:00)
[2021-04-30 20:00] VITALS: BP 140/60
[2021-04-30] MEDS: TAMSULOSIN 0.4 MG CAP PO SCH (21:42)
[2021-04-30] MEDS: diltiaZEM **CD** 180 MG CAP PO SCH (21:42)
[2021-04-30] MEDS: LATANOPROST 0.005% OPHTH SOLN 2.5 ML OU SCH (21:44)
[2021-05-01 04:00] VITALS: BP 121/57
[2021-05-01] MEDS: BENZONATATE 100 MG CAP PO PRN (04:59)
[2021-05-01] MEDS: LEVOTHYROXINE 100MCG TABLET (0.1MG) PO SCH (04:59)
[2021-05-01] MEDS: ACETAMINOPHEN TAB 650MG DOSE (2X325MG) PO PRN (04:59)
[2021-05-01 05:58] LABS: HEMATOCRIT 27.3 % (36.0-47.0); HEMOGLOBIN 8.8 g/dl (12.0-15.5); MEAN CORPUSCULAR HEMOGLOBIN 29.3 pg (27.0-33.0); MEAN CORPUSCULAR HGB CONC 32.2 g/dl (32.0-36.5); PLATELET COUNT, AUTOMATED 169 10^3/uL (150-450); WHITE BLOOD COUNT 7.9 10^3/uL (4.0-10.0)
[2021-05-01 06:12] LABS: ALBUMIN 1.8 GM/DL (3.2-5.2); CALCIUM LEVEL 7.7 MG/DL (8.8-10.2); CREATININE FOR GFR 2.38 MG/DL (0.55-1.30); MAGNESIUM LEVEL 1.8 MG/DL (1.8-2.4); PHOSPHORUS LEVEL 2.4 MG/DL (2.5-4.9); POTASSIUM SERUM 4.2 MEQ/L (3.5-5.1)
--- NOTE | 2021-05-01 07:16 | REPVR ---
PROCEDURE INFORMATION: Exam: US Retroperitoneal Limited, Kidneys Exam date and time: 05/01/2021 6:32 AM Age: 75 years old Clinical indication: Abnormal findings; Abnormal radiologic finding of the abdomen; Radiologic exam and body structure: CT abd pelvis; Additional info: Re-eval hydronephrosis TECHNIQUE: Imaging protocol: Real-time ultrasound of the retroperitoneum with image documentation. Examination was focused on the kidneys. COMPARISON: RENAL US 11/22/2020 6:27 AM FINDINGS: Right kidney: Increased bilateral renal parenchymal echotexture consistent with medical renal disease. Incompletely visualized right kidney measures 8.9 cm in length. No hydronephrosis. Left kidney: Left kidney measures 9.8 cm in length. No hydronephrosis. Bladder: Normal bladder morphology. IMPRESSION: Increased bilateral renal parenchymal echotexture consistent with medical renal disease. Electronically signed by: Dre Molina On 05/01/2021 07:15:50 AM
[2021-05-01] MEDS: ADVAIR HFA 115/21MCG INHALER INH SCH ×2 (07:43→19:24)
[2021-05-01 08:00] VITALS: BP 111/59
[2021-05-01] MEDS: ATORVASTATIN 10 MG TAB PO SCH (08:14)
[2021-05-01] MEDS: HumaLOG INSULIN (NovoLOG) PER UNIT SC SCH ×4 (08:14→21:00)
[2021-05-01] MEDS: POTASSIUM CHLORIDE 10 MEQ SR TABLET PO SCH (08:14)
[2021-05-01] MEDS: ENOXAPARIN 30MG/0.3ML SYRINGE (J1650 PER 10MG) SC SCH (08:14)
[2021-05-01] MEDS: DOCUSATE SODIUM 100MG CAPSULE PO SCH ×2 (08:15→21:29)
[2021-05-01] MEDS: AMIODARONE 200 MG TAB (PACERONE) PO SCH (08:15)
[2021-05-01] MEDS: DOXYCYCLINE HYCLATE 100MG TABLET PO SCH ×2 (08:15→21:29)
[2021-05-01] MEDS ORDERED: DARBEPOETIN 100 MCG/0.5 ML *NON-DIALYSIS* SYRINGE (J0881) SC SCH (09:00)
[2021-05-01 17:00] VITALS: BP 140/60
--- NOTE | 2021-05-01 17:06 | IPNPDOC ---
Text Note Date of Service The patient was seen on 05/01/21. NOTE Hospitalist Progress Note Subjective: Patient reports that while she does feel tired, she is actually feeling better today than she has been the past few days. They did remove the Le last night, and she reports that she has incontinence and has to wear depends on, but is at least otherwise satisfied that she is not retaining urine. Otherwise, she does not have any other complaints or issues at this time, the remainder of her review of systems is negative. Objective: General: Awake, alert, oriented 3. Not in any acute distress. HEENT: Head normocephalic, atraumatic, sclera are nonicteric. Hearing is grossly intact to conversation. Respiratory: Clear to auscultation bilaterally with no wheezes, rales, or rhonchi. Cardiovascular: Regular rate and rhythm, with no rubs, gallops, or murmur. Abdomen: Soft, nontender, nondistended, no hepatosplenomegaly appreciated. Bowel sounds present. Extremities: 2+ pulses in the radial and dorsalis pedis bilaterally. No evidence of clubbing or cyanosis. Assessment/plan: 1. EVA on CKD stage V -Due to a combination of poor oral intake and obstructive urology On admission, patient's BUN was greater than 140 and osmolality was elevated around 350 Avoid nephrotoxic agents. No diuretics for patient Supportive care Nephrology consulted, recommendations appreciated --Le catheter has been removed last night. She is not only back to her baseline GFR, but is actually slightly improved from her baseline. She seems to be continuing to do well status post removal of catheter, repeat ultrasound was performed this morning and it did not show recurrence of hydronephrosis. 2. Hypokalemia Possibly secondary to diuretics and poor oral intake Discontinue diuretics Continue potassium supplementation 3. Right hydronephrosis with bladder distension -Contributing to patient's EVA -Continue tamsulosin --Repeat ultrasound this morning did not show hydronephrosis any longer. 4. Atrial fibrillation We will discontinue Lovenox at this time and reinitiated apixaban (renally dosed) Continue diltiazem and amiodarone 5. Hyperlipidemia Continue atorvastatin 6. Hypothyroidism Continue levothyroxine 7. Diabetes mellitus -Patient is not taking metformin. Hold Januvia, and repaglinide Sliding scale insulin 8. Nausea and vomiting --Improving at this time May be secondary to elevated BUN May be also related to Metformin Supportive care, if needed 9. Glaucoma Continue latanoprost 10. COPD Stable, not in exacerbation Continue Advair 11. DVT prophylaxis Eliquis Disposition: Patient will likely need rehab upon discharge. Will transfer to [facility] status at this time. VS,Fishbone, I+O VS, Fishbone, I+O Laboratory Tests 05/01/21 05:28 Vital Signs Date Time Temp Pulse Resp B/P (MAP) Pulse Ox O2 Delivery O2 Flow Rate FiO2 05/01/21 08:00 97.5 72 20 111/59 (76) 93 Nasal Cannula 2.0 I&O- Last 24 Hours up to 6 AM 05/01/21 06:00 Intake Total 1310 ml Output Total 0 ml Balance 1310 ml CARTER QUINTEROS DO May 01, 2021 17:06
--- NOTE | 2021-05-01 19:38 | IPN ---
NEPHROLOGY PROGRESS NOTE DATE: 05/01/2021 SUBJECTIVE: Brianna is seen and examined this morning at the bedside. She complains she feels tired and she reports the Le catheter was removed. She reports she was incontinent of urine. I discussed with her that I am concerned that she is likely to go into urinary retention again. She is most likely to need the Le to be replaced. OBJECTIVE: VITAL SIGNS: Temperature 97.5, pulse 72, respiratory rate 20, blood pressure 111/59, saturating 93-94% on 2 liters nasal cannula. INTAKE AND OUTPUT: Intake yesterday was 1900. Urine output yesterday was 1250. Weight in the bed scale today is 61.7 kg. GENERAL: Patient is sitting in the chair, elderly female, awake, alert, oriented, bright, in no distress. HEENT: Extraocular muscles are intact. Tongue is moist. Nasal cannula is in place. Jugular veins were not elevated while she was sitting upright. HEART SOUNDS: Regular. S1, S2. There is 1+ ankle edema bilaterally that was not there a couple of days ago. LUNGS: Diminished breath sounds bilaterally with cough with deep inspiration. ABDOMEN: Soft, obese and nontender. EXTREMITIES: Show 1+ ankle edema. NEUROLOGIC: She is oriented and at baseline mentation. LABORATORY STUDIES: White count 7.9, hemoglobin 8.8, platelets 169. Sodium 137, potassium 4.2, bicarbonate 31, BUN 49, creatinine 2.3. INPATIENT MEDICATIONS: Reviewed by myself. She got a dose of Aranesp today. She also got a dose of intravenous (IV) iron yesterday. I stopped her potassium supplementation. PROBLEMS: 1. Acute kidney injury (EVA) on chronic kidney disease (CKD) stage IV, borderline stage V. Patient's acute kidney injury was in the setting of obstructive uropathy with hydronephrosis and dilated and distended bladder. She had a Le catheter placed. She did really well. Her diuretics were held. She has been off of IV fluids for several days now. Her renal function has recovered and is actually better than her usual outpatient baseline. I am concerned that the Le catheter was removed yesterday. We need to repeat the postvoid residual bladder scan tomorrow and I would place the Le again if she has more than 300 mL of urine in her bladder at that time. 2. Anemia related to chronic kidney disease and iron deficiency. Patient's iron stores were low. She got a dose of Venofer 200 mg yesterday. She was also erythropoiesis stimulating agent dependent and she got a dose of Aranesp today. There is no need for transfusion at this time. 3. Hypokalemia. Potassium is up to 4.2 on the latest labs and I am stopping the potassium supplement at this point. 4. Hypophosphatemia. Her phosphorus binders were stopped. Her phosphorus level is improving. 5. Diastolic congestive heart failure. Diuretics have been on hold throughout this admission. Patient now has 1+ ankle edema that was not there before. Once we are certain that she is not retaining urine (now that Le has been removed), then she will need to be resumed back on torsemide. Her prior home regimen was torsemide 40 mg twice a day. I think at this point, torsemide 20 mg twice daily would suffice. Patient has been overdiuresed in the recent past.
[2021-05-01] MEDS: APIXABAN 2.5 MG TAB (ELIQUIS) PO SCH (21:29)
[2021-05-01] MEDS: diltiaZEM **CD** 180 MG CAP PO SCH (21:29)
[2021-05-01] MEDS: TAMSULOSIN 0.4 MG CAP PO SCH (21:29)
[2021-05-01] MEDS: MIRALAX *UNIT DOSE* 17GM PACKET PO PRN (21:32)
[2021-05-01] MEDS: LATANOPROST 0.005% OPHTH SOLN 2.5 ML OU SCH (21:40)
[2021-05-02] MEDS: LEVOTHYROXINE 100MCG TABLET (0.1MG) PO SCH (05:56)
[2021-05-02 06:00] VITALS: BP 101/56
[2021-05-02] MEDS: ADVAIR HFA 115/21MCG INHALER INH SCH ×2 (07:38→19:39)
[2021-05-02] MEDS: DOCUSATE SODIUM 100MG CAPSULE PO SCH ×2 (07:40→21:11)
[2021-05-02] MEDS: AMIODARONE 200 MG TAB (PACERONE) PO SCH (07:40)
[2021-05-02] MEDS: APIXABAN 2.5 MG TAB (ELIQUIS) PO SCH ×2 (07:40→21:11)
[2021-05-02] MEDS: HumaLOG INSULIN (NovoLOG) PER UNIT SC SCH ×4 (07:40→21:00)
[2021-05-02] MEDS: DOXYCYCLINE HYCLATE 100MG TABLET PO SCH ×2 (07:40→21:12)
[2021-05-02] MEDS: MIRALAX *UNIT DOSE* 17GM PACKET PO PRN (07:41)
[2021-05-02] MEDS: BENZONATATE 100 MG CAP PO PRN (07:41)
[2021-05-02] MEDS: ATORVASTATIN 10 MG TAB PO SCH (07:41)
[2021-05-02] MEDS ORDERED: TORSEMIDE 10 MG TABLET PO ONE (12:10)
[2021-05-02] MEDS: TORSEMIDE 10 MG TABLET PO SCH (12:42)
--- NOTE | 2021-05-02 13:54 | IPN ---
PROGRESS NOTE DATE: 05/02/2021 Mrs. Mercedes is seen this morning on her bedside. She is still weak and also reports pain in her sinuses. She is currently being treated for acute sinusitis. She also reports cough with some yellowish sputum. PHYSICAL EXAMINATION: Temperature 98.4 degrees Fahrenheit, heart rate 75 per minute, respiratory rate 18 per minute, blood pressure 101/56 mmHg, and oxygen saturation 90% on 2 liters oxygen. Head is atraumatic. Neck supple, and jugular venous distention (JVD) mildly elevated, even sitting upright. Lungs have few basilar rales. Heart sounds are regular. Abdomen soft and nontender, and bowel sounds are normal. Extremities without any cyanosis or clubbing. Edema 1+ on lower extremities noted. Neurologically she is awake and at her baseline mentation. She did not have any labs done today. Yesterday her BUN was 49 and creatinine 2.38. PROBLEMS: 1. Acute kidney injury superimposed on chronic kidney disease. Her initial BUN was 164 and creatinine 4.6. Kidney function has improved significantly since admission. We will check her renal profile again tomorrow. 2. Congestive heart failure. Volume status seems likely decompensated. She was on diuretic at home. I am going to put her on decreased dose of torsemide 10 mg once a day. 3. Anemia. She is has iron deficiency anemia. She is receiving Aranesp 100 mcg once a week. She did receive intravenous iron also. 4. Acute sinusitis. Patient is currently being treated with doxycycline.
[2021-05-02] MEDS: ALBUTEROL 90 MCG/ACT 8GM HFA INHALER INH PRN (19:41)
[2021-05-02] MEDS: diltiaZEM **CD** 180 MG CAP PO SCH (21:11)
[2021-05-02] MEDS: TAMSULOSIN 0.4 MG CAP PO SCH (21:11)
[2021-05-02] MEDS: ACETAMINOPHEN TAB 650MG DOSE (2X325MG) PO PRN (21:12)
[2021-05-02] MEDS: LATANOPROST 0.005% OPHTH SOLN 2.5 ML OU SCH (21:13)
[2021-05-02 22:00] VITALS: BP 131/68
[2021-05-03] MEDS: LEVOTHYROXINE 100MCG TABLET (0.1MG) PO SCH (05:41)
[2021-05-03] MEDS: BENZONATATE 100 MG CAP PO PRN (05:43)
[2021-05-03 06:00] VITALS: BP 119/58
[2021-05-03 06:49] LABS: HEMATOCRIT 24.9 % (36.0-47.0); HEMOGLOBIN 7.9 g/dl (12.0-15.5); MEAN CORPUSCULAR HEMOGLOBIN 28.7 pg (27.0-33.0); MEAN CORPUSCULAR HGB CONC 31.7 g/dl (32.0-36.5); MEAN CORPUSCULAR VOLUME 90.5 fl (80.0-96.0); PLATELET COUNT, AUTOMATED 194 10^3/uL (150-450); RED BLOOD COUNT 2.75 10^6/uL (4.00-5.40); WHITE BLOOD COUNT 7.5 10^3/uL (4.0-10.0)
[2021-05-03 07:16] LABS: ALBUMIN 1.7 GM/DL (3.2-5.2); CALCIUM LEVEL 7.6 MG/DL (8.8-10.2); CREATININE FOR GFR 2.69 MG/DL (0.55-1.30); GLOMERULAR FILTRATION RATE 18.3 (>39); POTASSIUM SERUM 4.1 MEQ/L (3.5-5.1)
[2021-05-03] MEDS: ADVAIR HFA 115/21MCG INHALER INH SCH ×2 (07:17→19:44)
[2021-05-03] MEDS ORDERED: guaiFENesin ER 600 MG TAB PO ONE (09:30)
[2021-05-03] MEDS: HumaLOG INSULIN (NovoLOG) PER UNIT SC SCH ×4 (10:09→21:31)
[2021-05-03] MEDS: DOXYCYCLINE HYCLATE 100MG TABLET PO SCH ×2 (10:10→21:24)
[2021-05-03] MEDS: DOCUSATE SODIUM 100MG CAPSULE PO SCH ×2 (10:10→21:24)
[2021-05-03] MEDS: TORSEMIDE 10 MG TABLET PO SCH (10:13)
[2021-05-03] MEDS: APIXABAN 2.5 MG TAB (ELIQUIS) PO SCH ×2 (10:13→21:24)
[2021-05-03] MEDS: AMIODARONE 200 MG TAB (PACERONE) PO SCH (10:14)
[2021-05-03] MEDS: ATORVASTATIN 10 MG TAB PO SCH (10:14)
--- NOTE | 2021-05-03 12:37 | IPN ---
NEPHROLOGY PROGRESS NOTE DATE: 05/03/2021 SUBJECTIVE: Mrs. Mercedes is seen this morning on her bedside. She continues to have cough and reports some yellow sputum. She also continues to have sinus pain due to her sinusitis. She denies any nausea or vomiting. PHYSICAL EXAMINATION: VITAL SIGNS: Temperature 98.1 degrees Fahrenheit, heart rate 76 per minute, respiratory rate 18 per minute, blood pressure 119/58 mmHg, oxygen saturation 95% on room air. HEAD: Atraumatic. NECK: Supple and jugular venous distention (JVD) not abnormally elevated. LUNGS: Diminished breath sounds and bilateral coarse crepitations. HEART SOUNDS: Regular. ABDOMEN: Soft and nontender. Bowel sounds are normal. EXTREMITIES: Without any cyanosis or clubbing. Lower extremity edema is still present, but slightly improved. NEUROLOGIC: She is awake, alert and at her baseline mentation. SKIN: No rash or ulcers. LABORATORY REVIEW: Today's labs show WBC 7.5, hemoglobin 7.9, hematocrit 24.9, platelets 194. Sodium 136, potassium 4.1, CO2 28, BUN 57, creatinine 2.69, glucose 142, calcium 7.6. Albumin is only 1.7. PROBLEMS: 1. Acute kidney injury superimposed on chronic kidney disease. No significant change in kidney function. She has mild fluctuations. Low dose diuretic was started yesterday in view of her lower extremity edema. At present, we will continue to monitor her kidney function closely. 2. Anemia. She did receive intravenous (IV) iron and has been receiving Aranesp once a week. Her anemia seems to be getting worse. We may need to consider transfusing her if her anemia does not improve. 3. Congestive heart failure and lower extremity edema. At home, she takes torsemide 20 mg daily and I started with a decreased dose of torsemide 10 mg daily yesterday. At present, we will continue to monitor her volume status and not change the dose of diuretic. 4. Protein calorie malnutrition. Her albumin level is only 1.7. This is most likely related to poor intake of protein. Nepro 1 can daily is being added. 5. Cough and sinusitis. Patient is currently afebrile. However, she continues to have cough with yellow sputum. She remains on doxycycline 100 mg twice a day.
[2021-05-03] MEDS: diltiaZEM **CD** 180 MG CAP PO SCH (21:23)
[2021-05-03] MEDS: guaiFENesin ER 600 MG TAB PO SCH (21:24)
[2021-05-03] MEDS: TAMSULOSIN 0.4 MG CAP PO SCH (21:24)
[2021-05-03] MEDS: LATANOPROST 0.005% OPHTH SOLN 2.5 ML OU SCH (21:26)
[2021-05-03 22:00] VITALS: BP 142/82
[2021-05-04] MEDS: ACETAMINOPHEN TAB 650MG DOSE (2X325MG) PO PRN (05:49)
[2021-05-04] MEDS: LEVOTHYROXINE 100MCG TABLET (0.1MG) PO SCH (05:49)
[2021-05-04] MEDS: BENZONATATE 100 MG CAP PO PRN (05:49)
[2021-05-04 06:00] VITALS: BP 105/53
[2021-05-04 07:11] LABS: HEMATOCRIT 25.2 % (36.0-47.0); HEMOGLOBIN 8.1 g/dl (12.0-15.5); MEAN CORPUSCULAR HEMOGLOBIN 29.2 pg (27.0-33.0); MEAN CORPUSCULAR HGB CONC 32.1 g/dl (32.0-36.5); PLATELET COUNT, AUTOMATED 225 10^3/uL (150-450); RED BLOOD COUNT 2.77 10^6/uL (4.00-5.40); WHITE BLOOD COUNT 7.3 10^3/uL (4.0-10.0)
[2021-05-04 07:23] LABS: ALBUMIN 1.7 GM/DL (3.2-5.2); CALCIUM LEVEL 7.1 MG/DL (8.8-10.2); CREATININE FOR GFR 2.67 MG/DL (0.55-1.30); GLOMERULAR FILTRATION RATE 18.4 (>39); POTASSIUM SERUM 4.2 MEQ/L (3.5-5.1)
[2021-05-04] MEDS: ADVAIR HFA 115/21MCG INHALER INH SCH ×2 (07:54→20:07)
[2021-05-04] MEDS: APIXABAN 2.5 MG TAB (ELIQUIS) PO SCH ×2 (08:20→21:32)
[2021-05-04] MEDS: ATORVASTATIN 10 MG TAB PO SCH (08:20)
[2021-05-04] MEDS: DOCUSATE SODIUM 100MG CAPSULE PO SCH ×2 (08:20→21:32)
[2021-05-04] MEDS: AMIODARONE 200 MG TAB (PACERONE) PO SCH (08:20)
[2021-05-04] MEDS: TORSEMIDE 10 MG TABLET PO SCH (08:20)
[2021-05-04] MEDS: guaiFENesin ER 600 MG TAB PO SCH ×2 (08:20→21:32)
[2021-05-04] MEDS: HumaLOG INSULIN (NovoLOG) PER UNIT SC SCH ×4 (08:21→21:00)
--- NOTE | 2021-05-04 12:03 | IPN ---
PROGRESS NOTE DATE: 05/04/2021 SUBJECTIVE: Mrs. Mercedes is seen this morning on her bedside. She is sitting in the chair and knitting. She is feeling better today, however still has some cough and sinus pain. She denies any nausea or vomiting. She remains on 2 liters of oxygen and has chronic hypoxemia. OBJECTIVE: VITAL SIGNS: Temperature is 97.4 degrees Fahrenheit, heart rate is 70 per minute and respiratory rate is 18 per minute, blood pressure is 105/53 mmHg and oxygen saturation 95% on room air. She is still using oxygen at 2 liters, however in the computer it is a mis-entry that she is on room air. HEENT: Head is atraumatic. NECK: Supple. JVD is not abnormally elevated sitting upright. LUNGS: Slightly diminished breath sounds at bases. HEART: Heart sounds are regular. ABDOMEN: Soft and nontender. Bowel sounds were normal. EXTREMITIES: Without any cyanosis or clubbing. Lower extremity edema is only mild. LABORATORY DATA: Today's labs showed a WBC count of 7.3, hemoglobin is 8.1 and hematocrit 25.2. Sodium is 137, potassium is 4.2, BUN 66 and creatinine is 2.67, glucose is 174 and calcium is 7.1. Albumin is 1.7. PROBLEMS: 1. Acute kidney injury superimposed on chronic kidney disease. No significant change and no trend. Kidney function is mostly stable with advanced Stage IV or early Stage V CKD. She has no uremic symptoms and will continue to monitor closely. 2. Congestive heart failure, volume status seems reasonably well compensated. She is on 10 mg of torsemide now which will be continued. 3. Anemia. She has been on Aranesp 100 mcg once a week. She has also received intravenous iron last week. At this point, we will continue with Aranesp 100 mcg once a week. There is no emergent indication for a transfusion. 4. Urinary retention. Patient remains on Flomax 0.4 mg daily. She is urinating and does not have any significant issue with retention anymore. 5. Acute sinusitis and bronchitis. She is clinically improving and remains on Doxycycline.
[2021-05-04 21:34] VITALS: BP 138/64
[2021-05-04] MEDS: diltiaZEM **CD** 180 MG CAP PO SCH (21:34)
[2021-05-04] MEDS: TAMSULOSIN 0.4 MG CAP PO SCH (21:36)
[2021-05-04 22:00] VITALS: BP 119/68
[2021-05-04] MEDS: LATANOPROST 0.005% OPHTH SOLN 2.5 ML OU SCH (23:04)
[2021-05-05] MEDS: LEVOTHYROXINE 100MCG TABLET (0.1MG) PO SCH (05:48)
[2021-05-05 06:59] VITALS: BP 134/63
[2021-05-05] MEDS: BENZONATATE 100 MG CAP PO PRN (08:09)
[2021-05-05] MEDS: TORSEMIDE 10 MG TABLET PO SCH (08:09)
[2021-05-05] MEDS: DOCUSATE SODIUM 100MG CAPSULE PO SCH (08:10)
[2021-05-05] MEDS: guaiFENesin ER 600 MG TAB PO SCH (08:10)
[2021-05-05] MEDS: APIXABAN 2.5 MG TAB (ELIQUIS) PO SCH (08:10)
[2021-05-05] MEDS: ATORVASTATIN 10 MG TAB PO SCH (08:10)
[2021-05-05] MEDS: HumaLOG INSULIN (NovoLOG) PER UNIT SC SCH ×2 (08:10→11:54)
[2021-05-05] MEDS: AMIODARONE 200 MG TAB (PACERONE) PO SCH (08:10)
[2021-05-05 08:11] VITALS: BP 108/52
[2021-05-05] MEDS: ADVAIR HFA 115/21MCG INHALER INH SCH (08:12)
[2021-05-05 09:48] LABS: BASO % 0.1 % (0.0-1.0); EOS % 0.4 % (0.0-3.0); HEMATOCRIT 26.2 % (36.0-47.0); HEMOGLOBIN 8.2 g/dl (12.0-15.5); LYMPH # 1.1 10^3/uL (1.5-5.0); LYMPH % 16.2 % (24.0-44.0); MEAN CORPUSCULAR HEMOGLOBIN 28.7 pg (27.0-33.0); MEAN CORPUSCULAR HGB CONC 31.3 g/dl (32.0-36.5); MEAN CORPUSCULAR VOLUME 91.6 fl (80.0-96.0); MONO # 0.7 10^3/uL (0.0-0.8); MONO % 9.4 % (2.0-8.0); NEUTROPHILS # 5.1 10^3/uL (1.5-8.5); NEUTROPHILS % 73.2 % (36.0-66.0); PLATELET COUNT, AUTOMATED 235 10^3/uL (150-450); RED BLOOD COUNT 2.86 10^6/uL (4.00-5.40)
[2021-05-05 10:08] LABS: CALCIUM LEVEL 7.9 MG/DL (8.8-10.2); CREATININE FOR GFR 2.85 MG/DL (0.55-1.30); GLOMERULAR FILTRATION RATE 17.1 (>39); MAGNESIUM LEVEL 1.8 MG/DL (1.8-2.4); POTASSIUM SERUM 3.7 MEQ/L (3.5-5.1)
[2021-05-05] MEDS ORDERED: TORS10TA3 PO (12:08)
[2021-05-05] MEDS ORDERED: INSUHUMDS SC (12:08)
--- NOTE | 2021-05-05 12:27 | DS.PDOC ---
Discharge Summary General Date of Admission Apr 26, 2021 at 19:00 Date of Discharge 05/05/2021 Discharge Summary PROCEDURES PERFORMED DURING STAY: [None]. ADMITTING DIAGNOSES / DISCHARGE DIAGNOSES: EVA on CKD4, progressing to CKD5 s/p Hypokalemia Diastolic CHF (EF: 65%) Right hydronephrosis with bladder distension Chronic Atrial fibrillation DLP Hypothyroidism NIDDM2 s/p Nausea and Vomiting - possibly 2/2 medications Glaucoma Chronic COPD DVT prophylaxis COMPLICATIONS/CHIEF COMPLAINT: Nausea / Vomiting HISTORY OF PRESENT ILLNESS: Patient is a 75-year-old female with a PMHx of HTN, A. fib (on Eliquis), Chronic hypoxic respiratory failure (on 2L O2), NIDDM2, DLP, CKD4, Hypothyroidism, who presented to the ER with bilateral leg weakness and fatigue. Patient had reported decreased urine output. Patient was admitted for worsening renal function. Nephrology was called on consultation. Patient was seen and examined at the bedside. Currently, she denies any nausea, vomiting, chest pain, short of breath, palpitations, abdominal pain, diarrhea, or urinary discomfort. HOSPITAL COURSE: EVA on CKD4, progressing to CKD5 - Creatinine has improved - Needs to make urine - Will avoid nephrotoxic medications - Nephrology on consultation; we appreciate their input s/p Hypokalemia - c/w Supplementation Diastolic CHF (EF: 65%) - Currently appears to be euvolemic - ECHO 11/28/2020: Preserved LV systolic function and grade 1 diastolic dysfunction - c/w Torsemide; dosed by nephrology - Will have outpatient follow-up with nephrology within the next 7 days Right hydronephrosis with bladder distension - Imaging has shown improvement - c/w Tamsulosin Chronic Atrial fibrillation - c/w Rate/Rhythm control with Amiodarone / Diltiazem - c/w Full anticoagulation with Eliquis DLP - c/w Atorvastatin Hypothyroidism - c/w Levothyroxine NIDDM2 - Will discontinue Januvia and Repaglinide - c/w ISS on discharge s/p Nausea and Vomiting - possibly 2/2 medications - Since resolved Glaucoma - c/w Latanoprost Chronic COPD - No evidence of exacerbation - c/w inhaled therapy as ordered DVT prophylaxis - c/w Eliquis DISCHARGE MEDICATIONS: Please see below. ALLERGIES: Please see below. PHYSICAL EXAMINATION ON DISCHARGE: Vitals (See below) General: Lying in bed, no acute distress, comfortable, AAOx3 HEENT: NC, AT CVS: RRR, +S1S2 Lungs: Fair air entry b/l, -w/r/r Abdomen: Soft, ND, NT, +BSx4 Extremities: +PPx4, - Edema, - Calf tenderness LABORATORY DATA: Please see below. IMAGING: CXR 04/26: No active process. No interval change. CT abdomen / pelvis 04/27: Hydronephrosis affecting the right kidney and a minimal fullness on the left. Dilated urine filled bladder. Otherwise negative. CT maxillofacial 04/28: Findings consistent with acute sinusitis with air-fluid level and chronic mucos al sinusitis. CXR 04/29: No acute pulmonary disease.Stable chronic findings. Abdomen / Pelvis CT 04/30: 1. Resolution of the previously described bilateral hydronephrosis. 2. There is a large amount of content in the rectosigmoid vault. 3. New bibasilar opacities likely subsegmental atelectatic changes, however, bibasilar pneumonia cannot be completely ruled out. Correlate clinically. Renal US 05/01: Increased bilateral renal parenchymal echotexture consistent with medical renal disease. ACTIVITY: [As tolerated]. DISCHARGE PLAN: Follow-up with primary care provider, and Nephrology within the next 7 days Remain compliant with treatment plan and medications Return to the ER if you experience any problems DISPOSITION: [facility] DISCHARGE CONDITION: [Stable]. TIME SPENT ON DISCHARGE: 35 minutes Vital Signs/I&Os Vital Signs Date Time Temp Pulse Resp B/P (MAP) Pulse Ox O2 Delivery O2 Flow Rate FiO2 05/05/21 08:11 71 108/52 (70) 05/05/21 08:00 2.0 05/05/21 06:59 98.1 16 89 Nasal Cannula I&O- Last 24 Hours up to 6 AM 05/05/21 06:00 Intake Total 940 ml Balance 940 ml Laboratory Data Labs 24H Laboratory Tests 2 05/04/21 18:12: Bedside Glucose (Misc Panel) 212H 05/04/21 21:26: Bedside Glucose (Misc Panel) 229H 05/05/21 06:10: Bedside Glucose (Misc Panel) 178H 05/05/21 09:21: Immature Granulocyte % (Auto) 0.7, Neutrophils (%) (Auto) 73.2H, Lymphocytes (%) (Auto) 16.2L, Monocytes (%) (Auto) 9.4H, Eosinophils (%) (Auto) 0.4, Basophils (%) (Auto) 0.1, Neutrophils # (Auto) 5.1, Lymphocytes # (Auto) 1.1L, Monocytes # (Auto) 0.7, Eosinophils # (Auto) 0.0, Basophils # (Auto) 0.0, Nucleated Red Blood Cells % (auto) 0.0, Anion Gap 6L, Glomerular Filtration Rate 17.1L, Calcium Level 7.9L, Magnesium Level 1.8 05/05/21 11:24: Bedside Glucose (Misc Panel) 456H CBC/BMP Laboratory Tests 05/05/21 09:21 FSBS Laboratory Tests Test 05/04/21 18:12 05/04/21 21:26 05/05/21 06:10 05/05/21 11:24 Range/Units Bedside Glucose (Misc Panel) 212 229 178 456 83-110 MG/DL Microbiology Microbiology 04/28/21 Group A Streptococcus Screen (JOSSE) - Final, Complete 04/28/21 Group A Streptococcus Screen (JOSSE) - Final, Complete Discharge Medications Scheduled Amiodarone HCl (Amiodarone Hydrochloride) 200 Mg Tablet, 200 MG PO DAILY, (Reported) Apixaban (Eliquis) 2.5 Mg Tablet, 2.5 MG PO BID, (Reported) 0800, 1700 Atorvastatin Calcium (Atorvastatin Calcium) 10 Mg Tablet, 10 MG PO DAILY, (Reported) Calcium Acetate (Calcium Acetate) 667 Mg Tablet, 667 MG PO BIDWM, (Reported) Diltiazem HCl (Cartia Xt) 180 Mg Cap.er.24h, 360 MG PO QHS, (Reported) Epoetin Hilario (Procrit) 20,000 Unit/1 Ml Vial, 20,000 UNITS SC Q2WK, (Reported) Insulin Human Lispro (Humalog) 100 Unit/1 Ml Vial, 0 UNITS SC ACHS Based on ISS from [facility] Latanoprost (Xalatan) 0.005% 2.5ML Drops, 1 DROP OU QHS, (Reported) Levothyroxine Sodium (Levothyroxine Sodium) 100 Mcg Tablet, 100 MCG PO DAILY, (Reported) Potassium Chloride (Potassium Chloride) 20 Meq Tab.er.prt, 20 MEQ PO DAILY, (Reported) Repaglinide (Repaglinide) 0.5 Mg Tablet, 0.5 MG PO WM, (Reported) Salmeterol/Fluticasone (Advair 250-50 Diskus) 1 Each Blst.w.dev, 1 PUFF INH BID, (Reported) Sitagliptin (Januvia) 50 Mg Tablet, 50 MG PO DAILY, (Reported) Torsemide (Torsemide) 10 Mg Tablet, 10 MG PO DAILY Scheduled PRN Albuterol Sulfate (Albuterol Sulfate Hfa) 8.5 Gm Hfa.aer.ad, 1 PUFF INH QID PRN for SOB/WHEEZING, (Reported) Benzonatate (Benzonatate) 100 Mg Capsule, 100 MG PO TID PRN for COUGH, (Reported) Allergies Coded Allergies: Penicillins (Verified Allergy, Intermediate, HIVES, 02/12/19) Sulfa (Sulfonamide Antibiotics) (Verified Allergy, Intermediate, HIVES, 02/12/19) codeine (Verified Allergy, Unknown, 02/12/19) NSAIDS (Non-Steroidal Anti-Inflamma (Verified Adverse Reaction, Intermediate, ULCERS, PALPITATIONS, 04/22/21) aspirin (Verified Adverse Reaction, Intermediate, ULCERS, PALPITATIONS, 04/22/21) ibuprofen (Verified Adverse Reaction, Intermediate, ULCERS, PALPITATIONS, 04/22/21) Egg Derived (Verified Adverse Reaction, Mild, NAUSEA, 02/12/19) egg (Verified Adverse Reaction, Mild, NAUSEA, 02/12/19) HAKEEM ACUNA MD May 05, 2021 12:27
--- NOTE | 2021-05-05 12:49 | IPN ---
NEPHROLOGY PROGRESS NOTE DATE: 05/05/2021 SUBJECTIVE: Ms. Mercedes was seen this morning on her bedside. She continues to have some cough, but denies any hemoptysis or pleuritic type of chest pain. Her sinus pain has improved. She denies any nausea or vomiting. She has no fever or chills. PHYSICAL EXAMINATION: Temperature 98.1 degrees Fahrenheit, heart rate 80 per minute and respiratory rate 16 per minute. Blood pressure 108/52 mmHg and oxygen saturation 89 on 2 liters oxygen. Head: Atraumatic. Neck: Supple and without JVD or thyroid enlargement. Heart: Sounds are regular. Lungs: Diminished breath sounds with a few scattered rhonchi. Abdomen: Soft and nontender and bowel sounds are normal. Extremities: Without any cyanosis or clubbing. Lower extremity edema is still 1+ bilaterally. Neurologically: She is awake, alert and oriented times 3. LABORATORY DATA: Today's labs show: Sodium level 135, potassium 3.7, CO2 29, BUN 75, creatinine 2.85, glucose 373, calcium 7.9. Hemoglobin 8.2, hematocrit 26.2. PROBLEMS/PLAN: 1. Congestive heart failure: She does have mild peripheral edema, but no JVD and no rales in her lungs. She is on low dose torsemide 10 mg daily and I will continue with the same. 2. Acute on chronic kidney disease: Kidney function slightly worse. She has no uremic symptoms. Nursing staff has been advised for bladder scan to make sure she does not have any urinary retention. 3. Anemia: Her anemia is stable at this point. She remains on weekly dose of Aranesp and oral iron supplement. 4. Hyperglycemia: Her blood sugar is high this morning, but generally it has been reasonably well controlled. She should continue with her insulin coverage. 5. Sinusitis and bronchitis: Patient seems to be improving and remains afebrile at present.
== END 2021-05-05 17:55 | DRG 683 ==
LOC: M ED 11:02 → EDBD 11:02 → ENRESERV 15:43 → M PCU 19:00 → M MSPAV 05-01 16:58
PROVIDERS: ADMIT Internal Medicine; ATTEND Internal Medicine
DX: N17.9 Acute kidney failure, unspecified (principal); J96.11 Chronic respiratory failure with hypoxia; E87.3 Alkalosis; I50.32 Chronic diastolic (congestive) heart failure; I13.2 Hypertensive heart and chronic kidney disease with heart failure and with stage 5 chronic kidney disease, or end stage renal disease; E46 Unspecified protein-calorie malnutrition; I48.20 Chronic atrial fibrillation, unspecified; R33.9 Retention of urine, unspecified; N18.5 Chronic kidney disease, stage 5; N13.30 Unspecified hydronephrosis; N25.81 Secondary hyperparathyroidism of renal origin; E87.6 Hypokalemia; R11.2 Nausea with vomiting, unspecified; J44.9 Chronic obstructive pulmonary disease, unspecified; J01.90 Acute sinusitis, unspecified; J20.9 Acute bronchitis, unspecified; E03.9 Hypothyroidism, unspecified; E11.9 Type 2 diabetes mellitus without complications; H40.9 Unspecified glaucoma; Z79.01 Long term (current) use of anticoagulants; Z79.899 Other long term (current) drug therapy; Z88.0 Allergy status to penicillin; Z88.2 Allergy status to sulfonamides; Z88.6 Allergy status to analgesic agent; Z88.5 Allergy status to narcotic agent; Z91.012 Allergy to eggs; Z79.4 Long term (current) use of insulin; D63.1 Anemia in chronic kidney disease; E53.8 Deficiency of other specified B group vitamins; Z87.891 Personal history of nicotine dependence

== ENCOUNTER → 2021-06-15 | Outpatient (REF) | payer MEDICARE, MEDICAID ==
[~2021-06-15] MED LIST changes: +BENZ-18 PO; +DOXY100T2 PO; +INSUHUMDS SC; +POTA20TA6 PO; +TORS10TA3 PO
== END ==
LOC: M LAB REF 17:11
PROVIDERS: ATTEND Internal Medicine Nephrology
DX: N18.5 Chronic kidney disease, stage 5 (principal)

== ENCOUNTER 2021-06-16 11:56 | Outpatient (CLI) | payer MEDICARE, MEDICAID ==
[~2021-06-16] VITALS: Ht 160 cm; Wt 61.7 kg
[~2021-06-16 11:56] MED LIST changes: +diphenhydrAMINE 25MG CAP PO SCH
[2021-06-16] MEDS ORDERED: FUROSEMIDE 40MG/4ML VIAL (J1940) IV ONE (12:20)
[2021-06-16 12:40] VITALS: BP 127/61
[2021-06-16 13:00] VITALS: BP 128/62
[2021-06-16 14:00] VITALS: BP 136/76
[2021-06-16 14:43] VITALS: BP 133/64
== END 2021-06-16 15:10 | disposition home or self-care (01) ==
LOC: M INFU 11:56
PROVIDERS: ATTEND Internal Medicine Nephrology
DX: N18.5 Chronic kidney disease, stage 5 (principal); D63.1 Anemia in chronic kidney disease
CPT/HCPCS: 36430; 96374; J1940; P9016

== ENCOUNTER → 2021-07-16 | Outpatient (REF) | payer MEDICARE, MEDICAID ==
[~2021-07-16] MED LIST changes: -diphenhydrAMINE 25MG CAP PO SCH
== END ==
LOC: M LAB REF 13:10
PROVIDERS: ATTEND Nurse Practitioner Family
DX: N18.5 Chronic kidney disease, stage 5 (principal)

== ENCOUNTER → 2021-08-19 | Outpatient (REF) | payer MEDICARE, MEDICAID ==
[2021-08-19 14:16] LABS: PERCENT SATURATION 9.8 % (13.2-45.0)
== END ==
LOC: M LAB REF 12:56
PROVIDERS: ATTEND Nurse Practitioner Family
DX: D50.9 Iron deficiency anemia, unspecified (principal); N18.5 Chronic kidney disease, stage 5

== ENCOUNTER → 2021-10-01 | Outpatient (REF) | payer MEDICARE, MEDICAID, OTHER ==
[~2021-10-01] MED LIST changes: +ACET650T61 PO; -AMIO200T3 PO; +AMIO200T49 PO; +DOCU100C16 PO; +FOLI1TAB11 PO; +MIRA1POW3 PO; +POTA-151 PO; -POTA20TA6 PO
[2021-10-01 17:45] LABS: HEMATOCRIT 36.3 % (36.0-47.0); HEMOGLOBIN 10.3 g/dl (12.0-15.5); MEAN CORPUSCULAR HEMOGLOBIN 27.5 pg (27.0-33.0); MEAN CORPUSCULAR HGB CONC 28.4 g/dl (32.0-36.5); MEAN CORPUSCULAR VOLUME 97.1 fl (80.0-96.0); PLATELET COUNT, AUTOMATED 202 10^3/uL (150-450); RED BLOOD COUNT 3.74 10^6/uL (4.00-5.40); WHITE BLOOD COUNT 5.9 10^3/uL (4.0-10.0)
[2021-10-01 18:15] LABS: CALCIUM LEVEL 8.3 MG/DL (8.8-10.2); CREATININE FOR GFR 2.97 MG/DL (0.55-1.30); GLOMERULAR FILTRATION RATE 16.3 (>39); POTASSIUM SERUM 4.1 MEQ/L (3.5-5.1)
== END ==
LOC: M SFHCADAM 11:38
PROVIDERS: ATTEND Physician Assistant
DX: I48.0 Paroxysmal atrial fibrillation (principal); D63.8 Anemia in other chronic diseases classified elsewhere

== ENCOUNTER → 2021-10-23 | Outpatient (REF) | payer MEDICARE, MEDICAID, OTHER | LOC: M LAB REF 16:38 | PROVIDERS: ATTEND Nurse Practitioner Family | DX: E83.42 Hypomagnesemia (principal) ==

== ENCOUNTER → 2021-11-03 | Outpatient (REF) | payer MEDICARE, MEDICAID, OTHER ==
[2021-11-03 17:10] LABS: HEMATOCRIT 32.4 % (36.0-47.0); HEMOGLOBIN 9.6 g/dl (12.0-15.5); MEAN CORPUSCULAR HEMOGLOBIN 29.8 pg (27.0-33.0); MEAN CORPUSCULAR HGB CONC 29.6 g/dl (32.0-36.5); MEAN CORPUSCULAR VOLUME 100.6 fl (80.0-96.0); PLATELET COUNT, AUTOMATED 176 10^3/uL (150-450); RED BLOOD COUNT 3.22 10^6/uL (4.00-5.40); WHITE BLOOD COUNT 6.7 10^3/uL (4.0-10.0)
[2021-11-03 17:26] LABS: HEMOGLOBIN A1c 5.9 %
[2021-11-03 17:36] LABS: BILIRUBIN,TOTAL 0.3 MG/DL (0.2-1.0); CALCIUM LEVEL 8.5 MG/DL (8.8-10.2); CHOLESTEROL RISK RATIO 2.456 (<5); CREATININE FOR GFR 2.93 MG/DL (0.55-1.30); FREE T4 1.87 NG/DL (0.76-1.46); GLOMERULAR FILTRATION RATE 16.5 (>39); POTASSIUM SERUM 5.4 MEQ/L (3.5-5.1); THYROID STIMULATING HORMONE 2.37 uIU/ML (0.358-3.740); TOTAL PROTEIN 7.1 GM/DL (6.4-8.2)
== END ==
LOC: M SFHCADAM 10:56
PROVIDERS: ATTEND Family Medicine
DX: E03.9 Hypothyroidism, unspecified (principal); E11.22 Type 2 diabetes mellitus with diabetic chronic kidney disease; E78.49 Other hyperlipidemia; N18.5 Chronic kidney disease, stage 5

== ENCOUNTER → 2021-12-04 | Outpatient (REF) | payer MEDICARE, MEDICAID ==
[2021-12-04 17:53] LABS: PERCENT SATURATION 13.9 % (13.2-45.0)
== END ==
LOC: M LAB REF 17:07
PROVIDERS: ATTEND Nurse Practitioner Family
DX: D50.9 Iron deficiency anemia, unspecified (principal)

== ENCOUNTER 2022-01-26 09:30 | Emergency (ER) | payer MEDICAID, MEDICARE ==
[~2022-01-26] VITALS: Ht 157.5 cm; Wt 63.2 kg
[2022-01-26 10:29] LABS: BASO % 0.1 % (0.0-1.0); EOS # 0.1 10^3/uL (0.0-0.5); HEMOGLOBIN 7.1 g/dl (12.0-15.5); LYMPH # 0.9 10^3/uL (1.5-5.0); LYMPH % 11.7 % (24.0-44.0); MEAN CORPUSCULAR HEMOGLOBIN 28.3 pg (27.0-33.0); MEAN CORPUSCULAR HGB CONC 29.6 g/dl (32.0-36.5); MEAN CORPUSCULAR VOLUME 95.6 fl (80.0-96.0); MONO # 0.5 10^3/uL (0.0-0.8); NEUTROPHILS # 5.7 10^3/uL (1.5-8.5); NEUTROPHILS % 79.4 % (36.0-66.0); PLATELET COUNT, AUTOMATED 215 10^3/uL (150-450); RED BLOOD COUNT 2.51 10^6/uL (4.00-5.40); WHITE BLOOD COUNT 7.2 10^3/uL (4.0-10.0)
[2022-01-26] MEDS ORDERED: methylPREDNISolone 125MG 2ML VIAL IV ONE (10:35)
[2022-01-26 11:07] LABS: ALBUMIN 2.8 GM/DL (3.2-5.2); BILIRUBIN,TOTAL 0.5 MG/DL (0.2-1.0); CALCIUM LEVEL 8.4 MG/DL (8.8-10.2); CREATININE FOR GFR 2.9 MG/DL (0.55-1.30); GLOMERULAR FILTRATION RATE 16.7 (>39); POTASSIUM SERUM 4.4 MEQ/L (3.5-5.1)
[2022-01-26] MEDS ORDERED: LABETALOL 100MG/20ML VIAL IV PRN (15:15)
[2022-01-26 15:35] VITALS: BP 156/78
[2022-01-26] MEDS ORDERED: NS 1,000 ML IV SCH (15:35)
[2022-01-26] MEDS ORDERED: PROTHROMBIN COMPLEX CONCEN IV ONE (16:00)
[2022-01-26] MEDS ORDERED: DILUENT IV ONE (16:00)
[2022-01-26 16:05] VITALS: BP 138/63
== END 2022-01-26 16:15 | disposition short-term general hospital (02) ==
LOC: M ED 09:30 → EDBD 09:30 → M ED 16:15
DX: I61.3 Nontraumatic intracerebral hemorrhage in brain stem (principal); T45.515A Adverse effect of anticoagulants, initial encounter; K92.2 Gastrointestinal hemorrhage, unspecified; R94.31 Abnormal electrocardiogram [ECG] [EKG]; Z86.79 Personal history of other diseases of the circulatory system; E11.9 Type 2 diabetes mellitus without complications; I10 Essential (primary) hypertension; J44.9 Chronic obstructive pulmonary disease, unspecified; F90.9 Attention-deficit hyperactivity disorder, unspecified type; Z87.891 Personal history of nicotine dependence; Z91.012 Allergy to eggs; Z88.6 Allergy status to analgesic agent; Z88.0 Allergy status to penicillin
CPT/HCPCS: 70450; 70544; 70551; 71045; 80053; 83605; 83880; 84484; 85025; 86850; 86900; 86901; 87040; 87486; 87581; 87633; 87798; 93005; 96365; 96375; 99285; J2930; J7168

== ENCOUNTER 2022-03-01 16:14 | Inpatient (IN) | payer MEDICARE, MEDICAID ==
[~2022-03-01] VITALS: Ht 160 cm; Wt 75.7 kg
[2022-03-01 18:44] LABS: BASO % 0.2 % (0.0-1.0); EOS # 0.1 10^3/uL (0.0-0.5); EOS % 0.6 % (0.0-3.0); HEMOGLOBIN 7.9 g/dl (12.0-15.5); LYMPH # 1.3 10^3/uL (1.5-5.0); LYMPH % 13.1 % (24.0-44.0); MEAN CORPUSCULAR HGB CONC 29.3 g/dl (32.0-36.5); MEAN CORPUSCULAR VOLUME 95.7 fl (80.0-96.0); MONO # 0.8 10^3/uL (0.0-0.8); MONO % 7.9 % (2.0-8.0); NEUTROPHILS # 7.6 10^3/uL (1.5-8.5); NEUTROPHILS % 77.4 % (36.0-66.0); PLATELET COUNT, AUTOMATED 239 10^3/uL (150-450); RED BLOOD COUNT 2.82 10^6/uL (4.00-5.40); WHITE BLOOD COUNT 9.8 10^3/uL (4.0-10.0)
[2022-03-01] MEDS ORDERED: TORS10TA3 PO ×2 (18:48)
[2022-03-01] MEDS ORDERED: SUCR1TAB56 PO (18:48)
[2022-03-01] MEDS ORDERED: GABA-1171 PO (18:48)
[2022-03-01] MEDS ORDERED: SYMB16INH INH (18:48)
[2022-03-01 18:58] LABS: CALCIUM LEVEL 8.2 MG/DL (8.8-10.2); CREATININE FOR GFR 2.91 MG/DL (0.55-1.30); GLOMERULAR FILTRATION RATE 16.6 (>39); POTASSIUM SERUM 4.8 MEQ/L (3.5-5.1)
[2022-03-01 19:11] LABS: RSV AMPLIFICATION NEGATIVE (NEGATIVE)
[2022-03-01] MEDS ORDERED: DEXTROSE 50% 50 ML SYRINGE IV PRN (20:30)
[2022-03-01] MEDS ORDERED: MOM 30ML SUSPENSION UDC PO PRN (20:30)
[2022-03-01] MEDS ORDERED: GLUCOSE 4GM CHEW TABLET PO PRN (20:30)
[2022-03-01] MEDS ORDERED: MAALOX 30 ML SUSP *UDC PO PRN (20:30)
[2022-03-01] MEDS ORDERED: ACETAMINOPHEN TAB 650MG DOSE (2X325MG) PO PRN (20:30)
[2022-03-01] MEDS ORDERED: GLUCAGON INJ 1MG VIAL SC PRN (20:30)
[2022-03-01] MEDS ORDERED: LEVALBUTEROL 1.25 MG/0.5 ML CONCENTRATE NEB NEB PRN (20:30)
[2022-03-01] MEDS ORDERED: HOME MED LIST COMPLETE! XX SCH (20:50)
[2022-03-01] MEDS ORDERED: INSULIN LISPRO (NovoLOG) PER UNIT SC SCH (21:00)
[2022-03-01] MEDS ORDERED: ATORVASTATIN 10 MG TAB PO SCH (21:00)
[2022-03-01] MEDS ORDERED: LATANOPROST 0.005% OPHTH SOLN 2.5 ML OU SCH (21:00)
[2022-03-01] MEDS ORDERED: diltiaZEM **CD** 180 MG CAP PO SCH (21:00)
[2022-03-01 22:00] VITALS: BP 146/64
[2022-03-01 22:12] LABS: INR 1.03; PROTHROMBIN TIME 13.9 SECONDS (12.7-14.5)
[2022-03-01 22:13] LABS: PARTIAL THROMBOPLASTIN TIME 29.6 SECONDS (25.9-37.0)
[2022-03-01 22:21] LABS: CALCIUM LEVEL 8.7 MG/DL (8.8-10.2); CREATININE FOR GFR 2.88 MG/DL (0.55-1.30); GLOMERULAR FILTRATION RATE 16.8 (>39); PERCENT SATURATION 9.1 % (13.2-45.0); POTASSIUM SERUM 4.4 MEQ/L (3.5-5.1)
[2022-03-01] MEDS: AMIODARONE 200 MG TAB (PACERONE) PO SCH (23:10)
[2022-03-01] MEDS: PANTOPRAZOLE 40MG VIAL IV SCH (23:10)
[2022-03-01] MEDS: GABAPENTIN 100 MG CAP PO SCH (23:11)
[2022-03-01] MEDS: SUCRALFATE 1 GM TAB PO SCH (23:11)
[2022-03-01] MEDS: DOCUSATE SODIUM 100MG CAPSULE PO SCH (23:11)
[2022-03-01 23:12] VITALS: BP 146/64
[2022-03-02] VITALS (11 sets, daily range): BP systolic 115–139; BP diastolic 50–61; O2SAT 97
[2022-03-02] MEDS: IPRATROPIUM 0.5MG/ALBUTEROL 2.5MG INH SOL UD 3ML (DUONEB) NEB SCH ×2 (02:00→08:00)
[2022-03-02] MEDS ORDERED: LEVOTHYROXINE 100MCG TABLET (0.1MG) PO SCH (06:00)
[2022-03-02 07:04] LABS: HEMATOCRIT 30.6 % (36.0-47.0); HEMOGLOBIN 9.6 g/dl (12.0-15.5); MEAN CORPUSCULAR HEMOGLOBIN 29.4 pg (27.0-33.0); MEAN CORPUSCULAR HGB CONC 31.4 g/dl (32.0-36.5); MEAN CORPUSCULAR VOLUME 93.6 fl (80.0-96.0); PLATELET COUNT, AUTOMATED 183 10^3/uL (150-450); RED BLOOD COUNT 3.27 10^6/uL (4.00-5.40); WHITE BLOOD COUNT 8.5 10^3/uL (4.0-10.0)
[2022-03-02] MEDS ORDERED: ADVAIR HFA 115/21MCG INHALER INH SCH (08:00)
[2022-03-02] MEDS ORDERED: SYMBICORT 160/4.5MCG INHALER 6GM INH SCH (08:00)
[2022-03-02] MEDS ORDERED: TORSEMIDE 10 MG TABLET PO SCH (09:00)
[2022-03-02] MEDS ORDERED: FOLIC ACID 1 MG TAB PO SCH (09:00)
[2022-03-02] MEDS ORDERED: MIRALAX *UNIT DOSE* 17GM PACKET PO SCH (09:00)
[2022-03-02] MEDS: INSULIN LISPRO (NovoLOG) PER UNIT SC SCH ×2 (09:31→13:31)
[2022-03-02] MEDS: PANTOPRAZOLE 40MG VIAL IV SCH (09:31)
[2022-03-02] MEDS: DOCUSATE SODIUM 100MG CAPSULE PO SCH (09:32)
[2022-03-02] MEDS: GABAPENTIN 100 MG CAP PO SCH (09:33)
[2022-03-02] MEDS: SUCRALFATE 1 GM TAB PO SCH ×2 (09:33→13:31)
[2022-03-02] MEDS: AMIODARONE 200 MG TAB (PACERONE) PO SCH (09:33)
[2022-03-02] MEDS ORDERED: TORSEMIDE 20 MG TAB PO SCH (17:00)
[2022-03-03 07:29] LABS: CALCIUM LEVEL 8.5 MG/DL (8.8-10.2); CREATININE FOR GFR 2.7 MG/DL (0.55-1.30); GLOMERULAR FILTRATION RATE 18.1 (>39); POTASSIUM SERUM 3.9 MEQ/L (3.5-5.1)
[2022-03-03 07:53] LABS: MAGNESIUM LEVEL 2.4 MG/DL (1.8-2.4); THYROID STIMULATING HORMONE 25.3 uIU/ML (0.358-3.740)
== END 2022-03-02 13:55 | DRG 812 ==
LOC: EDBD 16:14 → M ED 16:14 → M ED INP 20:30 → M MSPAV 22:32
PROVIDERS: ADMIT Family Medicine; ATTEND Internal Medicine
PROC: 30233N1 Transfusion of Nonautologous Red Blood Cells into Peripheral Vein, Percutaneous Approach (ICD-10-PCS; principal; 2022-03-02)
DX: D62 Acute posthemorrhagic anemia (principal); J44.1 Chronic obstructive pulmonary disease with (acute) exacerbation; I13.0 Hypertensive heart and chronic kidney disease with heart failure and stage 1 through stage 4 chronic kidney disease, or unspecified chronic kidney disease; I48.20 Chronic atrial fibrillation, unspecified; I50.32 Chronic diastolic (congestive) heart failure; N18.4 Chronic kidney disease, stage 4 (severe); J96.11 Chronic respiratory failure with hypoxia; K92.2 Gastrointestinal hemorrhage, unspecified; E03.9 Hypothyroidism, unspecified; E11.9 Type 2 diabetes mellitus without complications; K21.9 Gastro-esophageal reflux disease without esophagitis; E78.5 Hyperlipidemia, unspecified; I25.10 Atherosclerotic heart disease of native coronary artery without angina pectoris; Z99.81 Dependence on supplemental oxygen; Z86.73 Personal history of transient ischemic attack (TIA), and cerebral infarction without residual deficits; Z79.899 Other long term (current) drug therapy; Z88.0 Allergy status to penicillin; Z88.2 Allergy status to sulfonamides; Z88.6 Allergy status to analgesic agent; Z91.012 Allergy to eggs; Z88.5 Allergy status to narcotic agent; D63.8 Anemia in other chronic diseases classified elsewhere; Z79.01 Long term (current) use of anticoagulants

== ENCOUNTER 2022-03-02 10:46 | Inpatient (IN) | payer MEDICARE, MEDICAID ==
[~2022-03-02] VITALS: Ht 160 cm; Wt 79.8 kg
[~2022-03-02 10:46] MED LIST changes: +GABA-1171 PO; +SUCR1TAB56 PO; +SYMB16INH INH
[2022-03-02 14:15] VITALS: BP 144/70
[2022-03-02] MEDS ORDERED: GLUCAGON INJ 1MG VIAL SC PRN (14:35)
[2022-03-02] MEDS ORDERED: MIRALAX *UNIT DOSE* 17GM PACKET PO PRN (14:35)
[2022-03-02] MEDS ORDERED: DEXTROSE 50% 50 ML SYRINGE IV PRN (14:35)
[2022-03-02] MEDS ORDERED: GLUCOSE 4GM CHEW TABLET PO PRN (14:35)
[2022-03-02] MEDS ORDERED: HOME MED LIST COMPLETE! XX SCH (14:50)
[2022-03-02] MEDS: COMBIVENT RESPIMAT 100-20MCG INHALER 4GM INH SCH ×2 (16:00→20:00)
[2022-03-02] MEDS: REMEDY PHYTOPLEX Z-GUARD PASTE 113GM TUBE (FROM STOREROOM PRODUCT) TOP SCH ×2 (16:00→21:41)
[2022-03-02] MEDS ORDERED: TORSEMIDE 20 MG TAB PO SCH (17:00)
[2022-03-02] MEDS: guaiFENesin 200 MG TAB PO SCH ×2 (17:08→21:37)
[2022-03-02] MEDS: GABAPENTIN 100 MG CAP PO SCH ×2 (17:08→21:39)
[2022-03-02] MEDS: SUCRALFATE 1 GM TAB PO SCH ×2 (17:08→21:39)
[2022-03-02] MEDS: INSULIN LISPRO (NovoLOG) PER UNIT SC SCH ×2 (17:09→21:00)
[2022-03-02 20:00] VITALS: BP 145/65
[2022-03-02] MEDS ORDERED: ADVAIR HFA 115/21MCG INHALER INH SCH (20:00)
[2022-03-02] MEDS: BUDESONIDE 0.5 MG/2 ML INHALATION SUSPENSION INH SCH (20:37)
[2022-03-02] MEDS: LATANOPROST 0.005% OPHTH SOLN 2.5 ML OU SCH (21:36)
[2022-03-02] MEDS: SENNA 8.6 MG TAB (SENOKOT) PO SCH (21:37)
[2022-03-02] MEDS: VANICREAM MOISTURIZING SKIN CREAM 113GM TUBE TOP SCH (21:37)
[2022-03-02] MEDS: DOCUSATE SODIUM 100MG CAPSULE PO SCH (21:37)
[2022-03-02] MEDS: ATORVASTATIN 10 MG TAB PO SCH (21:37)
[2022-03-02] MEDS: diltiaZEM **CD** 180 MG CAP PO SCH (21:39)
[2022-03-02] MEDS: AMIODARONE 200 MG TAB (PACERONE) PO SCH (21:40)
[2022-03-02] MEDS: PANTOPRAZOLE 40MG TAB (PROTONIX) PO SCH (21:40)
[2022-03-03 05:00] VITALS: BP 132/60
[2022-03-03] MEDS ORDERED: LEVOTHYROXINE 100MCG TABLET (0.1MG) PO SCH (06:00)
[2022-03-03 06:58] LABS: BASO % 0.3 % (0.0-1.0); EOS # 0.1 10^3/uL (0.0-0.5); EOS % 1.3 % (0.0-3.0); HEMATOCRIT 33.1 % (36.0-47.0); HEMOGLOBIN 10.1 g/dl (12.0-15.5); LYMPH # 2.4 10^3/uL (1.5-5.0); LYMPH % 23.7 % (24.0-44.0); MEAN CORPUSCULAR HEMOGLOBIN 28.3 pg (27.0-33.0); MEAN CORPUSCULAR HGB CONC 30.5 g/dl (32.0-36.5); MEAN CORPUSCULAR VOLUME 92.7 fl (80.0-96.0); MONO % 10.1 % (2.0-8.0); NEUTROPHILS # 6.4 10^3/uL (1.5-8.5); NEUTROPHILS % 63.8 % (36.0-66.0); PLATELET COUNT, AUTOMATED 225 10^3/uL (150-450); RED BLOOD COUNT 3.57 10^6/uL (4.00-5.40); WHITE BLOOD COUNT 10.1 10^3/uL (4.0-10.0)
[2022-03-03 07:22] LABS: ALBUMIN 2.2 GM/DL (3.2-5.2); BILIRUBIN,TOTAL 0.3 MG/DL (0.2-1.0); CALCIUM LEVEL 8.3 MG/DL (8.8-10.2); CREATININE FOR GFR 2.91 MG/DL (0.55-1.30); GLOMERULAR FILTRATION RATE 16.6 (>39); POTASSIUM SERUM 4.5 MEQ/L (3.5-5.1); TOTAL PROTEIN 6.6 GM/DL (6.4-8.2)
[2022-03-03] MEDS: BUDESONIDE 0.5 MG/2 ML INHALATION SUSPENSION INH SCH ×2 (07:35→20:05)
[2022-03-03] MEDS: COMBIVENT RESPIMAT 100-20MCG INHALER 4GM INH SCH ×3 (07:35→20:04)
[2022-03-03] MEDS: VANICREAM MOISTURIZING SKIN CREAM 113GM TUBE TOP SCH ×2 (08:05→21:11)
[2022-03-03] MEDS: PANTOPRAZOLE 40MG TAB (PROTONIX) PO SCH ×2 (08:05→21:08)
[2022-03-03] MEDS: AMIODARONE 200 MG TAB (PACERONE) PO SCH ×2 (08:06→21:08)
[2022-03-03] MEDS: GABAPENTIN 100 MG CAP PO SCH ×3 (08:06→21:09)
[2022-03-03] MEDS: guaiFENesin 200 MG TAB PO SCH ×3 (08:07→21:08)
[2022-03-03] MEDS: DOCUSATE SODIUM 100MG CAPSULE PO SCH ×2 (08:07→21:08)
[2022-03-03] MEDS: FOLIC ACID 1 MG TAB PO SCH (08:07)
[2022-03-03] MEDS: SUCRALFATE 1 GM TAB PO SCH ×4 (08:08→21:09)
[2022-03-03] MEDS: INSULIN LISPRO (NovoLOG) PER UNIT SC SCH ×4 (08:08→21:00)
[2022-03-03] MEDS: REMEDY PHYTOPLEX Z-GUARD PASTE 113GM TUBE (FROM STOREROOM PRODUCT) TOP SCH ×3 (08:11→21:10)
[2022-03-03] MEDS ORDERED: TORSEMIDE 10 MG TABLET PO SCH (09:00)
[2022-03-03 11:17] VITALS: BP 132/60
[2022-03-03 14:00] VITALS: BP 153/67
[2022-03-03] MEDS ORDERED: guaiFENesin 200 MG TAB PO SCH (16:00)
[2022-03-03 17:19] LABS: FREE T3 1.3 PG/ML (2.2-4.0); FREE T4 1.2 NG/DL (0.76-1.46)
[2022-03-03] MEDS: LORATADINE 10 MG TAB PO SCH (17:37)
[2022-03-03 19:46] VITALS: BP 126/60
[2022-03-03] MEDS: ATORVASTATIN 10 MG TAB PO SCH (21:08)
[2022-03-03] MEDS: SENNA 8.6 MG TAB (SENOKOT) PO SCH (21:08)
[2022-03-03] MEDS: diltiaZEM **CD** 180 MG CAP PO SCH (21:09)
[2022-03-03] MEDS: LATANOPROST 0.005% OPHTH SOLN 2.5 ML OU SCH (21:10)
[2022-03-03] MEDS: FLUTICASONE PROP 0.05% NASAL SPRAY 16 GM (FLONASE) NARES SCH (21:12)
[2022-03-04 05:35] VITALS: BP 130/58
[2022-03-04] MEDS: LEVOTHYROXINE 150MCG TABLET (0.15MG) PO SCH (05:41)
[2022-03-04 05:58] LABS: BASO % 0.2 % (0.0-1.0); EOS # 0.1 10^3/uL (0.0-0.5); EOS % 0.9 % (0.0-3.0); HEMATOCRIT 29.7 % (36.0-47.0); HEMOGLOBIN 9.1 g/dl (12.0-15.5); LYMPH # 1.3 10^3/uL (1.5-5.0); LYMPH % 14.5 % (24.0-44.0); MEAN CORPUSCULAR HGB CONC 30.6 g/dl (32.0-36.5); MEAN CORPUSCULAR VOLUME 94.6 fl (80.0-96.0); MONO # 0.9 10^3/uL (0.0-0.8); MONO % 9.7 % (2.0-8.0); NEUTROPHILS # 6.8 10^3/uL (1.5-8.5); PLATELET COUNT, AUTOMATED 181 10^3/uL (150-450); RED BLOOD COUNT 3.14 10^6/uL (4.00-5.40); WHITE BLOOD COUNT 9.2 10^3/uL (4.0-10.0)
[2022-03-04] MEDS: COMBIVENT RESPIMAT 100-20MCG INHALER 4GM INH SCH ×4 (07:21→20:11)
[2022-03-04] MEDS: BUDESONIDE 0.5 MG/2 ML INHALATION SUSPENSION INH SCH ×2 (07:21→20:10)
[2022-03-04] MEDS: INSULIN LISPRO (NovoLOG) PER UNIT SC SCH ×5 (08:31→20:52)
[2022-03-04] MEDS: SUCRALFATE 1 GM TAB PO SCH ×4 (08:32→20:50)
[2022-03-04] MEDS: DOCUSATE SODIUM 100MG CAPSULE PO SCH ×2 (08:32→20:50)
[2022-03-04] MEDS: guaiFENesin 200 MG TAB PO SCH ×3 (08:32→20:50)
[2022-03-04] MEDS: FOLIC ACID 1 MG TAB PO SCH (08:33)
[2022-03-04] MEDS: AMIODARONE 200 MG TAB (PACERONE) PO SCH ×2 (08:33→20:49)
[2022-03-04] MEDS: ACETAMINOPHEN TAB 650MG DOSE (2X325MG) PO PRN ×2 (08:33→20:53)
[2022-03-04] MEDS: LORATADINE 10 MG TAB PO SCH (08:33)
[2022-03-04] MEDS: GABAPENTIN 100 MG CAP PO SCH ×3 (08:33→20:50)
[2022-03-04] MEDS: PANTOPRAZOLE 40MG TAB (PROTONIX) PO SCH ×2 (08:33→20:50)
[2022-03-04] MEDS: REMEDY PHYTOPLEX Z-GUARD PASTE 113GM TUBE (FROM STOREROOM PRODUCT) TOP SCH ×3 (08:34→20:53)
[2022-03-04] MEDS: FLUTICASONE PROP 0.05% NASAL SPRAY 16 GM (FLONASE) NARES SCH ×2 (08:34→20:51)
[2022-03-04] MEDS: VANICREAM MOISTURIZING SKIN CREAM 113GM TUBE TOP SCH ×2 (08:34→20:53)
[2022-03-04] MEDS ORDERED: TORSEMIDE 20 MG TAB PO SCH (09:00)
[2022-03-04 09:48] LABS: BASO % 0.2 % (0.0-1.0); EOS # 0.1 10^3/uL (0.0-0.5); HEMATOCRIT 33.8 % (36.0-47.0); HEMOGLOBIN 10.1 g/dl (12.0-15.5); LYMPH # 1.6 10^3/uL (1.5-5.0); LYMPH % 16.1 % (24.0-44.0); MEAN CORPUSCULAR HGB CONC 29.9 g/dl (32.0-36.5); MEAN CORPUSCULAR VOLUME 93.6 fl (80.0-96.0); MONO # 0.8 10^3/uL (0.0-0.8); MONO % 7.8 % (2.0-8.0); NEUTROPHILS # 7.5 10^3/uL (1.5-8.5); NEUTROPHILS % 74.3 % (36.0-66.0); PLATELET COUNT, AUTOMATED 214 10^3/uL (150-450); RED BLOOD COUNT 3.61 10^6/uL (4.00-5.40); WHITE BLOOD COUNT 10.1 10^3/uL (4.0-10.0)
[2022-03-04 10:16] LABS: CALCIUM LEVEL 8.6 MG/DL (8.8-10.2); CREATININE FOR GFR 3.09 MG/DL (0.55-1.30); GLOMERULAR FILTRATION RATE 15.5 (>39); POTASSIUM SERUM 4.2 MEQ/L (3.5-5.1)
[2022-03-04 14:00] VITALS: BP 147/65
[2022-03-04 14:52] LABS: PERCENT SATURATION 17.5 % (13.2-45.0)
[2022-03-04] MEDS: TORSEMIDE 20 MG TAB PO SCH (16:58)
[2022-03-04 20:13] VITALS: BP 117/57
[2022-03-04] MEDS: SENNA 8.6 MG TAB (SENOKOT) PO SCH (20:49)
[2022-03-04] MEDS: ATORVASTATIN 10 MG TAB PO SCH (20:50)
[2022-03-04] MEDS: LATANOPROST 0.005% OPHTH SOLN 2.5 ML OU SCH (20:51)
[2022-03-04] MEDS: diltiaZEM **CD** 180 MG CAP PO SCH (20:53)
[2022-03-05] MEDS: LEVOTHYROXINE 150MCG TABLET (0.15MG) PO SCH (05:25)
[2022-03-05 05:51] VITALS: BP 124/58
[2022-03-05 06:21] LABS: BASO % 0.2 % (0.0-1.0); EOS # 0.1 10^3/uL (0.0-0.5); EOS % 1.2 % (0.0-3.0); HEMATOCRIT 30.6 % (36.0-47.0); HEMOGLOBIN 9.3 g/dl (12.0-15.5); LYMPH # 1.5 10^3/uL (1.5-5.0); LYMPH % 17.6 % (24.0-44.0); MEAN CORPUSCULAR HEMOGLOBIN 28.8 pg (27.0-33.0); MEAN CORPUSCULAR HGB CONC 30.4 g/dl (32.0-36.5); MEAN CORPUSCULAR VOLUME 94.7 fl (80.0-96.0); MONO # 0.8 10^3/uL (0.0-0.8); MONO % 9.5 % (2.0-8.0); NEUTROPHILS # 5.9 10^3/uL (1.5-8.5); NEUTROPHILS % 70.8 % (36.0-66.0); PLATELET COUNT, AUTOMATED 189 10^3/uL (150-450); RED BLOOD COUNT 3.23 10^6/uL (4.00-5.40); WHITE BLOOD COUNT 8.4 10^3/uL (4.0-10.0)
[2022-03-05 06:38] LABS: CALCIUM LEVEL 7.6 MG/DL (8.8-10.2); CREATININE FOR GFR 2.89 MG/DL (0.55-1.30); GLOMERULAR FILTRATION RATE 16.8 (>39); POTASSIUM SERUM 3.7 MEQ/L (3.5-5.1)
[2022-03-05] MEDS: COMBIVENT RESPIMAT 100-20MCG INHALER 4GM INH SCH ×4 (07:17→20:00)
[2022-03-05] MEDS: BUDESONIDE 0.5 MG/2 ML INHALATION SUSPENSION INH SCH ×2 (07:17→20:00)
[2022-03-05] MEDS: FOLIC ACID 1 MG TAB PO SCH (08:01)
[2022-03-05] MEDS: AMIODARONE 200 MG TAB (PACERONE) PO SCH ×2 (08:01→20:49)
[2022-03-05] MEDS: PANTOPRAZOLE 40MG TAB (PROTONIX) PO SCH ×2 (08:01→20:49)
[2022-03-05] MEDS: LORATADINE 10 MG TAB PO SCH (08:01)
[2022-03-05] MEDS: GABAPENTIN 100 MG CAP PO SCH ×3 (08:01→20:49)
[2022-03-05] MEDS: INSULIN LISPRO (NovoLOG) PER UNIT SC SCH ×4 (08:01→21:00)
[2022-03-05] MEDS: TORSEMIDE 20 MG TAB PO SCH ×2 (08:02→16:33)
[2022-03-05] MEDS: SUCRALFATE 1 GM TAB PO SCH ×4 (08:03→20:49)
[2022-03-05] MEDS: DOCUSATE SODIUM 100MG CAPSULE PO SCH ×2 (08:04→20:49)
[2022-03-05] MEDS: REMEDY PHYTOPLEX Z-GUARD PASTE 113GM TUBE (FROM STOREROOM PRODUCT) TOP SCH ×3 (08:04→20:51)
[2022-03-05] MEDS: guaiFENesin 200 MG TAB PO SCH ×3 (08:04→20:49)
[2022-03-05] MEDS: FLUTICASONE PROP 0.05% NASAL SPRAY 16 GM (FLONASE) NARES SCH ×2 (08:04→20:50)
[2022-03-05] MEDS: VANICREAM MOISTURIZING SKIN CREAM 113GM TUBE TOP SCH ×2 (08:05→20:51)
[2022-03-05] MEDS: AZELASTINE 137MCG NASAL SPY 30 ML (ASTELIN) SCH ×2 (09:00→20:48)
[2022-03-05 14:00] VITALS: BP 138/64
[2022-03-05] MEDS: ATORVASTATIN 10 MG TAB PO SCH (20:49)
[2022-03-05] MEDS: SENNA 8.6 MG TAB (SENOKOT) PO SCH (20:49)
[2022-03-05] MEDS: diltiaZEM **CD** 180 MG CAP PO SCH (20:50)
[2022-03-05] MEDS: LATANOPROST 0.005% OPHTH SOLN 2.5 ML OU SCH (20:50)
[2022-03-05 22:00] VITALS: BP 137/64
[2022-03-06] MEDS: LEVOTHYROXINE 150MCG TABLET (0.15MG) PO SCH (05:43)
[2022-03-06 06:00] VITALS: BP 126/60
[2022-03-06] MEDS: COMBIVENT RESPIMAT 100-20MCG INHALER 4GM INH SCH ×4 (07:20→20:08)
[2022-03-06] MEDS: BUDESONIDE 0.5 MG/2 ML INHALATION SUSPENSION INH SCH ×2 (07:20→20:08)
[2022-03-06] MEDS: SUCRALFATE 1 GM TAB PO SCH ×4 (07:30→20:59)
[2022-03-06] MEDS: INSULIN LISPRO (NovoLOG) PER UNIT SC SCH ×4 (08:45→21:00)
[2022-03-06] MEDS: REMEDY PHYTOPLEX Z-GUARD PASTE 113GM TUBE (FROM STOREROOM PRODUCT) TOP SCH ×3 (09:00→21:00)
[2022-03-06] MEDS: AMIODARONE 200 MG TAB (PACERONE) PO SCH ×2 (09:54→20:59)
[2022-03-06] MEDS: DOCUSATE SODIUM 100MG CAPSULE PO SCH ×2 (09:54→20:58)
[2022-03-06] MEDS: guaiFENesin 200 MG TAB PO SCH ×3 (09:54→20:59)
[2022-03-06] MEDS: FOLIC ACID 1 MG TAB PO SCH (09:54)
[2022-03-06] MEDS: VANICREAM MOISTURIZING SKIN CREAM 113GM TUBE TOP SCH ×2 (09:55→21:00)
[2022-03-06] MEDS: TORSEMIDE 20 MG TAB PO SCH ×2 (09:55→16:06)
[2022-03-06] MEDS: GABAPENTIN 100 MG CAP PO SCH ×3 (09:55→20:59)
[2022-03-06] MEDS: LORATADINE 10 MG TAB PO SCH (09:55)
[2022-03-06] MEDS: PANTOPRAZOLE 40MG TAB (PROTONIX) PO SCH ×2 (09:55→20:59)
[2022-03-06] MEDS: FLUTICASONE PROP 0.05% NASAL SPRAY 16 GM (FLONASE) NARES SCH ×2 (09:55→20:58)
[2022-03-06] MEDS: AZELASTINE 137MCG NASAL SPY 30 ML (ASTELIN) SCH ×2 (10:23→20:58)
[2022-03-06 16:00] VITALS: BP 124/63
[2022-03-06 20:35] VITALS: BP 139/63
[2022-03-06] MEDS: diltiaZEM **CD** 180 MG CAP PO SCH (20:58)
[2022-03-06] MEDS: SENNA 8.6 MG TAB (SENOKOT) PO SCH (20:59)
[2022-03-06] MEDS: LATANOPROST 0.005% OPHTH SOLN 2.5 ML OU SCH (20:59)
[2022-03-06] MEDS: ATORVASTATIN 10 MG TAB PO SCH (20:59)
[2022-03-07] MEDS: LEVOTHYROXINE 150MCG TABLET (0.15MG) PO SCH (05:33)
[2022-03-07 05:42] VITALS: BP 118/52
[2022-03-07] MEDS: COMBIVENT RESPIMAT 100-20MCG INHALER 4GM INH SCH ×4 (07:09→19:36)
[2022-03-07] MEDS: BUDESONIDE 0.5 MG/2 ML INHALATION SUSPENSION INH SCH ×2 (07:09→19:36)
[2022-03-07] MEDS: SUCRALFATE 1 GM TAB PO SCH ×4 (08:37→20:10)
[2022-03-07] MEDS: INSULIN LISPRO (NovoLOG) PER UNIT SC SCH ×4 (08:38→20:26)
[2022-03-07] MEDS: LORATADINE 10 MG TAB PO SCH (08:38)
[2022-03-07] MEDS: DOCUSATE SODIUM 100MG CAPSULE PO SCH ×2 (08:38→20:10)
[2022-03-07] MEDS: TORSEMIDE 20 MG TAB PO SCH ×2 (08:38→16:25)
[2022-03-07] MEDS: GABAPENTIN 100 MG CAP PO SCH ×3 (08:39→20:10)
[2022-03-07] MEDS: guaiFENesin 200 MG TAB PO SCH ×3 (08:39→20:09)
[2022-03-07] MEDS: PANTOPRAZOLE 40MG TAB (PROTONIX) PO SCH ×2 (08:39→20:10)
[2022-03-07] MEDS: FLUTICASONE PROP 0.05% NASAL SPRAY 16 GM (FLONASE) NARES SCH ×2 (08:39→20:11)
[2022-03-07] MEDS: AZELASTINE 137MCG NASAL SPY 30 ML (ASTELIN) SCH ×2 (08:39→20:11)
[2022-03-07] MEDS: AMIODARONE 200 MG TAB (PACERONE) PO SCH ×2 (08:39→20:10)
[2022-03-07] MEDS: FOLIC ACID 1 MG TAB PO SCH (08:39)
[2022-03-07] MEDS: VANICREAM MOISTURIZING SKIN CREAM 113GM TUBE TOP SCH ×2 (08:40→20:11)
[2022-03-07] MEDS: REMEDY PHYTOPLEX Z-GUARD PASTE 113GM TUBE (FROM STOREROOM PRODUCT) TOP SCH ×3 (08:40→20:11)
[2022-03-07 08:42] LABS: CALCIUM LEVEL 8.2 MG/DL (8.8-10.2); CREATININE FOR GFR 3.18 MG/DL (0.55-1.30); MAGNESIUM LEVEL 2.4 MG/DL (1.8-2.4); PHOSPHORUS LEVEL 3.5 MG/DL (2.5-4.9); POTASSIUM SERUM 3.9 MEQ/L (3.5-5.1)
[2022-03-07 14:00] VITALS: BP 120/73
[2022-03-07] MEDS ORDERED: FERRIC CARBOXYMALTOSE INJ 750 MG, VIAL MATE ADAPTER 1 EACH in NS 250 ML IV ONE (15:00)
[2022-03-07 19:50] VITALS: BP 132/64
[2022-03-07] MEDS: ATORVASTATIN 10 MG TAB PO SCH (20:10)
[2022-03-07] MEDS: SENNA 8.6 MG TAB (SENOKOT) PO SCH (20:10)
[2022-03-07] MEDS: diltiaZEM **CD** 180 MG CAP PO SCH (20:10)
[2022-03-07] MEDS: LATANOPROST 0.005% OPHTH SOLN 2.5 ML OU SCH (20:11)
[2022-03-08] MEDS: LEVOTHYROXINE 150MCG TABLET (0.15MG) PO SCH (05:34)
[2022-03-08 05:43] VITALS: BP 141/63
[2022-03-08 06:48] LABS: BASO % 0.1 % (0.0-1.0); EOS # 0.1 10^3/uL (0.0-0.5); EOS % 0.8 % (0.0-3.0); HEMOGLOBIN 10.1 g/dl (12.0-15.5); LYMPH # 1.2 10^3/uL (1.5-5.0); LYMPH % 12.4 % (24.0-44.0); MEAN CORPUSCULAR HEMOGLOBIN 29.3 pg (27.0-33.0); MEAN CORPUSCULAR HGB CONC 29.7 g/dl (32.0-36.5); MEAN CORPUSCULAR VOLUME 98.6 fl (80.0-96.0); MONO # 0.9 10^3/uL (0.0-0.8); MONO % 8.9 % (2.0-8.0); NEUTROPHILS # 7.7 10^3/uL (1.5-8.5); NEUTROPHILS % 77.2 % (36.0-66.0); PLATELET COUNT, AUTOMATED 189 10^3/uL (150-450); RED BLOOD COUNT 3.45 10^6/uL (4.00-5.40); WHITE BLOOD COUNT 9.9 10^3/uL (4.0-10.0)
[2022-03-08 07:13] LABS: CALCIUM LEVEL 8.6 MG/DL (8.8-10.2); GLOMERULAR FILTRATION RATE 16.1 (>39); POTASSIUM SERUM 4.1 MEQ/L (3.5-5.1)
[2022-03-08] MEDS: SUCRALFATE 1 GM TAB PO SCH ×4 (07:23→21:02)
[2022-03-08] MEDS: INSULIN LISPRO (NovoLOG) PER UNIT SC SCH ×4 (07:24→21:00)
[2022-03-08] MEDS: COMBIVENT RESPIMAT 100-20MCG INHALER 4GM INH SCH ×3 (07:35→20:58)
[2022-03-08] MEDS: BUDESONIDE 0.5 MG/2 ML INHALATION SUSPENSION INH SCH ×2 (07:35→20:58)
[2022-03-08] MEDS: LORATADINE 10 MG TAB PO SCH (07:48)
[2022-03-08] MEDS: FOLIC ACID 1 MG TAB PO SCH (07:48)
[2022-03-08] MEDS: GABAPENTIN 100 MG CAP PO SCH ×3 (07:48→21:01)
[2022-03-08] MEDS: DOCUSATE SODIUM 100MG CAPSULE PO SCH ×2 (07:48→21:01)
[2022-03-08] MEDS: TORSEMIDE 20 MG TAB PO SCH ×2 (07:48→16:52)
[2022-03-08] MEDS: PANTOPRAZOLE 40MG TAB (PROTONIX) PO SCH ×2 (07:49→21:01)
[2022-03-08] MEDS: guaiFENesin 200 MG TAB PO SCH ×3 (07:49→21:02)
[2022-03-08] MEDS: AMIODARONE 200 MG TAB (PACERONE) PO SCH ×2 (07:49→21:02)
[2022-03-08] MEDS: FLUTICASONE PROP 0.05% NASAL SPRAY 16 GM (FLONASE) NARES SCH ×2 (07:50→21:09)
[2022-03-08] MEDS: AZELASTINE 137MCG NASAL SPY 30 ML (ASTELIN) SCH ×2 (07:50→21:09)
[2022-03-08] MEDS: REMEDY PHYTOPLEX Z-GUARD PASTE 113GM TUBE (FROM STOREROOM PRODUCT) TOP SCH ×3 (07:50→21:08)
[2022-03-08] MEDS: VANICREAM MOISTURIZING SKIN CREAM 113GM TUBE TOP SCH ×2 (07:51→21:09)
[2022-03-08 14:00] VITALS: BP 121/58
[2022-03-08] MEDS ORDERED: FOSFOMYCIN TROMETHAMINE 3 GM POWDER PACKET (MONUROL) PO ONE (15:40)
[2022-03-08] MEDS: LACTOBACILLUS ACIDOPHILUS CAP (BACID) PO SCH ×2 (16:52→21:01)
[2022-03-08 19:57] VITALS: BP 138/63
[2022-03-08] MEDS: SENNA 8.6 MG TAB (SENOKOT) PO SCH (21:01)
[2022-03-08] MEDS: ATORVASTATIN 10 MG TAB PO SCH (21:01)
[2022-03-08] MEDS: ACETAMINOPHEN TAB 650MG DOSE (2X325MG) PO PRN (21:03)
[2022-03-08] MEDS: diltiaZEM **CD** 180 MG CAP PO SCH (21:03)
[2022-03-08] MEDS: LATANOPROST 0.005% OPHTH SOLN 2.5 ML OU SCH (21:09)
[2022-03-09] MEDS: LEVOTHYROXINE 150MCG TABLET (0.15MG) PO SCH (05:21)
[2022-03-09 05:25] VITALS: BP 135/65
[2022-03-09 07:23] LABS: CALCIUM LEVEL 8.3 MG/DL (8.8-10.2); CREATININE FOR GFR 2.98 MG/DL (0.55-1.30); GLOMERULAR FILTRATION RATE 16.2 (>39); POTASSIUM SERUM 4.1 MEQ/L (3.5-5.1)
[2022-03-09] MEDS: BUDESONIDE 0.5 MG/2 ML INHALATION SUSPENSION INH SCH ×2 (07:34→20:00)
[2022-03-09] MEDS: COMBIVENT RESPIMAT 100-20MCG INHALER 4GM INH SCH ×4 (07:34→20:00)
[2022-03-09] MEDS: GABAPENTIN 100 MG CAP PO SCH ×3 (08:48→21:07)
[2022-03-09] MEDS: INSULIN LISPRO (NovoLOG) PER UNIT SC SCH ×4 (08:49→20:00)
[2022-03-09] MEDS: TORSEMIDE 20 MG TAB PO SCH ×2 (08:49→16:51)
[2022-03-09] MEDS: FOLIC ACID 1 MG TAB PO SCH (08:49)
[2022-03-09] MEDS: DOCUSATE SODIUM 100MG CAPSULE PO SCH ×2 (08:49→21:07)
[2022-03-09] MEDS: AMIODARONE 200 MG TAB (PACERONE) PO SCH ×2 (08:49→21:07)
[2022-03-09] MEDS: LACTOBACILLUS ACIDOPHILUS CAP (BACID) PO SCH ×4 (08:49→21:06)
[2022-03-09] MEDS: guaiFENesin 200 MG TAB PO SCH ×3 (08:49→21:07)
[2022-03-09] MEDS: SUCRALFATE 1 GM TAB PO SCH ×4 (08:49→21:07)
[2022-03-09] MEDS: AZELASTINE 137MCG NASAL SPY 30 ML (ASTELIN) SCH ×2 (08:50→21:08)
[2022-03-09] MEDS: VANICREAM MOISTURIZING SKIN CREAM 113GM TUBE TOP SCH ×2 (08:50→21:08)
[2022-03-09] MEDS: PANTOPRAZOLE 40MG TAB (PROTONIX) PO SCH ×2 (08:50→21:07)
[2022-03-09] MEDS: FLUTICASONE PROP 0.05% NASAL SPRAY 16 GM (FLONASE) NARES SCH ×2 (08:50→21:07)
[2022-03-09] MEDS: LORATADINE 10 MG TAB PO SCH (08:50)
[2022-03-09] MEDS: REMEDY PHYTOPLEX Z-GUARD PASTE 113GM TUBE (FROM STOREROOM PRODUCT) TOP SCH ×3 (08:50→21:08)
[2022-03-09 14:00] VITALS: BP 161/70
[2022-03-09 20:00] VITALS: BP 153/70
[2022-03-09] MEDS: SENNA 8.6 MG TAB (SENOKOT) PO SCH (21:07)
[2022-03-09] MEDS: ATORVASTATIN 10 MG TAB PO SCH (21:07)
[2022-03-09] MEDS: diltiaZEM **CD** 180 MG CAP PO SCH (21:07)
[2022-03-09] MEDS: LATANOPROST 0.005% OPHTH SOLN 2.5 ML OU SCH (21:08)
[2022-03-10] MEDS: LEVOTHYROXINE 150MCG TABLET (0.15MG) PO SCH (05:15)
[2022-03-10 06:00] VITALS: BP 143/67
[2022-03-10] MEDS: LACTOBACILLUS ACIDOPHILUS CAP (BACID) PO SCH ×4 (07:12→21:08)
[2022-03-10] MEDS: INSULIN LISPRO (NovoLOG) PER UNIT SC SCH ×4 (07:12→21:00)
[2022-03-10] MEDS: SUCRALFATE 1 GM TAB PO SCH ×4 (07:12→21:07)
[2022-03-10] MEDS: COMBIVENT RESPIMAT 100-20MCG INHALER 4GM INH SCH ×4 (07:53→19:52)
[2022-03-10] MEDS: BUDESONIDE 0.5 MG/2 ML INHALATION SUSPENSION INH SCH ×2 (07:53→19:52)
[2022-03-10] MEDS: AMIODARONE 200 MG TAB (PACERONE) PO SCH ×2 (08:25→21:09)
[2022-03-10] MEDS: GABAPENTIN 100 MG CAP PO SCH ×3 (08:25→21:09)
[2022-03-10] MEDS: TORSEMIDE 20 MG TAB PO SCH ×2 (08:25→16:43)
[2022-03-10] MEDS: PANTOPRAZOLE 40MG TAB (PROTONIX) PO SCH ×2 (08:25→21:09)
[2022-03-10] MEDS: LORATADINE 10 MG TAB PO SCH (08:25)
[2022-03-10] MEDS: FOLIC ACID 1 MG TAB PO SCH (08:26)
[2022-03-10] MEDS: REMEDY PHYTOPLEX Z-GUARD PASTE 113GM TUBE (FROM STOREROOM PRODUCT) TOP SCH ×3 (08:26→21:10)
[2022-03-10] MEDS: FLUTICASONE PROP 0.05% NASAL SPRAY 16 GM (FLONASE) NARES SCH ×2 (08:26→21:09)
[2022-03-10] MEDS: AZELASTINE 137MCG NASAL SPY 30 ML (ASTELIN) SCH ×2 (08:26→21:09)
[2022-03-10] MEDS: DOCUSATE SODIUM 100MG CAPSULE PO SCH ×2 (08:26→21:08)
[2022-03-10] MEDS: VANICREAM MOISTURIZING SKIN CREAM 113GM TUBE TOP SCH ×2 (08:26→21:10)
[2022-03-10] MEDS: guaiFENesin 200 MG TAB PO SCH ×3 (08:26→21:08)
[2022-03-10] MEDS: LIDOCAINE 5% (LIDODERM) PATCH TD SCH (11:20)
[2022-03-10] MEDS: ACETAMINOPHEN TAB 650MG DOSE (2X325MG) PO PRN (13:27)
[2022-03-10 14:00] VITALS: BP 157/68
[2022-03-10] MEDS: diltiaZEM **CD** 180 MG CAP PO SCH (21:08)
[2022-03-10] MEDS: SENNA 8.6 MG TAB (SENOKOT) PO SCH (21:08)
[2022-03-10] MEDS: ACETAMINOPHEN 500 MG TAB PO PRN (21:08)
[2022-03-10] MEDS: ATORVASTATIN 10 MG TAB PO SCH (21:08)
[2022-03-10] MEDS: LATANOPROST 0.005% OPHTH SOLN 2.5 ML OU SCH (21:09)
[2022-03-10] MEDS: **NOTE PATIENT COMMENT** MISC XX SCH (21:10)
[2022-03-10 21:35] VITALS: BP 137/62
[2022-03-11] MEDS: LEVOTHYROXINE 150MCG TABLET (0.15MG) PO SCH (05:13)
[2022-03-11] MEDS: ACETAMINOPHEN 500 MG TAB PO PRN (05:13)
[2022-03-11 05:35] VITALS: BP 136/62
[2022-03-11] MEDS: BUDESONIDE 0.5 MG/2 ML INHALATION SUSPENSION INH SCH ×2 (07:46→20:26)
[2022-03-11] MEDS: COMBIVENT RESPIMAT 100-20MCG INHALER 4GM INH SCH ×4 (07:46→20:26)
[2022-03-11] MEDS: TORSEMIDE 20 MG TAB PO SCH ×2 (08:02→16:43)
[2022-03-11] MEDS: GABAPENTIN 100 MG CAP PO SCH ×3 (08:02→21:04)
[2022-03-11] MEDS: AMIODARONE 200 MG TAB (PACERONE) PO SCH ×2 (08:02→21:03)
[2022-03-11] MEDS: PANTOPRAZOLE 40MG TAB (PROTONIX) PO SCH ×2 (08:02→21:03)
[2022-03-11] MEDS: DOCUSATE SODIUM 100MG CAPSULE PO SCH ×2 (08:02→21:03)
[2022-03-11] MEDS: SUCRALFATE 1 GM TAB PO SCH ×4 (08:03→21:03)
[2022-03-11] MEDS: LORATADINE 10 MG TAB PO SCH (08:03)
[2022-03-11] MEDS: FOLIC ACID 1 MG TAB PO SCH (08:03)
[2022-03-11] MEDS: LACTOBACILLUS ACIDOPHILUS CAP (BACID) PO SCH ×4 (08:03→21:04)
[2022-03-11] MEDS: INSULIN LISPRO (NovoLOG) PER UNIT SC SCH ×4 (08:03→21:00)
[2022-03-11] MEDS: guaiFENesin 200 MG TAB PO SCH ×3 (08:03→21:03)
[2022-03-11] MEDS: LIDOCAINE 5% (LIDODERM) PATCH TD SCH (08:04)
[2022-03-11] MEDS: REMEDY PHYTOPLEX Z-GUARD PASTE 113GM TUBE (FROM STOREROOM PRODUCT) TOP SCH ×3 (08:04→21:06)
[2022-03-11] MEDS: AZELASTINE 137MCG NASAL SPY 30 ML (ASTELIN) SCH ×2 (08:04→21:05)
[2022-03-11] MEDS: FLUTICASONE PROP 0.05% NASAL SPRAY 16 GM (FLONASE) NARES SCH ×2 (08:04→21:05)
[2022-03-11] MEDS: VANICREAM MOISTURIZING SKIN CREAM 113GM TUBE TOP SCH ×2 (08:04→21:06)
[2022-03-11] MEDS ORDERED: traMADol 50 MG TAB PO PRN (10:30)
[2022-03-11] MEDS ORDERED: diphenhydrAMINE 25MG CAP PO PRN (10:35)
[2022-03-11] MEDS: ACETAMINOPHEN 500 MG TAB PO SCH ×3 (10:57→21:04)
[2022-03-11 11:44] LABS: BASO % 0.1 % (0.0-1.0); EOS # 0.1 10^3/uL (0.0-0.5); EOS % 0.8 % (0.0-3.0); HEMATOCRIT 35.5 % (36.0-47.0); HEMOGLOBIN 10.6 g/dl (12.0-15.5); LYMPH # 1.3 10^3/uL (1.5-5.0); LYMPH % 13.3 % (24.0-44.0); MEAN CORPUSCULAR HEMOGLOBIN 28.8 pg (27.0-33.0); MEAN CORPUSCULAR HGB CONC 29.9 g/dl (32.0-36.5); MEAN CORPUSCULAR VOLUME 96.5 fl (80.0-96.0); MONO # 0.7 10^3/uL (0.0-0.8); MONO % 7.6 % (2.0-8.0); NEUTROPHILS # 7.4 10^3/uL (1.5-8.5); NEUTROPHILS % 77.8 % (36.0-66.0); PLATELET COUNT, AUTOMATED 202 10^3/uL (150-450); RED BLOOD COUNT 3.68 10^6/uL (4.00-5.40); WHITE BLOOD COUNT 9.6 10^3/uL (4.0-10.0)
[2022-03-11] MEDS: cefTRIAXone SOD 1 GM in D5W MINI-BAG PLUS 50 ML IV SCH (13:22)
[2022-03-11 14:00] VITALS: BP 117/59
[2022-03-11 19:23] VITALS: BP 147/67
[2022-03-11] MEDS: diltiaZEM **CD** 180 MG CAP PO SCH (21:03)
[2022-03-11] MEDS: SENNA 8.6 MG TAB (SENOKOT) PO SCH (21:03)
[2022-03-11] MEDS: ATORVASTATIN 10 MG TAB PO SCH (21:04)
[2022-03-11] MEDS: LATANOPROST 0.005% OPHTH SOLN 2.5 ML OU SCH (21:05)
[2022-03-11] MEDS: **NOTE PATIENT COMMENT** MISC XX SCH (21:06)
[2022-03-12] MEDS: CYCLOBENZAPRINE 5MG TABLET PO PRN ×2 (02:21→15:08)
[2022-03-12] MEDS: LEVOTHYROXINE 150MCG TABLET (0.15MG) PO SCH (05:31)
[2022-03-12] MEDS: traMADol 50 MG TAB PO PRN ×2 (05:33→14:16)
[2022-03-12 05:43] VITALS: BP 147/67
[2022-03-12] MEDS: BUDESONIDE 0.5 MG/2 ML INHALATION SUSPENSION INH SCH ×2 (07:30→19:31)
[2022-03-12] MEDS: COMBIVENT RESPIMAT 100-20MCG INHALER 4GM INH SCH ×3 (07:30→19:31)
[2022-03-12 07:58] LABS: BASO % 0.2 % (0.0-1.0); EOS # 0.1 10^3/uL (0.0-0.5); EOS % 1.5 % (0.0-3.0); HEMATOCRIT 33.2 % (36.0-47.0); LYMPH # 1.3 10^3/uL (1.5-5.0); LYMPH % 14.6 % (24.0-44.0); MEAN CORPUSCULAR HEMOGLOBIN 29.3 pg (27.0-33.0); MEAN CORPUSCULAR HGB CONC 30.1 g/dl (32.0-36.5); MEAN CORPUSCULAR VOLUME 97.4 fl (80.0-96.0); MONO # 0.7 10^3/uL (0.0-0.8); MONO % 8.2 % (2.0-8.0); NEUTROPHILS # 6.5 10^3/uL (1.5-8.5); NEUTROPHILS % 74.9 % (36.0-66.0); PLATELET COUNT, AUTOMATED 183 10^3/uL (150-450); RED BLOOD COUNT 3.41 10^6/uL (4.00-5.40); WHITE BLOOD COUNT 8.7 10^3/uL (4.0-10.0)
[2022-03-12 08:20] LABS: CALCIUM LEVEL 8.1 MG/DL (8.8-10.2); CREATININE FOR GFR 2.73 MG/DL (0.55-1.30); GLOMERULAR FILTRATION RATE 17.9 (>39); MAGNESIUM LEVEL 2.5 MG/DL (1.8-2.4); PHOSPHORUS LEVEL 3.6 MG/DL (2.5-4.9); POTASSIUM SERUM 3.9 MEQ/L (3.5-5.1)
[2022-03-12] MEDS: INSULIN LISPRO (NovoLOG) PER UNIT SC SCH ×4 (08:30→20:02)
[2022-03-12] MEDS: SUCRALFATE 1 GM TAB PO SCH ×4 (08:30→20:14)
[2022-03-12] MEDS: AMIODARONE 200 MG TAB (PACERONE) PO SCH ×2 (08:31→20:15)
[2022-03-12] MEDS: guaiFENesin 200 MG TAB PO SCH ×3 (08:31→20:14)
[2022-03-12] MEDS: GABAPENTIN 100 MG CAP PO SCH (08:31)
[2022-03-12] MEDS: ACETAMINOPHEN 500 MG TAB PO SCH ×3 (08:31→20:14)
[2022-03-12] MEDS: DOCUSATE SODIUM 100MG CAPSULE PO SCH ×2 (08:31→20:14)
[2022-03-12] MEDS: PANTOPRAZOLE 40MG TAB (PROTONIX) PO SCH ×2 (08:31→20:14)
[2022-03-12] MEDS: LORATADINE 10 MG TAB PO SCH (08:31)
[2022-03-12] MEDS: TORSEMIDE 20 MG TAB PO SCH ×2 (08:31→17:25)
[2022-03-12] MEDS: LACTOBACILLUS ACIDOPHILUS CAP (BACID) PO SCH ×4 (08:31→20:14)
[2022-03-12] MEDS: FLUTICASONE PROP 0.05% NASAL SPRAY 16 GM (FLONASE) NARES SCH ×2 (08:32→20:15)
[2022-03-12] MEDS: FOLIC ACID 1 MG TAB PO SCH (08:32)
[2022-03-12] MEDS: AZELASTINE 137MCG NASAL SPY 30 ML (ASTELIN) SCH ×2 (08:32→20:16)
[2022-03-12] MEDS: VANICREAM MOISTURIZING SKIN CREAM 113GM TUBE TOP SCH ×2 (08:32→20:15)
[2022-03-12] MEDS: LIDOCAINE 5% (LIDODERM) PATCH TD SCH (08:33)
[2022-03-12] MEDS: REMEDY PHYTOPLEX Z-GUARD PASTE 113GM TUBE (FROM STOREROOM PRODUCT) TOP SCH ×3 (08:33→20:16)
[2022-03-12] MEDS: cefTRIAXone SOD 1 GM in D5W MINI-BAG PLUS 50 ML IV SCH (13:25)
[2022-03-12 14:00] VITALS: BP 136/72
[2022-03-12 20:00] VITALS: BP 137/63
[2022-03-12] MEDS: SENNA 8.6 MG TAB (SENOKOT) PO SCH (20:13)
[2022-03-12] MEDS: diltiaZEM **CD** 180 MG CAP PO SCH (20:14)
[2022-03-12] MEDS: ATORVASTATIN 10 MG TAB PO SCH (20:14)
[2022-03-12] MEDS: GABAPENTIN 300 MG CAP PO SCH (20:14)
[2022-03-12] MEDS: **NOTE PATIENT COMMENT** MISC XX SCH (20:16)
[2022-03-12] MEDS: LATANOPROST 0.005% OPHTH SOLN 2.5 ML OU SCH (20:16)
[2022-03-13] MEDS: traMADol 50 MG TAB PO PRN (02:37)
[2022-03-13] MEDS: CYCLOBENZAPRINE 5MG TABLET PO PRN ×2 (05:10→21:11)
[2022-03-13] MEDS: LEVOTHYROXINE 150MCG TABLET (0.15MG) PO SCH (05:10)
[2022-03-13 06:00] VITALS: BP 147/68
[2022-03-13] MEDS: COMBIVENT RESPIMAT 100-20MCG INHALER 4GM INH SCH ×4 (07:09→19:40)
[2022-03-13] MEDS: DOCUSATE SODIUM 100MG CAPSULE PO SCH ×2 (09:02→21:10)
[2022-03-13] MEDS: LORATADINE 10 MG TAB PO SCH (09:02)
[2022-03-13] MEDS: TORSEMIDE 20 MG TAB PO SCH ×2 (09:02→17:02)
[2022-03-13] MEDS: INSULIN LISPRO (NovoLOG) PER UNIT SC SCH ×4 (09:02→21:00)
[2022-03-13] MEDS: ACETAMINOPHEN 500 MG TAB PO SCH ×3 (09:03→21:12)
[2022-03-13] MEDS: AMIODARONE 200 MG TAB (PACERONE) PO SCH ×2 (09:03→21:13)
[2022-03-13] MEDS: guaiFENesin 200 MG TAB PO SCH ×3 (09:03→21:10)
[2022-03-13] MEDS: PANTOPRAZOLE 40MG TAB (PROTONIX) PO SCH ×2 (09:03→21:10)
[2022-03-13] MEDS: FOLIC ACID 1 MG TAB PO SCH (09:03)
[2022-03-13] MEDS: GABAPENTIN 300 MG CAP PO SCH ×2 (09:03→21:11)
[2022-03-13] MEDS: FLUTICASONE PROP 0.05% NASAL SPRAY 16 GM (FLONASE) NARES SCH ×2 (09:04→21:14)
[2022-03-13] MEDS: REMEDY PHYTOPLEX Z-GUARD PASTE 113GM TUBE (FROM STOREROOM PRODUCT) TOP SCH ×3 (09:04→21:19)
[2022-03-13] MEDS: LIDOCAINE 5% (LIDODERM) PATCH TD SCH (09:04)
[2022-03-13] MEDS: AZELASTINE 137MCG NASAL SPY 30 ML (ASTELIN) SCH ×2 (09:04→21:14)
[2022-03-13] MEDS: VANICREAM MOISTURIZING SKIN CREAM 113GM TUBE TOP SCH ×2 (09:05→21:14)
[2022-03-13] MEDS: LACTOBACILLUS ACIDOPHILUS CAP (BACID) PO SCH ×4 (09:11→21:10)
[2022-03-13] MEDS: SUCRALFATE 1 GM TAB PO SCH ×4 (09:11→21:10)
[2022-03-13] MEDS: BUDESONIDE 0.5 MG/2 ML INHALATION SUSPENSION INH SCH ×2 (10:47→19:40)
[2022-03-13] MEDS: cefTRIAXone SOD 1 GM in D5W MINI-BAG PLUS 50 ML IV SCH (12:07)
[2022-03-13 14:00] VITALS: BP 133/61
[2022-03-13 19:28] VITALS: BP 127/58
[2022-03-13] MEDS: ATORVASTATIN 10 MG TAB PO SCH (21:10)
[2022-03-13] MEDS: SENNA 8.6 MG TAB (SENOKOT) PO SCH (21:10)
[2022-03-13] MEDS: diltiaZEM **CD** 180 MG CAP PO SCH (21:13)
[2022-03-13] MEDS: LATANOPROST 0.005% OPHTH SOLN 2.5 ML OU SCH (21:19)
[2022-03-13] MEDS: **NOTE PATIENT COMMENT** MISC XX SCH (21:29)
[2022-03-14] MEDS: traMADol 50 MG TAB PO PRN ×2 (00:29→20:44)
[2022-03-14] MEDS: CYCLOBENZAPRINE 5MG TABLET PO PRN (03:26)
[2022-03-14] MEDS: LEVOTHYROXINE 150MCG TABLET (0.15MG) PO SCH (05:52)
[2022-03-14 05:54] VITALS: BP 111/56
[2022-03-14] MEDS: COMBIVENT RESPIMAT 100-20MCG INHALER 4GM INH SCH ×4 (07:05→20:18)
[2022-03-14] MEDS: BUDESONIDE 0.5 MG/2 ML INHALATION SUSPENSION INH SCH ×2 (07:05→20:17)
[2022-03-14] MEDS: INSULIN LISPRO (NovoLOG) PER UNIT SC SCH ×4 (09:02→20:45)
[2022-03-14] MEDS: AMIODARONE 200 MG TAB (PACERONE) PO SCH ×2 (09:03→20:44)
[2022-03-14] MEDS: DOCUSATE SODIUM 100MG CAPSULE PO SCH ×2 (09:03→20:44)
[2022-03-14] MEDS: GABAPENTIN 300 MG CAP PO SCH ×2 (09:03→20:43)
[2022-03-14] MEDS: FOLIC ACID 1 MG TAB PO SCH (09:03)
[2022-03-14] MEDS: LACTOBACILLUS ACIDOPHILUS CAP (BACID) PO SCH ×4 (09:03→20:44)
[2022-03-14] MEDS: PANTOPRAZOLE 40MG TAB (PROTONIX) PO SCH ×2 (09:03→20:43)
[2022-03-14] MEDS: TORSEMIDE 20 MG TAB PO SCH ×2 (09:03→16:57)
[2022-03-14] MEDS: LORATADINE 10 MG TAB PO SCH (09:03)
[2022-03-14] MEDS: SUCRALFATE 1 GM TAB PO SCH ×4 (09:03→20:43)
[2022-03-14] MEDS: LIDOCAINE 5% (LIDODERM) PATCH TD SCH (09:04)
[2022-03-14] MEDS: ACETAMINOPHEN 500 MG TAB PO SCH ×3 (09:04→20:43)
[2022-03-14] MEDS: AZELASTINE 137MCG NASAL SPY 30 ML (ASTELIN) SCH ×2 (09:04→20:46)
[2022-03-14] MEDS: FLUTICASONE PROP 0.05% NASAL SPRAY 16 GM (FLONASE) NARES SCH ×2 (09:04→20:47)
[2022-03-14] MEDS: guaiFENesin 200 MG TAB PO SCH ×3 (09:04→20:44)
[2022-03-14] MEDS: VANICREAM MOISTURIZING SKIN CREAM 113GM TUBE TOP SCH ×2 (09:05→20:46)
[2022-03-14] MEDS: REMEDY PHYTOPLEX Z-GUARD PASTE 113GM TUBE (FROM STOREROOM PRODUCT) TOP SCH ×3 (09:05→20:46)
[2022-03-14 14:00] VITALS: BP 138/65
[2022-03-14 19:56] VITALS: BP 145/67
[2022-03-14] MEDS: ATORVASTATIN 10 MG TAB PO SCH (20:43)
[2022-03-14] MEDS: SENNA 8.6 MG TAB (SENOKOT) PO SCH (20:43)
[2022-03-14] MEDS: diltiaZEM **CD** 180 MG CAP PO SCH (20:44)
[2022-03-14] MEDS: LATANOPROST 0.005% OPHTH SOLN 2.5 ML OU SCH (20:45)
[2022-03-14] MEDS: **NOTE PATIENT COMMENT** MISC XX SCH (20:47)
[2022-03-15 06:00] VITALS: BP 145/66
[2022-03-15] MEDS: LEVOTHYROXINE 150MCG TABLET (0.15MG) PO SCH (06:07)
[2022-03-15 06:52] LABS: BASO % 0.1 % (0.0-1.0); EOS # 0.1 10^3/uL (0.0-0.5); EOS % 1.4 % (0.0-3.0); HEMATOCRIT 30.9 % (36.0-47.0); HEMOGLOBIN 9.3 g/dl (12.0-15.5); LYMPH # 1.5 10^3/uL (1.5-5.0); MEAN CORPUSCULAR HEMOGLOBIN 29.1 pg (27.0-33.0); MEAN CORPUSCULAR HGB CONC 30.1 g/dl (32.0-36.5); MEAN CORPUSCULAR VOLUME 96.6 fl (80.0-96.0); MONO # 0.8 10^3/uL (0.0-0.8); MONO % 8.6 % (2.0-8.0); NEUTROPHILS # 6.8 10^3/uL (1.5-8.5); NEUTROPHILS % 73.1 % (36.0-66.0); PLATELET COUNT, AUTOMATED 187 10^3/uL (150-450); WHITE BLOOD COUNT 9.3 10^3/uL (4.0-10.0)
[2022-03-15] MEDS: COMBIVENT RESPIMAT 100-20MCG INHALER 4GM INH SCH ×4 (07:16→19:09)
[2022-03-15] MEDS: BUDESONIDE 0.5 MG/2 ML INHALATION SUSPENSION INH SCH ×2 (07:16→19:09)
[2022-03-15 07:23] LABS: CALCIUM LEVEL 8.3 MG/DL (8.8-10.2); CREATININE FOR GFR 2.93 MG/DL (0.55-1.30); GLOMERULAR FILTRATION RATE 16.5 (>39); POTASSIUM SERUM 3.8 MEQ/L (3.5-5.1)
[2022-03-15] MEDS: LORATADINE 10 MG TAB PO SCH (08:11)
[2022-03-15] MEDS: LIDOCAINE 5% (LIDODERM) PATCH TD SCH ×2 (08:11→20:34)
[2022-03-15] MEDS: TORSEMIDE 20 MG TAB PO SCH ×2 (08:11→16:45)
[2022-03-15] MEDS: INSULIN LISPRO (NovoLOG) PER UNIT SC SCH ×4 (08:11→20:36)
[2022-03-15] MEDS: LACTOBACILLUS ACIDOPHILUS CAP (BACID) PO SCH ×4 (08:12→20:36)
[2022-03-15] MEDS: FOLIC ACID 1 MG TAB PO SCH (08:12)
[2022-03-15] MEDS: DOCUSATE SODIUM 100MG CAPSULE PO SCH ×2 (08:12→20:36)
[2022-03-15] MEDS: ACETAMINOPHEN 500 MG TAB PO SCH ×3 (08:12→20:35)
[2022-03-15] MEDS: AMIODARONE 200 MG TAB (PACERONE) PO SCH ×2 (08:12→20:36)
[2022-03-15] MEDS: PANTOPRAZOLE 40MG TAB (PROTONIX) PO SCH ×2 (08:12→20:36)
[2022-03-15] MEDS: guaiFENesin 200 MG TAB PO SCH ×3 (08:12→20:36)
[2022-03-15] MEDS: GABAPENTIN 300 MG CAP PO SCH ×2 (08:12→20:35)
[2022-03-15] MEDS: SUCRALFATE 1 GM TAB PO SCH ×4 (08:12→20:36)
[2022-03-15] MEDS: VANICREAM MOISTURIZING SKIN CREAM 113GM TUBE TOP SCH ×2 (08:13→20:34)
[2022-03-15] MEDS: AZELASTINE 137MCG NASAL SPY 30 ML (ASTELIN) SCH ×2 (08:13→20:35)
[2022-03-15] MEDS: FLUTICASONE PROP 0.05% NASAL SPRAY 16 GM (FLONASE) NARES SCH ×2 (08:13→20:35)
[2022-03-15] MEDS: CYCLOBENZAPRINE 5MG TABLET PO PRN (08:14)
[2022-03-15] MEDS: REMEDY PHYTOPLEX Z-GUARD PASTE 113GM TUBE (FROM STOREROOM PRODUCT) TOP SCH ×3 (08:14→20:37)
[2022-03-15] MEDS: traMADol 50 MG TAB PO PRN (09:55)
[2022-03-15] MEDS: predniSONE 10 MG TAB PO SCH ×2 (13:13→20:36)
[2022-03-15] MEDS: oxyCODONE 5MG TAB PO SCH ×2 (13:14→21:43)
[2022-03-15 14:00] VITALS: BP 125/60
[2022-03-15] MEDS: ANALGESIC BALM CRM 3OZ TOP SCH ×3 (14:54→20:34)
[2022-03-15 19:31] VITALS: BP 129/62
[2022-03-15] MEDS: LATANOPROST 0.005% OPHTH SOLN 2.5 ML OU SCH (20:35)
[2022-03-15] MEDS: ATORVASTATIN 10 MG TAB PO SCH (20:35)
[2022-03-15] MEDS: diltiaZEM **CD** 180 MG CAP PO SCH (20:35)
[2022-03-15] MEDS: SENNA 8.6 MG TAB (SENOKOT) PO SCH (20:36)
[2022-03-16] MEDS: LEVOTHYROXINE 150MCG TABLET (0.15MG) PO SCH (05:28)
[2022-03-16] MEDS: oxyCODONE 5MG TAB PO SCH ×3 (05:29→22:34)
[2022-03-16 05:32] VITALS: BP 118/58
[2022-03-16] MEDS: COMBIVENT RESPIMAT 100-20MCG INHALER 4GM INH SCH ×4 (07:12→20:00)
[2022-03-16] MEDS: BUDESONIDE 0.5 MG/2 ML INHALATION SUSPENSION INH SCH ×2 (07:12→20:00)
[2022-03-16] MEDS: SUCRALFATE 1 GM TAB PO SCH ×4 (08:12→20:27)
[2022-03-16] MEDS: INSULIN LISPRO (NovoLOG) PER UNIT SC SCH ×4 (08:12→20:30)
[2022-03-16] MEDS: AMIODARONE 200 MG TAB (PACERONE) PO SCH ×2 (08:12→20:28)
[2022-03-16] MEDS: PANTOPRAZOLE 40MG TAB (PROTONIX) PO SCH ×2 (08:12→20:28)
[2022-03-16] MEDS: FLUTICASONE PROP 0.05% NASAL SPRAY 16 GM (FLONASE) NARES SCH ×2 (08:13→20:29)
[2022-03-16] MEDS: VANICREAM MOISTURIZING SKIN CREAM 113GM TUBE TOP SCH ×2 (08:13→20:29)
[2022-03-16] MEDS: ACETAMINOPHEN 500 MG TAB PO SCH ×3 (08:13→20:28)
[2022-03-16] MEDS: AZELASTINE 137MCG NASAL SPY 30 ML (ASTELIN) SCH ×2 (08:13→20:29)
[2022-03-16] MEDS: guaiFENesin 200 MG TAB PO SCH ×3 (08:14→20:27)
[2022-03-16] MEDS: DOCUSATE SODIUM 100MG CAPSULE PO SCH ×2 (08:14→20:27)
[2022-03-16] MEDS: predniSONE 10 MG TAB PO SCH ×2 (08:14→20:28)
[2022-03-16] MEDS: REMEDY PHYTOPLEX Z-GUARD PASTE 113GM TUBE (FROM STOREROOM PRODUCT) TOP SCH ×3 (08:14→20:30)
[2022-03-16] MEDS: LACTOBACILLUS ACIDOPHILUS CAP (BACID) PO SCH ×4 (08:14→20:27)
[2022-03-16] MEDS: GABAPENTIN 300 MG CAP PO SCH ×2 (08:14→20:27)
[2022-03-16] MEDS: **NOTE PATIENT COMMENT** MISC XX SCH (08:14)
[2022-03-16] MEDS: FOLIC ACID 1 MG TAB PO SCH (08:14)
[2022-03-16] MEDS: LORATADINE 10 MG TAB PO SCH (08:14)
[2022-03-16] MEDS: TORSEMIDE 20 MG TAB PO SCH ×2 (08:14→17:11)
[2022-03-16] MEDS: ANALGESIC BALM CRM 3OZ TOP SCH ×4 (08:15→20:29)
[2022-03-16] MEDS ORDERED: DARBEPOETIN 100 MCG/0.5 ML *NON-DIALYSIS* SYRINGE (J0881) SC SCH (09:00)
[2022-03-16 14:00] VITALS: BP 138/62
[2022-03-16 20:00] VITALS: BP 125/58
[2022-03-16 20:27] VITALS: BP 125/58
[2022-03-16] MEDS: diltiaZEM **CD** 180 MG CAP PO SCH (20:27)
[2022-03-16] MEDS: ATORVASTATIN 10 MG TAB PO SCH (20:27)
[2022-03-16] MEDS: LIDOCAINE 5% (LIDODERM) PATCH TD SCH (20:28)
[2022-03-16] MEDS: SENNA 8.6 MG TAB (SENOKOT) PO SCH (20:28)
[2022-03-16] MEDS: LATANOPROST 0.005% OPHTH SOLN 2.5 ML OU SCH (20:29)
[2022-03-17 06:00] VITALS: BP 119/58
[2022-03-17] MEDS: oxyCODONE 5MG TAB PO SCH ×2 (06:00→13:14)
[2022-03-17] MEDS: LEVOTHYROXINE 150MCG TABLET (0.15MG) PO SCH (06:01)
[2022-03-17] MEDS: COMBIVENT RESPIMAT 100-20MCG INHALER 4GM INH SCH ×2 (07:31→12:00)
[2022-03-17 07:42] LABS: BASO % 0.2 % (0.0-1.0); EOS % 0.2 % (0.0-3.0); HEMATOCRIT 30.4 % (36.0-47.0); HEMOGLOBIN 9.3 g/dl (12.0-15.5); LYMPH # 1.3 10^3/uL (1.5-5.0); LYMPH % 12.3 % (24.0-44.0); MEAN CORPUSCULAR HEMOGLOBIN 28.5 pg (27.0-33.0); MEAN CORPUSCULAR HGB CONC 30.6 g/dl (32.0-36.5); MEAN CORPUSCULAR VOLUME 93.3 fl (80.0-96.0); MONO # 0.6 10^3/uL (0.0-0.8); MONO % 5.6 % (2.0-8.0); NEUTROPHILS # 8.2 10^3/uL (1.5-8.5); NEUTROPHILS % 80.6 % (36.0-66.0); PLATELET COUNT, AUTOMATED 232 10^3/uL (150-450); RED BLOOD COUNT 3.26 10^6/uL (4.00-5.40); WHITE BLOOD COUNT 10.1 10^3/uL (4.0-10.0)
[2022-03-17 07:59] LABS: CALCIUM LEVEL 8.4 MG/DL (8.8-10.2); CREATININE FOR GFR 3.02 MG/DL (0.55-1.30); GLOMERULAR FILTRATION RATE 15.9 (>39); POTASSIUM SERUM 4.4 MEQ/L (3.5-5.1)
[2022-03-17] MEDS: BUDESONIDE 0.5 MG/2 ML INHALATION SUSPENSION INH SCH (08:00)
[2022-03-17] MEDS: INSULIN LISPRO (NovoLOG) PER UNIT SC SCH ×2 (08:21→13:13)
[2022-03-17] MEDS: LORATADINE 10 MG TAB PO SCH (09:04)
[2022-03-17] MEDS: TORSEMIDE 20 MG TAB PO SCH (09:04)
[2022-03-17] MEDS: FOLIC ACID 1 MG TAB PO SCH (09:04)
[2022-03-17] MEDS: guaiFENesin 200 MG TAB PO SCH (09:04)
[2022-03-17] MEDS: GABAPENTIN 300 MG CAP PO SCH (09:04)
[2022-03-17] MEDS: predniSONE 10 MG TAB PO SCH (09:04)
[2022-03-17] MEDS: AMIODARONE 200 MG TAB (PACERONE) PO SCH (09:04)
[2022-03-17] MEDS: PANTOPRAZOLE 40MG TAB (PROTONIX) PO SCH (09:04)
[2022-03-17] MEDS: DOCUSATE SODIUM 100MG CAPSULE PO SCH (09:04)
[2022-03-17] MEDS: AZELASTINE 137MCG NASAL SPY 30 ML (ASTELIN) SCH (09:05)
[2022-03-17] MEDS: FLUTICASONE PROP 0.05% NASAL SPRAY 16 GM (FLONASE) NARES SCH (09:05)
[2022-03-17] MEDS: ANALGESIC BALM CRM 3OZ TOP SCH ×2 (09:06→13:13)
[2022-03-17] MEDS: **NOTE PATIENT COMMENT** MISC XX SCH (09:06)
[2022-03-17] MEDS: VANICREAM MOISTURIZING SKIN CREAM 113GM TUBE TOP SCH (09:06)
[2022-03-17] MEDS: REMEDY PHYTOPLEX Z-GUARD PASTE 113GM TUBE (FROM STOREROOM PRODUCT) TOP SCH (09:07)
[2022-03-17] MEDS: ACETAMINOPHEN 500 MG TAB PO SCH (09:08)
[2022-03-17] MEDS: LACTOBACILLUS ACIDOPHILUS CAP (BACID) PO SCH ×2 (09:10→13:13)
[2022-03-17] MEDS: SUCRALFATE 1 GM TAB PO SCH ×2 (09:10→13:13)
[2022-03-17] MEDS ORDERED: PRED10TA2 PO (09:44)
[2022-03-17] MEDS ORDERED: LEVO150T7 PO (09:44)
[2022-03-17] MEDS ORDERED: OXYC-517 PO (09:44)
[2022-03-17] MEDS ORDERED: INSUHUMDS SC (09:44)
[2022-03-17] MEDS ORDERED: PANT40TA29 PO (09:44)
[2022-03-17] MEDS ORDERED: TORS20TA2 PO (09:44)
[2022-03-17] MEDS ORDERED: MUSCCRE9 TOP (09:44)
[2022-03-17] MEDS ORDERED: AZEL1SPR3 (09:44)
[2022-03-17] MEDS ORDERED: GABA-282 PO (09:44)
[2022-03-17 14:00] VITALS: BP 139/61
[2022-03-17] MEDS ORDERED: TORSEMIDE 10 MG TABLET PO SCH (17:00)
== END 2022-03-17 15:25 | DRG 74 ==
LOC: M PM&R 14:05
PROVIDERS: ADMIT Physical Medicine & Rehabilitation; ATTEND Physical Medicine & Rehabilitation
DX: G62.0 Drug-induced polyneuropathy (principal); N18.5 Chronic kidney disease, stage 5; I13.2 Hypertensive heart and chronic kidney disease with heart failure and with stage 5 chronic kidney disease, or end stage renal disease; I48.20 Chronic atrial fibrillation, unspecified; I50.32 Chronic diastolic (congestive) heart failure; J96.11 Chronic respiratory failure with hypoxia; N17.9 Acute kidney failure, unspecified; N39.0 Urinary tract infection, site not specified; R53.1 Weakness; I69.398 Other sequelae of cerebral infarction; E78.5 Hyperlipidemia, unspecified; J44.9 Chronic obstructive pulmonary disease, unspecified; K21.9 Gastro-esophageal reflux disease without esophagitis; E11.40 Type 2 diabetes mellitus with diabetic neuropathy, unspecified; E03.9 Hypothyroidism, unspecified; Z99.81 Dependence on supplemental oxygen; Z74.09 Other reduced mobility; Z74.1 Need for assistance with personal care; Z90.49 Acquired absence of other specified parts of digestive tract; Z98.41 Cataract extraction status, right eye; Z79.899 Other long term (current) drug therapy; Z88.0 Allergy status to penicillin; Z88.6 Allergy status to analgesic agent; Z88.5 Allergy status to narcotic agent; Z88.2 Allergy status to sulfonamides; Z91.012 Allergy to eggs; Z66 Do not resuscitate; Z79.01 Long term (current) use of anticoagulants; M19.90 Unspecified osteoarthritis, unspecified site; D63.1 Anemia in chronic kidney disease; B96.29 Other Escherichia coli [E. coli] as the cause of diseases classified elsewhere; B96.4 Proteus (mirabilis) (morganii) as the cause of diseases classified elsewhere; M54.59 Other low back pain

== ENCOUNTER → 2022-03-24 | Outpatient (REF) ==
[~2022-03-24] MED LIST changes: +AZEL1SPR3; +GABA-282 PO; +LEVO150T7 PO; +MUSCCRE9 TOP; +OXYC-517 PO; +PANT40TA29 PO
[2022-03-24 14:22] LABS: PHOSPHORUS LEVEL 3.3 MG/DL (2.5-4.9)
[2022-03-24 14:49] LABS: TOTAL 25(OH) VITAMIN D 14.7 NG/ML (30.0-100.0)
[2022-03-24 14:51] LABS: PTH INTACT 132.8 PG/ML (18.5-88.0)
== END ==
PROVIDERS: ATTEND Internal Medicine
DX: N18.9 Chronic kidney disease, unspecified (principal)

== ENCOUNTER → 2022-03-24 | Outpatient (REF) ==
[2022-03-24 13:12] LABS: HEMATOCRIT 29.2 % (36.0-47.0); HEMOGLOBIN 8.7 g/dl (12.0-15.5); MEAN CORPUSCULAR HEMOGLOBIN 28.6 pg (27.0-33.0); MEAN CORPUSCULAR HGB CONC 29.8 g/dl (32.0-36.5); MEAN CORPUSCULAR VOLUME 96.1 fl (80.0-96.0); PLATELET COUNT, AUTOMATED 179 10^3/uL (150-450); RED BLOOD COUNT 3.04 10^6/uL (4.00-5.40); WHITE BLOOD COUNT 12.1 10^3/uL (4.0-10.0)
[2022-03-24 14:27] LABS: CREATININE FOR GFR 2.91 MG/DL (0.55-1.30); GLOMERULAR FILTRATION RATE 16.6 (>39); POTASSIUM SERUM 4.2 MEQ/L (3.5-5.1)
== END ==
PROVIDERS: ATTEND Physician Assistant
DX: N18.9 Chronic kidney disease, unspecified (principal)

== ENCOUNTER → 2022-03-25 | Outpatient (CLI) | payer MEDICAID, MEDICARE, OTHER | PROVIDERS: ATTEND Internal Medicine | DX: I50.9 Heart failure, unspecified (principal) ==

== ENCOUNTER → 2022-03-29 | Outpatient (REF) ==
[2022-03-29 13:41] LABS: HEMATOCRIT 30.6 % (36.0-47.0); HEMOGLOBIN 9.1 g/dl (12.0-15.5); MEAN CORPUSCULAR HEMOGLOBIN 28.9 pg (27.0-33.0); MEAN CORPUSCULAR HGB CONC 29.7 g/dl (32.0-36.5); MEAN CORPUSCULAR VOLUME 97.1 fl (80.0-96.0); PLATELET COUNT, AUTOMATED 166 10^3/uL (150-450); RED BLOOD COUNT 3.15 10^6/uL (4.00-5.40); WHITE BLOOD COUNT 11.7 10^3/uL (4.0-10.0)
[2022-03-29 14:21] LABS: CREATININE FOR GFR 2.75 MG/DL (0.55-1.30); GLOMERULAR FILTRATION RATE 17.8 (>39)
== END ==
PROVIDERS: ATTEND Physician Assistant
DX: I50.9 Heart failure, unspecified (principal)

== ENCOUNTER → 2022-03-31 | Outpatient (REF) ==
[~2022-03-31] MED LIST changes: +APAP325T4 PO; +AZEL1SPR3 NARES; +BENE1POW5 PO; +DULC10SU2 PR; +FLEEENE12 PR; +GLUC1KIT IM; +INSUDET SC; +LEVO1TAB39 PO; +MAALSUS19 PO; +MILKSUS3 PO; +MUSC1CRE TOP; +SENN-111 PO; +SPIR-10 PO
[2022-03-31 12:59] LABS: BASO % 0.1 % (0.0-1.0); EOS # 0.1 10^3/uL (0.0-0.5); EOS % 0.7 % (0.0-3.0); HEMATOCRIT 29.7 % (36.0-47.0); HEMOGLOBIN 9.1 g/dl (12.0-15.5); LYMPH # 0.5 10^3/uL (1.5-5.0); LYMPH % 4.4 % (24.0-44.0); MEAN CORPUSCULAR HEMOGLOBIN 29.5 pg (27.0-33.0); MEAN CORPUSCULAR HGB CONC 30.6 g/dl (32.0-36.5); MEAN CORPUSCULAR VOLUME 96.4 fl (80.0-96.0); MONO # 0.7 10^3/uL (0.0-0.8); MONO % 5.9 % (2.0-8.0); NEUTROPHILS # 10.2 10^3/uL (1.5-8.5); NEUTROPHILS % 88.4 % (36.0-66.0); PLATELET COUNT, AUTOMATED 145 10^3/uL (150-450); RED BLOOD COUNT 3.08 10^6/uL (4.00-5.40); WHITE BLOOD COUNT 11.5 10^3/uL (4.0-10.0)
== END ==
PROVIDERS: ATTEND Internal Medicine
DX: D64.9 Anemia, unspecified (principal)

== ENCOUNTER → 2022-03-31 | Outpatient (REF) ==
[~2022-03-31] MED LIST changes: -APAP325T4 PO; -AZEL1SPR3 NARES; -BENE1POW5 PO; -DULC10SU2 PR; -FLEEENE12 PR; -GLUC1KIT IM; -INSUDET SC; -LEVO1TAB39 PO; -MAALSUS19 PO; -MILKSUS3 PO; -MUSC1CRE TOP; -SENN-111 PO; -SPIR-10 PO
[2022-03-31 13:22] LABS: CALCIUM LEVEL 8.2 MG/DL (8.8-10.2); CREATININE FOR GFR 2.68 MG/DL (0.55-1.30); GLOMERULAR FILTRATION RATE 18.3 (>39); POTASSIUM SERUM 4.4 MEQ/L (3.5-5.1)
== END ==
PROVIDERS: ATTEND Physician Assistant
DX: N18.9 Chronic kidney disease, unspecified (principal)

== ENCOUNTER → 2022-04-13 | Outpatient (REF) ==
[~2022-04-13] MED LIST changes: +APAP325T4 PO; +AZEL1SPR3 NARES; +BENE1POW5 PO; +DULC10SU2 PR; +FLEEENE12 PR; +GLUC1KIT IM; +INSUDET SC; +LEVO1TAB39 PO; +MAALSUS19 PO; +MILKSUS3 PO; +MUSC1CRE TOP; +SENN-111 PO; +SPIR-10 PO
== END ==
PROVIDERS: ATTEND Internal Medicine
DX: N18.9 Chronic kidney disease, unspecified (principal); Z53.8 Procedure and treatment not carried out for other reasons

== ENCOUNTER → 2022-04-14 | Outpatient (REF) ==
[2022-04-07 12:20] LABS: BASO % 0.2 % (0.0-1.0); EOS # 0.1 10^3/uL (0.0-0.5); EOS % 0.6 % (0.0-3.0); HEMATOCRIT 31.3 % (36.0-47.0); HEMOGLOBIN 9.6 g/dl (12.0-15.5); LYMPH # 0.7 10^3/uL (1.5-5.0); LYMPH % 5.4 % (24.0-44.0); MEAN CORPUSCULAR HEMOGLOBIN 29.3 pg (27.0-33.0); MEAN CORPUSCULAR HGB CONC 30.7 g/dl (32.0-36.5); MEAN CORPUSCULAR VOLUME 95.4 fl (80.0-96.0); MONO # 0.8 10^3/uL (0.0-0.8); MONO % 6.5 % (2.0-8.0); NEUTROPHILS % 86.7 % (36.0-66.0); PLATELET COUNT, AUTOMATED 241 10^3/uL (150-450); RED BLOOD COUNT 3.28 10^6/uL (4.00-5.40); WHITE BLOOD COUNT 12.7 10^3/uL (4.0-10.0)
[2022-04-07 13:28] LABS: CALCIUM LEVEL 8.6 MG/DL (8.8-10.2); CREATININE FOR GFR 2.87 MG/DL (0.55-1.30); GLOMERULAR FILTRATION RATE 16.9 (>39); POTASSIUM SERUM 5.3 MEQ/L (3.5-5.1)
== END ==
PROVIDERS: ATTEND Internal Medicine
DX: N18.9 Chronic kidney disease, unspecified (principal)

== ENCOUNTER → 2022-04-14 | Outpatient (REF) | payer MEDICARE, MEDICAID, OTHER | PROVIDERS: ATTEND Internal Medicine | DX: N18.9 Chronic kidney disease, unspecified (principal); Z53.8 Procedure and treatment not carried out for other reasons ==

== ENCOUNTER → 2022-04-15 | Outpatient (REF) ==
[2022-04-15 13:49] LABS: CALCIUM LEVEL 8.1 MG/DL (8.8-10.2); CREATININE FOR GFR 2.57 MG/DL (0.55-1.30); GLOMERULAR FILTRATION RATE 19.2 (>39); POTASSIUM SERUM 5.3 MEQ/L (3.5-5.1)
== END ==
PROVIDERS: ATTEND Internal Medicine
DX: N18.9 Chronic kidney disease, unspecified (principal)

== ENCOUNTER → 2022-04-19 | Outpatient (REF) ==
[2022-04-19 12:41] LABS: CALCIUM LEVEL 7.7 MG/DL (8.8-10.2); CREATININE FOR GFR 2.55 MG/DL (0.55-1.30); GLOMERULAR FILTRATION RATE 19.4 (>39); POTASSIUM SERUM 4.1 MEQ/L (3.5-5.1)
== END ==
PROVIDERS: ATTEND Internal Medicine
DX: N18.9 Chronic kidney disease, unspecified (principal)

== ENCOUNTER → 2022-04-22 | Outpatient (REF) ==
[~2022-04-22] MED LIST changes: -APAP325T4 PO; -AZEL1SPR3 NARES; -BENE1POW5 PO; -DULC10SU2 PR; -FLEEENE12 PR; -GLUC1KIT IM; -INSUDET SC; -LEVO1TAB39 PO; -MAALSUS19 PO; -MILKSUS3 PO; -MUSC1CRE TOP; -SENN-111 PO; -SPIR-10 PO
[2022-04-22 18:26] LABS: CREATININE FOR GFR 2.44 MG/DL (0.55-1.30); GLOMERULAR FILTRATION RATE 20.4 (>39); POTASSIUM SERUM 6.4 MEQ/L (3.5-5.1)
== END ==
PROVIDERS: ATTEND Internal Medicine
DX: I50.9 Heart failure, unspecified (principal)

== ENCOUNTER → 2022-04-23 | Outpatient (REF) ==
[~2022-04-23] MED LIST changes: +APAP325T4 PO; +AZEL1SPR3 NARES; +BENE1POW5 PO; +DULC10SU2 PR; +FLEEENE12 PR; +GLUC1KIT IM; +INSUDET SC; +MAALSUS19 PO; +MILKSUS3 PO; +MUSC1CRE TOP; +SENN-111 PO; +SPIR-10 PO
[2022-04-23 16:44] LABS: CALCIUM LEVEL 7.8 MG/DL (8.8-10.2); CREATININE FOR GFR 2.36 MG/DL (0.55-1.30); GLOMERULAR FILTRATION RATE 21.2 (>39); POTASSIUM SERUM 5.4 MEQ/L (3.5-5.1)
== END ==
PROVIDERS: ATTEND Internal Medicine
DX: I50.9 Heart failure, unspecified (principal)

== ENCOUNTER → 2022-04-26 | Outpatient (REF) ==
[2022-04-26 11:37] LABS: CALCIUM LEVEL 7.7 MG/DL (8.8-10.2); CREATININE FOR GFR 2.42 MG/DL (0.55-1.30); GLOMERULAR FILTRATION RATE 20.6 (>39); POTASSIUM SERUM 4.3 MEQ/L (3.5-5.1)
== END ==
PROVIDERS: ATTEND Internal Medicine
DX: I50.9 Heart failure, unspecified (principal)

== ENCOUNTER 2022-04-27 11:33 | Inpatient (IN) | payer MEDICARE, MEDICAID ==
[~2022-04-27] VITALS: Ht 160 cm; Wt 81.5 kg
[~2022-04-27 11:33] MED LIST changes: -APAP325T4 PO; -AZEL1SPR3 NARES; -BENE1POW5 PO; -DULC10SU2 PR; -FLEEENE12 PR; -GLUC1KIT IM; -INSUDET SC; -MAALSUS19 PO; -MILKSUS3 PO; -MUSC1CRE TOP; -SENN-111 PO; -SPIR-10 PO
[2022-04-27 12:10] LABS: VENOUS BASE EXCESS 2.4 (-2.0-2.0); VENOUS HCO3 29.1 MEQ/L (23.0-27.0); VENOUS O2 SATURATION 64.9 % (60.0-80.0); VENOUS PARTIAL PRESSURE O2 36.6 mmHg (30.0-50.0); VENOUS PH 7.334 UNITS (7.330-7.430); VENOUS STANDARD HCO3 26.1 MEQ/L; VENOUS TOTAL CO2 30.8 MEQ/L (24.0-28.0)
[2022-04-27 12:21] LABS: BASO % 0.1 % (0.0-1.0); EOS % 0.3 % (0.0-3.0); HEMATOCRIT 30.6 % (36.0-47.0); HEMOGLOBIN 9.4 g/dl (12.0-15.5); LYMPH % 7.5 % (24.0-44.0); MEAN CORPUSCULAR HEMOGLOBIN 30.5 pg (27.0-33.0); MEAN CORPUSCULAR HGB CONC 30.7 g/dl (32.0-36.5); MEAN CORPUSCULAR VOLUME 99.4 fl (80.0-96.0); MONO # 0.6 10^3/uL (0.0-0.8); MONO % 4.5 % (2.0-8.0); NEUTROPHILS # 11.6 10^3/uL (1.5-8.5); NEUTROPHILS % 87.1 % (36.0-66.0); PLATELET COUNT, AUTOMATED 206 10^3/uL (150-450); RED BLOOD COUNT 3.08 10^6/uL (4.00-5.40); WHITE BLOOD COUNT 13.3 10^3/uL (4.0-10.0)
[2022-04-27 12:34] LABS: INR 1.14
[2022-04-27] MEDS ORDERED: GABA-282 PO (12:47)
[2022-04-27] MEDS ORDERED: SENN-111 PO (12:47)
[2022-04-27] MEDS ORDERED: DULC10SU2 PR (12:47)
[2022-04-27] MEDS ORDERED: OXYC-517 PO (12:47)
[2022-04-27] MEDS ORDERED: SPIR-10 PO (12:47)
[2022-04-27] MEDS ORDERED: AZEL1SPR3 NARES (12:47)
[2022-04-27] MEDS ORDERED: MILKSUS3 PO (12:47)
[2022-04-27] MEDS ORDERED: PANT40TA29 PO (12:47)
[2022-04-27] MEDS ORDERED: LEVO150T7 PO (12:47)
[2022-04-27] MEDS ORDERED: GLUC1KIT IM (12:47)
[2022-04-27] MEDS ORDERED: TORS20TA2 PO (12:47)
[2022-04-27] MEDS ORDERED: FLEEENE12 PR (12:47)
[2022-04-27] MEDS ORDERED: MAALSUS19 PO (12:47)
[2022-04-27] MEDS ORDERED: MIRA1POW3 PO (12:47)
[2022-04-27] MEDS ORDERED: BENE1POW5 PO (12:47)
[2022-04-27] MEDS ORDERED: PROC20004 SC (12:47)
[2022-04-27] MEDS ORDERED: MUSC1CRE TOP (12:47)
[2022-04-27] MEDS ORDERED: INSUDET SC (12:47)
[2022-04-27] MEDS ORDERED: APAP325T4 PO (12:48)
[2022-04-27] MEDS ORDERED: HOME MED LIST COMPLETE! XX SCH (12:50)
[2022-04-27 13:13] LABS: ALBUMIN 1.8 GM/DL (3.2-5.2); BILIRUBIN,DIRECT 0.4 MG/DL (0.0-0.2); BILIRUBIN,TOTAL 0.5 MG/DL (0.2-1.0); CALCIUM LEVEL 7.9 MG/DL (8.8-10.2); CREATININE FOR GFR 2.58 MG/DL (0.55-1.30); GLOMERULAR FILTRATION RATE 19.1 (>39); POTASSIUM SERUM 4.1 MEQ/L (3.5-5.1); THYROID STIMULATING HORMONE 25.9 uIU/ML (0.358-3.740); TOTAL PROTEIN 6.6 GM/DL (6.4-8.2)
[2022-04-27 13:21] LABS: RSV AMPLIFICATION NEGATIVE (NEGATIVE)
[2022-04-27] MEDS ORDERED: FUROSEMIDE 100MG/10ML VIAL (J1940) IV ONE (14:18)
[2022-04-27] MEDS ORDERED: MOM 30ML SUSPENSION UDC PO PRN (16:40)
[2022-04-27] MEDS ORDERED: ACETAMINOPHEN TAB 650MG DOSE (2X325MG) PO PRN (16:40)
[2022-04-27] MEDS ORDERED: ALBUTEROL 90 MCG/ACT 8GM HFA INHALER INH PRN (16:40)
[2022-04-27] MEDS ORDERED: BISACODYL 10 MG SUPP PR PRN (16:40)
[2022-04-27] MEDS ORDERED: FLEET ENEMA PR PRN (16:40)
[2022-04-27] MEDS ORDERED: GLUCAGON INJ 1MG VIAL SC PRN (17:30)
[2022-04-27] MEDS ORDERED: GLUCOSE 4GM CHEW TABLET PO PRN (17:30)
[2022-04-27] MEDS ORDERED: DEXTROSE 50% 50 ML SYRINGE IV PRN (17:30)
[2022-04-27 18:52] LABS: BASO % 0.2 % (0.0-1.0); EOS # 0.1 10^3/uL (0.0-0.5); EOS % 0.5 % (0.0-3.0); HEMATOCRIT 30.7 % (36.0-47.0); HEMOGLOBIN 9.2 g/dl (12.0-15.5); LYMPH # 1.5 10^3/uL (1.5-5.0); LYMPH % 11.1 % (24.0-44.0); MEAN CORPUSCULAR HEMOGLOBIN 29.6 pg (27.0-33.0); MEAN CORPUSCULAR VOLUME 98.7 fl (80.0-96.0); MONO # 0.7 10^3/uL (0.0-0.8); MONO % 5.6 % (2.0-8.0); NEUTROPHILS # 10.9 10^3/uL (1.5-8.5); NEUTROPHILS % 81.9 % (36.0-66.0); PLATELET COUNT, AUTOMATED 216 10^3/uL (150-450); RED BLOOD COUNT 3.11 10^6/uL (4.00-5.40); WHITE BLOOD COUNT 13.2 10^3/uL (4.0-10.0)
[2022-04-27 19:28] LABS: BILIRUBIN,TOTAL 0.4 MG/DL (0.2-1.0); CALCIUM LEVEL 7.9 MG/DL (8.8-10.2); CREATININE FOR GFR 2.47 MG/DL (0.55-1.30); GLOMERULAR FILTRATION RATE 20.1 (>39); MAGNESIUM LEVEL 2.4 MG/DL (1.8-2.4); POTASSIUM SERUM 4.3 MEQ/L (3.5-5.1); TOTAL PROTEIN 6.9 GM/DL (6.4-8.2)
[2022-04-27] MEDS: SYMBICORT 160/4.5MCG INHALER 6GM INH SCH (20:00)
[2022-04-27] MEDS: INSULIN LISPRO (NovoLOG) PER UNIT SC SCH ×2 (20:22→21:00)
[2022-04-27] MEDS ORDERED: FUROSEMIDE 100MG/10ML VIAL (J1940) IV SCH (20:30)
[2022-04-27] MEDS: LATANOPROST 0.005% OPHTH SOLN 2.5 ML OU SCH (21:00)
[2022-04-27] MEDS: ANALGESIC BALM CRM 3OZ TOP SCH (21:00)
[2022-04-27] MEDS: SENNA 8.6 MG TAB (SENOKOT) PO SCH (21:00)
[2022-04-27] MEDS ORDERED: AMIODARONE 200 MG TAB (PACERONE) PO SCH (21:00)
[2022-04-27] MEDS: AZELASTINE 137MCG NASAL SPY 30 ML (ASTELIN) SCH (21:00)
[2022-04-27] MEDS: cefTRIAXone SOD 1 GM in D5W MINI-BAG PLUS 50 ML IV SCH (21:04)
[2022-04-27 21:20] VITALS: BP 122/82
[2022-04-27] MEDS: SUCRALFATE 1 GM TAB PO SCH (22:00)
[2022-04-27] MEDS: guaiFENesin ER 600 MG TAB PO SCH (22:00)
[2022-04-27] MEDS: ATORVASTATIN 10 MG TAB PO SCH (22:00)
[2022-04-27] MEDS: GABAPENTIN 300 MG CAP PO SCH (22:00)
[2022-04-27] MEDS: oxyCODONE 5MG TAB PO SCH (22:01)
[2022-04-27] MEDS: FUROSEMIDE 100MG/10ML VIAL (J1940) IV SCH (22:03)
[2022-04-27] MEDS: AZITHROMYCIN INJ 500 MG, VIAL MATE ADAPTER 1 EACH in NS 250 ML IV SCH (22:28)
[2022-04-28] MEDS: FUROSEMIDE 100MG/10ML VIAL (J1940) IV SCH ×3 (05:07→22:00)
[2022-04-28] MEDS: LEVOTHYROXINE 25MCG TABLET (0.025MG) PO SCH (05:08)
[2022-04-28] MEDS: LEVOTHYROXINE 150MCG TABLET (0.15MG) PO SCH (05:08)
[2022-04-28 06:00] VITALS: BP 124/53
[2022-04-28 06:25] LABS: BASO % 0.2 % (0.0-1.0); EOS # 0.1 10^3/uL (0.0-0.5); EOS % 0.7 % (0.0-3.0); HEMATOCRIT 32.2 % (36.0-47.0); HEMOGLOBIN 9.7 g/dl (12.0-15.5); LYMPH # 1.2 10^3/uL (1.5-5.0); LYMPH % 10.5 % (24.0-44.0); MEAN CORPUSCULAR HEMOGLOBIN 29.8 pg (27.0-33.0); MEAN CORPUSCULAR HGB CONC 30.1 g/dl (32.0-36.5); MEAN CORPUSCULAR VOLUME 99.1 fl (80.0-96.0); MONO # 0.6 10^3/uL (0.0-0.8); MONO % 5.1 % (2.0-8.0); NEUTROPHILS # 9.5 10^3/uL (1.5-8.5); NEUTROPHILS % 82.8 % (36.0-66.0); PLATELET COUNT, AUTOMATED 202 10^3/uL (150-450); RED BLOOD COUNT 3.25 10^6/uL (4.00-5.40); WHITE BLOOD COUNT 11.5 10^3/uL (4.0-10.0)
[2022-04-28 06:46] LABS: ALBUMIN 1.9 GM/DL (3.2-5.2); ALT/SGPT 55 U/L (12-78); BILIRUBIN,TOTAL 0.5 MG/DL (0.2-1.0); BLOOD UREA NITROGEN 58 MG/DL (7-18); CALCIUM LEVEL 7.7 MG/DL (8.8-10.2); CARBON DIOXIDE LEVEL 29 MEQ/L (21-32); CHLORIDE LEVEL 97 MEQ/L (98-107); CREATININE FOR GFR 2.24 MG/DL (0.55-1.30); GLOMERULAR FILTRATION RATE 22.5 (>39); GLUCOSE, FASTING 81 MG/DL (70-100); MAGNESIUM LEVEL 2.2 MG/DL (1.8-2.4); PHOSPHORUS LEVEL 3.6 MG/DL (2.5-4.9); POTASSIUM SERUM 4.1 MEQ/L (3.5-5.1); SODIUM LEVEL 132 MEQ/L (136-145); TOTAL PROTEIN 6.3 GM/DL (6.4-8.2)
[2022-04-28 07:30] LABS: HEMOGLOBIN A1c 6.3 %
[2022-04-28] MEDS: INSULIN LISPRO (NovoLOG) PER UNIT SC SCH ×4 (07:30→19:52)
[2022-04-28] MEDS: SYMBICORT 160/4.5MCG INHALER 6GM INH SCH ×2 (07:33→19:14)
[2022-04-28] MEDS: LEVEMIR (INSULIN DETEMIR) 1 UNITS/0.01ML SC SCH (08:21)
[2022-04-28] MEDS: FOLIC ACID 1MG TAB PO SCH (08:29)
[2022-04-28] MEDS: MIRALAX *UNIT DOSE* 17GM PACKET PO SCH (08:29)
[2022-04-28] MEDS: SUCRALFATE 1 GM TAB PO SCH ×4 (08:30→21:05)
[2022-04-28] MEDS: PANTOPRAZOLE 40MG TAB (PROTONIX) PO SCH (08:30)
[2022-04-28] MEDS: AMIODARONE 200 MG TAB (PACERONE) PO SCH (08:30)
[2022-04-28] MEDS: GABAPENTIN 300 MG CAP PO SCH ×2 (08:30→21:05)
[2022-04-28] MEDS: SENNA 8.6 MG TAB (SENOKOT) PO SCH ×2 (08:30→21:05)
[2022-04-28] MEDS: guaiFENesin ER 600 MG TAB PO SCH ×2 (08:31→21:06)
[2022-04-28] MEDS: oxyCODONE 5MG TAB PO SCH ×3 (08:31→21:00)
[2022-04-28] MEDS: ANALGESIC BALM CRM 3OZ TOP SCH ×4 (08:32→21:05)
[2022-04-28] MEDS: AZELASTINE 137MCG NASAL SPY 30 ML (ASTELIN) SCH ×2 (08:32→21:06)
[2022-04-28 10:08] LABS: HEPATITIS B SURFACE ANTIGEN NEGATIVE (NEGATIVE)
[2022-04-28 10:36] LABS: HEPATITIS B CORE ANTIBODY IGM NEGATIVE (NEGATIVE); HEPATITIS C VIRUS ABY INDEX 0.1 INDEX (<0.8)
[2022-04-28 14:00] VITALS: BP 120/62
[2022-04-28 17:28] LABS: BACTERIA, URINE LARGE AMOUNT; HYALINE CAST, URINE NONE SEEN /lpf (0-1); SQUAMOUS EPITHELIAL CELL URINE SMALL AMOUNT /hpf (SMALL AMT); WBC, URINE TNTC /hpf (0-3)
[2022-04-28] MEDS: cefTRIAXone SOD 1 GM in D5W MINI-BAG PLUS 50 ML IV SCH (20:04)
[2022-04-28 20:55] VITALS: BP 108/58
[2022-04-28] MEDS: ATORVASTATIN 10 MG TAB PO SCH (21:05)
[2022-04-28] MEDS: AZITHROMYCIN INJ 500 MG, VIAL MATE ADAPTER 1 EACH in NS 250 ML IV SCH (21:05)
[2022-04-28] MEDS: LATANOPROST 0.005% OPHTH SOLN 2.5 ML OU SCH (22:41)
[2022-04-29] VITALS (9 sets, daily range): BP systolic 115–141; BP diastolic 52–85
[2022-04-29] MEDS: LEVOTHYROXINE 150MCG TABLET (0.15MG) PO SCH (05:19)
[2022-04-29] MEDS: LEVOTHYROXINE 25MCG TABLET (0.025MG) PO SCH (05:19)
[2022-04-29] MEDS: FUROSEMIDE 100MG/10ML VIAL (J1940) IV SCH ×3 (05:20→22:50)
[2022-04-29 06:33] LABS: BASO % 0.1 % (0.0-1.0); EOS # 0.1 10^3/uL (0.0-0.5); EOS % 0.7 % (0.0-3.0); HEMATOCRIT 24.8 % (36.0-47.0); LYMPH # 1.3 10^3/uL (1.5-5.0); LYMPH % 11.5 % (24.0-44.0); MEAN CORPUSCULAR HEMOGLOBIN 29.9 pg (27.0-33.0); MEAN CORPUSCULAR HGB CONC 30.6 g/dl (32.0-36.5); MEAN CORPUSCULAR VOLUME 97.6 fl (80.0-96.0); MONO # 0.7 10^3/uL (0.0-0.8); MONO % 6.3 % (2.0-8.0); NEUTROPHILS # 8.9 10^3/uL (1.5-8.5); NEUTROPHILS % 80.9 % (36.0-66.0); PLATELET COUNT, AUTOMATED 172 10^3/uL (150-450); RED BLOOD COUNT 2.54 10^6/uL (4.00-5.40)
[2022-04-29 06:46] LABS: HEMOGLOBIN 7.6 g/dl (12.0-15.5)
[2022-04-29 07:06] LABS: ALBUMIN 1.6 GM/DL (3.2-5.2); BILIRUBIN,TOTAL 0.4 MG/DL (0.2-1.0); CALCIUM LEVEL 7.3 MG/DL (8.8-10.2); CREATININE FOR GFR 2.46 MG/DL (0.55-1.30); GLOMERULAR FILTRATION RATE 20.2 (>39); MAGNESIUM LEVEL 1.9 MG/DL (1.8-2.4); PHOSPHORUS LEVEL 3.4 MG/DL (2.5-4.9); TOTAL PROTEIN 5.4 GM/DL (6.4-8.2)
[2022-04-29] MEDS: INSULIN LISPRO (NovoLOG) PER UNIT SC SCH ×4 (07:30→20:20)
[2022-04-29] MEDS: SYMBICORT 160/4.5MCG INHALER 6GM INH SCH ×2 (07:54→19:51)
[2022-04-29] MEDS: LEVEMIR (INSULIN DETEMIR) 1 UNITS/0.01ML SC SCH (08:07)
[2022-04-29] MEDS: PANTOPRAZOLE 40MG TAB (PROTONIX) PO SCH (08:25)
[2022-04-29] MEDS: AMIODARONE 200 MG TAB (PACERONE) PO SCH (08:25)
[2022-04-29] MEDS: SENNA 8.6 MG TAB (SENOKOT) PO SCH ×2 (08:25→20:55)
[2022-04-29] MEDS: SUCRALFATE 1 GM TAB PO SCH ×4 (08:25→20:55)
[2022-04-29] MEDS: guaiFENesin ER 600 MG TAB PO SCH ×2 (08:25→20:55)
[2022-04-29] MEDS: oxyCODONE 5MG TAB PO SCH ×3 (08:26→22:02)
[2022-04-29] MEDS: AZELASTINE 137MCG NASAL SPY 30 ML (ASTELIN) SCH ×2 (08:26→20:56)
[2022-04-29] MEDS: FOLIC ACID 1MG TAB PO SCH (08:26)
[2022-04-29] MEDS: GABAPENTIN 300 MG CAP PO SCH ×2 (08:26→20:55)
[2022-04-29] MEDS: MIRALAX *UNIT DOSE* 17GM PACKET PO SCH (08:26)
[2022-04-29] MEDS: ANALGESIC BALM CRM 3OZ TOP SCH ×4 (08:27→22:02)
[2022-04-29 20:11] LABS: HEMATOCRIT 30.7 % (36.0-47.0); HEMOGLOBIN 9.6 g/dl (12.0-15.5)
[2022-04-29] MEDS: ATORVASTATIN 10 MG TAB PO SCH (20:55)
[2022-04-29] MEDS: LATANOPROST 0.005% OPHTH SOLN 2.5 ML OU SCH (20:56)
[2022-04-29] MEDS: cefTRIAXone SOD 1 GM in D5W MINI-BAG PLUS 50 ML IV SCH (20:57)
[2022-04-29] MEDS: AZITHROMYCIN INJ 500 MG, VIAL MATE ADAPTER 1 EACH in NS 250 ML IV SCH (21:44)
[2022-04-30] VITALS (8 sets, daily range): BP systolic 102–135; BP diastolic 48–63
[2022-04-30] MEDS ORDERED: CEFEPIME HCL 2 GM in D5W MINI-BAG PLUS 50 ML IV SCH (05:45)
[2022-04-30] MEDS: LEVOTHYROXINE 25MCG TABLET (0.025MG) PO SCH (06:31)
[2022-04-30] MEDS: FUROSEMIDE 100MG/10ML VIAL (J1940) IV SCH ×3 (06:31→21:34)
[2022-04-30] MEDS: LEVOTHYROXINE 150MCG TABLET (0.15MG) PO SCH (06:31)
[2022-04-30 06:36] LABS: BASO % 0.1 % (0.0-1.0); EOS # 0.1 10^3/uL (0.0-0.5); EOS % 0.9 % (0.0-3.0); HEMATOCRIT 28.8 % (36.0-47.0); HEMOGLOBIN 8.9 g/dl (12.0-15.5); LYMPH # 1.5 10^3/uL (1.5-5.0); LYMPH % 13.9 % (24.0-44.0); MEAN CORPUSCULAR HEMOGLOBIN 29.6 pg (27.0-33.0); MEAN CORPUSCULAR HGB CONC 30.9 g/dl (32.0-36.5); MEAN CORPUSCULAR VOLUME 95.7 fl (80.0-96.0); MONO # 0.6 10^3/uL (0.0-0.8); NEUTROPHILS # 8.4 10^3/uL (1.5-8.5); NEUTROPHILS % 78.5 % (36.0-66.0); PLATELET COUNT, AUTOMATED 178 10^3/uL (150-450); RED BLOOD COUNT 3.01 10^6/uL (4.00-5.40); WHITE BLOOD COUNT 10.6 10^3/uL (4.0-10.0)
[2022-04-30] MEDS ORDERED: CEFEPIME HCL 1 GM in D5W MINI-BAG PLUS 50 ML IV SCH (07:00)
[2022-04-30 07:08] LABS: ALBUMIN 1.6 GM/DL (3.2-5.2); BILIRUBIN,TOTAL 0.4 MG/DL (0.2-1.0); CALCIUM LEVEL 7.8 MG/DL (8.8-10.2); CREATININE FOR GFR 2.34 MG/DL (0.55-1.30); GLOMERULAR FILTRATION RATE 21.4 (>39); PHOSPHORUS LEVEL 3.4 MG/DL (2.5-4.9); POTASSIUM SERUM 3.9 MEQ/L (3.5-5.1); TOTAL PROTEIN 5.4 GM/DL (6.4-8.2)
[2022-04-30] MEDS: INSULIN LISPRO (NovoLOG) PER UNIT SC SCH ×4 (07:30→21:00)
[2022-04-30] MEDS: SYMBICORT 160/4.5MCG INHALER 6GM INH SCH ×2 (08:13→21:14)
[2022-04-30] MEDS: SENNA 8.6 MG TAB (SENOKOT) PO SCH ×2 (09:00→21:22)
[2022-04-30] MEDS: SUCRALFATE 1 GM TAB PO SCH ×4 (09:00→21:20)
[2022-04-30] MEDS: oxyCODONE 5MG TAB PO SCH ×3 (09:00→21:25)
[2022-04-30] MEDS: AMIODARONE 200 MG TAB (PACERONE) PO SCH (09:01)
[2022-04-30] MEDS: PANTOPRAZOLE 40MG TAB (PROTONIX) PO SCH (09:01)
[2022-04-30] MEDS: GABAPENTIN 300 MG CAP PO SCH ×2 (09:01→21:20)
[2022-04-30] MEDS: FOLIC ACID 1MG TAB PO SCH (09:01)
[2022-04-30] MEDS: guaiFENesin ER 600 MG TAB PO SCH ×2 (09:01→21:20)
[2022-04-30] MEDS: LEVEMIR (INSULIN DETEMIR) 1 UNITS/0.01ML SC SCH (09:01)
[2022-04-30] MEDS: AZELASTINE 137MCG NASAL SPY 30 ML (ASTELIN) SCH ×2 (09:02→21:24)
[2022-04-30] MEDS: ANALGESIC BALM CRM 3OZ TOP SCH ×4 (09:02→21:00)
[2022-04-30] MEDS: MIRALAX *UNIT DOSE* 17GM PACKET PO SCH (09:03)
[2022-04-30] MEDS: MEROPENEM INJ 500 MG in IV 1 EA IV SCH ×2 (10:37→21:33)
[2022-04-30 15:10] LABS: BODY FLUID CULTURE Not indicated. (.); LEGIONELLA ANTIGEN URINE Negative (Negative); ORGANISM ID Not indicated. (.); SPECIMEN SOURCE Urine (.); URINE STREP PNEUMONIAE ANTIGEN Negative (Negative)
[2022-04-30] MEDS: ATORVASTATIN 10 MG TAB PO SCH (21:20)
[2022-04-30] MEDS: LATANOPROST 0.005% OPHTH SOLN 2.5 ML OU SCH (21:24)
[2022-05-01] VITALS (8 sets, daily range): BP systolic 104–131; BP diastolic 51–60
[2022-05-01] MEDS: FUROSEMIDE 100MG/10ML VIAL (J1940) IV SCH ×3 (05:07→21:04)
[2022-05-01] MEDS: LEVOTHYROXINE 150MCG TABLET (0.15MG) PO SCH (05:07)
[2022-05-01] MEDS: LEVOTHYROXINE 25MCG TABLET (0.025MG) PO SCH (05:07)
[2022-05-01 06:45] LABS: BASO % 0.2 % (0.0-1.0); EOS # 0.1 10^3/uL (0.0-0.5); HEMATOCRIT 25.9 % (36.0-47.0); HEMOGLOBIN 7.8 g/dl (12.0-15.5); LYMPH # 1.2 10^3/uL (1.5-5.0); LYMPH % 14.3 % (24.0-44.0); MEAN CORPUSCULAR HEMOGLOBIN 28.9 pg (27.0-33.0); MEAN CORPUSCULAR HGB CONC 30.1 g/dl (32.0-36.5); MEAN CORPUSCULAR VOLUME 95.9 fl (80.0-96.0); MONO # 0.6 10^3/uL (0.0-0.8); MONO % 6.6 % (2.0-8.0); NEUTROPHILS # 6.7 10^3/uL (1.5-8.5); NEUTROPHILS % 77.4 % (36.0-66.0); PLATELET COUNT, AUTOMATED 165 10^3/uL (150-450); WHITE BLOOD COUNT 8.6 10^3/uL (4.0-10.0)
[2022-05-01 07:23] LABS: ALBUMIN 2.1 GM/DL (3.2-5.2); BILIRUBIN,TOTAL 0.5 MG/DL (0.2-1.0); CALCIUM LEVEL 7.7 MG/DL (8.8-10.2); CREATININE FOR GFR 2.28 MG/DL (0.55-1.30); GLOMERULAR FILTRATION RATE 22.1 (>39); MAGNESIUM LEVEL 2.1 MG/DL (1.8-2.4); PHOSPHORUS LEVEL 3.1 MG/DL (2.5-4.9); POTASSIUM SERUM 3.8 MEQ/L (3.5-5.1); TOTAL PROTEIN 5.6 GM/DL (6.4-8.2)
[2022-05-01] MEDS: SYMBICORT 160/4.5MCG INHALER 6GM INH SCH ×2 (07:36→20:00)
[2022-05-01] MEDS: INSULIN LISPRO (NovoLOG) PER UNIT SC SCH ×4 (09:18→20:15)
[2022-05-01] MEDS: guaiFENesin ER 600 MG TAB PO SCH ×2 (09:34→20:16)
[2022-05-01] MEDS: FOLIC ACID 1MG TAB PO SCH (09:34)
[2022-05-01] MEDS: GABAPENTIN 300 MG CAP PO SCH ×2 (09:34→20:17)
[2022-05-01] MEDS: SENNA 8.6 MG TAB (SENOKOT) PO SCH ×2 (09:34→20:18)
[2022-05-01] MEDS: MIRALAX *UNIT DOSE* 17GM PACKET PO SCH (09:34)
[2022-05-01] MEDS: PANTOPRAZOLE 40MG TAB (PROTONIX) PO SCH (09:34)
[2022-05-01] MEDS: AMIODARONE 200 MG TAB (PACERONE) PO SCH (09:34)
[2022-05-01] MEDS: SUCRALFATE 1 GM TAB PO SCH ×4 (09:34→20:17)
[2022-05-01] MEDS: MEROPENEM INJ 500 MG in IV 1 EA IV SCH ×2 (09:35→20:19)
[2022-05-01] MEDS: ANALGESIC BALM CRM 3OZ TOP SCH ×4 (09:35→20:19)
[2022-05-01] MEDS: AZELASTINE 137MCG NASAL SPY 30 ML (ASTELIN) SCH ×2 (09:35→20:19)
[2022-05-01] MEDS: oxyCODONE 5MG TAB PO SCH ×3 (09:36→20:17)
[2022-05-01] MEDS: ATORVASTATIN 10 MG TAB PO SCH (20:17)
[2022-05-01] MEDS: LATANOPROST 0.005% OPHTH SOLN 2.5 ML OU SCH (20:18)
[2022-05-02] MEDS: NYSTATIN 100,000 UNITS/GM TOPICAL PWD 15 GM TOP PRN ×2 (04:32→21:06)
[2022-05-02 05:04] VITALS: BP 106/53
[2022-05-02] MEDS: FUROSEMIDE 100MG/10ML VIAL (J1940) IV SCH ×3 (05:06→21:09)
[2022-05-02] MEDS: LEVOTHYROXINE 25MCG TABLET (0.025MG) PO SCH (05:07)
[2022-05-02] MEDS: LEVOTHYROXINE 150MCG TABLET (0.15MG) PO SCH (05:07)
[2022-05-02 06:50] LABS: HEMATOCRIT 31.3 % (36.0-47.0); HEMOGLOBIN 9.6 g/dl (12.0-15.5); MEAN CORPUSCULAR HEMOGLOBIN 28.9 pg (27.0-33.0); MEAN CORPUSCULAR HGB CONC 30.7 g/dl (32.0-36.5); MEAN CORPUSCULAR VOLUME 94.3 fl (80.0-96.0); PLATELET COUNT, AUTOMATED 181 10^3/uL (150-450); RED BLOOD COUNT 3.32 10^6/uL (4.00-5.40); WHITE BLOOD COUNT 10.7 10^3/uL (4.0-10.0)
[2022-05-02 07:24] LABS: BILIRUBIN,TOTAL 0.6 MG/DL (0.2-1.0); CALCIUM LEVEL 7.7 MG/DL (8.8-10.2); CREATININE FOR GFR 2.33 MG/DL (0.55-1.30); GLOMERULAR FILTRATION RATE 21.5 (>39); POTASSIUM SERUM 3.6 MEQ/L (3.5-5.1); TOTAL PROTEIN 5.6 GM/DL (6.4-8.2)
[2022-05-02] MEDS: INSULIN LISPRO (NovoLOG) PER UNIT SC SCH ×4 (07:30→20:37)
[2022-05-02] MEDS: SYMBICORT 160/4.5MCG INHALER 6GM INH SCH ×2 (07:39→19:21)
[2022-05-02] MEDS: MIRALAX *UNIT DOSE* 17GM PACKET PO SCH (08:03)
[2022-05-02] MEDS: PANTOPRAZOLE 40MG TAB (PROTONIX) PO SCH (08:04)
[2022-05-02] MEDS: FOLIC ACID 1MG TAB PO SCH (08:04)
[2022-05-02] MEDS: SUCRALFATE 1 GM TAB PO SCH ×4 (08:04→20:34)
[2022-05-02] MEDS: AMIODARONE 200 MG TAB (PACERONE) PO SCH (08:04)
[2022-05-02] MEDS: SENNA 8.6 MG TAB (SENOKOT) PO SCH ×2 (08:04→20:33)
[2022-05-02] MEDS: GABAPENTIN 300 MG CAP PO SCH ×2 (08:04→20:33)
[2022-05-02] MEDS: MEROPENEM INJ 500 MG in IV 1 EA IV SCH ×2 (08:04→20:35)
[2022-05-02] MEDS: guaiFENesin ER 600 MG TAB PO SCH ×2 (08:04→20:33)
[2022-05-02] MEDS: oxyCODONE 5MG TAB PO SCH ×3 (08:05→20:33)
[2022-05-02] MEDS: AZELASTINE 137MCG NASAL SPY 30 ML (ASTELIN) SCH ×2 (08:05→20:32)
[2022-05-02] MEDS: ANALGESIC BALM CRM 3OZ TOP SCH ×4 (08:06→20:37)
[2022-05-02] MEDS: LATANOPROST 0.005% OPHTH SOLN 2.5 ML OU SCH (20:32)
[2022-05-02] MEDS: ATORVASTATIN 10 MG TAB PO SCH (20:32)
[2022-05-02 20:38] VITALS: BP 114/54
[2022-05-02 20:39] VITALS: BP 114/54
[2022-05-03] MEDS: LEVOTHYROXINE 150MCG TABLET (0.15MG) PO SCH (05:05)
[2022-05-03] MEDS: LEVOTHYROXINE 25MCG TABLET (0.025MG) PO SCH (05:05)
[2022-05-03] MEDS: FUROSEMIDE 100MG/10ML VIAL (J1940) IV SCH ×2 (05:05→15:19)
[2022-05-03 05:07] VITALS: BP 107/52
[2022-05-03] MEDS: SYMBICORT 160/4.5MCG INHALER 6GM INH SCH ×2 (08:00→21:24)
[2022-05-03] MEDS: MIRALAX *UNIT DOSE* 17GM PACKET PO SCH (08:05)
[2022-05-03] MEDS: INSULIN LISPRO (NovoLOG) PER UNIT SC SCH ×4 (08:05→21:00)
[2022-05-03] MEDS: SENNA 8.6 MG TAB (SENOKOT) PO SCH ×2 (08:06→21:39)
[2022-05-03] MEDS: GABAPENTIN 300 MG CAP PO SCH ×2 (08:06→21:39)
[2022-05-03] MEDS: AMIODARONE 200 MG TAB (PACERONE) PO SCH (08:06)
[2022-05-03] MEDS: guaiFENesin ER 600 MG TAB PO SCH ×3 (08:06→21:42)
[2022-05-03] MEDS: AZELASTINE 137MCG NASAL SPY 30 ML (ASTELIN) SCH ×2 (08:06→21:40)
[2022-05-03] MEDS: PANTOPRAZOLE 40MG TAB (PROTONIX) PO SCH (08:06)
[2022-05-03] MEDS: FOLIC ACID 1MG TAB PO SCH (08:06)
[2022-05-03] MEDS: SUCRALFATE 1 GM TAB PO SCH ×4 (08:06→21:39)
[2022-05-03] MEDS: oxyCODONE 5MG TAB PO SCH ×3 (08:07→21:42)
[2022-05-03] MEDS: ANALGESIC BALM CRM 3OZ TOP SCH ×4 (08:07→21:40)
[2022-05-03] MEDS: MEROPENEM INJ 500 MG in IV 1 EA IV SCH ×2 (10:12→21:39)
[2022-05-03 14:00] VITALS: BP 127/75
[2022-05-03] MEDS ORDERED: POTASSIUM CHLORIDE 10MEQ SR TABLET PO ONE (18:15)
[2022-05-03] MEDS: ATORVASTATIN 10 MG TAB PO SCH (21:39)
[2022-05-03] MEDS: LATANOPROST 0.005% OPHTH SOLN 2.5 ML OU SCH (21:40)
[2022-05-03] MEDS: NYSTATIN 100,000 UNITS/GM TOPICAL PWD 15 GM TOP PRN (21:41)
[2022-05-03] MEDS: HEPARIN SOD (PORCINE) 5000UNITS/ML 1ML VIAL/SYRINGE SQ SCH (21:41)
[2022-05-03 22:00] VITALS: BP 108/54
[2022-05-04 05:27] VITALS: BP 119/69
[2022-05-04] MEDS: LEVOTHYROXINE 150MCG TABLET (0.15MG) PO SCH (06:49)
[2022-05-04] MEDS: guaiFENesin 200 MG TAB PO SCH ×5 (06:49→23:12)
[2022-05-04] MEDS: LEVOTHYROXINE 25MCG TABLET (0.025MG) PO SCH (06:49)
[2022-05-04] MEDS: HEPARIN SOD (PORCINE) 5000UNITS/ML 1ML VIAL/SYRINGE SQ SCH ×3 (06:50→23:12)
[2022-05-04] MEDS: FUROSEMIDE 100MG/10ML VIAL (J1940) IV SCH ×2 (06:50→18:50)
[2022-05-04 07:11] LABS: HEMATOCRIT 33.9 % (36.0-47.0); HEMOGLOBIN 10.7 g/dl (12.0-15.5); MEAN CORPUSCULAR HEMOGLOBIN 30.4 pg (27.0-33.0); MEAN CORPUSCULAR HGB CONC 31.6 g/dl (32.0-36.5); MEAN CORPUSCULAR VOLUME 96.3 fl (80.0-96.0); PLATELET COUNT, AUTOMATED 154 10^3/uL (150-450); RED BLOOD COUNT 3.52 10^6/uL (4.00-5.40); WHITE BLOOD COUNT 11.3 10^3/uL (4.0-10.0)
[2022-05-04] MEDS: SYMBICORT 160/4.5MCG INHALER 6GM INH SCH ×2 (07:28→20:51)
[2022-05-04 07:35] LABS: CALCIUM LEVEL 8.2 MG/DL (8.8-10.2); CREATININE FOR GFR 2.38 MG/DL (0.55-1.30); MAGNESIUM LEVEL 2.4 MG/DL (1.8-2.4); POTASSIUM SERUM 4.6 MEQ/L (3.5-5.1)
[2022-05-04] MEDS: MIRALAX *UNIT DOSE* 17GM PACKET PO SCH ×2 (08:18→08:27)
[2022-05-04] MEDS: AMIODARONE 200 MG TAB (PACERONE) PO SCH (08:18)
[2022-05-04] MEDS: GABAPENTIN 300 MG CAP PO SCH ×2 (08:18→23:13)
[2022-05-04] MEDS: ANALGESIC BALM CRM 3OZ TOP SCH ×4 (08:18→22:53)
[2022-05-04] MEDS: NYSTATIN 100,000 UNITS/GM TOPICAL PWD 15 GM TOP PRN (08:18)
[2022-05-04] MEDS: AZELASTINE 137MCG NASAL SPY 30 ML (ASTELIN) SCH ×2 (08:18→23:15)
[2022-05-04] MEDS: SUCRALFATE 1 GM TAB PO SCH ×4 (08:18→23:14)
[2022-05-04] MEDS: FOLIC ACID 1MG TAB PO SCH (08:18)
[2022-05-04] MEDS: SENNA 8.6 MG TAB (SENOKOT) PO SCH ×2 (08:19→23:13)
[2022-05-04] MEDS: PANTOPRAZOLE 40MG TAB (PROTONIX) PO SCH (08:19)
[2022-05-04] MEDS: oxyCODONE 5MG TAB PO SCH ×3 (08:20→23:15)
[2022-05-04] MEDS: INSULIN LISPRO (NovoLOG) PER UNIT SC SCH ×4 (08:20→22:53)
[2022-05-04] MEDS: MEROPENEM INJ 500 MG in IV 1 EA IV SCH (09:46)
[2022-05-04] MEDS ORDERED: LEVO1TAB39 PO (10:53)
[2022-05-04] MEDS ORDERED: TORS20TA2 PO (10:53)
[2022-05-04] MEDS ORDERED: LevoFLOXacin 750 MG TABLET PO ONE (10:55)
[2022-05-04 15:15] LABS: PERCENT SATURATION 23.5 % (13.2-45.0)
[2022-05-04 22:00] VITALS: BP 109/53
[2022-05-04 23:13] VITALS: BP 115/56
[2022-05-04] MEDS: ATORVASTATIN 10 MG TAB PO SCH (23:14)
[2022-05-04] MEDS: LATANOPROST 0.005% OPHTH SOLN 2.5 ML OU SCH (23:15)
[2022-05-05 06:00] VITALS: BP 100/54
[2022-05-05] MEDS: FUROSEMIDE 100MG/10ML VIAL (J1940) IV SCH (07:00)
[2022-05-05] MEDS: guaiFENesin 200 MG TAB PO SCH (07:07)
[2022-05-05] MEDS: LEVOTHYROXINE 25MCG TABLET (0.025MG) PO SCH (07:07)
[2022-05-05] MEDS: LEVOTHYROXINE 150MCG TABLET (0.15MG) PO SCH (07:07)
[2022-05-05] MEDS: HEPARIN SOD (PORCINE) 5000UNITS/ML 1ML VIAL/SYRINGE SQ SCH (07:08)
[2022-05-05] MEDS: INSULIN LISPRO (NovoLOG) PER UNIT SC SCH (07:30)
[2022-05-05] MEDS: SYMBICORT 160/4.5MCG INHALER 6GM INH SCH (07:37)
[2022-05-05 08:31] LABS: HEMATOCRIT 34.2 % (36.0-47.0); HEMOGLOBIN 10.2 g/dl (12.0-15.5); MEAN CORPUSCULAR HEMOGLOBIN 29.9 pg (27.0-33.0); MEAN CORPUSCULAR HGB CONC 29.8 g/dl (32.0-36.5); MEAN CORPUSCULAR VOLUME 100.3 fl (80.0-96.0); PLATELET COUNT, AUTOMATED 175 10^3/uL (150-450); RED BLOOD COUNT 3.41 10^6/uL (4.00-5.40); WHITE BLOOD COUNT 11.2 10^3/uL (4.0-10.0)
[2022-05-05] MEDS: SUCRALFATE 1 GM TAB PO SCH (09:26)
[2022-05-05] MEDS: FOLIC ACID 1MG TAB PO SCH (09:27)
[2022-05-05] MEDS: GABAPENTIN 300 MG CAP PO SCH (09:27)
[2022-05-05] MEDS: PANTOPRAZOLE 40MG TAB (PROTONIX) PO SCH (09:27)
[2022-05-05] MEDS: SENNA 8.6 MG TAB (SENOKOT) PO SCH (09:27)
[2022-05-05] MEDS: AZELASTINE 137MCG NASAL SPY 30 ML (ASTELIN) SCH (09:27)
[2022-05-05] MEDS: AMIODARONE 200 MG TAB (PACERONE) PO SCH (09:27)
[2022-05-05] MEDS: oxyCODONE 5MG TAB PO SCH (09:27)
[2022-05-05] MEDS: ANALGESIC BALM CRM 3OZ TOP SCH (09:28)
[2022-05-05] MEDS: MIRALAX *UNIT DOSE* 17GM PACKET PO SCH (09:28)
[2022-05-06 12:26] LABS: FOLATE 23.6 NG/ML
== END 2022-05-05 10:47 | DRG 291 ==
LOC: EDBD 11:33 → M ED 11:33 → M ED INP 16:16 → EEVIPCON 16:16 → M MSPAV 21:25
PROVIDERS: ADMIT Family Medicine; ATTEND Internal Medicine
PROC: B246ZZZ Ultrasonography of Right and Left Heart (ICD-10-PCS; principal; 2022-04-28)
PROC: 30233N1 Transfusion of Nonautologous Red Blood Cells into Peripheral Vein, Percutaneous Approach (ICD-10-PCS; 2022-04-30)
DX: I13.0 Hypertensive heart and chronic kidney disease with heart failure and stage 1 through stage 4 chronic kidney disease, or unspecified chronic kidney disease (principal); J18.9 Pneumonia, unspecified organism; I50.33 Acute on chronic diastolic (congestive) heart failure; E87.1 Hypo-osmolality and hyponatremia; J44.0 Chronic obstructive pulmonary disease with (acute) lower respiratory infection; K92.2 Gastrointestinal hemorrhage, unspecified; N39.0 Urinary tract infection, site not specified; B96.1 Klebsiella pneumoniae [K. pneumoniae] as the cause of diseases classified elsewhere; E11.22 Type 2 diabetes mellitus with diabetic chronic kidney disease; N18.9 Chronic kidney disease, unspecified; D64.9 Anemia, unspecified; I48.91 Unspecified atrial fibrillation; E03.9 Hypothyroidism, unspecified; Z86.73 Personal history of transient ischemic attack (TIA), and cerebral infarction without residual deficits; Z90.49 Acquired absence of other specified parts of digestive tract; Z90.79 Acquired absence of other genital organ(s); Z98.42 Cataract extraction status, left eye; Z87.891 Personal history of nicotine dependence; K59.00 Constipation, unspecified; K21.9 Gastro-esophageal reflux disease without esophagitis; Z66 Do not resuscitate; Z20.822 Contact with and (suspected) exposure to COVID-19; Z79.4 Long term (current) use of insulin; Z79.890 Hormone replacement therapy; Z79.899 Other long term (current) drug therapy; Z88.0 Allergy status to penicillin; Z88.2 Allergy status to sulfonamides; Z88.5 Allergy status to narcotic agent; Z88.6 Allergy status to analgesic agent; Z91.012 Allergy to eggs; E11.621 Type 2 diabetes mellitus with foot ulcer; L89.619 Pressure ulcer of right heel, unspecified stage; L89.629 Pressure ulcer of left heel, unspecified stage; Z99.81 Dependence on supplemental oxygen

== ENCOUNTER → 2022-05-10 | Outpatient (REF) | payer MEDICAID, MEDICARE ==
[~2022-05-10] MED LIST changes: +APAP325T4 PO; +AZEL1SPR3 NARES; +BENE1POW5 PO; +DULC10SU2 PR; +FLEEENE12 PR; +GLUC1KIT IM; +INSUDET SC; +LEVO1TAB39 PO; +MAALSUS19 PO; +MILKSUS3 PO; +MUSC1CRE TOP; +SENN-111 PO; +SPIR-10 PO
[2022-05-10 11:26] LABS: HEMATOCRIT 30.1 % (36.0-47.0); HEMOGLOBIN 9.4 g/dl (12.0-15.5); MEAN CORPUSCULAR HEMOGLOBIN 30.4 pg (27.0-33.0); MEAN CORPUSCULAR HGB CONC 31.2 g/dl (32.0-36.5); MEAN CORPUSCULAR VOLUME 97.4 fl (80.0-96.0); PLATELET COUNT, AUTOMATED 199 10^3/uL (150-450); RED BLOOD COUNT 3.09 10^6/uL (4.00-5.40); WHITE BLOOD COUNT 10.6 10^3/uL (4.0-10.0)
[2022-05-10 12:25] LABS: ALBUMIN 1.7 GM/DL (3.2-5.2); CREATININE FOR GFR 2.45 MG/DL (0.55-1.30); GLOMERULAR FILTRATION RATE 20.3 (>39); PHOSPHORUS LEVEL 3.1 MG/DL (2.5-4.9); POTASSIUM SERUM 4.8 MEQ/L (3.5-5.1)
== END ==
PROVIDERS: ATTEND Internal Medicine
DX: D64.9 Anemia, unspecified (principal)

== ENCOUNTER → 2022-05-13 | Outpatient (REF) ==
[2022-05-13 12:47] LABS: HEMATOCRIT 33.2 % (36.0-47.0); HEMOGLOBIN 10.4 g/dl (12.0-15.5); MEAN CORPUSCULAR HEMOGLOBIN 30.7 pg (27.0-33.0); MEAN CORPUSCULAR HGB CONC 31.3 g/dl (32.0-36.5); MEAN CORPUSCULAR VOLUME 97.9 fl (80.0-96.0); PLATELET COUNT, AUTOMATED 218 10^3/uL (150-450); RED BLOOD COUNT 3.39 10^6/uL (4.00-5.40); WHITE BLOOD COUNT 13.2 10^3/uL (4.0-10.0)
[2022-05-13 13:26] LABS: ALBUMIN 1.8 GM/DL (3.2-5.2); CALCIUM LEVEL 7.8 MG/DL (8.8-10.2); CREATININE FOR GFR 2.54 MG/DL (0.55-1.30); GLOMERULAR FILTRATION RATE 19.5 (>39); MAGNESIUM LEVEL 2.8 MG/DL (1.8-2.4); PHOSPHORUS LEVEL 3.7 MG/DL (2.5-4.9); POTASSIUM SERUM 5.1 MEQ/L (3.5-5.1)
[2022-05-13 14:12] LABS: PTH INTACT 108.4 PG/ML (18.5-88.0)
== END ==
PROVIDERS: ATTEND Internal Medicine
DX: I50.9 Heart failure, unspecified (principal)

== ENCOUNTER → 2022-05-26 | Outpatient (REF) | payer MEDICARE, MEDICAID ==
[2022-05-26 10:52] LABS: BASO % 0.2 % (0.0-1.0); EOS # 0.1 10^3/uL (0.0-0.5); EOS % 0.7 % (0.0-3.0); HEMOGLOBIN 10.8 g/dl (12.0-15.5); LYMPH # 1.7 10^3/uL (1.5-5.0); LYMPH % 9.2 % (24.0-44.0); MEAN CORPUSCULAR HEMOGLOBIN 30.7 pg (27.0-33.0); MEAN CORPUSCULAR HGB CONC 30.9 g/dl (32.0-36.5); MEAN CORPUSCULAR VOLUME 99.4 fl (80.0-96.0); MONO # 1.1 10^3/uL (0.0-0.8); MONO % 6.2 % (2.0-8.0); NEUTROPHILS # 15.2 10^3/uL (1.5-8.5); NEUTROPHILS % 82.9 % (36.0-66.0); PLATELET COUNT, AUTOMATED 216 10^3/uL (150-450); RED BLOOD COUNT 3.52 10^6/uL (4.00-5.40); WHITE BLOOD COUNT 18.3 10^3/uL (4.0-10.0)
[2022-05-26 11:32] LABS: CALCIUM LEVEL 8.1 MG/DL (8.8-10.2); CREATININE FOR GFR 2.55 MG/DL (0.55-1.30); GLOMERULAR FILTRATION RATE 19.4 (>39); POTASSIUM SERUM 5.6 MEQ/L (3.5-5.1); THYROID STIMULATING HORMONE 21.7 uIU/ML (0.358-3.740)
== END ==
PROVIDERS: ATTEND Internal Medicine
DX: I67.9 Cerebrovascular disease, unspecified (principal); N18.9 Chronic kidney disease, unspecified; I50.9 Heart failure, unspecified